=== PATIENT | male | born 1935 | race Caucasian/White ===

== ENCOUNTER 2016-04-29 08:31 | Inpatient (IN) | payer MEDICARE ==
--- NOTE | 2016-04-29 09:22 | ED ---
General Adult HPI - General Chief complaint: Syncope Stated complaint: syncope Time Seen by Provider: 04/29/16 08:35 Source: patient, RN notes reviewed Mode of arrival: EMS Limitations: altered mental status, physical limitation - History of Present Illness Initial comments: This is a 80-year-old male who presents emergency Department complaining of having diarrhea for the last few days. Patient states she's been eating normally. Patient states he got up transfer from his walker to a chair he was a little bit shaky and he fell over and hit his head according to family at that point in time he was passed out for about 2 minutes. Patient woke up and vomited. Patient currently denies any headache denies numbness weakness he denies any neck pain he denies any nausea he did however receive Zofran in the ambulance. Patient denies any chest pain or palpitations. Patient denies any difficulty breathing shortness of breath. Patient denies any abdominal pain. Patient denies any hip pain or lower extremity pain. Currently patient's only complaint is that he is tired - Related Data Home Medications Medication Instructions Recorded Confirmed Amitriptyline HCl [Elavil] 10 mg PO HS 04/29/16 04/29/16 Aspirin EC [Ecotrin Low Dose] 81 mg PO HS 04/29/16 04/29/16 Clopidogrel [Plavix] 75 mg PO DAILY 04/29/16 04/29/16 Ergocalciferol (Vitamin D2) 50,000 unit PO FR 04/29/16 04/29/16 [Vitamin D2] Escitalopram [Lexapro] 20 mg PO DAILY 04/29/16 04/29/16 Ferrous Sulfate [Feosol] 325 mg PO DAILY 04/29/16 04/29/16 Furosemide [Lasix] 20 mg PO DAILY 04/29/16 04/29/16 Insulin Aspart [NovoLOG Flexpen] 6 units SQ 04/29/16 04/29/16 Insulin Glargine,Hum.rec.anlog 50 unit SQ 04/29/16 04/29/16 [Lantus Solostar] Levofloxacin [Levaquin] 500 mg PO DAILY 04/29/16 04/29/16 Levothyroxine Sodium [Synthroid] 100 mcg PO DAILY 04/29/16 04/29/16 Lisinopril [Zestril] 20 mg PO DAILY 04/29/16 04/29/16 Metoprolol Tartrate [Lopressor] 50 mg PO BID 04/29/16 04/29/16 Multivitamins, Thera [Multivitamin] 1 tab PO DAILY 04/29/16 04/29/16 Omeprazole [PriLOSEC] 20 mg PO AC-BRKFST 04/29/16 04/29/16 Allergies Allergy/AdvReac Type Severity Reaction Status Date / Time No Known Allergies Allergy Verified 04/29/16 09:12 Review of Systems ROS Statement: Those systems with pertinent positive or pertinent negative responses have been documented in the HPI. ROS Other: All systems not noted in ROS Statement are negative. Past Medical History Past Medical History: Heart Failure, Diabetes Mellitus, GERD/Reflux, Hypertension, Pneumonia, Syncope, Thyroid Disorder History of Any Multi-Drug Resistant Organisms: Unobtainable Past Surgical History: Coronary Bypass/CABG Past Psychological History: No Psychological Hx Reported Smoking Status: Unknown if ever smoked Past Alcohol Use History: Unable to Obtain Past Drug Use History: Unable to Obtain General Exam - General Exam Comments Initial Comments: GENERAL: Patient is well-developed and well-nourished. Patient is nontoxic and well- hydrated and is in no acute distress. ENT: Neck is soft and supple. No significant lymphadenopathy is noted. Oropharynx is clear. Moist mucous membranes. Neck has full range of motion without eliciting any pain. EYES: The sclera were anicteric and conjunctiva were pink and moist. Extraocular movements were intact and pupils were equal round and reactive to light. Eyelids were unremarkable. PULMONARY: Unlabored respirations. Good breath sounds bilaterally. No audible rales rhonchi or wheezing was noted. CARDIOVASCULAR: There is a regular rate and rhythm without any murmurs gallops or rubs. ABDOMEN: Soft and nontender with normal bowel sounds. No palpable organomegaly was noted. There is no palpable pulsatile mass. SKIN: Skin is clear with no lesions or rashes and otherwise unremarkable. NEUROLOGIC: Patient is alert and oriented x3. Cranial nerves II through XII are grossly intact. Motor and sensory are also intact. Normal speech, volume and content. Symmetrical smile. MUSCULOSKELETAL: Normal extremities with adequate strength and full range of motion. No lower extremity swelling or edema. No calf tenderness. LYMPHATICS: No significant lymphadenopathy is noted PSYCHIATRIC: Normal psychiatric evaluation. Limitations: altered mental status, physical limitation Course Vital Signs 04/29/16 04/29/16 04/29/16 08:33 08:59 10:00 Temperature 97.2 F L Pulse Rate 80 75 Pulse Rate [ 63 [employer] ] Respiratory 18 18 Rate Blood Pressure 127/71 134/63 O2 Sat by Pulse 98 95 Oximetry 04/29/16 04/29/16 11:02 12:23 Temperature Pulse Rate 80 75 Pulse Rate [ [employer] ] Respiratory 18 16 Rate Blood Pressure 101/71 105/56 O2 Sat by Pulse 100 98 Oximetry Medical Decision Making - Medical Decision Making EKG shows sinus rhythm at 75 bpm. It was 254 QRS is 142 QT interval 476 QTC is 531 patient's EKG shows a right bundle branch block when compared to an old EKG there are no acute abnormalities noted CT of the brain and C-spine showed no acute abnormalities. Patient continues to feel weak when I go back and check on him. I spoke with Dr. Kurtz he agreed to admit the patient admitted the patient and wrote admitting orders - Lab Data Result diagrams: 04/29/16 08:51 04/29/16 08:51 Lab Results 04/29/16 04/29/16 04/29/16 Range/Units 08:51 08:51 08:51 WBC 13.7 H (3.8-10.6) k/uL RBC 4.06 L (4.30-5.90) m/uL Hgb 12.0 L (13.0-17.5) gm/dL Hct 36.5 L (39.0-53.0) % MCV 89.9 (80.0-100.0) fL MCH 29.5 (25.0-35.0) pg MCHC 32.8 (31.0-37.0) g/dL RDW 13.1 (11.5-15.5) % Plt Count 482 H (150-450) k/uL Neutrophils % 76 % Lymphocytes % 14 % Monocytes % 5 % Eosinophils % 2 % Basophils % 1 % Neutrophils # 10.4 H (1.3-7.7) k/uL Lymphocytes # 1.9 (1.0-4.8) k/uL Monocytes # 0.7 (0-1.0) k/uL Eosinophils # 0.2 (0-0.7) k/uL Basophils # 0.1 (0-0.2) k/uL PT (9.0-12.0) sec INR (<1.1) APTT (22.0-30.0) sec Sodium 141 (137-145) mmol/L Potassium 4.1 (3.5-5.1) mmol/L Chloride 102 (98-107) mmol/L Carbon Dioxide 21 L (22-30) mmol/L Anion Gap 18 mmol/L BUN 33 H (9-20) mg/dL Creatinine 2.07 H (0.66-1.25) mg/dL Est GFR (MDRD) Af Amer 38 (>60 ml/min/1.73 sqM) Est GFR (MDRD) Non-Af 31 (>60 ml/min/1.73 sqM) Glucose 155 H (74-99) mg/dL Calcium 8.5 (8.4-10.2) mg/dL Magnesium 1.2 L (1.6-2.3) mg/dL Total Bilirubin 0.6 (0.2-1.3) mg/dL AST 26 (17-59) U/L ALT 38 (21-72) U/L Alkaline Phosphatase 77 (38-126) U/L Total Creatine Kinase 56 (55-170) U/L CK-MB (CK-2) 1.5 (0.0-2.4) ng/mL CK-MB (CK-2) Rel Index 2.7 Troponin I <0.012 (0.000-0.034) ng/mL Total Protein 6.6 (6.3-8.2) g/dL Albumin 3.5 (3.5-5.0) g/dL 04/29/16 Range/Units 08:51 WBC (3.8-10.6) k/uL RBC (4.30-5.90) m/uL Hgb (13.0-17.5) gm/dL Hct (39.0-53.0) % MCV (80.0-100.0) fL MCH (25.0-35.0) pg MCHC (31.0-37.0) g/dL RDW (11.5-15.5) % Plt Count (150-450) k/uL Neutrophils % % Lymphocytes % % Monocytes % % Eosinophils % % Basophils % % Neutrophils # (1.3-7.7) k/uL Lymphocytes # (1.0-4.8) k/uL Monocytes # (0-1.0) k/uL Eosinophils # (0-0.7) k/uL Basophils # (0-0.2) k/uL PT 11.8 (9.0-12.0) sec INR 1.2 (<1.1) APTT 24.4 (22.0-30.0) sec Sodium (137-145) mmol/L Potassium (3.5-5.1) mmol/L Chloride (98-107) mmol/L Carbon Dioxide (22-30) mmol/L Anion Gap mmol/L BUN (9-20) mg/dL Creatinine (0.66-1.25) mg/dL Est GFR (MDRD) Af Amer (>60 ml/min/1.73 sqM) Est GFR (MDRD) Non-Af (>60 ml/min/1.73 sqM) Glucose (74-99) mg/dL Calcium (8.4-10.2) mg/dL Magnesium (1.6-2.3) mg/dL Total Bilirubin (0.2-1.3) mg/dL AST (17-59) U/L ALT (21-72) U/L Alkaline Phosphatase (38-126) U/L Total Creatine Kinase (55-170) U/L CK-MB (CK-2) (0.0-2.4) ng/mL CK-MB (CK-2) Rel Index Troponin I (0.000-0.034) ng/mL Total Protein (6.3-8.2) g/dL Albumin (3.5-5.0) g/dL Disposition Clinical Impression: Syncope, Hypomagnesemia Disposition: ADMITTED IP TO THIS [facility] Time of Disposition: 12:35
[2016-04-29 09:39] LABS: Basophils # (A) 0.1 k/uL (0-0.2); Basophils % (A) 1 %; CH 30.5; Eosinophils # (A) 0.2 k/uL (0-0.7); Eosinophils % (A) 2 %; HCT 36.5 % (39.0-53.0); HDW 2.87; Luc # (Auto) 0.39; Luc % (Auto) 3; Lymphocytes # (A) 1.9 k/uL (1.0-4.8); Lymphocytes % (A) 14 %; MCH 29.5 pg (25.0-35.0); MCHC 32.8 g/dL (31.0-37.0); MCV 89.9 fL (80.0-100.0); Mean Platelet Volume 6.7; Monocytes # (A) 0.7 k/uL (0-1.0); Monocytes % (A) 5 %; Neutrophils # (A) 10.4 k/uL (1.3-7.7); Neutrophils % (A) 76 %; RBC 4.06 m/uL (4.30-5.90); RDW 13.1 % (11.5-15.5); WBC 13.7 k/uL (3.8-10.6); WBC (Perox) 14.57
[2016-04-29 09:47] LABS: INR 1.2 (<1.1); Partial Thromboplastin Time 24.4 sec (22.0-30.0); Prothrombin Time 11.8 sec (9.0-12.0)
[2016-04-29 09:53] LABS: Calcium 8.5 mg/dL (8.4-10.2); Magnesium 1.2 mg/dL (1.6-2.3); Potassium 4.1 mmol/L (3.5-5.1); Total Bilirubin 0.6 mg/dL (0.2-1.3); Total Protein 6.6 g/dL (6.3-8.2)
[2016-04-29 10:12] LABS: Creatine Kinase 56 U/L (55-170)
[2016-04-29 10:22] LABS: Creatine Kinase MB 1.5 ng/mL (0.0-2.4); Troponin I <0.012 ng/mL (0.000-0.034)
--- NOTE | 2016-04-29 10:35 | CT ---
EXAMINATION TYPE: CT brain gayle wo con DATE OF EXAM: 04/29/2016 9:58 AM COMPARISON: 08/20/2013 HISTORY: Patient poor historian. Patient had syncopeal fall. CT DLP: 1389.5 mGycm, Automated exposure control for dose reduction was used. CONTRAST: None CT of the brain is performed utilizing 3 mm thick sections through the posterior fossa and 3 mm thick sections through the remaining calvarium. Study is performed within 24 hours of arrival to the hospital. No abnormal hyperdensity is present to suggest an acute intracranial hemorrhage. No mass lesion is evident. No acute infarcts are evident. Periventricular white matter hypodensity is present compatible with c hronic white matter ischemic changes. [place] infarct is present on the right parietal-occipita l region. This is old. Ventricles and sulci are prominent for the patient age. Paranasal sinuses and mastoid air cells within the [id number] are clear. IMPRESSIONS: 1. Normal CT brain. CT cervical spine. COMPARISON: None CT of the cervical spine is performed in the axial plane at 2 mm thick sections. Reconstructed image s in the coronal, and sagittal plane are reviewed on the computer. No acute fractures are evident. There is straightening of the cervical spine. Endplate spurring is present C3-C4 with moderate anterior thecal sac compression. Foraminal stenosis is present bilaterally. Mild foraminal narrowing from uncovertebral joint hypertrophy is present C4-C 5. Uncovertebral joint hypertrophy is moderate foraminal narrowing C6-C7 on the left. Diffuse loss of disc height is present throughout the cervical spine. Vertebral body heights are preserved. No spinal canal stenosis is evident. Some central disc bulging may be present C4-C5 with moderate anterior thecal sac compression borderli ne spinal canal narrowing may be present. C5-6 endplate spurring is in the left paracentral region IMPRESSIONS: 1. Degenerative disc changes. 2. Foraminal narrowing upper cervical spine discussed above. 3. Endplate spurring with some mild to moderate anterior thecal sac compression at C3-C4. 4. Central disc bulging C4-5 with moderate anterior thecal sac compression and spinal canal narrowing
--- NOTE | 2016-04-29 11:56 | XR ---
EXAMINATION TYPE: XR chest 2V DATE OF EXAM: 04/29/2016 11:28 AM COMPARISON: Prior chest x-ray 23 April 2016 HISTORY: Shortness of breath and chest pain TECHNIQUE: Frontal and lateral views of the chest are obtained on 3 images. FINDINGS: There is no focal air space opacity, pleural effusion, or pneumothorax seen. The cardiac silhouette size is within normal limits. Surgical clips in the right upper abdomen. Patient is post m edian sternotomy. Patient is rotated and there are overlying cardiac leads. Persistent elevation of t he left hemidiaphragm. The osseous structures are intact. IMPRESSION: No acute cardiopulmonary process.
[2016-04-29] MEDS ORDERED: SODIUM CHLORIDE 0.9% 1,000 ML IV ONE (12:35)
[2016-04-29] MEDS ORDERED: MAGNESIUM SULFATE-D5W PMX 1 GM in DEXTROSE/WATER 1 100ML.BAG IVPB ONE (12:47)
[2016-04-29 17:32] LABS: Glucose,Whole Blood 136 mg/dL (75-99)
[2016-04-29] MEDS: INSULIN LISPRO (humaLOG) 300 UNIT/3 ML VIAL SQ SCH ×2 (18:16→20:38)
[2016-04-29 20:38] LABS: Glucose,Whole Blood 125 mg/dL (75-99)
[2016-04-29] MEDS: INSULIN GLARGINE 100 UNIT/ML 10 ML VIAL SQ SCH (20:46)
[2016-04-29] MEDS: AMITRIPTYLINE HCL 10 MG TAB PO SCH (20:47)
[2016-04-29] MEDS: METOPROLOL TARTRATE 50 MG TAB PO SCH (20:47)
[2016-04-29] MEDS: ASPIRIN 81 MG CHEW PO SCH (20:47)
[2016-04-30] MEDS: LEVOTHYROXINE 100 MCG TAB PO SCH (05:58)
[2016-04-30 07:33] LABS: Glucose,Whole Blood 113 mg/dL (75-99)
[2016-04-30] MEDS: INSULIN LISPRO (humaLOG) 300 UNIT/3 ML VIAL SQ SCH ×4 (08:32→22:35)
[2016-04-30] MEDS: PANTOPRAZOLE 40 MG TABLET PO SCH (09:05)
[2016-04-30] MEDS: METOPROLOL TARTRATE 50 MG TAB PO SCH ×2 (09:05→22:34)
[2016-04-30] MEDS: CLOPIDOGREL 75 MG TAB PO SCH (09:05)
[2016-04-30] MEDS: LISINOPRIL 20 MG TAB PO SCH (09:05)
[2016-04-30] MEDS: FUROSEMIDE 20 MG TAB PO SCH (09:05)
[2016-04-30] MEDS: ESCITALOPRAM 20 MG TAB PO SCH (09:06)
[2016-04-30 10:28] LABS: Hemoglobin A1C 7.3 % (4.2-6.1)
[2016-04-30 11:15] LABS: Glucose,Whole Blood 122 mg/dL (75-99)
[2016-04-30] MEDS: MULTIVITAMINS, THERA 1 EACH TAB PO SCH (12:35)
[2016-04-30] MEDS: FERROUS SULFATE 325 MG TAB PO SCH (12:35)
[2016-04-30 13:02] LABS: Basophils # (A) 0.1 k/uL (0-0.2); Basophils % (A) 1 %; CH 29.9; Eosinophils # (A) 0.3 k/uL (0-0.7); Eosinophils % (A) 3 %; HCT 31.1 % (39.0-53.0); HDW 2.77; HGB 10.2 gm/dL (13.0-17.5); Hypochromasia Slight; Luc % (Auto) 3; Lymphocytes # (A) 1.9 k/uL (1.0-4.8); Lymphocytes % (A) 20 %; MCH 30.6 pg (25.0-35.0); MCHC 32.7 g/dL (31.0-37.0); MCV 93.7 fL (80.0-100.0); Mean Platelet Volume 7.2; Monocytes # (A) 0.6 k/uL (0-1.0); Monocytes % (A) 7 %; Neutrophils # (A) 6.5 k/uL (1.3-7.7); Neutrophils % (A) 67 %; RBC 3.32 m/uL (4.30-5.90); WBC 9.7 k/uL (3.8-10.6); WBC (Perox) 10.54
--- NOTE | 2016-04-30 13:03 | P.HPIM ---
History of Present Illness H&P Date: 04/30/16 Chief Complaint: Vomiting and diarrhea Patient is a 80-year-old male who presented to [facility] emergency room due to episodes of vomiting and diarrhea, subsequently patient had an episode of syncope where he fell to the floor family states that he subsequently hit his head, he was unconscious for about 2 minutes per family report to emergency room, he regained consciousness spontaneously, he was evaluated in the emergency room including computed tomography scan of the brain which failed to revealed any evidence of acute intracranial bleeding. Patient had evidence of dehydration he was admitted to medical floor for further evaluation and treatment. Patient has a known history of peripheral vascular disease he has been evaluated by Dr. Gutierrez he was scheduled to have vascular surgery on his lower extremity on Thursday. Past Medical History Past Medical History: Coronary Artery Disease (CAD), Heart Failure, Diabetes Mellitus, GERD/Reflux, Hypertension, Osteoarthritis (OA), Pneumonia, Syncope, Thyroid Disorder, Vascular Disorder Additional Past Medical History / Comment(s): Family states pt recently hospitalized for pneumonia. Pt currently has a sore on his R foot's great toe. 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 History of Any Multi-Drug Resistant Organisms: None Reported Past Surgical History: Cholecystectomy, Coronary Bypass/CABG, Heart Catheterization Additional Past Surgical History / Comment(s): Recent angiogram. Past Anesthesia/Blood Transfusion Reactions: No Reported Reaction Past Psychological History: Depression Additional Psychological History / Comment(s): Pt resides with his daughter and son-in-law. He uses a walker to ambulate. He no longer drives. His daughter manages his medication and takes him to appts. Smoking Status: Never smoker Past Alcohol Use History: None Reported Past Drug Use History: None Reported - Past Family History Father Additional Family Medical History / Comment(s): Father committed suicide. Medications and Allergies Home Medications Medication Instructions Recorded Confirmed Type Amitriptyline HCl [Elavil] 10 mg PO HS 04/29/16 04/29/16 History Aspirin EC [Ecotrin Low Dose] 81 mg PO HS 04/29/16 04/29/16 History Clopidogrel [Plavix] 75 mg PO DAILY 04/29/16 04/29/16 History Ergocalciferol (Vitamin D2) 50,000 unit PO FR 04/29/16 04/29/16 History [Vitamin D2] Escitalopram [Lexapro] 20 mg PO DAILY 04/29/16 04/29/16 History Ferrous Sulfate [Feosol] 325 mg PO DAILY 04/29/16 04/29/16 History Furosemide [Lasix] 20 mg PO DAILY 04/29/16 04/29/16 History Insulin Aspart [NovoLOG Flexpen] 6 units SQ HS 04/29/16 04/29/16 History Insulin Glargine,Hum.rec.anlog 50 unit SQ HS 04/29/16 04/29/16 History [Lantus Solostar] Levofloxacin [Levaquin] 500 mg PO DAILY 04/29/16 04/29/16 History Levothyroxine Sodium [Synthroid] 100 mcg PO DAILY 04/29/16 04/29/16 History Lisinopril [Zestril] 20 mg PO DAILY 04/29/16 04/29/16 History Metoprolol Tartrate [Lopressor] 50 mg PO BID 04/29/16 04/29/16 History Multivitamins, Thera [Multivitamin] 1 tab PO DAILY 04/29/16 04/29/16 History Omeprazole [PriLOSEC] 20 mg PO AC-BRKFST 04/29/16 04/29/16 History Allergies Allergy/AdvReac Type Severity Reaction Status Date / Time No Known Allergies Allergy Verified 04/29/16 09:12 Physical Exam Vitals: Vital Signs Temp Pulse Pulse Pulse Resp BP BP 04/30/16 07:00 97.9 F 67 20 122/57 04/29/16 22:50 98 F 74 16 119/59 04/29/16 16:34 97.6 F 73 16 137/68 04/29/16 13:02 97.0 F L 72 16 108/56 Pulse Ox 04/30/16 07:00 96 04/29/16 22:50 93 L 04/29/16 16:34 99 04/29/16 13:02 98 Intake and Output 04/29/16 04/30/16 04/30/16 22:59 06:59 14:59 Intake Total 150 540 Output Total 700 Balance 150 -160 Intake: IV 150 Sodium Chloride 0.9% 1, 150 000 ml @ 75 mls/hr IV . [id number] ONE Rx#:[id number] Oral 540 Output: Urine 700 Other: Voiding Method Diaper Diaper # Voids 1 Weight 99 kg In general patient is alert responsive he is answering questions appropriately he is very hard of hearing HEENT head normocephalic and atraumatic Neck is supple no JVD no goiter no lymphadenopathy Chest exam reveals a few scattered rhonchi no wheezing Cardiac exam reveals regular heart sounds S1 and S2 no gallops no murmurs Abdomen is soft nontender no organomegaly with normal bowel sounds Extremity exam reveals no edema no cyanosis or clubbing there is an ulcer on the right foot, which was present on the previous admission. Neurological examination reveals no focal deficit Results CBC & Chem 7: 04/29/16 08:51 04/29/16 08:51 Labs: Abnormal Lab Results - Last 24 Hours (Table) 04/29/16 04/29/16 04/30/16 Range/Units 17:26 20:26 07:20 POC Glucose (mg/dL) 136 H 125 H 113 H (75-99) mg/dL Hemoglobin A1c (4.2-6.1) % 04/30/16 04/30/16 Range/Units 07:48 11:12 POC Glucose (mg/dL) 122 H (75-99) mg/dL Hemoglobin A1c 7.3 H (4.2-6.1) % Thrombosis Risk Factor Assmnt - Choose All That Apply Any of the Below Risk Factors Present?: Yes Each Factor Represents 1 point: Obesity (BMI >25) Other Risk Factors: Yes Each Risk Factor Represents 3 Points: Age 75 years or older Other congenital or acquired thrombophilia - If yes, enter type in comment: No Thrombosis Risk Factor Assessment Total Risk Factor Score: 4 Thrombosis Risk Factor Assessment Level: Moderate Risk Assessment and Plan Plan: #1 episodes of vomiting and diarrhea now resolved, possible gastroenteritis will monitor closely, will obtain ultrasound of the abdomen. #2 syncope was loss of consciousness, with fall and head trauma, likely related to vomiting diarrhea and dehydration, will obtain echocardiogram and carotid Doppler to rule out any further pathology, Will consult cardiology in that regard to syncope and for surgical clearance patient is scheduled for vascular surgery on his right lower extremity on Thursday. #3 peripheral vascular disease patient was evaluated on previous admission by Dr. Gutierrez. #4 right foot ulcer #5 underlying history of insulin-dependent diabetes mellitus #6 underlying history of hypertension #7 underlying history of anemia #8 underlying history of chronic kidney disease creatinine on admission around 2 Medication and labs were reviewed will add Lovenox for DVT prophylaxis will follow closely during this admission Cardiology consult was requested Dr. Gutierrez will follow and he is hoping to keep date for of surgery on Thursday if patient is cleared for surgery.
[2016-04-30 13:07] LABS: Calcium 8.2 mg/dL (8.4-10.2); Potassium 3.8 mmol/L (3.5-5.1); Total Bilirubin 0.4 mg/dL (0.2-1.3); Total Protein 5.7 g/dL (6.3-8.2)
--- NOTE | 2016-04-30 16:14 | US ---
EXAMINATION TYPE: US carotid duplex BILAT DATE OF EXAM: 04/30/2016 1:40 PM COMPARISON: NONE CLINICAL HISTORY: syncope. EXAM MEASUREMENTS: RIGHT: Peak Systolic Velocity (PSV) cm/sec ----- Right CCA: 60.2 ----- Right ICA: 84.8 ----- Right ECA: 50.3 ICA/CCA ratio: 1.4 RIGHT: End Diastole cm/sec ----- Right CCA: 15.9 ----- Right ICA: 19.2 ----- Right ECA: 0.0 LEFT: Peak Systolic Velocity (PSV) cm/sec ----- Left CCA: 83.3 ----- Left ICA: 72.9 ----- Left ECA: 84.7 ICA/CCA ratio: 0.9 LEFT: End Diastole cm/sec ----- Left CCA: 0.0 ----- Left ICA: 15.4 ----- Left ECA: 0.0 VERTEBRALS (direction of flow): Right Vertebral: Antegrade Left Vertebral: Antegrade TECHNOLOGIST IMPRESSION: Tortuous vessels on the right, left side shows no significant velocity incr ease, however left ICA velocities at mid and distal are quite low and there is only thready flow seen here. IMPRESSION: Thready flow in the left ICA may represent a near occlusion. Further follow-up with CTA or MRA of the neck would be suggested. Criteria for Assigning % of Stenosis / Diameter reduction (Estimation based on the indirect measurements of the internal carotid artery velocities (ICA PSV). 1. Normal (no stenosis)=ICA PSV < 125 cm/s: ratio < 2.0: ICA EDV<40 cm/s. 2. Less than 50% stenosis=ICA PSV < 125 cm/s: ratio < 2.0: ICA EDV<40 cm/s. 3. 50 to 69% stenosis=ICA PSV of 125 to 230 cm/s: ration 2.0 ? 4.0: ICA EDV 40-100 cm/s. 4. Greater than 70% stenosis to near occlusion= ICA PSV > 230 cm/s: ratio > 4.0: ICA EDV > 100 cm/s. 5. Near occlusion= ICA PSV velocities may be low or undetectable: variable ratio and ICA EDV. 6. Total occlusion=unable to detect flow.
[2016-04-30 17:12] LABS: Glucose,Whole Blood 150 mg/dL (75-99)
[2016-04-30] MEDS: ENOXAPARIN 40 MG/0.4 ML SYRINGE SQ SCH (17:56)
[2016-04-30 21:16] LABS: Glucose,Whole Blood 140 mg/dL (75-99)
[2016-04-30] MEDS: ASPIRIN 81 MG CHEW PO SCH (22:35)
[2016-04-30] MEDS: AMITRIPTYLINE HCL 10 MG TAB PO SCH (22:35)
[2016-04-30] MEDS: INSULIN GLARGINE 100 UNIT/ML 10 ML VIAL SQ SCH (22:35)
[2016-05-01] MEDS: LEVOTHYROXINE 100 MCG TAB PO SCH (05:46)
[2016-05-01 07:59] LABS: Basophils # (A) 0.1 k/uL (0-0.2); Basophils % (A) 1 %; CH 30.4; CHCM 33.2; Eosinophils # (A) 0.3 k/uL (0-0.7); Eosinophils % (A) 3 %; HCT 31.7 % (39.0-53.0); HDW 2.81; HGB 10.1 gm/dL (13.0-17.5); Luc # (Auto) 0.28; Luc % (Auto) 3; Lymphocytes # (A) 2.2 k/uL (1.0-4.8); Lymphocytes % (A) 23 %; MCH 29.4 pg (25.0-35.0); MCHC 31.9 g/dL (31.0-37.0); MCV 92.2 fL (80.0-100.0); Mean Platelet Volume 7.6; Monocytes # (A) 0.6 k/uL (0-1.0); Monocytes % (A) 7 %; Neutrophils # (A) 6.3 k/uL (1.3-7.7); Neutrophils % (A) 64 %; RBC 3.44 m/uL (4.30-5.90); RDW 12.9 % (11.5-15.5); WBC 9.8 k/uL (3.8-10.6); WBC (Perox) 10.57
[2016-05-01 08:13] LABS: Glucose,Whole Blood 99 mg/dL (75-99)
[2016-05-01 08:13] LABS: Calcium 8.7 mg/dL (8.4-10.2); Potassium 4.4 mmol/L (3.5-5.1); Total Bilirubin 0.4 mg/dL (0.2-1.3); Total Protein 5.9 g/dL (6.3-8.2)
[2016-05-01] MEDS: INSULIN LISPRO (humaLOG) 300 UNIT/3 ML VIAL SQ SCH ×4 (08:32→20:53)
[2016-05-01] MEDS: PANTOPRAZOLE 40 MG TABLET PO SCH (08:34)
[2016-05-01] MEDS: ENOXAPARIN 40 MG/0.4 ML SYRINGE SQ SCH (08:34)
[2016-05-01] MEDS: ESCITALOPRAM 20 MG TAB PO SCH (08:34)
[2016-05-01] MEDS: CLOPIDOGREL 75 MG TAB PO SCH (08:34)
[2016-05-01] MEDS: FUROSEMIDE 20 MG TAB PO SCH (08:35)
[2016-05-01] MEDS: METOPROLOL TARTRATE 50 MG TAB PO SCH ×2 (08:35→20:53)
[2016-05-01] MEDS: LISINOPRIL 20 MG TAB PO SCH (08:35)
--- NOTE | 2016-05-01 08:59 | US ---
EXAMINATION TYPE: US abdomen complete DATE OF EXAM: 05/01/2016 7:50 AM COMPARISON: NONE CLINICAL HISTORY: Nausea/Vomiting. EXAM MEASUREMENTS: Liver Length: 17.1 cm Gallbladder Wall: Surgically Absent CBD: 0.4 cm Spleen: 11.8 cm Right Kidney: 11.1 x 5.4 x 4.7 cm Left Kidney: 11.6 x 5.4 x 5.2 cm ANATOMY: Pancreas: Not seen d/t overlying bowel gas. Liver: Partially obscured by bowel gas. Fatty liver with increased echogenicity. ? cyst adjacent to GB fossa = 2.8 x 2.0 x 1.8 cm Gallbladder: Surgically Absent Evidence for sonographic Walker's sign: No CBD: wnl Spleen: Difficult to evaluate d/t overlying bowel gas Right Kidney: wnl Left Kidney: 3 cysts seen:Medial Mid = 1.2 x 0.9 x 1.1 cm, Medial/lower = 2.2 x 2.2 x 2.2 cm, Medial /Mid = 1.2 x 0.8 x 1.1 cm Upper IVC: Difficult to evaluate d/t overlying bowel gas Abd Aorta: Partially obscured by bowel gas. No obvious AAA The liver is heterogenous compatible with fatty liver. Cyst noted adjacent to the gallbladder fossa. The intrahepatic portion of the IVC and proximal abdominal aorta are within normal limits. There is no evidence of cholelithiasis. Common bile duct is unremarkable. The spleen is difficult to visuali ze as is the pancreas. Kidneys are symmetric and free of hydronephrosis. Bilateral renal cystic lesio ns as detailed above.. IMPRESSION: 1. Fatty liver. 2. Simple cyst of the liver. 3. Bilateral renal cysts. Normal Values: Liver Length: < 16cm wnl, 17-18cm upper limits, >18cm enlarged Spleen Length = < 13cm Renal Length = 9 - 12cm GB Wall: < 0.3cm CBD: < 0.6cm or < 1.0cm post cholecystectomy
--- NOTE | 2016-05-01 10:18 | ECHOF ---
Referral Reason:syncope MEASUREMENTS -------- HEIGHT: 177.8 cm WEIGHT: 98.9 kg BP: 122/57 RVIDd: 3.4 cm (< 3.3) IVSd: 1.0 cm (0.6 - 1.1) LVIDd: 5.1 cm (3.9 - 5.3) LVPWd: 1.1 cm (0.6 - 1.1) IVSs: 1.4 cm LVIDs: 3.1 cm LVPWs: 1.6 cm LA Diam: 4.0 cm (2.7 - 3.8) LAESV Index (A-L): 22.22 ml/m Ao Diam: 3.8 cm (2.0 - 3.7) AV Cusp: 2.2 cm (1.5 - 2.6) MV EXCURSION: 22.907 mm (> 18.000) MV EF SLOPE: 108 mm/s (70 - 150) EPSS: 2.3 cm MV E Myron: 0.74 m/s MV DecT: 171 ms MV A Myron: 0.48 m/s MV E/A Ratio: 1.55 FINDINGS -------- Sinus rhythm. This was a technically adequate study. The left ventricular size is normal. There is borderline concentric left ventricular hypertrophy. Overall left ventricular systolic function is normal with, an EF between 55 - 60 %. The right ventricle is mildly enlarged. The left atrium is normal in size. Normal LA size by volume 22+/-6 ml/m2. The right atrium is normal in size. Aortic valve is trileaflet and is mildly thickened. The mitral valve leaflets are mildly thickened. Mild mitral annular calcification present. Mild mitral regurgitation is present. The tricuspid valve appears structurally normal. The pulmonic valve is normal. There is no pulmonic regurgitation present. The aortic root is dilated measuring 3.8cm. There is no pericardial effusion. CONCLUSIONS -------- 1. Sinus rhythm. 2. The mitral valve leaflets are mildly thickened. 3. Mild mitral annular calcification present. 4. Mild mitral regurgitation is present. 5. The tricuspid valve appears structurally normal. 6. The pulmonic valve is normal. 7. The aortic root is dilated measuring 3.8cm. 8. There is no pericardial effusion. 9. This was a technically adequate study. 10. The left ventricular size is normal. 11. There is borderline concentric left ventricular hypertrophy. 12. Overall left ventricular systolic function is normal with, an EF between 55 - 60 %. 13. The right ventricle is mildly enlarged. 14. Normal LA size by volume 22+/-6 ml/m2. 15. The right atrium is normal in size. 16. Aortic valve is trileaflet and is mildly thickened. BRICK [employer] BLOCK MAKER: Yoko Sandy RDCS
--- NOTE | 2016-05-01 10:46 | P.PN ---
Subjective Is a 80-year-old who presented with vomiting and diarrhea. Found to be dehydrated. Also had a syncopal episode. Vomiting diarrhea has resolved. Awaiting evaluation by Dr. Gutierrez infectious disease and cardiology. Patient sitting up in bed comfortably. Denies any pain. Denies any chest pain or shortness of breath. Denies a nausea vomiting. No further diarrhea. Asking when he can eat. Denies any difficulty urinating. Objective - Vital Signs Vital signs: Vital Signs Temp 98 F 05/01/16 07:00 Pulse 65 05/01/16 07:00 Resp 16 05/01/16 07:00 BP 122/66 05/01/16 07:00 Pulse Ox 94 L 05/01/16 07:00 Intake & Output 04/30/16 05/01/16 05/01/16 18:59 06:59 18:59 Intake Total 240 Output Total 150 Balance -150 240 Weight 103 kg Intake: Oral 240 Output: Urine 150 Other: Voiding Method Diaper Diaper Diaper # Voids 2 4 - Exam Head normocephalic Neck supple Lungs clear to auscultation bilaterally no wheezing or crackles Heart regular rate and rhythm S1-S2, no rub or gallop Abdomen is soft nontender nondistended positive bowel sounds no hepatosplenomegaly Extremities no edema. Gangrene on right great toe Neuro alert and orientated to 3 - Labs CBC & Chem 7: 05/01/16 07:15 05/01/16 07:15 Labs: Abnormal Lab Results - Last 24 Hours (Table) 04/30/16 04/30/16 04/30/16 Range/Units 07:48 07:48 07:48 RBC 3.32 L (4.30-5.90) m/uL Hgb 10.2 L (13.0-17.5) gm/dL Hct 31.1 L (39.0-53.0) % BUN 25 H (9-20) mg/dL Creatinine 1.61 H (0.66-1.25) mg/dL Glucose 105 H (74-99) mg/dL POC Glucose (mg/dL) (75-99) mg/dL Hemoglobin A1c 7.3 H (4.2-6.1) % Calcium 8.2 L (8.4-10.2) mg/dL Magnesium (1.6-2.3) mg/dL Total Protein 5.7 L (6.3-8.2) g/dL Albumin 2.9 L (3.5-5.0) g/dL 04/30/16 04/30/16 04/30/16 Range/Units 11:12 17:10 21:02 RBC (4.30-5.90) m/uL Hgb (13.0-17.5) gm/dL Hct (39.0-53.0) % BUN (9-20) mg/dL Creatinine (0.66-1.25) mg/dL Glucose (74-99) mg/dL POC Glucose (mg/dL) 122 H 150 H 140 H (75-99) mg/dL Hemoglobin A1c (4.2-6.1) % Calcium (8.4-10.2) mg/dL Magnesium (1.6-2.3) mg/dL Total Protein (6.3-8.2) g/dL Albumin (3.5-5.0) g/dL 05/01/16 05/01/16 05/01/16 Range/Units 07:15 07:15 07:15 RBC 3.44 L (4.30-5.90) m/uL Hgb 10.1 L (13.0-17.5) gm/dL Hct 31.7 L (39.0-53.0) % BUN 25 H (9-20) mg/dL Creatinine 1.41 H (0.66-1.25) mg/dL Glucose (74-99) mg/dL POC Glucose (mg/dL) (75-99) mg/dL Hemoglobin A1c (4.2-6.1) % Calcium (8.4-10.2) mg/dL Magnesium 1.4 L (1.6-2.3) mg/dL Total Protein 5.9 L (6.3-8.2) g/dL Albumin 3.0 L (3.5-5.0) g/dL Assessment and Plan Plan: 1. Vomiting and diarrhea likely secondary to viral gastroenteritis. Has now resolved. Abdominal ultrasound showing no acute abnormalities. There is fatty liver. Simple cyst of the liver. Bilateral renal cysts. Infectious disease consulted 2. Syncope with fall and head trauma. Likely secondary to patient's dehydration with vomiting and diarrhea. Cardiology was consulted. Patient was also noted to have left internal carotid artery near occlusion. This also may contribute to his syncope. Echo shows EF of 55-60%. Computed tomography scan the brain was normal. 3. 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 We'll await evaluation by vascular surgery 4. Peripheral vascular disease with gangrene of the right great toe. Patient process scheduled for surgery tomorrow. Aspirin and Plavix just been put on hold. Awaiting cardiology evaluation for clearance for surgery 5. Acute on chronic kidney disease, stage IIIa. Continue with IV fluids normal saline at 50 mL an hour 6. Essential hypertension 7. Insulin-dependent diabetes mellitus: Continue with Lantus and sliding scale coverage 8. Hypothyroidism continue Synthroid DVT prophylaxis Lovenox
--- NOTE | 2016-05-01 11:21 | CONS ---
DATE OF CONSULTATION: 04/30/2016 Reason for consultation is nausea, vomiting and leukocytosis. HISTORY OF PRESENT ILLNESS: The patient is a 80-year-old male who has been brought into the ER after the patient apparently passed out at home. Patient apparently has a problem with vomiting and diarrhea that has been going on for a day or 2. Patient did have an episode of syncope where he fell to the ground and was down for about 2 minutes. He regained consciousness and was brought into the ER. Patient subsequently had a CT of the brain that was negative for any bleed. The patient also has a necrotic right big toe and a necrotic patch on his right foot lateral border for which the patient has been evaluated by Dr. Gutierrez and was scheduled to undergo surgery for the same on Thursday. Patient did have elevated white count of 13.4 on admission but no high-grade fever. I was asked to see the patient for further recommendation regarding antibiotic therapy. REVIEW OF SYSTEMS: CONSTITUTIONAL: Positive for weakness, but no high-grade fever. EYES: No complaint. ENT: No complaint. RESPIRATORY: No complaint. CARDIOVASCULAR: No complaint. GENITOURINARY: No complaint. GASTROINTESTINAL: As per HPI. MUSCULOSKELETAL: No complaint. INTEGUMENTARY: As per HPI. PSYCHOLOGIC: No complaint. ENDOCRINE: No complaint. NEUROLOGIC: No complaint. PAST MEDICAL HISTORY: Coronary artery disease, diabetes mellitus, gastroesophageal reflux disease, hypertension, osteoarthritis, pneumonia, syncope, peripheral arterial disease and depression. PAST SURGICAL HISTORY: Cholecystectomy, coronary artery bypass grafting, heart catheterization. SOCIAL HISTORY: No history of smoking, drinking or drug use. FAMILY HISTORY: Father committed suicide. ALLERGIES: No known drug allergies. Medications currently include the patient is on Elavil, aspirin, Plavix, Lovenox, Lexapro, iron sulfate, Lasix, Lantus, Humalog, Synthroid, Zestril, Lopressor, Theragran, and Protonix. On examination, blood pressure is 120/56 with a pulse of 71, temperature of 97.9 and no fever has been recorded. He is 94% on room air. General description is an elderly male, lying in bed in no distress. HEENT EXAMINATION: Slight pallor. There is no scleral icterus. Oral mucous membranes dry. NECK: Trachea central. There is no thyromegaly. LUNGS: Unlabored breathing. Clear to auscultation anteriorly. HEART: S1, S2, regular rate and rhythm. ABDOMEN: Soft, no tenderness. EXTREMITIES: No edema of the feet. Examination of the big toe with necrotic patch and seminecrotic patch on the lateral side of the right foot with no evidence of any cellulitis, though it has some foul smell though. SKIN EXAMINATION: No rash, no mass palpable. NEUROLOGICAL: Patient is awake, alert, oriented x3. Mood and affect normal. LABS: The patient did have admission white count 13.7, white count down to 9.7. Hemoglobin is 10.2 with a BUN of 25, creatinine 1.61. Blood culture has been obtained. DIAGNOSTIC IMPRESSION AND PLAN: 1. Patient with leukocytosis could have been more likely because of dehydration and hemoconcentration as patient also had elevated BUN and creatinine and hemoglobin that did drop to 10.2 today, though. Patient with no fever. He did have nausea, vomiting and diarrhea more likely from a gastroenteritis, questionably viral. However, the patient has been in the hospital with underlying Clostridium difficile and bacterial infection need to be ruled out. 2. Patient who has a necrotic patch on his right foot lateral bone, but no active cellulitis. PLAN: 1. Will recommend obtaining a stool for C. diff as well as stool culture. 2. Continue with IV fluid and hold on any empiric antibiotic therapy as the patient currently has nephrotoxic and low clinical suspicion for a bacterial infection. 3. Will follow up on the clinical condition and cultures to further adjust the medication if needed. Thank you for this consultation. Will follow this patient along with you. MICHELLE
[2016-05-01 11:59] LABS: Glucose,Whole Blood 130 mg/dL (75-99)
[2016-05-01] MEDS: MULTIVITAMINS, THERA 1 EACH TAB PO SCH (12:12)
[2016-05-01] MEDS: SODIUM CHLORIDE 0.9% 1,000 ML IV SCH (12:12)
[2016-05-01] MEDS: FERROUS SULFATE 325 MG TAB PO SCH (12:12)
[2016-05-01 17:05] LABS: Glucose,Whole Blood 165 mg/dL (75-99)
--- NOTE | 2016-05-01 18:05 | P.PN ---
Progress Note - Text Patient very well known to the service; seen for critical right leg ischemia with gangrene of the right great to and lateral aspect of the right 5th metatarsal head. Underwent arteriography that demonstrated severe right trifurcation disease with singel vessel runoff to the right foot via the peroneal that demonstrates a chronic occlusion with collateralization; there is reconstitution of the dorsalis pedis artery at the level of the malleolus A vein mapping performed in the office demonstrates a good quality saphenous vein noted throughout the right leg; the dorsalis pedis artery demonstrates areas that are not severely calcified proximally in the right foot. impression: 1. gangrene of the right foot with critical right leg ischemia 2. diabetes mellitus 3. Stage IIIb CKD 4. chronic anemia 5. CAD with CHF plan; 1. right popliteal to dorsalis pedis bypass and related procedures Risks and benefits of procedure were discussed with Mr. 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 Risks include cardiac and pulmonary complications, infection, bleeding, wound healing complication, graft thrombosis and restenosis requiring intervention, need for surveillance, poor wound healing in spite of all attempts at limb salvage with major amputation. Patient and his daughter understand risks and benefits of the procedure and are willing to have it performed. Scheduled on 05/02/2016. Orders written.
[2016-05-01] MEDS: INSULIN GLARGINE 100 UNIT/ML 10 ML VIAL SQ SCH (20:53)
[2016-05-01] MEDS: AMITRIPTYLINE HCL 10 MG TAB PO SCH (20:55)
[2016-05-01 21:08] LABS: Glucose,Whole Blood 131 mg/dL (75-99)
[2016-05-02] MEDS: SODIUM CHLORIDE 0.9% 1,000 ML IV SCH ×3 (06:20→21:30)
[2016-05-02] MEDS: LEVOTHYROXINE 100 MCG TAB PO SCH (06:24)
[2016-05-02] MEDS: ENOXAPARIN 40 MG/0.4 ML SYRINGE SQ SCH (07:31)
[2016-05-02] MEDS: PANTOPRAZOLE 40 MG TABLET PO SCH (07:31)
[2016-05-02] MEDS: INSULIN LISPRO (humaLOG) 300 UNIT/3 ML VIAL SQ SCH ×4 (07:31→23:10)
[2016-05-02] MEDS: METOPROLOL TARTRATE 50 MG TAB PO SCH ×2 (07:32→23:09)
[2016-05-02] MEDS: ESCITALOPRAM 20 MG TAB PO SCH (07:32)
[2016-05-02 07:47] LABS: Glucose,Whole Blood 126 mg/dL (75-99)
[2016-05-02 08:10] LABS: Basophils # (A) 0.1 k/uL (0-0.2); Basophils % (A) 1 %; CH 30.3; CHCM 32.9; Eosinophils # (A) 0.2 k/uL (0-0.7); Eosinophils % (A) 2 %; HCT 32.4 % (39.0-53.0); HDW 2.79; HGB 10.6 gm/dL (13.0-17.5); Luc # (Auto) 0.33; Luc % (Auto) 3; Lymphocytes # (A) 2.1 k/uL (1.0-4.8); Lymphocytes % (A) 21 %; MCH 30.2 pg (25.0-35.0); MCHC 32.7 g/dL (31.0-37.0); MCV 92.4 fL (80.0-100.0); Mean Platelet Volume 6.8; Monocytes # (A) 0.6 k/uL (0-1.0); Monocytes % (A) 6 %; Neutrophils # (A) 6.4 k/uL (1.3-7.7); Neutrophils % (A) 66 %; RBC 3.51 m/uL (4.30-5.90); RDW 13.1 % (11.5-15.5); WBC 9.8 k/uL (3.8-10.6); WBC (Perox) 10.48
[2016-05-02 08:19] LABS: Calcium 9.1 mg/dL (8.4-10.2); Potassium 4.7 mmol/L (3.5-5.1)
--- NOTE | 2016-05-02 09:47 | PN ---
DATE OF SERVICE: 05/01/2016 1. Reason for follow-up: Acute gastroenteritis . 2. Gangrene of his right big toe. INTERVAL HISTORY: The patient is afebrile. He is feeling better, denies any further nausea, vomiting or any diarrhea. no pain to the right big toe or any drainage. On examination, blood pressure is 123/60 with a pulse of 71, temperature 98.3. He is 94% on room air. General description is an elderly male, lying in bed in no distress. Respiratory system: Unlabored breathing. Clear to auscultation anteriorly. HEART: S1, S2. Regular rate and rhythm. Abdomen soft. No tenderness. Right foot wound dressed, no obvious drainage on the dressing. LABS: Hemoglobin is 10.1, white count 9.8, BUN of 25, creatinine 1.41. DIAGNOSTIC IMPRESSION AND PLAN: 1. Patient with acute gastroenteritis more likely viral etiology. subsequent resolution. No need for further workup of the same. 2. Patient with right big toe as well as right foot lateral border wound for surgery on empiric Vanco that will be continued watching skin infection closely. Continue supportive care. MICHELLE
--- NOTE | 2016-05-02 10:53 | P.PN ---
Subjective Is a 80-year-old who presented with vomiting and diarrhea. Found to be dehydrated. Also had a syncopal episode. Vomiting and diarrhea has resolved. Patient has peripheral vascular disease and gangrene of the right great toe. He is scheduled for right popliteal to dorsalis pedis bypass today. Denies any chest pain or shortness of breath. Denies a nausea vomiting. No further diarrhea. Denies any difficulty urinating. Objective - Vital Signs Vital signs: Vital Signs Temp 97.6 F 05/02/16 07:00 Pulse 70 05/02/16 07:00 Resp 20 05/02/16 07:00 BP 142/71 05/02/16 07:00 Pulse Ox 93 L 05/02/16 07:00 Intake & Output 05/01/16 05/02/16 05/02/16 18:59 06:59 18:59 Intake Total 750 Output Total 600 Balance 150 Weight 103 kg Intake: Intake, IV Titration 750 Amount Sodium Chloride 0.9% 1, 750 000 ml @ 50 mls/hr IV . Q20H [facility] Rx#:[id number] Output: Urine 600 Other: Voiding Method Diaper Diaper Diaper # Voids 2 - Exam Head normocephalic Neck supple Lungs clear to auscultation bilaterally no wheezing or crackles Heart regular rate and rhythm S1-S2, no rub or gallop Abdomen is soft nontender nondistended positive bowel sounds no hepatosplenomegaly Extremities no edema. Gangrene on right great toe Neuro alert and orientated to 3 - Labs CBC & Chem 7: 05/02/16 07:03 05/02/16 07:03 Labs: Abnormal Lab Results - Last 24 Hours (Table) 05/01/16 05/01/16 05/01/16 Range/Units 11:57 17:01 20:39 RBC (4.30-5.90) m/uL Hgb (13.0-17.5) gm/dL Hct (39.0-53.0) % BUN (9-20) mg/dL Creatinine (0.66-1.25) mg/dL Glucose (74-99) mg/dL POC Glucose (mg/dL) 130 H 165 H 131 H (75-99) mg/dL 05/02/16 05/02/16 05/02/16 Range/Units 07:03 07:03 07:44 RBC 3.51 L (4.30-5.90) m/uL Hgb 10.6 L (13.0-17.5) gm/dL Hct 32.4 L (39.0-53.0) % BUN 24 H (9-20) mg/dL Creatinine 1.44 H (0.66-1.25) mg/dL Glucose 130 H (74-99) mg/dL POC Glucose (mg/dL) 126 H (75-99) mg/dL Assessment and Plan Plan: 1. Vomiting and diarrhea likely secondary to viral gastroenteritis. Has now resolved. Abdominal ultrasound showing no acute abnormalities. There is fatty liver. Simple cyst of the liver. Bilateral renal cysts. Evaluated by infectious disease 2. Syncope with fall and head trauma. Likely secondary to patient's dehydration with vomiting and diarrhea. Cardiology was consulted. Patient was also noted to have left internal carotid artery near occlusion. This also may contribute to his syncope. Echo shows EF of 55-60%. Computed tomography scan the brain was normal. 3. 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 We'll await evaluation by vascular surgery 4. Peripheral vascular disease with gangrene of the right great toe. Patient scheduled for Mr. surgery today. Aspirin and Plavix on hold. Awaiting cardiology evaluation for clearance for surgery 5. Acute on chronic kidney disease, stage IIIa. Continue with IV fluids normal saline at 50 mL an hour 6. Essential hypertension 7. Insulin-dependent diabetes mellitus: Continue with Lantus and sliding scale coverage 8. Hypothyroidism continue Synthroid DVT prophylaxis Lovenox
[2016-05-02] MEDS ORDERED: IV FLUID CONTINUATION 1,000 ML IV ONE (11:19)
--- NOTE | 2016-05-02 11:20 | CDI ---
In responding to this query, please exercise your independent professional judgment. The [facility] Coding Staff and Clinical Documentation Specialists appreciate your assistance in clarifying documentation, maintaining compliance with coding guidelines, accurately documenting patients condition and capturing severity of illness. The fact that a question is asked does not imply that any particular answer is desired or expected. Communication forms are a method of clarifying documentation and are not made part of the Legal Health Record. Thank you in advance for your clarification. Last Revision, February 2015 [address] [facility] [place] [address] Documentation Clarification Form Date: 05/02/2016 11:11:00 AM From: Rhonda Hamm RN CCDS Admit Date: 04/29/2016 12:36:00 PM Patient Name: Les Schneider Visit Number: [id number] Dr. Tian Sloan/Mallory NOLASCO A diagnosis of anemia lacks specificity to accurately reflect your patients severity of condition and clarification is needed. Patient history/risk factors: "CKD stage 3, Coronary Artery Disease (CAD), Heart Failure, Diabetes Mellitus, GERD/Reflux, Hypertension, Osteoarthritis (OA), Pneumonia, Syncope, Thyroid Disorder, Vascular Disorder, Family states pt recently hospitalized for pneumonia. 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 Clinical Indicators: 05/01 Vascular Surgery Consult: "chronic anemia" Hemoglobin: 12/10.2/10.1/10.6 Hematocrit: 36.5/31.1/31.7/32.4 Treatment: Labs AM Daily Feosol 325 mg PO QD In order to capture the severity of condition, please clarify the type of anemia and etiology if known: Acute blood loss anemia Acute on chronic blood loss anemia Chronic blood loss anemia Iron deficiency anemia Hemolytic anemia Drug induced anemia Anemia due to malignancy Nutritional anemia Anemia of chronic kidney disease Unable to determine Other, please specify Please document in your progress notes and discharge summary in order to capture severity of illness and risk of mortality. Include clinical findings that support your diagnosis. FYI: Press F11 to launch patient chart. Place X here if this finding has no clinical significance, is not applicable or if you are not able to provide any additional documentation. MAURICED
--- NOTE | 2016-05-02 11:28 | CDI ---
In responding to this query, please exercise your independent professional judgment. The [facility] Coding Staff and Clinical Documentation Specialists appreciate your assistance in clarifying documentation, maintaining compliance with coding guidelines, accurately documenting patients condition and capturing severity of illness. The fact that a question is asked does not imply that any particular answer is desired or expected. Communication forms are a method of clarifying documentation and are not made part of the Legal Health Record. Thank you in advance for your clarification. Last Revision, June 2015 [address] [place] [address] Documentation Clarification Form Date: 05/02/2016 11:20:00 AM From: Rhonda Hamm RN, CCDS Admit Date: 04/29/2016 12:36:00 PM Patient Name: Les Schneider Visit Number: [id number] Dr. Tian Sloan/ Mallory NOLASCO History/Risk Factors: CKD stage 3, CAD DM2, Vascular disorder, carotid stenosis Clinical Indicators: 05/01 Vascular Consult: " VS/Pulse OX: "CAD with CHF." BNP: not done 04/30 Echocardiogram Results: EF 55-60% 04/29 Chest X Ray: - Treatment: Lasix 20 mg O QD Consults: Vascular In your professional opinion, can you please clarify the acuity and type of CHF if known? Acute Chronic Acute on Chronic AND Systolic Diastolic Systolic and Diastolic Cor Pulmonale (Right Sided HF w/ Pulmonary HTN) Unable to determine Other, please specify If known, please specify if Heart Failure is due to: Hypertension Rheumatic Fever Please document in your progress notes and discharge summary in order to capture severity of illness and risk of mortality. Include clinical findings that support your diagnosis. FYI: Press F11 to launch patient chart. Place X here if this finding has no clinical significance, is not applicable or if you are not able to provide any additional documentation. MICHELLE
[2016-05-02] MEDS ORDERED: LIDOCAINE 1% 20 ML VIAL (10MG/ML) FOR IV START INTRADERMA ONE (11:57)
[2016-05-02] MEDS ORDERED: VANCOMYCIN 1,000 MG in SODIUM CHLORIDE 0.9% 250 ML IVPB ONE (12:00)
[2016-05-02 12:02] LABS: Glucose,Whole Blood 119 mg/dL (75-99)
[2016-05-02] MEDS ORDERED: ROCURONIUM BROMIDE 10 MG/ML 10 ML VIAL IV ONE (13:06)
[2016-05-02] MEDS ORDERED: SODIUM CHLORIDE 0.9% 500 ML BAG ONE (13:06)
[2016-05-02] MEDS ORDERED: GLYCOPYRROLATE 0.2 MG/ML 2 ML VIAL ONE (13:06)
[2016-05-02] MEDS ORDERED: MIDAZOLAM 2 MG/2 ML VIAL ONE (13:06)
[2016-05-02] MEDS ORDERED: LACTATED RINGERS 1,000 ML BAG IV ONE (13:06)
[2016-05-02] MEDS ORDERED: HEPARIN SODIUM,PORCINE 10,000 UNIT/ML 1 ML VIAL ONE (13:06)
[2016-05-02] MEDS ORDERED: HEPARIN SODIUM,PORCINE 5,000 UNIT/ML 1 ML VIAL ONE ×2 (13:06)
[2016-05-02] MEDS ORDERED: SODIUM CHLORIDE 0.9% 100 ML BAG ONE (13:06)
[2016-05-02] MEDS ORDERED: PROPOFOL 10 MG/ML 20 ML VIAL IV ONE (13:06)
[2016-05-02] MEDS ORDERED: LIDOCAINE 1% INJ 10MG/ML (20 ML MDV) ONE (13:06)
[2016-05-02] MEDS ORDERED: ceFAZolin 1,000 MG VIAL ONE (13:06)
[2016-05-02] MEDS ORDERED: HEPARIN SODIUM 1,000 UNIT/ML VIAL ONE (13:06)
[2016-05-02] MEDS ORDERED: fentaNYL (PF) 50 MCG/ML 2 ML AMP ONE (13:06)
[2016-05-02] MEDS ORDERED: NEOSTIGMINE 1 MG/ML 10 ML VIAL ONE (13:06)
[2016-05-02] MEDS ORDERED: SODIUM CHLORIDE 0.9% 1,000 ML BAG ONE (13:06)
[2016-05-02] MEDS ORDERED: PROTAMINE SULFATE 10 MG/ML 5 ML VIAL IV ONE (13:06)
[2016-05-02] MEDS ORDERED: LACTATED RINGERS 1,000 ML IV ONE ×4 (13:42→18:28)
[2016-05-02] MEDS ORDERED: Magnesium Replacement Protocol 1 EACH MISC MISCELLANE PRN (13:50)
[2016-05-02] MEDS ORDERED: SODIUM CHLORIDE 0.9% 500 ML with HEPARIN SODIUM,PORCINE 5,000 UNIT IV ONE ×4 (14:27)
[2016-05-02] MEDS: FERROUS SULFATE 325 MG TAB PO SCH (15:22)
[2016-05-02] MEDS: MULTIVITAMINS, THERA 1 EACH TAB PO SCH (15:22)
--- NOTE | 2016-05-02 15:34 | CONS ---
DATE OF CONSULTATION: CONSULTATION AND PREOPERATIVE CLEARANCE This patient is a 80-year-old gentleman with known atherosclerotic heart disease, status post aortocoronary bypass surgery, history of diabetes mellitus, history of vascular disorders and gangrene, right great toe. Patient has poor circulation. Admitted to the hospital with questionable history of syncope, nausea, vomiting; appears to be vasovagal without any EKG changes. ( ) shows right bundle branch. Echocardiogram shows normal LV function. Patient denies any chest pain or pressure, orthopnea ( ) for non-invasive studies like Persantine, Cardiolite study and Lexiscan at a later time. Patient is a nonsmoker, diabetic for a long time. Patient denies any chest pain or pressure, orthopnea, paroxysmal nocturnal dyspnea. Patient also has a history of peripheral vascular disease, questionable history of CVA without any major residual deficits, past history of bypass surgery 10 years ago, cholecystectomy, heart catheterization. History of depression. Current medications prior to admission include: 1. Amitriptyline 10 mg p.o. daily. 2. Aspirin 81 mg p.o. daily. 3. Plavix 75 mg p.o. daily. 4. Vitamin D2 50,000 units weekly. 5. Lexapro 20 mg p.o. daily. 6. Ferrous sulfate 325 mg daily. 7. Furosemide 20 mg p.o. daily. 8. Insulin to scale. 9. Lisinopril 20 mg p.o. daily. 10. Metoprolol 50 mg p.o. b.i.d. 11. Omeprazole 20 mg p.o. daily. ALLERGIES: NONE MENTIONED. Physical examination revealed a well-developed, well-nourished 80-year-old gentleman, not in acute distress, oriented x3 with a pulse rate of 70 beats per minute and regular, blood pressure of 140/70 mmHg, respirations of 20. Head normocephalic. HEENT unremarkable. Neck is supple. No thyroid enlargement. No bruit noted. Good carotid upstroke bilaterally. Chest is symmetrical. CARDIAC EXAMINATION: Regular rate and rhythm. S1 and S2. Lungs are clinically to auscultation and percussion. ABDOMEN: Soft. No organomegaly. Active bowel sounds. EXTREMITIES: Peripheral pulses are decreased. Pedal pulses in the legs, especially with the gangrene of the right great toe, ischemic. EKG shows normal sinus rhythm, right bundle branch block. Patient also a creatinine that is elevated to 1.44 with normal potassium. ASSESSMENT: 1. Episode of nausea, vomiting with questionable syncope, most likely vasovagal. 2. Atherosclerotic heart disease, status post aortocoronary bypass with stable angina. 3. Peripheral vascular disease with poor circulation and gangrenous right great toe. 4. Right foot ulcers. 5. Diabetes mellitus. 6. Chronic renal failure. RECOMMENDATIONS: May proceed with surgery, considering patient's gangrenous great toe and ulcers on the right foot. Patient may be considered for a Lexiscan at a later time. Patient's LV function is well preserved. Patient carries a moderately increased risk on account of multiple medical problems.
[2016-05-02] MEDS ORDERED: GELATIN SPONGE,ABSORB (SMALL) 1 EACH SPONGE TOPICAL ONE (16:18)
[2016-05-02] MEDS ORDERED: THROMBIN (BOVINE) 5,000 UNIT VIAL TOPICAL ONE (16:27)
[2016-05-02] MEDS ORDERED: GELATIN SPONGE,ABSORB (LARGE) 1 EACH SPONGE TOPICAL ONE (16:29)
[2016-05-02] MEDS ORDERED: IOHEXOL 300 MG/ML 50 ML BOTTLE INJ ONE (16:52)
[2016-05-02] MEDS ORDERED: ceFAZolin 1,000 MG in SODIUM CHLORIDE 0.9% 1,000 ML IRRIGATION ONE (17:54)
[2016-05-02] MEDS ORDERED: BACITRACIN 500 UNIT/GM OINT 28.4 GM TUBE TOPICAL ONE (18:00)
[2016-05-02] MEDS ORDERED: HYDROmorphone 1 MG/ML 1 ML SYRINGE IVP ONE (19:08)
--- NOTE | 2016-05-02 19:45 | P.OP ---
Date of Procedure: 05/02/16 Preoperative Diagnosis: gangrene of right great toe Postoperative Diagnosis: same with critical right leg ischemia Procedure(s) Performed: right popliteal to dorsalis pedis bypass Anesthesia: DEBBYA Surgeon: Mone Grace Program Control Analyst #1: Raul Gutierrez Estimated Blood Loss (ml): 300 IV fluids (ml): 2,600 Urine output (ml): 960 Pathology: none sent Condition: stable Disposition: ICU Indications for Procedure: gangrene right great toe with critical right foot ischemia Operative Findings: calcified right popliteal artery Description of Procedure: dictated
[2016-05-02] MEDS ORDERED: ONDANSETRON 4 MG/2 ML VIAL IVP PRN (19:49)
[2016-05-02 19:53] LABS: Basophils # (A) 0.1 k/uL (0-0.2); Basophils % (A) 1 %; CH 29.9; CHCM 32.1; Eosinophils # (A) 0.2 k/uL (0-0.7); Eosinophils % (A) 1 %; HCT 30.4 % (39.0-53.0); HDW 2.83; HGB 9.8 gm/dL (13.0-17.5); Hypochromasia Slight; Luc # (Auto) 0.26; Luc % (Auto) 2; Lymphocytes # (A) 1.7 k/uL (1.0-4.8); Lymphocytes % (A) 12 %; MCH 30.2 pg (25.0-35.0); MCHC 32.2 g/dL (31.0-37.0); MCV 93.8 fL (80.0-100.0); Mean Platelet Volume 6.9; Monocytes # (A) 0.6 k/uL (0-1.0); Monocytes % (A) 5 %; Neutrophils % (A) 80 %; RBC 3.24 m/uL (4.30-5.90); WBC 13.8 k/uL (3.8-10.6); WBC (Perox) 14.91
[2016-05-02 19:57] LABS: Anion Gap 8 mmol/L; Blood Urea Nitrogen 22 mg/dL (9-20); Calcium 8.4 mg/dL (8.4-10.2); Carbon Dioxide 22 mmol/L (22-30); Chloride 107 mmol/L (98-107); Glucose 139 mg/dL (74-99); Magnesium 1.2 mg/dL (1.6-2.3); Non-African American GFR(MDRD) >60 (>60 ml/min/1.73 sqM); Potassium 4.2 mmol/L (3.5-5.1); Sodium 137 mmol/L (137-145)
[2016-05-02 20:33] LABS: Glucose,Whole Blood 136 mg/dL (75-99)
[2016-05-02] MEDS ORDERED: NALOXONE 0.4 MG/ML 1 ML VIAL IV PRN (20:35)
--- NOTE | 2016-05-02 20:44 | P.PN ---
Progress Note - Text OR job ID [id number]
[2016-05-02] MEDS: HYDROmorphone 1 MG/ML 1 ML SYRINGE IVP PRN (20:53)
[2016-05-02] MEDS: MAGNESIUM SULFATE-D5W PMX 1 GM in DEXTROSE/WATER 1 100ML.BAG IVPB SCH ×2 (21:29→22:54)
[2016-05-02] MEDS: ASPIRIN 81 MG CHEW PO SCH (21:29)
[2016-05-02] MEDS: AMITRIPTYLINE HCL 10 MG TAB PO SCH (22:58)
[2016-05-02] MEDS: INSULIN GLARGINE 100 UNIT/ML 10 ML VIAL SQ SCH (23:01)
[2016-05-03] MEDS: MAGNESIUM SULFATE-D5W PMX 1 GM in DEXTROSE/WATER 1 100ML.BAG IVPB SCH ×3 (00:22→11:09)
[2016-05-03] MEDS ORDERED: VANCOMYCIN 1,000 MG in SODIUM CHLORIDE 0.9% 250 ML IVPB ONE (01:30)
[2016-05-03] MEDS: HYDROmorphone 1 MG/ML 1 ML SYRINGE IVP PRN ×4 (01:46→21:17)
[2016-05-03] MEDS: SODIUM CHLORIDE 0.9% 1,000 ML IV SCH (01:48)
[2016-05-03 03:59] LABS: Appearance,Urine Clear (Clear); Bilirubin,Urine Negative (Negative); Glucose,Urine (UA) Negative (Negative); Ketones,Urine Negative (Negative); Leukocyte Esterase,Urine Moderate (Negative); Mucus,Urine Rare /hpf; Nitrite,Urine Negative (Negative); Particle Count 2572; Protein,Urine Negative (Negative); RBC,Urine >182 /hpf (0-5); Specific Gravity,Urine 1.014 (1.001-1.035); Squamous Epithelial Cell,Urine <1 /hpf (0-4); UA Billing (MACRO vs. MICRO) MICRO; Urobilinogen,Urine <2.0 mg/dL (<2.0); WBC,Urine 16 /hpf (0-5)
[2016-05-03 05:10] LABS: Basophils # (A) 0.1 k/uL (0-0.2); Basophils % (A) 1 %; CH 30.1; CHCM 31.5; Eosinophils # (A) 0.1 k/uL (0-0.7); Eosinophils % (A) 1 %; HCT 30.5 % (39.0-53.0); HDW 2.73; HGB 9.8 gm/dL (13.0-17.5); Hypochromasia Slight; Luc # (Auto) 0.17; Luc % (Auto) 2; Lymphocytes # (A) 1.2 k/uL (1.0-4.8); Lymphocytes % (A) 11 %; MCH 30.8 pg (25.0-35.0); MCHC 32.1 g/dL (31.0-37.0); MCV 95.9 fL (80.0-100.0); Mean Platelet Volume 7.9; Monocytes # (A) 0.6 k/uL (0-1.0); Monocytes % (A) 5 %; Neutrophils % (A) 81 %; RBC 3.18 m/uL (4.30-5.90); WBC (Perox) 11.74
[2016-05-03 05:25] LABS: Anion Gap 9 mmol/L; Calcium 8.5 mg/dL (8.4-10.2); Carbon Dioxide 24 mmol/L (22-30); Chloride 104 mmol/L (98-107); Glucose 168 mg/dL (74-99); Non-African American GFR(MDRD) >60 (>60 ml/min/1.73 sqM); Sodium 137 mmol/L (137-145); Total Bilirubin 0.9 mg/dL (0.2-1.3)
[2016-05-03 05:39] LABS: Blood Urea Nitrogen 20 mg/dL (9-20); Phosphorous 3.4 mg/dL (2.5-4.5); Potassium 5.3 mmol/L (3.5-5.1)
[2016-05-03 05:40] LABS: ALT 31 U/L (21-72); AST 29 U/L (17-59); Alkaline Phosphatase 56 U/L (38-126); Magnesium 1.9 mg/dL (1.6-2.3)
[2016-05-03] MEDS: LEVOTHYROXINE 100 MCG TAB PO SCH (07:06)
--- NOTE | 2016-05-03 07:21 | XR ---
EXAMINATION TYPE: XR chest 1V DATE OF EXAM: 05/03/2016 6:44 AM CLINICAL HISTORY: Difficulty breathing and chest pain. Recent admission for pneumonia. TECHNIQUE: Single AP portable upright view of the chest is obtained. COMPARISON: Chest x-ray from 4 days earlier FINDINGS: Post-CABG changes with mediastinal clips and sternal wires is redemonstrated. There is per sistent cardiomegaly. There is no suspicious new focal airspace opacity, pleural effusion, or pneumot horax identified. Elevated left hemidiaphragm is seen. Osseous structures are demineralized. IMPRESSION: Cardiomegaly without suspicious acute infiltrate. No significant change from prior.
--- NOTE | 2016-05-03 07:22 | FL ---
EXAMINATION TYPE: FL venogram extremity RT DATE OF EXAM: 05/02/2016 5:37 PM COMPARISON: NONE HISTORY: Right lower extremity claudication and pain. TECHNIQUE: Fluoroscopy. FINDINGS: Fluoroscopic guidance was provided during right lower extremity arteriogram procedure perf ormed by Dr. Soler. A total of 53 seconds of fluoroscopic time was utilized during the procedure an d one spot images with 3 cine sequences acquired. Single image acquired shows partial visualization o f small caliber vessel in the extremity. Please refer to procedure note for further details as I was not present nor performed procedure. IMPRESSION: As Above.
[2016-05-03 08:06] LABS: Glucose,Whole Blood 129 mg/dL (75-99)
[2016-05-03] MEDS: ENOXAPARIN 40 MG/0.4 ML SYRINGE SQ SCH (08:20)
[2016-05-03] MEDS: CLOPIDOGREL 75 MG TAB PO SCH (08:28)
[2016-05-03] MEDS: ESCITALOPRAM 20 MG TAB PO SCH (08:28)
[2016-05-03] MEDS: PANTOPRAZOLE 40 MG TABLET PO SCH (08:29)
[2016-05-03] MEDS: METOPROLOL TARTRATE 50 MG TAB PO SCH ×2 (08:29→21:16)
--- NOTE | 2016-05-03 09:32 | OP ---
DATE OF SERVICE: SURGEON: Mone Grace M.D. 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 POSTOPERATIVE DIAGNOSIS: Gangrene of right great toe with critical right foot ischemia. OPERATION: Right popliteal to dorsalis pedis in situ bypass. ANESTHESIA: General via endotracheal tube. ESTIMATED BLOOD LOSS: SPECIMENS REMOVED: COMPLICATIONS: OPERATIVE INDICATIONS: The patient is a 80 -year-old man with a history of hypertension, diabetes mellitus, coronary artery disease who presented with gangrene of the right great toe. He underwent an aortography which demonstrated patent aortoiliac vessels bilaterally as well as patent superficial femoral and popliteal arteries. There was severe trifurcation disease on the right with runoff to the right foot via peroneal artery. An occlusion noted in the mid portion of this vessel with collateralization. There was reconstitution of the dorsalis pedis artery at the malleolus with a patent pedal arch. The patient is currently scheduled for a popliteal to dorsalis pedis bypass for limb salvage. DESCRIPTION OF PROCEDURE: After induction of adequate general anesthesia via endotracheal tube, the patient's right leg was prepped and draped in the usual sterile fashion. An incision was made overlying the dorsalis pedis artery in the right foot. This was carried through the skin and subcutaneous tissues to the neurovascular bundle containing the dorsalis pedis artery. It was identified and isolated and found to be of good quality for anastomosis. An incision was made concurrently over the popliteal artery. This was carried through the skin and subcutaneous tissues to the popliteal vessels. The popliteal artery was identified and isolated. It was noted to be calcified throughout its length. However, some portions were noted to be usable for the proximal anastomosis and were soft. Through small skip incisions, the greater saphenous vein at the medial malleolus was isolated. These incisions were continued onto the foot. Tributaries were divided between 3-0 and 4-0 silk ties and hemaclips. The vein was also isolated in the incision used to expose the popliteal artery. It was noted to be of good quality at this level for bypass procedure. Again, tributaries were divided between 3-0 and 4-0 silk ties. The patient was then given 9000 units of heparin IV and ACT was maintained between 250 and 300 throughout the case. An end to side anastomosis between the proximal greater saphenous vein and the popliteal artery was performed using 6-0 Prolene running. Prior to completion, prograde and retrograde flow was assessed and found to be adequate. The anastomosis was completed and flow was released into the vein. Three 6-0 Prolene sutures were used for hemostasis of the suture line. A Lamaitre valvulotome was then used to lyse valves in the greater saphenous vein once it was divided at the foot. Pulsatile flow was noted to emanate distally. The vein was then tunneled to the level of the incision used to expose the dorsalis pedis artery and an end to side anastomosis between the distal greater saphenous vein and the dorsalis pedis artery was performed with a 7-0 Prolene. Prior to completion, prograde flow through the vein graft was assessed and was found to be adequate. A 1.5 mm dilator easily passed distally into the dorsalis pedis artery. The anastomosis was completed and flow as released distally. There was a biphasic signal in the vein graft at the completion of the procedure. A completion arteriogram was performed. This demonstrated a tributary of the greater saphenous vein that was patent. The remainder of the tributaries in the vein graft had been addressed and ligated between hemaclips. The distal anastomosis appeared widely patent. A small incision was made over the remaining tributary and it was controlled with a hemaclip. All incisions were then copiously irrigated with antibiotic irrigation solution. Hemostasis was assured with Gel foam, thrombin, and protamine as well as electrocautery. The incision at the popliteal level was closed with 3-0 PDS interrupted for the deep and superficial subcutaneous tissues. 4-0 Nylon and saray for the skin. The incisions in the leg were closed as follows: 3-0 PDS was used to approximate the subcutaneous tissues, 4-0 Nylon for the skin, the incision overlying the dorsalis pedis anastomosis was closed as follows: 3-0 PDS used to approximate the subcutaneous tissues and a 5-0 Nylon to skin. Sterile dressings. Needle and sponge counts correct. The patient tolerated the procedure well and had a biphasic signal in his vein graft at its completion. He was returned to the recovery room in satisfactory condition. His bypass was patent and his foot was viable. MICHELLE
--- NOTE | 2016-05-03 09:38 | P.PN ---
Progress Note - Text c/p pain and burning sensation in right lower leg, relieved with current regimen tolerating diet IS = 2000cc history of nocturia; patient gets up 3x to void during the night at home AF BP = 111-140 systolic, 53-68 diastolic I/O = 5751/2125 last 24 hours, O2 sat = 93% on 3 liters lungs; crackles at the bases; 1/4 way up otherwise clear right leg; incisions are clean; non significant hematoma; palpable right graft pulse with biphasic signal; areas of gangrene in right foot are stable and dry; non evidence of ascending infection Labs; reviewed impression 1. s/p right popliteal to dorsalis pedis bypass for gangrene of right great toe and right lateral foot that is patent at current time 2. CHF 3. stage III CKD 4. diabetes mellitus 5. urinalysis that demonstrates possible infectious process with suspected BPH plan; 1. urine culture; begin flomax 2. CXR to more accurately assess patient's intravascular volume status; furosemide and lisinopril are on hold 3. continue ASA and clopidogrel 4. OOB to chair with right leg elevated; non-weight bearing on right foot; decrease neurovascular checks to right leg to q 4; transfer to telemetry 5. PT evaluation 6. continue supportive care; offload both heels; OK to use SCD to left leg; none on right leg
[2016-05-03] MEDS: INSULIN LISPRO (humaLOG) 300 UNIT/3 ML VIAL SQ SCH ×4 (10:57→21:17)
[2016-05-03] MEDS: TAMSULOSIN 0.4 MG CAP.ER.24H PO SCH (11:09)
[2016-05-03] MEDS: FERROUS SULFATE 325 MG TAB PO SCH (11:10)
[2016-05-03] MEDS: MULTIVITAMINS, THERA 1 EACH TAB PO SCH (11:10)
--- NOTE | 2016-05-03 11:15 | P.PN ---
Subjective Principal diagnosis: CAD This is a pleasant 80-year-old gentleman with a past medical history significant for CAD and status post CABG, PAD, hypertension, dyslipidemia was admitted to the hospital and underwent in situ popliteal to pedal bypass for what it seems to be critical limb ischemia involving the right foot. From the cardiovascular standpoint overview, he is asymptomatic and denies having any chest pain or discomfort, difficulty breathing, heart racing or fluttering. He continues to be in a sinus mechanism. Objective - Vital Signs Vital signs: Vital Signs Temp 98.2 F 05/03/16 08:30 Pulse 69 05/03/16 10:00 Resp 14 05/03/16 10:00 BP 103/51 05/03/16 10:00 Pulse Ox 99 05/03/16 10:00 Intake & Output 05/02/16 05/03/16 05/03/16 18:59 06:59 18:59 Intake Total 3252 4009 295 Output Total 1250 1175 350 Balance 2001 2834 -55 Weight 102.2 kg 102.2 kg Intake: IV 3252 2499 Intake, IV Titration 1150 175 Amount Magnesium Sulfate-D5w Pmx 300 1 gm In Dextrose/Water 1 100ml.bag @ 100 mls/hr IVPB Q1H [facility] Rx#: [id number] Magnesium Sulfate-D5w Pmx 100 1 gm In Dextrose/Water 1 100ml.bag @ 100 mls/hr IVPB Q1H [facility] Rx#: [id number] Sodium Chloride 0.9% 1, 600 75 000 ml @ 75 mls/hr IV . [id number] [facility] Rx#:[id number] Vancomycin 1,000 mg In 250 Sodium Chloride 0.9% 250 ml @ 125 mls/hr IVPB ONCE ONE Rx#:[id number] Oral 360 120 Output: Urine 950 1175 350 Estimated Blood Loss 300 Other: Voiding Method Diaper Indwelling Catheter Indwelling Catheter # Voids 2 - Constitutional General appearance: Present: no acute distress - Labs CBC & Chem 7: 05/03/16 04:20 05/03/16 04:20 Labs: Abnormal Lab Results - Last 24 Hours (Table) 05/02/16 05/02/16 05/02/16 Range/Units 07:03 11:59 17:30 WBC 13.8 H (3.8-10.6) k/uL RBC 3.24 L (4.30-5.90) m/uL Hgb 9.8 L (13.0-17.5) gm/dL Hct 30.4 L (39.0-53.0) % Neutrophils # 11.0 H (1.3-7.7) k/uL Potassium (3.5-5.1) mmol/L BUN (9-20) mg/dL Glucose (74-99) mg/dL POC Glucose (mg/dL) 119 H (75-99) mg/dL Magnesium 1.4 L (1.6-2.3) mg/dL Total Protein (6.3-8.2) g/dL Albumin (3.5-5.0) g/dL Urine Blood (Negative) Ur Leukocyte Esterase (Negative) Urine RBC (0-5) /hpf Urine WBC (0-5) /hpf Urine Mucus (None) /hpf 05/02/16 05/02/16 05/03/16 Range/Units 17:30 20:31 03:30 WBC (3.8-10.6) k/uL RBC (4.30-5.90) m/uL Hgb (13.0-17.5) gm/dL Hct (39.0-53.0) % Neutrophils # (1.3-7.7) k/uL Potassium (3.5-5.1) mmol/L BUN 22 H (9-20) mg/dL Glucose 139 H (74-99) mg/dL POC Glucose (mg/dL) 136 H (75-99) mg/dL Magnesium 1.2 L (1.6-2.3) mg/dL Total Protein (6.3-8.2) g/dL Albumin (3.5-5.0) g/dL Urine Blood Large H (Negative) Ur Leukocyte Esterase Moderate H (Negative) Urine RBC >182 H (0-5) /hpf Urine WBC 16 H (0-5) /hpf Urine Mucus Rare H (None) /hpf 05/03/16 05/03/16 05/03/16 Range/Units 04:20 04:20 07:59 WBC 11.0 H (3.8-10.6) k/uL RBC 3.18 L (4.30-5.90) m/uL Hgb 9.8 L (13.0-17.5) gm/dL Hct 30.5 L (39.0-53.0) % Neutrophils # 9.0 H (1.3-7.7) k/uL Potassium 5.3 H (3.5-5.1) mmol/L BUN (9-20) mg/dL Glucose 168 H (74-99) mg/dL POC Glucose (mg/dL) 129 H (75-99) mg/dL Magnesium (1.6-2.3) mg/dL Total Protein 6.0 L (6.3-8.2) g/dL Albumin 3.0 L (3.5-5.0) g/dL Urine Blood (Negative) Ur Leukocyte Esterase (Negative) Urine RBC (0-5) /hpf Urine WBC (0-5) /hpf Urine Mucus (None) /hpf Assessment and Plan Plan: Assessment #1 status post vascular surgery where the patient received the right popliteal to pedal in situ bypass #2 CAD and status post CABG #3 multiple comorbid conditions Plan #1 continue the current medical treatment #2 follow-up with the patient
[2016-05-03 12:33] LABS: Glucose,Whole Blood 192 mg/dL (75-99)
[2016-05-03] MEDS ORDERED: SODIUM POLYSTYRENE SULFONATE 15 GM/60 ML BOTTLE PO STA (13:46)
--- NOTE | 2016-05-03 13:54 | P.PN ---
Subjective Patient is doing fairly well today. Consultants overnight. Objective - Vital Signs Vital signs: Vital Signs Temp 98.2 F 05/03/16 11:00 Pulse 66 05/03/16 13:00 Resp 17 05/03/16 13:00 BP 105/56 05/03/16 13:00 Pulse Ox 100 05/03/16 13:00 Intake & Output 05/02/16 05/03/16 05/03/16 18:59 06:59 18:59 Intake Total 3252 4009 345 Output Total 1250 1175 675 Balance 2001 2834 -330 Weight 102.2 kg 102.2 kg Intake: IV 3252 2499 Intake, IV Titration 1150 225 Amount Magnesium Sulfate-D5w Pmx 300 1 gm In Dextrose/Water 1 100ml.bag @ 100 mls/hr IVPB Q1H [facility] Rx#: [id number] Magnesium Sulfate-D5w Pmx 100 1 gm In Dextrose/Water 1 100ml.bag @ 100 mls/hr IVPB Q1H [facility] Rx#: [id number] Sodium Chloride 0.9% 1, 600 125 000 ml @ 75 mls/hr IV . [id number] [facility] Rx#:[id number] Vancomycin 1,000 mg In 250 Sodium Chloride 0.9% 250 ml @ 125 mls/hr IVPB ONCE ONE Rx#:[id number] Oral 360 120 Output: Urine 950 1175 675 Estimated Blood Loss 300 Other: Voiding Method Diaper Indwelling Catheter Indwelling Catheter # Voids 2 - Exam General: The patient is awake and alert, in no distress Eye: there is normal conjunctiva bilaterally. Neck: The neck is supple, there is no JVD. Cardiovascular: Normal S1-S2, no S3-S4, no murmurs. Respiratory: Lungs clear to auscultation bilaterally Gastrointestinal: Abdomen is soft, nontender Musculoskeletal: There is no pedal edema. Neurological:. Speech is normal. Skin: Skin is warm and dry - Labs CBC & Chem 7: 05/03/16 04:20 05/03/16 04:20 Labs: Abnormal Lab Results - Last 24 Hours (Table) 05/02/16 05/02/16 05/02/16 Range/Units 17:30 17:30 20:31 WBC 13.8 H (3.8-10.6) k/uL RBC 3.24 L (4.30-5.90) m/uL Hgb 9.8 L (13.0-17.5) gm/dL Hct 30.4 L (39.0-53.0) % Neutrophils # 11.0 H (1.3-7.7) k/uL Potassium (3.5-5.1) mmol/L BUN 22 H (9-20) mg/dL Glucose 139 H (74-99) mg/dL POC Glucose (mg/dL) 136 H (75-99) mg/dL Magnesium 1.2 L (1.6-2.3) mg/dL Total Protein (6.3-8.2) g/dL Albumin (3.5-5.0) g/dL Urine Blood (Negative) Ur Leukocyte Esterase (Negative) Urine RBC (0-5) /hpf Urine WBC (0-5) /hpf Urine Mucus (None) /hpf 05/03/16 05/03/16 05/03/16 Range/Units 03:30 04:20 04:20 WBC 11.0 H (3.8-10.6) k/uL RBC 3.18 L (4.30-5.90) m/uL Hgb 9.8 L (13.0-17.5) gm/dL Hct 30.5 L (39.0-53.0) % Neutrophils # 9.0 H (1.3-7.7) k/uL Potassium 5.3 H (3.5-5.1) mmol/L BUN (9-20) mg/dL Glucose 168 H (74-99) mg/dL POC Glucose (mg/dL) (75-99) mg/dL Magnesium (1.6-2.3) mg/dL Total Protein 6.0 L (6.3-8.2) g/dL Albumin 3.0 L (3.5-5.0) g/dL Urine Blood Large H (Negative) Ur Leukocyte Esterase Moderate H (Negative) Urine RBC >182 H (0-5) /hpf Urine WBC 16 H (0-5) /hpf Urine Mucus Rare H (None) /hpf 05/03/16 05/03/16 Range/Units 07:59 12:30 WBC (3.8-10.6) k/uL RBC (4.30-5.90) m/uL Hgb (13.0-17.5) gm/dL Hct (39.0-53.0) % Neutrophils # (1.3-7.7) k/uL Potassium (3.5-5.1) mmol/L BUN (9-20) mg/dL Glucose (74-99) mg/dL POC Glucose (mg/dL) 129 H 192 H (75-99) mg/dL Magnesium (1.6-2.3) mg/dL Total Protein (6.3-8.2) g/dL Albumin (3.5-5.0) g/dL Urine Blood (Negative) Ur Leukocyte Esterase (Negative) Urine RBC (0-5) /hpf Urine WBC (0-5) /hpf Urine Mucus (None) /hpf Assessment and Plan Plan: 1. Severe peripheral vascular occlusive disease with gangrene involving the right great toe: Status post right popliteal to dorsalis pedis in situ bypass postoperative day #1. Vascular surgery following closely. 2. 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 Acute viral gastroenteritis on presentation now resolved with supportive measures 4. Syncope with fall and head trauma on presentation most likely secondary to dehydration and orthostatic hypotension. Computed tomography scan the brain was normal 5. Acute on chronic kidney disease stage IIIB, continue gentle IV fluid hydration 6. Essential hypertension: Blood pressure well controlled 7. Insulin-dependent diabetes mellitus: Continue with Lantus and sliding scale coverage 8. Hypothyroidism continue Synthroid 9. DVT prophylaxis Plan for today: Patient to be transferred outside of the intensive care unit. Continue supportive measures and IV fluids. Repeat lab work in the morning. Replace electrolytes per protocol as needed.
[2016-05-03 17:19] LABS: Glucose,Whole Blood 123 mg/dL (75-99)
[2016-05-03 20:26] LABS: Glucose,Whole Blood 204 mg/dL (75-99)
[2016-05-03] MEDS: ASPIRIN 81 MG CHEW PO SCH (21:16)
[2016-05-03] MEDS: AMITRIPTYLINE HCL 10 MG TAB PO SCH (21:16)
[2016-05-03] MEDS: INSULIN GLARGINE 100 UNIT/ML 10 ML VIAL SQ SCH (21:16)
[2016-05-04] MEDS: HYDROmorphone 1 MG/ML 1 ML SYRINGE IVP PRN ×3 (05:03→19:58)
[2016-05-04 05:37] LABS: Glucose,Whole Blood 201 mg/dL (75-99)
[2016-05-04 05:39] LABS: Glucose,Whole Blood 171 mg/dL (75-99)
[2016-05-04] MEDS: INSULIN LISPRO (humaLOG) 300 UNIT/3 ML VIAL SQ SCH ×4 (06:30→22:13)
[2016-05-04] MEDS: LEVOTHYROXINE 100 MCG TAB PO SCH (06:30)
[2016-05-04] MEDS: PANTOPRAZOLE 40 MG TABLET PO SCH (06:30)
[2016-05-04 06:50] LABS: Basophils # (A) 0.1 k/uL (0-0.2); Basophils % (A) 1 %; CH 30.7; CHCM 32.4; Eosinophils # (A) 0.3 k/uL (0-0.7); Eosinophils % (A) 3 %; HGB 8.4 gm/dL (13.0-17.5); Luc # (Auto) 0.22; Luc % (Auto) 2; Lymphocytes # (A) 1.4 k/uL (1.0-4.8); Lymphocytes % (A) 15 %; MCH 29.6 pg (25.0-35.0); MCHC 31.1 g/dL (31.0-37.0); Mean Platelet Volume 7.4; Monocytes # (A) 0.6 k/uL (0-1.0); Monocytes % (A) 7 %; Neutrophils # (A) 6.6 k/uL (1.3-7.7); Neutrophils % (A) 72 %; RBC 2.84 m/uL (4.30-5.90); RDW 13.1 % (11.5-15.5); WBC 9.3 k/uL (3.8-10.6); WBC (Perox) 9.64
[2016-05-04 07:04] LABS: ALT 31 U/L (21-72); AST 25 U/L (17-59); Alkaline Phosphatase 67 U/L (38-126); Anion Gap 4 mmol/L; Blood Urea Nitrogen 19 mg/dL (9-20); Calcium 8.1 mg/dL (8.4-10.2); Carbon Dioxide 30 mmol/L (22-30); Chloride 100 mmol/L (98-107); Glucose 160 mg/dL (74-99); Magnesium 1.7 mg/dL (1.6-2.3); Non-African American GFR(MDRD) 57 (>60 ml/min/1.73 sqM); Phosphorous 3.2 mg/dL (2.5-4.5); Potassium 4.5 mmol/L (3.5-5.1); Sodium 134 mmol/L (137-145); Total Bilirubin 0.5 mg/dL (0.2-1.3); Total Protein 5.4 g/dL (6.3-8.2)
--- NOTE | 2016-05-04 09:37 | XR ---
EXAMINATION TYPE: XR chest 1V DATE OF EXAM: 05/04/2016 9:22 AM CLINICAL HISTORY: Difficulty breathing progress study. Postop foot surgery. TECHNIQUE: Single AP portable upright view of the chest is obtained. COMPARISON: Chest x-ray from one day earlier FINDINGS: Post-CABG changes with mediastinal clips and sternal wires is redemonstrated. There is per sistent cardiomegaly. Low lung volumes are present. There is no suspicious new focal airspace opacity , pleural effusion, or pneumothorax identified. Elevated left hemidiaphragm is redemonstrated. Osseou s structures are demineralized. IMPRESSION: Overall stable findings, cardiomegaly without suspicious new acute pulmonary process id entified
[2016-05-04] MEDS: LISINOPRIL 20 MG TAB PO SCH (10:06)
[2016-05-04] MEDS: ENOXAPARIN 40 MG/0.4 ML SYRINGE SQ SCH (10:06)
[2016-05-04] MEDS: CLOPIDOGREL 75 MG TAB PO SCH (10:06)
[2016-05-04] MEDS: TAMSULOSIN 0.4 MG CAP.ER.24H PO SCH (10:06)
[2016-05-04] MEDS: FUROSEMIDE 20 MG TAB PO SCH (10:06)
[2016-05-04] MEDS: ESCITALOPRAM 20 MG TAB PO SCH (10:06)
[2016-05-04] MEDS: METOPROLOL TARTRATE 50 MG TAB PO SCH ×2 (10:07→20:10)
--- NOTE | 2016-05-04 10:17 | PN ---
DATE OF SERVICE: 05/03/2016 Reason for follow-up is: 1. Acute gastroenteritis resolved. 2. Right big toe gangrene. INTERVAL HISTORY: The patient is afebrile. The patient is status post right popliteal dorsalis pedis in situ bypass graft. The patient denies worsening pain to the right foot area. Denies any chest pain or shortness of breath, cough or nausea, vomiting or any diarrhea. On examination, blood pressure is 119/51 with a pulse of 70, temperature 98.7. He is 95% on room air. General description is an elderly male, lying in bed in no distress. RESPIRATORY SYSTEM: Unlabored breathing. Clear to auscultation anteriorly. HEART: S1, S2. Regular rate and rhythm. ABDOMEN: Soft, no tenderness. The right foot wound dressed with no obvious drainage on the dressing. LABS: Hemoglobin is 9.8 with a white count of 11, a BUN of 20, creatinine is 1.14. DIAGNOSTIC IMPRESSION AND PLAN: 1. Patient with acute gastroenteritis, resolved. 2. Patient with right big toe and lateral border of the foot gangrene, status post bypass procedure. Currently on antibiotic, vancomycin will be continued. Continue supportive care. [facility]
--- NOTE | 2016-05-04 10:32 | P.PN ---
Progress Note - Text no adverse events overnight remains afebrile still with pain in right foot AF VSS lungs; clear bilaterally; IS = 2000cc right leg; incisions are clean without evidence of infection, moderate right foot edema, gangrene of right great toe is stable; right lateral foot eschar remains dry; there is a palpable pulse in the popliteal to dorsalis pedis bypass graft; the signal is biphasic Labs; reviewed impression/plan 1. s/p right popliteal to dorsalis pedis bypass for gangrene of the right great toe and lateral foot 2. DM 3. CHF 4. CAD continue current medical regimen, PT continue non-weight bearing on right foot d/c frost with bladder scans q 8 plan; right great toe amputation in very near future discharge planning; suspect patient will require short term subacute rehab
[2016-05-04 12:31] LABS: Glucose,Whole Blood 236 mg/dL (75-99)
--- NOTE | 2016-05-04 12:31 | P.PN ---
Subjective Principal diagnosis: CAD This is a pleasant 80-year-old gentleman with a past medical history significant for CAD and status post CABG, PAD, hypertension, dyslipidemia was admitted to the hospital and underwent in situ popliteal to pedal bypass for what it seems to be critical limb ischemia involving the right foot. From the cardiovascular standpoint overview, he is asymptomatic and denies having any chest pain or discomfort, difficulty breathing, heart racing or fluttering. He continues to be in a sinus mechanism. From the cardiovascular standpoint overview, there is no need for any further cardiac workup and we will follow-up with the patient on when necessary case. Objective - Vital Signs Vital signs: Vital Signs Temp 98.7 F 05/04/16 09:15 Pulse 75 05/04/16 09:27 Resp 16 05/04/16 09:27 BP 112/51 05/04/16 09:15 Pulse Ox 92 L 05/04/16 09:15 Intake & Output 05/03/16 05/04/16 05/04/16 18:59 06:59 18:59 Intake Total 345 230 Output Total 850 1350 Balance -505 -1350 230 Weight 102.2 kg 102.2 kg Intake: Intake, IV Titration 225 Amount Magnesium Sulfate-D5w Pmx 100 1 gm In Dextrose/Water 1 100ml.bag @ 100 mls/hr IVPB Q1H [facility] Rx#: [id number] Sodium Chloride 0.9% 1, 125 000 ml @ 75 mls/hr IV . [id number] [facility] Rx#:[id number] Oral 120 230 Output: Urine 850 1350 Uretheral (Multani) 750 Other: Voiding Method Indwelling Catheter Indwelling Catheter # Voids 2 - Constitutional General appearance: Present: no acute distress - Labs CBC & Chem 7: 05/04/16 05:28 05/04/16 05:28 Labs: Abnormal Lab Results - Last 24 Hours (Table) 05/03/16 05/03/16 05/03/16 Range/Units 12:30 17:04 20:24 RBC (4.30-5.90) m/uL Hgb (13.0-17.5) gm/dL Hct (39.0-53.0) % Sodium (137-145) mmol/L Glucose (74-99) mg/dL POC Glucose (mg/dL) 192 H 123 H 204 H (75-99) mg/dL Calcium (8.4-10.2) mg/dL Total Protein (6.3-8.2) g/dL Albumin (3.5-5.0) g/dL 05/04/16 05/04/16 05/04/16 Range/Units 05:28 05:28 05:34 RBC 2.84 L (4.30-5.90) m/uL Hgb 8.4 L (13.0-17.5) gm/dL Hct 27.0 L (39.0-53.0) % Sodium 134 L (137-145) mmol/L Glucose 160 H (74-99) mg/dL POC Glucose (mg/dL) 201 H (75-99) mg/dL Calcium 8.1 L (8.4-10.2) mg/dL Total Protein 5.4 L (6.3-8.2) g/dL Albumin 2.7 L (3.5-5.0) g/dL 05/04/16 Range/Units 05:38 RBC (4.30-5.90) m/uL Hgb (13.0-17.5) gm/dL Hct (39.0-53.0) % Sodium (137-145) mmol/L Glucose (74-99) mg/dL POC Glucose (mg/dL) 171 H (75-99) mg/dL Calcium (8.4-10.2) mg/dL Total Protein (6.3-8.2) g/dL Albumin (3.5-5.0) g/dL Microbiology - Last 24 Hours (Table) 05/03/16 11:05 Urine Culture - Preliminary Urine,Catheterized Assessment and Plan Plan: Assessment #1 CAD seems to be stable and the patient denies having any chest pain or discomfort #2 PAD with evidence of critical limb ischemia #3 status post popliteal to dorsalis pedis bypass. #4 multiple comorbid conditions Plan #1 from the cardiac standpoint overview, no need for any further cardiac workup #2 will follow-up with the patient on when necessary case
[2016-05-04] MEDS: MULTIVITAMINS, THERA 1 EACH TAB PO SCH (13:40)
[2016-05-04] MEDS: FERROUS SULFATE 325 MG TAB PO SCH (13:40)
--- NOTE | 2016-05-04 14:02 | P.PN ---
Subjective Patient is doing fairly well today. No event overnight. Objective - Vital Signs Vital signs: Vital Signs Temp 98.7 F 05/04/16 09:15 Pulse 75 05/04/16 09:27 Resp 16 05/04/16 09:27 BP 112/51 05/04/16 09:15 Pulse Ox 92 L 05/04/16 09:15 Intake & Output 05/03/16 05/04/16 05/04/16 18:59 06:59 18:59 Intake Total 345 230 Output Total 850 1350 Balance -505 -1350 230 Weight 102.2 kg 102.2 kg Intake: Intake, IV Titration 225 Amount Magnesium Sulfate-D5w Pmx 100 1 gm In Dextrose/Water 1 100ml.bag @ 100 mls/hr IVPB Q1H [facility] Rx#: [id number] Sodium Chloride 0.9% 1, 125 000 ml @ 75 mls/hr IV . [id number] [facility] Rx#:[id number] Oral 120 230 Output: Urine 850 1350 Uretheral (Multani) 750 Other: Voiding Method Indwelling Catheter Indwelling Catheter # Voids 2 - Exam General: The patient is awake and alert, in no distress Eye: there is normal conjunctiva bilaterally. Neck: The neck is supple, there is no JVD. Cardiovascular: Normal S1-S2, no S3-S4, no murmurs. Respiratory: Lungs clear to auscultation bilaterally Gastrointestinal: Abdomen is soft, nontender Musculoskeletal: There is no pedal edema. Neurological:. Speech is normal. Skin: Skin is warm and dry - Labs CBC & Chem 7: 05/04/16 05:28 05/04/16 05:28 Labs: Abnormal Lab Results - Last 24 Hours (Table) 05/03/16 05/03/16 05/04/16 Range/Units 17:04 20:24 05:28 RBC 2.84 L (4.30-5.90) m/uL Hgb 8.4 L (13.0-17.5) gm/dL Hct 27.0 L (39.0-53.0) % Sodium (137-145) mmol/L Glucose (74-99) mg/dL POC Glucose (mg/dL) 123 H 204 H (75-99) mg/dL Calcium (8.4-10.2) mg/dL Total Protein (6.3-8.2) g/dL Albumin (3.5-5.0) g/dL 05/04/16 05/04/16 05/04/16 Range/Units 05:28 05:34 05:38 RBC (4.30-5.90) m/uL Hgb (13.0-17.5) gm/dL Hct (39.0-53.0) % Sodium 134 L (137-145) mmol/L Glucose 160 H (74-99) mg/dL POC Glucose (mg/dL) 201 H 171 H (75-99) mg/dL Calcium 8.1 L (8.4-10.2) mg/dL Total Protein 5.4 L (6.3-8.2) g/dL Albumin 2.7 L (3.5-5.0) g/dL 05/04/16 Range/Units 12:29 RBC (4.30-5.90) m/uL Hgb (13.0-17.5) gm/dL Hct (39.0-53.0) % Sodium (137-145) mmol/L Glucose (74-99) mg/dL POC Glucose (mg/dL) 236 H (75-99) mg/dL Calcium (8.4-10.2) mg/dL Total Protein (6.3-8.2) g/dL Albumin (3.5-5.0) g/dL Microbiology - Last 24 Hours (Table) 05/03/16 11:05 Urine Culture - Final Urine,Catheterized Assessment and Plan Plan: 1. Severe peripheral vascular occlusive disease with gangrene involving the right great toe: Status post right popliteal to dorsalis pedis in situ bypass postoperative day #2. Vascular surgery following closely. 2. 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 Acute viral gastroenteritis on presentation now resolved with supportive measures 4. Syncope with fall and head trauma on presentation most likely secondary to dehydration and orthostatic hypotension. Computed tomography scan the brain was normal 5. Acute on chronic kidney disease stage IIIB, continue gentle IV fluid hydration 6. Essential hypertension: Blood pressure well controlled 7. Insulin-dependent diabetes mellitus: Continue with Lantus and sliding scale coverage 8. Hypothyroidism continue Synthroid 9. DVT prophylaxis Plan for today: Continue supportive measures and IV fluids. Repeat lab work in the morning. Replace electrolytes per protocol as needed.
[2016-05-04 17:09] LABS: Glucose,Whole Blood 115 mg/dL (75-99)
[2016-05-04] MEDS: INSULIN GLARGINE 100 UNIT/ML 10 ML VIAL SQ SCH (20:09)
[2016-05-04] MEDS: ASPIRIN 81 MG CHEW PO SCH (20:10)
[2016-05-04] MEDS: AMITRIPTYLINE HCL 10 MG TAB PO SCH (20:10)
[2016-05-04 20:28] LABS: Glucose,Whole Blood 265 mg/dL (75-99)
[2016-05-05 06:01] LABS: Basophils # (A) 0.1 k/uL (0-0.2); Basophils % (A) 1 %; CH 30.3; CHCM 32.8; Eosinophils # (A) 0.3 k/uL (0-0.7); Eosinophils % (A) 4 %; HCT 25.4 % (39.0-53.0); HDW 2.77; HGB 8.1 gm/dL (13.0-17.5); Luc # (Auto) 0.21; Luc % (Auto) 2; Lymphocytes # (A) 1.5 k/uL (1.0-4.8); Lymphocytes % (A) 17 %; MCH 29.7 pg (25.0-35.0); MCV 92.9 fL (80.0-100.0); Mean Platelet Volume 7.7; Monocytes # (A) 0.7 k/uL (0-1.0); Monocytes % (A) 8 %; Neutrophils # (A) 6.1 k/uL (1.3-7.7); Neutrophils % (A) 69 %; RBC 2.73 m/uL (4.30-5.90); RDW 12.9 % (11.5-15.5); WBC (Perox) 9.36
[2016-05-05 06:14] LABS: Calcium 8.3 mg/dL (8.4-10.2); Magnesium 1.6 mg/dL (1.6-2.3); Phosphorous 3.5 mg/dL (2.5-4.5); Total Bilirubin 0.5 mg/dL (0.2-1.3); Total Protein 5.2 g/dL (6.3-8.2)
[2016-05-05 06:28] LABS: Glucose,Whole Blood 142 mg/dL (75-99)
[2016-05-05] MEDS: INSULIN LISPRO (humaLOG) 300 UNIT/3 ML VIAL SQ SCH ×4 (06:58→21:23)
[2016-05-05] MEDS: LEVOTHYROXINE 100 MCG TAB PO SCH (06:58)
[2016-05-05] MEDS: PANTOPRAZOLE 40 MG TABLET PO SCH (06:59)
[2016-05-05] MEDS ORDERED: diphenhydrAMINE 25 MG CAP PO STA (08:29)
--- NOTE | 2016-05-05 08:35 | P.PN ---
Progress Note - Text no adverse events overnight voiding but required straight cath initially not out of bed yet tolerating diet AF VSS lungs; grossly clear; IS - 2000cc right leg; incisions are clean, minimal edema, slight erythema overlying skin bridge between saphenous harvest site and distal anastomosis; gangrene is stable ; biphasic graft signal, foot is viable Labs; reviewed; HG/HCt trending down; Hg = 8 this am Remainder of labs are relatively stable impression/plan 1. s/p right popliteal to dorsalis pedis bypass for gangrene of right great toe bypass is patent; continue non-weight bearing to right foot, PT evaluation 2. acute on chronic anemia(blood loss is acute component) will transfuse one unit of PRBC secondary to HG trending down, history of CAD, COPD, wounds in right foot 3. continue medical managment as per Dr. Sloan; OK to transfer to regular floor from vascular standpoint 4. discharge planning 5. plan right great toe amputation in very near future
[2016-05-05] MEDS: ENOXAPARIN 40 MG/0.4 ML SYRINGE SQ SCH (08:39)
[2016-05-05] MEDS: CLOPIDOGREL 75 MG TAB PO SCH (08:39)
[2016-05-05] MEDS: ESCITALOPRAM 20 MG TAB PO SCH (08:39)
[2016-05-05] MEDS: TAMSULOSIN 0.4 MG CAP.ER.24H PO SCH (08:39)
[2016-05-05] MEDS: LISINOPRIL 20 MG TAB PO SCH (08:39)
[2016-05-05] MEDS: FUROSEMIDE 20 MG TAB PO SCH (08:39)
[2016-05-05] MEDS: METOPROLOL TARTRATE 50 MG TAB PO SCH ×2 (08:39→21:23)
[2016-05-05 11:55] LABS: Glucose,Whole Blood 236 mg/dL (75-99)
[2016-05-05] MEDS: FERROUS SULFATE 325 MG TAB PO SCH (12:51)
[2016-05-05] MEDS: MULTIVITAMINS, THERA 1 EACH TAB PO SCH (12:51)
[2016-05-05] MEDS: ACETAMINOPHEN TAB 325 MG TAB PO PRN (12:51)
--- NOTE | 2016-05-05 13:20 | P.PN ---
Subjective Is a 80-year-old who presented with vomiting and diarrhea. Found to be dehydrated. Also had a syncopal episode. Vomiting and diarrhea has resolved. Patient has peripheral vascular disease and gangrene of the right great toe. Patient status post right popliteal to dorsalis pedis bypass for gangrene of right great toe. Hemoglobin 8.1. Patient is scheduled for 1 unit of blood today. Patient denies any chest pain, shortness breath, any nausea vomiting. Denies any difficulty urinating. Objective - Vital Signs Vital signs: Vital Signs Temp 97.9 F 05/05/16 08:00 Pulse 70 05/05/16 08:00 Resp 18 05/05/16 08:00 BP 121/66 05/05/16 08:00 Pulse Ox 92 L 05/05/16 08:00 Intake & Output 05/04/16 05/05/16 05/05/16 18:59 06:59 18:59 Intake Total 230 240 476 Output Total 511 200 200 Balance -281 40 276 Weight 113 kg Intake: Oral 230 240 476 Blood Product 0 Rc Cpda-1 Unit 0 [id number] Output: Urine 350 200 200 Straight 350 Post Void Residual 161 Other: # Voids 2 1 - Exam Head normocephalic Neck supple Lungs clear to auscultation bilaterally no wheezing or crackles Heart regular rate and rhythm S1-S2, no rub or gallop Abdomen is soft nontender nondistended positive bowel sounds no hepatosplenomegaly Extremities no edema. Right foot is wrapped dressing is clean dry and intact and also on a waffle boot. Neuro alert and orientated to 3 - Labs CBC & Chem 7: 05/05/16 05:21 05/05/16 05:24 Labs: Abnormal Lab Results - Last 24 Hours (Table) 05/04/16 05/04/16 05/05/16 Range/Units 17:08 20:26 05:21 RBC 2.73 L (4.30-5.90) m/uL Hgb 8.1 L (13.0-17.5) gm/dL Hct 25.4 L (39.0-53.0) % Sodium (137-145) mmol/L BUN (9-20) mg/dL Creatinine (0.66-1.25) mg/dL Glucose (74-99) mg/dL POC Glucose (mg/dL) 115 H 265 H (75-99) mg/dL Calcium (8.4-10.2) mg/dL Total Protein (6.3-8.2) g/dL Albumin (3.5-5.0) g/dL Crossmatch 05/05/16 05/05/16 05/05/16 Range/Units 05:24 06:27 09:23 RBC (4.30-5.90) m/uL Hgb (13.0-17.5) gm/dL Hct (39.0-53.0) % Sodium 135 L (137-145) mmol/L BUN 27 H (9-20) mg/dL Creatinine 1.40 H (0.66-1.25) mg/dL Glucose 154 H (74-99) mg/dL POC Glucose (mg/dL) 142 H (75-99) mg/dL Calcium 8.3 L (8.4-10.2) mg/dL Total Protein 5.2 L (6.3-8.2) g/dL Albumin 2.7 L (3.5-5.0) g/dL Crossmatch See Detail 05/05/16 Range/Units 11:54 RBC (4.30-5.90) m/uL Hgb (13.0-17.5) gm/dL Hct (39.0-53.0) % Sodium (137-145) mmol/L BUN (9-20) mg/dL Creatinine (0.66-1.25) mg/dL Glucose (74-99) mg/dL POC Glucose (mg/dL) 236 H (75-99) mg/dL Calcium (8.4-10.2) mg/dL Total Protein (6.3-8.2) g/dL Albumin (3.5-5.0) g/dL Crossmatch Microbiology - Last 24 Hours (Table) 05/03/16 11:05 Urine Culture - Final Urine,Catheterized Assessment and Plan Plan: 1. Vomiting and diarrhea likely secondary to viral gastroenteritis. Has now resolved. Abdominal ultrasound showing no acute abnormalities. There is fatty liver. Simple cyst of the liver. Bilateral renal cysts. Evaluated by infectious disease 2. Syncope with fall and head trauma. Likely secondary to patient's dehydration with vomiting and diarrhea. Cardiology was consulted. Patient was also noted to have left internal carotid artery near occlusion. This also may contribute to his syncope. Echo shows EF of 55-60%. Computed tomography scan the brain was normal. 3. 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 4. 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 Status post right popliteal to dorsalis pedis bypass. Postop day #3. Vascular surgery following 5. Acute on chronic kidney disease, stage IIIa. 6. Essential hypertension 7. Insulin-dependent diabetes mellitus: Continue with Lantus and sliding scale coverage 8. Hypothyroidism continue Synthroid 9. Chronic diastolic CHF: No evidence of exacerbation 10. Acute on chronic Anemia. Acute blood loss anemia secondary to surgery. Patient receiving 1 unit of blood. Has known history of anemia of chronic kidney disease and iron deficiency anemia. Also check iron studies DVT prophylaxis Lovenox
[2016-05-05 13:52] LABS: % Iron Saturation 11.2 % (20-50)
--- NOTE | 2016-05-05 15:11 | PN ---
DATE OF SERVICE: 05/04/2016 Reason for followup is right foot gangrene and a question of cellulitis. INTERVAL HISTORY: The patient is afebrile. Pain to the right leg is currently controlled. Patient denies having any chest pain or shortness of breath or cough. No abdominal pain. No nausea, no vomiting and no diarrhea. On examination, blood pressure is 116/49 with a pulse of 76, temperature 97.6, he is 93% on room air. General description is an elderly male, lying in bed in no distress. RESPIRATORY SYSTEM: Unlabored breathing. Clear to auscultation anteriorly. HEART: S1, S2 with regular rate and rhythm. ABDOMEN: Soft, no tenderness. Right foot is currently dressed up, no obvious drainage on the dressing. LABS: Hemoglobin 8.4, white count 9.3 with a BUN of 19, creatinine 1.23. DIAGNOSTIC IMPRESSION AND PLAN: 1. Patient admitted to hospital with nausea, vomiting and diarrhea, likely a viral gastroenteritis, resolved. No need for further work-up for the same. 2. Patient with right big toe and right fourth lateral moderate gangrenous changes for which the patient did have a bypass surgery. Clinically, no active cellulitis. Has been taken off the antibiotics and will monitor closely off antibiotics. Continue supportive care.
[2016-05-05 17:09] LABS: Glucose,Whole Blood 165 mg/dL (75-99)
[2016-05-05 20:11] LABS: Glucose,Whole Blood 196 mg/dL (75-99)
[2016-05-05] MEDS: INSULIN GLARGINE 100 UNIT/ML 10 ML VIAL SQ SCH (21:22)
[2016-05-05] MEDS: AMITRIPTYLINE HCL 10 MG TAB PO SCH (21:23)
[2016-05-05] MEDS: ASPIRIN 81 MG CHEW PO SCH (21:23)
[2016-05-06] MEDS: HYDROmorphone 1 MG/ML 1 ML SYRINGE IVP PRN (02:35)
[2016-05-06] MEDS: LEVOTHYROXINE 100 MCG TAB PO SCH (06:14)
[2016-05-06 07:13] LABS: Glucose,Whole Blood 140 mg/dL (75-99)
[2016-05-06] MEDS: INSULIN LISPRO (humaLOG) 300 UNIT/3 ML VIAL SQ SCH ×4 (07:49→20:46)
[2016-05-06] MEDS: TAMSULOSIN 0.4 MG CAP.ER.24H PO SCH (07:51)
[2016-05-06] MEDS: PANTOPRAZOLE 40 MG TABLET PO SCH (07:51)
[2016-05-06] MEDS: CLOPIDOGREL 75 MG TAB PO SCH (07:53)
[2016-05-06] MEDS: METOPROLOL TARTRATE 50 MG TAB PO SCH ×2 (07:54→20:45)
[2016-05-06] MEDS: ESCITALOPRAM 20 MG TAB PO SCH (07:54)
[2016-05-06] MEDS ORDERED: VANCOMYCIN 1,000 MG in SODIUM CHLORIDE 0.9% 250 ML IVPB ONE ×2 (08:00→11:30)
[2016-05-06 11:01] LABS: Glucose,Whole Blood 123 mg/dL (75-99)
[2016-05-06] MEDS: FERROUS SULFATE 325 MG TAB PO SCH (12:08)
[2016-05-06] MEDS: MULTIVITAMINS, THERA 1 EACH TAB PO SCH (12:09)
[2016-05-06] MEDS ORDERED: LACTATED RINGERS 1,000 ML IV ONE (12:12)
[2016-05-06 12:17] LABS: Glucose,Whole Blood 119 mg/dL (75-99)
[2016-05-06 13:15] LABS: Basophils # (A) 0.1 k/uL (0-0.2); Basophils % (A) 1 %; CH 29.4; Eosinophils # (A) 0.4 k/uL (0-0.7); Eosinophils % (A) 5 %; HCT 28.8 % (39.0-53.0); HDW 3.02; HGB 9.5 gm/dL (13.0-17.5); Luc # (Auto) 0.22; Luc % (Auto) 3; Lymphocytes # (A) 1.5 k/uL (1.0-4.8); Lymphocytes % (A) 19 %; MCH 29.6 pg (25.0-35.0); MCV 89.5 fL (80.0-100.0); Mean Platelet Volume 7.5; Monocytes # (A) 0.5 k/uL (0-1.0); Monocytes % (A) 7 %; Neutrophils # (A) 5.3 k/uL (1.3-7.7); Neutrophils % (A) 66 %; RBC 3.22 m/uL (4.30-5.90); RDW 14.4 % (11.5-15.5)
[2016-05-06] MEDS ORDERED: PROPOFOL 10 MG/ML 20 ML VIAL IV ONE (13:15)
[2016-05-06] MEDS ORDERED: fentaNYL (PF) 50 MCG/ML 2 ML AMP ONE (13:15)
[2016-05-06] MEDS ORDERED: MIDAZOLAM 2 MG/2 ML VIAL ONE (13:15)
[2016-05-06] MEDS ORDERED: VANCOMYCIN 1,000 MG VIAL ONE (13:15)
[2016-05-06] MEDS ORDERED: KETAMINE 10 MG/ML 20 ML VIAL ONE (13:15)
[2016-05-06] MEDS ORDERED: SODIUM CHLORIDE 0.9% 250 ML BAG ONE (13:15)
[2016-05-06 13:33] LABS: ALT 30 U/L (21-72); AST 30 U/L (17-59); Alkaline Phosphatase 68 U/L (38-126); Anion Gap 9 mmol/L; Blood Urea Nitrogen 24 mg/dL (9-20); Calcium 8.6 mg/dL (8.4-10.2); Carbon Dioxide 26 mmol/L (22-30); Chloride 103 mmol/L (98-107); Glucose 126 mg/dL (74-99); Magnesium 1.4 mg/dL (1.6-2.3); Non-African American GFR(MDRD) 52 (>60 ml/min/1.73 sqM); Phosphorous 3.3 mg/dL (2.5-4.5); Potassium 4.5 mmol/L (3.5-5.1); Sodium 138 mmol/L (137-145); Total Bilirubin 0.9 mg/dL (0.2-1.3); Total Protein 5.9 g/dL (6.3-8.2)
[2016-05-06] MEDS ORDERED: LIDOCAINE 1% INJ 10MG/ML (20 ML MDV) SQ ONE (13:35)
--- NOTE | 2016-05-06 14:52 | P.OP ---
Date of Procedure: 05/06/16 Preoperative Diagnosis: gangrene of right great toe, right lateral foot ulcer Postoperative Diagnosis: same Procedure(s) Performed: right great toe amputation, debridement of right lateral foot ulcer (3x4cm) full thickness skin Anesthesia: MAC, local Surgeon: Mone Grace Pathology: other (great toe) Condition: stable Disposition: floor Indications for Procedure: gangrene of right great toe and lateral foot ulcer Operative Findings: viable tissue right lateral ulcer; viable tissue skin of right great toe Description of Procedure: see dicatation
[2016-05-06 14:56] LABS: Glucose,Whole Blood 120 mg/dL (75-99)
[2016-05-06] MEDS: SODIUM CHLORIDE 0.9% 1,000 ML IV SCH (16:58)
[2016-05-06 17:11] LABS: Glucose,Whole Blood 125 mg/dL (75-99)
--- NOTE | 2016-05-06 17:43 | P.PN ---
Subjective Principal diagnosis: Right foot gangrene Patient is a 80-year-old male was multiple medical problems, patient had surgery today was the right big toe amputation and debridement of the right foot wound. He is doing well postoperatively. Objective - Vital Signs Vital signs: Vital Signs Temp 97.9 F 05/06/16 16:20 Pulse 67 05/06/16 16:20 Resp 16 05/06/16 16:20 BP 112/57 05/06/16 16:20 Pulse Ox 95 05/06/16 16:20 Intake & Output 05/05/16 05/06/16 05/06/16 18:59 06:59 18:59 Intake Total 726 700 Output Total 400 400 10 Balance 326 -400 690 Intake: IV 700 Oral 476 Blood Product 250 Rc Cpda-1 Unit 250 [id number] Output: Urine 400 300 Post Void Residual 0 100 Estimated Blood Loss 10 Other: # Voids 3 1 - Exam In general patient is alert and oriented he is hard of hearing HEENT head normocephalic and atraumatic Neck is supple no JVD no goiter no lymphadenopathy Chest is clear to auscultation no crackles no wheezing Cardiac exam reveals regular heart sounds no murmurs Abdomen is soft nontender no organomegaly Extremity exam reveals no edema no cyanosis - Labs CBC & Chem 7: 05/06/16 13:06 05/06/16 13:06 Labs: Abnormal Lab Results - Last 24 Hours (Table) 05/05/16 05/06/16 05/06/16 Range/Units 20:10 07:10 10:55 RBC (4.30-5.90) m/uL Hgb (13.0-17.5) gm/dL Hct (39.0-53.0) % BUN (9-20) mg/dL Creatinine (0.66-1.25) mg/dL Glucose (74-99) mg/dL POC Glucose (mg/dL) 196 H 140 H 123 H (75-99) mg/dL Magnesium (1.6-2.3) mg/dL Total Protein (6.3-8.2) g/dL Albumin (3.5-5.0) g/dL 05/06/16 05/06/16 05/06/16 Range/Units 12:04 13:06 13:06 RBC 3.22 L (4.30-5.90) m/uL Hgb 9.5 L (13.0-17.5) gm/dL Hct 28.8 L (39.0-53.0) % BUN 24 H (9-20) mg/dL Creatinine 1.32 H (0.66-1.25) mg/dL Glucose 126 H (74-99) mg/dL POC Glucose (mg/dL) 119 H (75-99) mg/dL Magnesium 1.4 L (1.6-2.3) mg/dL Total Protein 5.9 L (6.3-8.2) g/dL Albumin 2.9 L (3.5-5.0) g/dL 05/06/16 05/06/16 Range/Units 14:52 17:09 RBC (4.30-5.90) m/uL Hgb (13.0-17.5) gm/dL Hct (39.0-53.0) % BUN (9-20) mg/dL Creatinine (0.66-1.25) mg/dL Glucose (74-99) mg/dL POC Glucose (mg/dL) 120 H 125 H (75-99) mg/dL Magnesium (1.6-2.3) mg/dL Total Protein (6.3-8.2) g/dL Albumin (3.5-5.0) g/dL Assessment and Plan Plan: #1 episodes of vomiting and diarrhea now resolved, possible gastroenteritis on admission resolved #2 syncope with loss of consciousness, with fall and head trauma, likely related to vomiting diarrhea and dehydration, will obtain echocardiogram and carotid Doppler to rule out any further pathology, Will consult cardiology in that regard to syncope. #3 peripheral vascular disease patient was evaluated on previous admission by Dr. Gutierrez. He underwent revascularization surgery during this admission. #4 right foot ulcer, patient underwent right big toe amputation today due to gangrene and debridement of right foot ulcer #5 underlying history of insulin-dependent diabetes mellitus #6 underlying history of hypertension #7 underlying history of anemia #8 underlying history of chronic kidney disease creatinine on admission around 2 Patient is stable prognosis is guarded due to advanced multiple medical problems will follow closely
[2016-05-06 20:23] LABS: Glucose,Whole Blood 153 mg/dL (75-99)
[2016-05-06] MEDS: ASPIRIN 81 MG CHEW PO SCH (20:45)
[2016-05-06] MEDS: INSULIN GLARGINE 100 UNIT/ML 10 ML VIAL SQ SCH (20:46)
[2016-05-06] MEDS: AMITRIPTYLINE HCL 10 MG TAB PO SCH (20:46)
[2016-05-07] MEDS: SODIUM CHLORIDE 0.9% 1,000 ML IV SCH (04:22)
[2016-05-07] MEDS: LEVOTHYROXINE 100 MCG TAB PO SCH (06:18)
--- NOTE | 2016-05-07 06:59 | OP ---
DATE OF SERVICE: 05/06/2016 SURGEON: Mone Grace M.D. RETAIL ATTENDANT: PREOPERATIVE DIAGNOSIS: Gangrene right great toe, gangrenous ulceration right lateral foot (3 x 4 cm). POSTOPERATIVE DIAGNOSIS: Gangrene right great toe, gangrenous ulceration right lateral foot (3 x 4 cm). OPERATION: Right great toe amputation, debridement of right foot ulcer. ANESTHESIA: Local with monitored anesthesia sedation. ESTIMATED BLOOD LOSS: SPECIMENS REMOVED: COMPLICATIONS: OPERATIVE FINDINGS: INDICATION: The patient is a 80-year-old man who underwent a popliteal to dorsalis pedis bypass on 05/02/2016 for critical right leg ischemia and gangrene of the right great toe as well as gangrenous ulceration overlying the lateral aspect of the right foot. His bypass is patent. He is currently scheduled for a right great toe amputation and debridement of right lateral foot ulcer for wound healing purposes. DESCRIPTION OF PROCEDURE: After induction of adequate anesthesia via monitored anesthesia care, the patient's right foot and leg were prepped and draped in the usual sterile fashion. A digital block was given to the right great toe with a total of 10 mL of 1% lidocaine without epinephrine injected. The gangrenous tip of the toe was inspected and using a 15 blade, the viable skin surrounding this gangrenous portion was incised. This was carried down to the distal tuft and also the proximal phalanx of the toe. Soft tissues were divided from the bone and the bone was transected proximally just before the first metatarsophalangeal joint. The toe was handed off as a specimen. A culture of the toe was also taken. The wound was then copiously irrigated with antibiotic irrigation solution. A 5-0 PDS was used to loosely approximate the subcutaneous tissues; 5-0 nylon was used to approximate the skin. The gangrenous full thickness skin from the medial aspect of the foot (3 x 4 cm) was then excised sharply to viable tissue and handed off as a specimen. This area was also copiously irrigated with antibiotic irrigation solution. Sterile dressings were placed. Needle and sponge counts were correct. The patient tolerated the procedure well and was returned to the recovery room in satisfactory condition. He had a palpable pedal pulse and his right foot was viable.
[2016-05-07 07:13] LABS: Glucose,Whole Blood 155 mg/dL (75-99)
[2016-05-07] MEDS: PANTOPRAZOLE 40 MG TABLET PO SCH (07:36)
[2016-05-07] MEDS: INSULIN LISPRO (humaLOG) 300 UNIT/3 ML VIAL SQ SCH ×4 (07:36→20:50)
[2016-05-07] MEDS: TAMSULOSIN 0.4 MG CAP.ER.24H PO SCH (07:36)
[2016-05-07 07:42] LABS: ALT 32 U/L (21-72); AST 21 U/L (17-59); Alkaline Phosphatase 69 U/L (38-126); Anion Gap 8 mmol/L; Blood Urea Nitrogen 21 mg/dL (9-20); Calcium 8.5 mg/dL (8.4-10.2); Carbon Dioxide 28 mmol/L (22-30); Chloride 103 mmol/L (98-107); Glucose 146 mg/dL (74-99); Magnesium 1.3 mg/dL (1.6-2.3); Non-African American GFR(MDRD) 57 (>60 ml/min/1.73 sqM); Phosphorous 3.2 mg/dL (2.5-4.5); Potassium 4.9 mmol/L (3.5-5.1); Sodium 139 mmol/L (137-145); Total Bilirubin 0.7 mg/dL (0.2-1.3); Total Protein 5.7 g/dL (6.3-8.2)
[2016-05-07 08:46] LABS: Basophils # (A) 0.1 k/uL (0-0.2); Basophils % (A) 1 %; CH 29.2; CHCM 32.4; Eosinophils # (A) 0.4 k/uL (0-0.7); Eosinophils % (A) 5 %; HCT 28.4 % (39.0-53.0); HDW 2.92; HGB 9.1 gm/dL (13.0-17.5); Hypochromasia Slight; Luc # (Auto) 0.22; Luc % (Auto) 3; Lymphocytes # (A) 1.5 k/uL (1.0-4.8); Lymphocytes % (A) 18 %; MCHC 32.1 g/dL (31.0-37.0); MCV 90.5 fL (80.0-100.0); Mean Platelet Volume 6.9; Monocytes # (A) 0.5 k/uL (0-1.0); Monocytes % (A) 6 %; Neutrophils # (A) 5.6 k/uL (1.3-7.7); Neutrophils % (A) 68 %; RBC 3.14 m/uL (4.30-5.90); RDW 14.1 % (11.5-15.5); WBC 8.3 k/uL (3.8-10.6); WBC (Perox) 8.63
--- NOTE | 2016-05-07 09:27 | P.PN ---
Progress Note - Text no adverse events overnight tolerating diet awake and alert still no bowel movement, otherwise no complaints AF VSS right foot; moderate erythema noted at right great toe amputation site; viable skin flaps right foot ulcer appears healthy with no evidence of necrotic tissue, incisions in foot are healing without incidence and skin bridges appear viable Labs; gram stain of tissue from OR demonstrates gram postive cocci impression/plan 1. s/p right popliteal to dorsalis pedis bypass, right great toe amputation and debridement of right foot bypass remains patent, tissues appear viable begin doxycyline 100mg po BID x 7 days continue non-weight bearing on right foot dressing changes to right leg daily as ordered OK to transfer to subacute rehab f/u office Lesly in one week or sooner if problems for questions; Lesly [phone]
[2016-05-07] MEDS: CLOPIDOGREL 75 MG TAB PO SCH (09:54)
[2016-05-07] MEDS: FUROSEMIDE 20 MG TAB PO SCH (09:54)
[2016-05-07] MEDS: ESCITALOPRAM 20 MG TAB PO SCH (09:54)
[2016-05-07] MEDS: METOPROLOL TARTRATE 50 MG TAB PO SCH ×2 (09:54→20:50)
[2016-05-07] MEDS: ENOXAPARIN 40 MG/0.4 ML SYRINGE SQ SCH (09:54)
[2016-05-07] MEDS: LISINOPRIL 20 MG TAB PO SCH (09:54)
[2016-05-07] MEDS: BACITRACIN 500 UNIT/GM OINT 28.4 GM TUBE TOPICAL SCH ×2 (09:54→20:50)
[2016-05-07 11:28] LABS: Glucose,Whole Blood 220 mg/dL (75-99)
[2016-05-07] MEDS: MULTIVITAMINS, THERA 1 EACH TAB PO SCH (12:20)
[2016-05-07] MEDS: FERROUS SULFATE 325 MG TAB PO SCH (12:20)
[2016-05-07 17:03] LABS: Glucose,Whole Blood 183 mg/dL (75-99)
--- NOTE | 2016-05-07 17:32 | P.PN ---
Subjective Principal diagnosis: Right foot gangrene Patient is a 80-year-old male was multiple medical problems, patient had surgery yesterday with the right big toe amputation and debridement of the right foot wound. He is doing well postoperatively. Objective - Vital Signs Vital signs: Vital Signs Temp 98.8 F 05/07/16 14:56 Pulse 75 05/07/16 14:56 Resp 20 05/07/16 16:00 BP 122/58 05/07/16 14:56 Pulse Ox 98 05/07/16 14:56 Intake & Output 05/06/16 05/07/16 05/07/16 18:59 06:59 18:59 Intake Total 700 900 Output Total 10 72 300 Balance 690 828 -300 Weight 110 kg Intake: IV 700 900 Sodium Chloride 0.9% 1, 900 000 ml @ 75 mls/hr IV . [id number] [facility]IC[facility] Rx#:[id number] Output: Urine 300 Post Void Residual 72 Estimated Blood Loss 10 Other: Voiding Method Indwelling Catheter Indwelling Catheter # Voids 3 - Exam In general patient is alert and oriented he is hard of hearing HEENT head normocephalic and atraumatic Neck is supple no JVD no goiter no lymphadenopathy Chest is clear to auscultation no crackles no wheezing Cardiac exam reveals regular heart sounds no murmurs Abdomen is soft nontender no organomegaly Extremity exam reveals no edema no cyanosis - Labs CBC & Chem 7: 05/07/16 07:05 05/07/16 07:05 Labs: Abnormal Lab Results - Last 24 Hours (Table) 05/06/16 05/07/16 05/07/16 Range/Units 20:11 07:05 07:05 RBC 3.14 L (4.30-5.90) m/uL Hgb 9.1 L (13.0-17.5) gm/dL Hct 28.4 L (39.0-53.0) % BUN 21 H (9-20) mg/dL Glucose 146 H (74-99) mg/dL POC Glucose (mg/dL) 153 H (75-99) mg/dL Magnesium 1.3 L (1.6-2.3) mg/dL Total Protein 5.7 L (6.3-8.2) g/dL Albumin 2.9 L (3.5-5.0) g/dL 05/07/16 05/07/16 05/07/16 Range/Units 07:07 11:26 17:02 RBC (4.30-5.90) m/uL Hgb (13.0-17.5) gm/dL Hct (39.0-53.0) % BUN (9-20) mg/dL Glucose (74-99) mg/dL POC Glucose (mg/dL) 155 H 220 H 183 H (75-99) mg/dL Magnesium (1.6-2.3) mg/dL Total Protein (6.3-8.2) g/dL Albumin (3.5-5.0) g/dL Microbiology - Last 24 Hours (Table) 05/06/16 14:15 Gram Stain - Preliminary Toe - Right First Wound Culture - Preliminary 05/06/16 14:15 Anaerobic Culture - Preliminary Toe - Right First Assessment and Plan Plan: #1 episodes of vomiting and diarrhea now resolved, possible gastroenteritis on admission resolved #2 syncope with loss of consciousness, with fall and head trauma, likely related to vomiting diarrhea and dehydration, will obtain echocardiogram and carotid Doppler to rule out any further pathology, Will consult cardiology in that regard to syncope. #3 peripheral vascular disease patient was evaluated on previous admission by Dr. Gutierrez. He underwent revascularization surgery during this admission. #4 right foot ulcer, patient underwent right big toe amputation today due to gangrene and debridement of right foot ulcer #5 underlying history of insulin-dependent diabetes mellitus #6 underlying history of hypertension #7 underlying history of anemia #8 underlying history of chronic kidney disease creatinine on admission around 2 Patient is stable prognosis is guarded due to advanced multiple medical problems will follow closely Time with Patient: Less than 30
[2016-05-07] MEDS ORDERED: SODIUM FERRIC GLUCONAT-SUCROSE 125 MG in SODIUM CHLORIDE 0.9% 100 ML IVPB ONE (18:00)
[2016-05-07 20:13] LABS: Glucose,Whole Blood 221 mg/dL (75-99)
[2016-05-07] MEDS: AMITRIPTYLINE HCL 10 MG TAB PO SCH (20:49)
[2016-05-07] MEDS: ASPIRIN 81 MG CHEW PO SCH (20:49)
[2016-05-07] MEDS: INSULIN GLARGINE 100 UNIT/ML 10 ML VIAL SQ SCH (20:49)
[2016-05-07] MEDS: HYDROmorphone 1 MG/ML 1 ML SYRINGE IVP PRN (20:56)
[2016-05-08] MEDS: LEVOTHYROXINE 100 MCG TAB PO SCH (06:27)
[2016-05-08 07:18] LABS: Glucose,Whole Blood 121 mg/dL (75-99)
[2016-05-08 07:40] LABS: Basophils # (A) 0.1 k/uL (0-0.2); Basophils % (A) 1 %; CH 29.2; CHCM 32.4; Eosinophils # (A) 0.4 k/uL (0-0.7); Eosinophils % (A) 5 %; HCT 28.3 % (39.0-53.0); HDW 2.99; HGB 8.9 gm/dL (13.0-17.5); Hypochromasia Slight; Luc # (Auto) 0.12; Luc % (Auto) 2; Lymphocytes # (A) 1.6 k/uL (1.0-4.8); Lymphocytes % (A) 22 %; MCH 28.6 pg (25.0-35.0); MCHC 31.6 g/dL (31.0-37.0); MCV 90.3 fL (80.0-100.0); Mean Platelet Volume 7.5; Monocytes # (A) 0.6 k/uL (0-1.0); Monocytes % (A) 8 %; Neutrophils # (A) 4.3 k/uL (1.3-7.7); Neutrophils % (A) 61 %; RBC 3.13 m/uL (4.30-5.90); RDW 14.3 % (11.5-15.5); WBC (Perox) 7.44
[2016-05-08 07:57] LABS: ALT 27 U/L (21-72); AST 17 U/L (17-59); Alkaline Phosphatase 65 U/L (38-126); Anion Gap 8 mmol/L; Blood Urea Nitrogen 24 mg/dL (9-20); Calcium 8.5 mg/dL (8.4-10.2); Carbon Dioxide 27 mmol/L (22-30); Chloride 104 mmol/L (98-107); Glucose 126 mg/dL (74-99); Non-African American GFR(MDRD) 51 (>60 ml/min/1.73 sqM); Potassium 4.6 mmol/L (3.5-5.1); Sodium 139 mmol/L (137-145); Total Bilirubin 0.8 mg/dL (0.2-1.3); Total Protein 5.8 g/dL (6.3-8.2)
[2016-05-08] MEDS: INSULIN LISPRO (humaLOG) 300 UNIT/3 ML VIAL SQ SCH ×4 (08:09→21:32)
[2016-05-08] MEDS: PANTOPRAZOLE 40 MG TABLET PO SCH (08:10)
[2016-05-08] MEDS: LISINOPRIL 20 MG TAB PO SCH (08:10)
[2016-05-08] MEDS: ENOXAPARIN 40 MG/0.4 ML SYRINGE SQ SCH (08:10)
[2016-05-08] MEDS: CLOPIDOGREL 75 MG TAB PO SCH (08:10)
[2016-05-08] MEDS: ESCITALOPRAM 20 MG TAB PO SCH (08:11)
[2016-05-08] MEDS: METOPROLOL TARTRATE 50 MG TAB PO SCH ×2 (08:11→21:31)
[2016-05-08] MEDS: TAMSULOSIN 0.4 MG CAP.ER.24H PO SCH (08:11)
[2016-05-08] MEDS: FUROSEMIDE 20 MG TAB PO SCH (08:11)
[2016-05-08] MEDS: BACITRACIN 500 UNIT/GM OINT 28.4 GM TUBE TOPICAL SCH ×2 (08:12→21:32)
[2016-05-08] MEDS ORDERED: LACTULOSE 20 GM/30 ML CUP PO ONE (10:04)
--- NOTE | 2016-05-08 10:53 | P.PN ---
Subjective Is a 80-year-old who presented with vomiting and diarrhea. Found to be dehydrated. Also had a syncopal episode. Vomiting and diarrhea has resolved. Patient has peripheral vascular disease and gangrene of the right great toe. Patient status post right popliteal to dorsalis pedis bypass and amputation of right great toe for gangrene of right great toe. Patient denies any chest pain , shortness breath, any nausea vomiting. Denies any difficulty urinating. Patient is complaining of constipation. Objective - Vital Signs Vital signs: Vital Signs Temp 98.2 F 05/08/16 07:00 Pulse 72 05/08/16 07:00 Resp 20 05/08/16 07:00 BP 131/73 05/08/16 07:00 Pulse Ox 97 05/08/16 07:00 Intake & Output 05/07/16 05/08/16 05/08/16 18:59 06:59 18:59 Intake Total 200 Output Total 300 Balance -300 200 Weight 110.5 kg Intake: Oral 200 Output: Urine 300 Other: Voiding Method Indwelling Catheter Urinal Urinal Diaper Diaper Incontinent Incontinent - Exam Head normocephalic Neck supple Lungs clear to auscultation bilaterally no wheezing or crackles Heart regular rate and rhythm S1-S2, no rub or gallop Abdomen is soft nontender nondistended positive bowel sounds no hepatosplenomegaly Extremities no edema. Right foot is wrapped dressing is clean dry and intact and also on a waffle boot. Neuro alert and orientated to 3 - Labs CBC & Chem 7: 05/08/16 07:15 05/08/16 07:15 Labs: Abnormal Lab Results - Last 24 Hours (Table) 05/07/16 05/07/16 05/07/16 Range/Units 11:26 17:02 20:11 RBC (4.30-5.90) m/uL Hgb (13.0-17.5) gm/dL Hct (39.0-53.0) % BUN (9-20) mg/dL Creatinine (0.66-1.25) mg/dL Glucose (74-99) mg/dL POC Glucose (mg/dL) 220 H 183 H 221 H (75-99) mg/dL Total Protein (6.3-8.2) g/dL Albumin (3.5-5.0) g/dL 05/08/16 05/08/16 05/08/16 Range/Units 07:13 07:15 07:15 RBC 3.13 L (4.30-5.90) m/uL Hgb 8.9 L (13.0-17.5) gm/dL Hct 28.3 L (39.0-53.0) % BUN 24 H (9-20) mg/dL Creatinine 1.36 H (0.66-1.25) mg/dL Glucose 126 H (74-99) mg/dL POC Glucose (mg/dL) 121 H (75-99) mg/dL Total Protein 5.8 L (6.3-8.2) g/dL Albumin 2.8 L (3.5-5.0) g/dL Assessment and Plan Plan: 1. Vomiting and diarrhea likely secondary to viral gastroenteritis. Has now resolved. Abdominal ultrasound showing no acute abnormalities. There is fatty liver. Simple cyst of the liver. Bilateral renal cysts. Evaluated by infectious disease 2. Syncope with fall and head trauma. Likely secondary to patient's dehydration with vomiting and diarrhea. Cardiology was consulted. Patient was also noted to have left internal carotid artery near occlusion. This also may contribute to his syncope. Echo shows EF of 55-60%. Computed tomography scan the brain was normal. 3. 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 4. 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 Status post right popliteal to dorsalis pedis bypass. And status post amputation of right great toe. Vascular surgery following an recommending doxycycline for 7 more days. Wound cultures are pending 5. Acute on chronic kidney disease, stage IIIa. 6. Essential hypertension 7. Insulin-dependent diabetes mellitus: Continue with Lantus and sliding scale coverage 8. Hypothyroidism continue Synthroid 9. Chronic diastolic CHF: No evidence of exacerbation 10. Acute on chronic Anemia. Acute blood loss anemia secondary to surgery. Patient receiving 1 unit of blood during this admission. Has known history of anemia of chronic kidney disease and iron deficiency anemia. She did receive IV iron during this admission. Continue to monitor hemoglobin 11. Constipation we will start Colace and give 1 dose of lactulose DVT prophylaxis Lovenox Anticipate discharge to [facility] tomorrow once wound cultures have finalized.
[2016-05-08 10:57] LABS: Glucose,Whole Blood 297 mg/dL (75-99)
[2016-05-08] MEDS: DOCUSATE 100 MG CAP PO SCH ×2 (11:22→21:32)
[2016-05-08] MEDS: HYDROmorphone 1 MG/ML 1 ML SYRINGE IVP PRN (11:27)
[2016-05-08 11:33] VITALS: BMI 34.9
[2016-05-08] MEDS: DOXYCYCLINE 50 MG CAP PO SCH ×2 (11:33→21:32)
[2016-05-08] MEDS: FERROUS SULFATE 325 MG TAB PO SCH ×2 (11:33→18:30)
[2016-05-08] MEDS: MULTIVITAMINS, THERA 1 EACH TAB PO SCH (11:34)
[2016-05-08 17:11] LABS: Glucose,Whole Blood 101 mg/dL (75-99)
[2016-05-08 20:33] LABS: Glucose,Whole Blood 167 mg/dL (75-99)
[2016-05-08] MEDS: ACETAMINOPHEN TAB 325 MG TAB PO PRN (21:30)
[2016-05-08] MEDS: AMITRIPTYLINE HCL 10 MG TAB PO SCH (21:31)
[2016-05-08] MEDS: ASPIRIN 81 MG CHEW PO SCH (21:31)
[2016-05-08] MEDS: INSULIN GLARGINE 100 UNIT/ML 10 ML VIAL SQ SCH (21:35)
[2016-05-09] MEDS: ACETAMINOPHEN TAB 325 MG TAB PO PRN (01:16)
[2016-05-09] MEDS: HYDROmorphone 1 MG/ML 1 ML SYRINGE IVP PRN (03:55)
[2016-05-09] MEDS: LEVOTHYROXINE 100 MCG TAB PO SCH (06:12)
[2016-05-09 07:36] LABS: Basophils # (A) 0.1 k/uL (0-0.2); Basophils % (A) 1 %; CH 29.1; CHCM 32.5; Eosinophils # (A) 0.4 k/uL (0-0.7); Eosinophils % (A) 5 %; HCT 27.3 % (39.0-53.0); HDW 2.95; HGB 8.8 gm/dL (13.0-17.5); Hypochromasia Slight; Luc # (Auto) 0.16; Luc % (Auto) 2; Lymphocytes # (A) 1.6 k/uL (1.0-4.8); Lymphocytes % (A) 20 %; MCH 28.9 pg (25.0-35.0); MCHC 32.1 g/dL (31.0-37.0); MCV 90.1 fL (80.0-100.0); Mean Platelet Volume 7.6; Monocytes # (A) 0.6 k/uL (0-1.0); Monocytes % (A) 7 %; Neutrophils # (A) 5.4 k/uL (1.3-7.7); Neutrophils % (A) 66 %; RBC 3.03 m/uL (4.30-5.90); RDW 14.3 % (11.5-15.5); WBC 8.2 k/uL (3.8-10.6); WBC (Perox) 8.84
[2016-05-09 07:59] LABS: Calcium 8.4 mg/dL (8.4-10.2); Potassium 4.8 mmol/L (3.5-5.1); Total Bilirubin 0.6 mg/dL (0.2-1.3); Total Protein 5.7 g/dL (6.3-8.2)
[2016-05-09 08:10] LABS: Glucose,Whole Blood 154 mg/dL (75-99)
[2016-05-09] MEDS ORDERED: HYDROcodone/APAP 5-325MG 1 EACH TAB PO PRN (09:47)
[2016-05-09 09:49] VITALS: BP 112/65; PULSE 62; RESP 16; TEMP 97.3
[2016-05-09] MEDS: DOXYCYCLINE 50 MG CAP PO SCH (09:50)
[2016-05-09] MEDS: INSULIN LISPRO (humaLOG) 300 UNIT/3 ML VIAL SQ SCH ×2 (09:52→13:33)
[2016-05-09] MEDS: ENOXAPARIN 40 MG/0.4 ML SYRINGE SQ SCH (09:52)
[2016-05-09] MEDS: DOCUSATE 100 MG CAP PO SCH (09:53)
[2016-05-09] MEDS: FERROUS SULFATE 325 MG TAB PO SCH (09:53)
[2016-05-09] MEDS: CLOPIDOGREL 75 MG TAB PO SCH (09:53)
[2016-05-09] MEDS: FUROSEMIDE 20 MG TAB PO SCH (09:54)
[2016-05-09] MEDS: BACITRACIN 500 UNIT/GM OINT 28.4 GM TUBE TOPICAL SCH (09:54)
[2016-05-09] MEDS: PANTOPRAZOLE 40 MG TABLET PO SCH (09:54)
[2016-05-09] MEDS: MULTIVITAMINS, THERA 1 EACH TAB PO SCH (09:54)
[2016-05-09] MEDS: LISINOPRIL 20 MG TAB PO SCH (09:55)
[2016-05-09] MEDS: METOPROLOL TARTRATE 50 MG TAB PO SCH (09:55)
[2016-05-09] MEDS: ESCITALOPRAM 20 MG TAB PO SCH (09:56)
[2016-05-09] MEDS: TAMSULOSIN 0.4 MG CAP.ER.24H PO SCH (09:56)
--- NOTE | 2016-05-09 12:14 | P.DS ---
Providers Date of admission: 04/29/16 12:36 Expected date of discharge: 05/09/16 Attending physician: Tian Sloan Consults: 04/30/16 12:49 Consult Physician Routine Consulting Provider: Finn No Consult Reason/Comments: surgical clearance Do you want consulting provider notified?: Yes 04/30/16 12:51 Consult Physician Routine Consulting Provider: Debbie Wallace Consult Reason/Comments: vomiting, diarrhea leukocytosis Do you want consulting provider notified?: Yes 04/30/16 13:03 Consult Physician Routine Consulting Provider: Raul Gutierrez Consult Reason/Comments: R foot ulcer Do you want consulting provider notified?: Yes 05/02/16 19:13 Consult Physician Routine Consulting Provider: Abran Clemente Consult 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 Vomiting and diarrhea likely secondary to viral gastroenteritis. Has now resolved. Abdominal ultrasound showing no acute abnormalities. There is fatty liver. Simple cyst of the liver. Bilateral renal cysts. Evaluated by infectious disease 2. Syncope with fall and head trauma. Likely secondary to patient's dehydration with vomiting and diarrhea. Cardiology was consulted. Echo shows EF of 55-60%. Computed tomography scan the brain was normal. 3. 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 4. 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 Status post right popliteal to dorsalis pedis bypass. And status post amputation of right great toe. Vascular surgery following an recommending doxycycline for 7 more days. Wound cultures are pending 5. Acute on chronic kidney disease, stage IIIa. 6. Essential hypertension 7. Insulin-dependent diabetes mellitus: Continue with Lantus and sliding scale coverage 8. Hypothyroidism continue Synthroid 9. Chronic diastolic CHF: No evidence of exacerbation 10. Acute on chronic Anemia. Acute blood loss anemia secondary to surgery. Patient receiving 1 unit of blood during this admission. Has known history of anemia of chronic kidney disease and iron deficiency anemia. She did receive IV iron during this admission. Continue to monitor hemoglobin 11. Constipation resolved Hospital course This is a 80-year-old male who initially presented with vomiting and diarrhea and evidence of dehydration. He also had a syncopal episode. It is supple syncopal episode was due to patient's dehydration and vomiting and diarrhea. The vomiting and diarrhea has resolved and was likely related to a viral gastroenteritis. Was evaluated by infectious disease service. Abdominal ultrasound showed no acute abnormalities. He had the syncopal episode with no head trauma. Cardiology evaluated patient and echo which showed an EF of 55-60% . Computed tomography scan of the brain was normal. Cardiology did clear patient for surgery. Patient had severe peripheral vascular disease and gangrene of the right great toe. During this admission he had a right popliteal to dorsalis pedis bypass and another surgery for amputation of the right great toe. Patient has a wound culture growing presumptive staph aureus in that right great toe. And will continue doxycycline 100 mg twice a day for 7 days. We'll have him follow-up with infectious disease and vascular surgery in 1 week. Patient is medically stable for discharge. Please refer to chart for any further details. Please note that his hemoglobin at discharge is 8.8. He did receive 1 unit of blood during this admission and IV iron. His oral iron was increased to twice a day he does have a known history of iron deficiency anemia and anemia of chronic kidney disease. Creatinine discharge close to baseline at 1.59. Would recommend checking CBC and BMP in 1 week. Patient will be discharged to [facility]. Dr. Simeon we'll follow patient at [facility]. Patient Condition at Discharge: Stable Plan - Discharge Summary New Discharge Prescriptions: HYDROcodone/APAP 5-325MG [Bar[place] 5-325] 1 each PO Q4HR PRN #40 tab PRN Reason: Pain Discharge Medication List Amitriptyline HCl [Elavil] 10 mg PO HS 04/29/16 [History] Aspirin EC [Ecotrin Low Dose] 81 mg PO HS 04/29/16 [History] Clopidogrel [Plavix] 75 mg PO DAILY 04/29/16 [History] Ergocalciferol (Vitamin D2) [Vitamin D2] 50,000 unit PO FR 04/29/16 [History] Escitalopram [Lexapro] 20 mg PO DAILY 04/29/16 [History] Furosemide [Lasix] 20 mg PO DAILY 04/29/16 [History] Levothyroxine Sodium [Synthroid] 100 mcg PO DAILY 04/29/16 [History] Lisinopril [Zestril] 20 mg PO DAILY 04/29/16 [History] Metoprolol Tartrate [Lopressor] 50 mg PO BID 04/29/16 [History] Multivitamins, Thera [Multivitamin] 1 tab PO DAILY 04/29/16 [History] Omeprazole [PriLOSEC] 20 mg PO AC-BRKFST 04/29/16 [History] Bacitracin Oint 1 applic TOPICAL BID #0 applic 05/09/16 [Rx] Docusate [Colace] 100 mg PO BID cap 05/09/16 [Rx] Doxycycline [Vibramycin] 100 mg PO BID #14 cap 05/09/16 [Rx] Ferrous Sulfate [Iron (65 MG Elemental)] 325 mg PO BID-W/MEALS tab 05/09/16 [Rx ] HYDROcodone/APAP 5-325MG [[place] 5-325] 1 each PO Q4HR PRN #40 tab 05/09/16 [Rx] Insulin Glargine [Lantus] 25 unit SQ HS vial 05/09/16 [Rx] Tamsulosin [Flomax] 0.4 mg PO PC-BRKFST cap.er.24h 05/09/16 [Rx] Follow up Appointment(s)/Referral(s): Debbie Wallace MD [STAFF PHYSICIAN] - 1 Week Mone Grace MD [STAFF PHYSICIAN] - 1 Week Activity/Diet/Wound Care/Special Instructions: [facility] - Patient to be discharged to [facility]. Dr. Simeon will follow patient at [facility] Check CBC, BMP in 1 week Discharge Disposition: TRANSFER TO SNF/ECF
[2016-05-09 12:26] LABS: Glucose,Whole Blood 176 mg/dL (75-99)
--- NOTE | 2016-05-09 16:58 | PN ---
DATE OF SERVICE: 05/09/2016 Reason for follow-up: Right leg wound infection and discharge antibiotic recommendation. INTERVAL HISTORY: The patient is afebrile. The patient is status post amputation of the right big toe on 05/06/2016. He has had cultures obtained from that toe site which is showing a Staph aureus MSSA and Peptostreptococcus. I was asked to see the patient for discharge antibiotic. The patient has been breathing comfortably. Denies having pain in the right foot. He denies having any chest pain or shortness of breath or cough. No abdominal pain, or any diarrhea. On examination, blood pressure is 112/55 with a pulse of 52, temperature 97.3. He is 95% on room air. General description is an elderly male, lying in bed in no distress. RESPIRATORY SYSTEM: Unlabored breathing. Clear to auscultation anteriorly. HEART: S1, S2 with regular rate and rhythm. ABDOMEN: Soft, nontender. Right big toe wound site looks clean with no definite cellulitis. However, he did have one on the lateral border of the right foot, which did show some slough tissue. LABS: Hemoglobin 8.9, white count 8.2 with a BUN of 24, creatinine 1.59. Wound cultures with MSSA and Peptostreptococcal. DIAGNOSTIC IMPRESSION AND PLAN: Patient with right big toe gangrene with no evidence of cellulitis. Culture positive for Methicillin-susceptible Staph aureus and Peptostreptococcus. At this time, antibiotics will be adjusted to Augmentin for another two weeks. As for local wound care, recommend aquacel silver dressing to the amputated site on the right big toe. However, Santyl to the right foot lateral border followed by moist dressing. Continue supportive care. MAURICED
[2016-05-14] MEDS ORDERED: DOXYCYCLINE 50 MG CAP PO SCH (21:00)
== END 2016-05-09 15:55 | DRG 357 ==
LOC: EC 08:31 → 5MS5E 12:36 → 6ICU 05-02 11:50 → 6SEL 05-03 16:48 → 5MS5E 05-05 15:30
PROVIDERS: ADMIT Internal Medicine; ATTEND Internal Medicine
PROC: 041M0ZP Bypass Right Popliteal Artery to Foot Artery, Open Approach (ICD-10-PCS; 2016-05-02)
PROC: 30233N1 Transfusion of Nonautologous Red Blood Cells into Peripheral Vein, Percutaneous Approach (ICD-10-PCS; principal; 2016-05-05)
PROC: 0Y6P0Z1 Detachment at Right 1st Toe, High, Open Approach (ICD-10-PCS; 2016-05-06)
PROC: 0HBMXZZ Excision of Right Foot Skin, External Approach (ICD-10-PCS; 2016-05-06)
DX: A08.4 Viral intestinal infection, unspecified (principal); N18.4 Chronic kidney disease, stage 4 (severe); E11.52 Type 2 diabetes mellitus with diabetic peripheral angiopathy with gangrene; I70.268 Atherosclerosis of native arteries of extremities with gangrene, other extremity; I13.0 Hypertensive heart and chronic kidney disease with heart failure and stage 1 through stage 4 chronic kidney disease, or unspecified chronic kidney disease; D62 Acute posthemorrhagic anemia; I50.32 Chronic diastolic (congestive) heart failure; E11.22 Type 2 diabetes mellitus with diabetic chronic kidney disease; E11.621 Type 2 diabetes mellitus with foot ulcer; D63.1 Anemia in chronic kidney disease; E03.9 Hypothyroidism, unspecified; E78.5 Hyperlipidemia, unspecified; E83.42 Hypomagnesemia; E86.0 Dehydration; F32.9 Major depressive disorder, single episode, unspecified; I25.10 Atherosclerotic heart disease of native coronary artery without angina pectoris; I45.10 Unspecified right bundle-branch block; I65.22 Occlusion and stenosis of left carotid artery; L98.499 Non-pressure chronic ulcer of skin of other sites with unspecified severity; J44.9 Chronic obstructive pulmonary disease, unspecified; K21.9 Gastro-esophageal reflux disease without esophagitis; K59.00 Constipation, unspecified; K76.0 Fatty (change of) liver, not elsewhere classified; K76.89 Other specified diseases of liver; L30.1 Dyshidrosis [pompholyx]; L97.519 Non-pressure chronic ulcer of other part of right foot with unspecified severity; M19.90 Unspecified osteoarthritis, unspecified site; N28.1 Cyst of kidney, acquired; S09.90XA Unspecified injury of head, initial encounter; W18.30XA Fall on same level, unspecified, initial encounter; Z79.02 Long term (current) use of antithrombotics/antiplatelets; Z79.4 Long term (current) use of insulin; Z79.82 Long term (current) use of aspirin; Z86.73 Personal history of transient ischemic attack (TIA), and cerebral infarction without residual deficits; Z87.01 Personal history of pneumonia (recurrent); Z87.11 Personal history of peptic ulcer disease; Z95.1 Presence of aortocoronary bypass graft
CPT/HCPCS: 36415; 70450; 71010; 71020; 72125; 76700; 80048; 80053; 81001; 82550; 82553; 82728; 83036; 83540; 83550; 83735; 84100; 84484; 85025; 85610; 85730; 86850; 86900; 86901; 86920; 87070; 87075; 87077; 87086; 87186; 87205; 88305; 88311; 93005; 93306; 93880; 99285

== ENCOUNTER → 2016-09-29 | Outpatient (CLI) | payer MEDICARE | END | disposition home or self-care (01) | LOC: LABWHC1 09:41 | PROVIDERS: ATTEND Psychiatry & Neurology Neurology | DX: I63.9 Cerebral infarction, unspecified (principal) | CPT/HCPCS: 36415; 82565; 84520 ==

== ENCOUNTER → 2016-10-09 | Outpatient (CLI) | payer MEDICARE ==
--- NOTE | 2016-10-09 15:55 | MR ---
MRI of the brain with and without contrast EXAM DATE: 10/09/2016 HISTORY: Headaches. TECHNIQUE: T1-weighted sagittal, T2, FLAIR, and diffusion axial, postcontrast T1 axial and coronal vi ews of the brain are submitted. CONTRAST: 15 mL MultiHance FINDINGS: There is no evidence of acute ischemia. The ventricles, basal cisterns, and sulci overlying the co nvexities are consistent with moderate degenerative change. Large area of encephalomalacia involving the right temporal parietal junction compatible with previous ischemia. There are multiple focal areas of abnormal signal the white matter as well as confluent area in the p eriventricular region which are nonspecific but most suggestive of remote microvascular ischemia. There is absence of the normal signal void and enhancement of portions of the left internal carotid a rtery which is been previously noted compatible with chronic occlusion. Evidence of remote lacunar infarction involving the basal ganglia. No midline shift or mass effect. Punctate areas of abnormal signal involving the michael are suggestive of remote ischemia and appear essentially stable. Craniocervical junction maintained. Sella turcica h as a normal appearance. No evidence of cerebellopontine angle mass. There is enhancement along the area of encephalomalacia within the right temporal parietal lobe withi n the gyrus. Findings felt to be likely chronic. No evidence of acute or subacute ischemia on diffusi on weighted imaging. IMPRESSION: 1. No acute intracranial process. Degenerative extensive remote ischemic change as discussed above. N o diagnostic evidence of acute ischemia. 2. Chronic occlusion of the left internal carotid artery.
== END | disposition home or self-care (01) ==
LOC: RADMRIMAIN 14:47
PROVIDERS: ATTEND Psychiatry & Neurology Neurology
DX: G31.9 Degenerative disease of nervous system, unspecified (principal); I65.22 Occlusion and stenosis of left carotid artery
CPT/HCPCS: 70553; A9577

== ENCOUNTER 2017-10-11 18:47 | Inpatient (IN) | payer MEDICARE ==
[2017-10-11] MEDS ORDERED: SODIUM CHLORIDE 0.9% 500 ML IV ONE (19:17)
--- NOTE | 2017-10-11 19:27 | CT ---
EXAMINATION TYPE: CT brain wo con DATE OF EXAM: 10/11/2017 COMPARISON: 04/29/2016 HISTORY: Altered mental status CT DLP: 835.8 mGycm Automated exposure control for dose reduction was used. FINDINGS: There is 4 cm area of hypodensity in the right posterior temporal lobe and right posterior parietal l obe related to old cortical infarct. There is no mass effect nor midline shift. There is no sign of i ntracranial hemorrhage. There is cerebral cortical atrophy. The calvarium is intact. 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 NO ACUTE INTRACRANIAL ABNORMALITY. CEREBRAL ATROPH Y. NO CHANGE.
--- NOTE | 2017-10-11 19:44 | ED ---
Altered Mental Status HPI - General Chief Complaint: Altered Mental Status Stated Complaint: Altered Mental Status Time Seen by Provider: 10/11/17 18:48 Source: EMS Mode of arrival: EMS Limitations: altered mental status - History of Present Illness Initial Comments: 's patient is a 81-year-old man presenting to be evaluated for altered mental status. The history is from both the patient and his daughter and son-in-law. The patient lives with them. Patient's daughter reports that she had last seen him this morning and he was in his usual state of health. Tonight when they saw him again, he was appearing to be very shaky, and they state that he was having difficulty in expressing himself through speech. His speech was a little slurred. The patient is not able to state exactly when this came on. MD Complaint: altered mental status -: unknown Severity: moderate Associated Symptoms: denies other symptoms - Related Data Home Medications Medication Instructions Recorded Confirmed Insulin Aspart [NovoLOG 6 unit SQ DAILY 04/22/16 10/12/17 (formulary)] Insulin Glargine,Hum.rec.anlog 54 unit SQ DAILY 04/22/16 10/12/17 [Lantus Solostar] Levothyroxine Sodium [Synthroid] 100 mcg PO DAILY 04/22/16 10/12/17 Lisinopril [Zestril] 20 mg PO DAILY 04/22/16 10/12/17 Multivitamin/Iron/Folic Acid 1 tab PO DAILY 04/22/16 10/12/17 [Centrum Complete Multivit Tab] Amitriptyline HCl [Elavil] 10 mg PO HS 04/29/16 10/12/17 Aspirin EC [Ecotrin Low Dose] 81 mg PO HS 04/29/16 10/12/17 Clopidogrel [Plavix] 75 mg PO DAILY 04/29/16 10/12/17 Escitalopram [Lexapro] 20 mg PO DAILY 04/29/16 10/12/17 Furosemide [Lasix] 20 mg PO DAILY 04/29/16 10/12/17 Metoprolol Tartrate [Lopressor] 50 mg PO BID 04/29/16 10/12/17 Omeprazole [PriLOSEC] 20 mg PO AC-BRKFST 04/29/16 10/12/17 Carbidopa-Levodopa ER 25-100Mg 1 tab PO TID 10/11/17 10/12/17 [Sinemet CR 25-100 mg] Cholecalciferol (Vitamin D3) 2,000 unit PO DAILY 10/11/17 10/12/17 [Vitamin D3] Primidone [Mysoline] 50 mg PO BID 10/11/17 10/12/17 Rosuvastatin [Crestor] 5 mg PO DAILY 10/11/17 10/12/17 Allergies Allergy/AdvReac Type Severity Reaction Status Date / Time No Known Allergies Allergy Verified 10/11/17 18:54 Review of Systems ROS Statement: Those systems with pertinent positive or pertinent negative responses have been documented in the HPI. ROS Other: All systems not noted in ROS Statement are negative. Limitations: ROS unobtainable due to patients medical condition Constitutional: Denies: fever Respiratory: Denies: cough, dyspnea Cardiovascular: Denies: chest pain, palpitations Gastrointestinal: Denies: abdominal pain, vomiting, diarrhea Musculoskeletal: Denies: back pain Skin: Denies: rash Neurological: Reports: as per HPI, confusion. Denies: headache Past Medical History Past Medical History: Coronary Artery Disease (CAD), Heart Failure, Diabetes Mellitus, GERD/Reflux, Hyperlipidemia, Hypertension, Myocardial Infarction (CT) , Osteoarthritis (OA), Pneumonia, Syncope, Thyroid Disorder, Vascular Disorder Additional Past Medical History / Comment(s): IDDM type II, blackened R great toe currently, CVA 2013-resolved dysarthria, L internal caratid severly stenosed , hypothyroidism, tinnitis bilaterally, chronic back pain, bilateral neuropathy of hands, very [place] bilaterally, incontinence, past medical record states stomach ulcer but pt denies. Last Myocardial Infarction Date:: 1987 History of Any Multi-Drug Resistant Organisms: None Reported, Unobtainable Past Surgical History: Cholecystectomy, Coronary Bypass/CABG, Heart Catheterization Additional Past Surgical History / Comment(s): quadrouple bypass Past Anesthesia/Blood Transfusion Reactions: No Reported Reaction Additional Past Anesthesia/Blood Transfusion Reaction / Comment(s): Pt has received blood in past without reaction. Past Psychological History: Depression, Unable to Obtain Smoking Status: Never smoker - Past Family History Mother Additional Family Medical History / Comment(s): Mother had breast surgery (pt unsure if due to cancer) and shorley after. Father Additional Family Medical History / Comment(s): Father of suicide. General Exam Limitations: altered mental status General appearance: alert, in no apparent distress, obese Head exam: Present: atraumatic, normocephalic Eye exam: Present: normal appearance. Absent: scleral icterus, conjunctival injection ENT exam: Present: mucous membranes dry Neck exam: Present: normal inspection, full ROM. Absent: meningismus Respiratory exam: Present: normal lung sounds bilaterally. Absent: respiratory distress, wheezes, rales, rhonchi, stridor Cardiovascular Exam: Present: regular rate, normal rhythm, normal heart sounds. Absent: systolic murmur, diastolic murmur, rubs, gallop GI/Abdominal exam: Present: soft. Absent: distended, tenderness, guarding, rebound, rigid, mass Extremities exam: Present: normal inspection, normal capillary refill. Absent: pedal edema, calf tenderness Back exam: Present: normal inspection. Absent: CVA tenderness (R), CVA tenderness (L) Neurological exam: Present: alert, CN II-XII intact, other (The patient does have some tremor with movement. He is able to follow commands on the neurologic exam. There does appear to be just minimal left lower extremity weakness versus a contralateral side.). Absent: oriented X3 (Patient is not able to state the date.), motor sensory deficit Skin exam: Present: warm, dry, intact, normal color. Absent: rash Course Vital Signs 10/11/17 10/11/17 10/11/17 18:50 19:20 19:50 Temperature 97.3 F L 97.6 F 97.5 F L Pulse Rate 61 61 60 Pulse Rate [ Passenger Booking Clerk ] Respiratory 16 18 16 Rate Blood Pressure 167/72 158/70 148/80 Blood Pressure [Left Arm] O2 Sat by Pulse 96 98 98 Oximetry 10/11/17 10/11/17 10/11/17 20:20 20:50 21:20 Temperature 97.5 F L 97.6 F 98.0 F Pulse Rate 59 L 70 70 Pulse Rate [ Passenger Booking Clerk ] Respiratory 16 18 18 Rate Blood Pressure 142/78 136/78 142/77 Blood Pressure [Left Arm] O2 Sat by Pulse 98 99 99 Oximetry 10/11/17 21:48 Temperature 97.9 F Pulse Rate Pulse Rate [ 80 Passenger Booking Clerk ] Respiratory 18 Rate Blood Pressure Blood Pressure 150/70 [Left Arm] O2 Sat by Pulse 97 Oximetry Medical Decision Making - Medical Decision Making This patient is 81-year-old man brought to be evaluated for appearing for a tremulous, and difficulty with speech. Onset of symptoms is unknown, as he was last seen normal in the morning, making patient not a candidate for TPA should this be stroke related. Case discussed with admitting physician and will have neurology consultation. - Lab Data Result diagrams: 10/12/17 07:47 10/12/17 07:47 Lab Results 10/11/17 10/11/17 10/11/17 Range/Units 19:24 19:24 19:24 WBC 7.9 (3.8-10.6) k/uL RBC 4.26 L (4.30-5.90) m/uL Hgb 12.9 L (13.0-17.5) gm/dL Hct 39.6 (39.0-53.0) % MCV 92.9 (80.0-100.0) fL MCH 30.3 (25.0-35.0) pg MCHC 32.7 (31.0-37.0) g/dL RDW 13.8 (11.5-15.5) % Plt Count 289 (150-450) k/uL Neutrophils % 62 % Lymphocytes % 24 % Monocytes % 6 % Eosinophils % 6 % Basophils % 1 % Neutrophils # 4.8 (1.3-7.7) k/uL Lymphocytes # 1.9 (1.0-4.8) k/uL Monocytes # 0.5 (0-1.0) k/uL Eosinophils # 0.5 (0-0.7) k/uL Basophils # 0.1 (0-0.2) k/uL PT (9.0-12.0) sec INR (<1.2) APTT (22.0-30.0) sec Sodium (137-145) mmol/L Potassium (3.5-5.1) mmol/L Chloride (98-107) mmol/L Carbon Dioxide (22-30) mmol/L Anion Gap mmol/L BUN (9-20) mg/dL Creatinine (0.66-1.25) mg/dL Est GFR (CKD-EPI)AfAm (>60 ml/min/1.73 sqM) Est GFR (CKD-EPI)NonAf (>60 ml/min/1.73 sqM) Glucose (74-99) mg/dL Calcium (8.4-10.2) mg/dL Total Bilirubin (0.2-1.3) mg/dL AST (17-59) U/L ALT (21-72) U/L Alkaline Phosphatase (38-126) U/L Ammonia 13 (<30) umol/L Total Creatine Kinase 50 L (55-170) U/L CK-MB (CK-2) 1.2 (0.0-2.4) ng/mL CK-MB (CK-2) Rel Index 2.4 Troponin I <0.012 (0.000-0.034) ng/mL Total Protein (6.3-8.2) g/dL Albumin (3.5-5.0) g/dL Urine Color Urine Appearance (Clear) Urine pH (5.0-8.0) Ur Specific [place] (1.001-1.035) Urine Protein (Negative) Urine Glucose (UA) (Negative) Urine Ketones (Negative) Urine Blood (Negative) Urine Nitrite (Negative) Urine Bilirubin (Negative) Urine Urobilinogen (<2.0) mg/dL Ur Leukocyte Esterase (Negative) Urine Opiates Screen (NotDetected) Ur Oxycodone Screen (NotDetected) Urine Methadone Screen (NotDetected) Ur Propoxyphene Screen (NotDetected) Ur Barbiturates Screen (NotDetected) U Tricyclic Antidepress (NotDetected) Ur Phencyclidine Scrn (NotDetected) Ur Amphetamines Screen (NotDetected) U Methamphetamines Scrn (NotDetected) U Benzodiazepines Scrn (NotDetected) Urine Cocaine Screen (NotDetected) U Marijuana (THC) Screen (NotDetected) 10/11/17 10/11/17 10/11/17 Range/Units 19:24 19:24 19:24 WBC (3.8-10.6) k/uL RBC (4.30-5.90) m/uL Hgb (13.0-17.5) gm/dL Hct (39.0-53.0) % MCV (80.0-100.0) fL MCH (25.0-35.0) pg MCHC (31.0-37.0) g/dL RDW (11.5-15.5) % Plt Count (150-450) k/uL Neutrophils % % Lymphocytes % % Monocytes % % Eosinophils % % Basophils % % Neutrophils # (1.3-7.7) k/uL Lymphocytes # (1.0-4.8) k/uL Monocytes # (0-1.0) k/uL Eosinophils # (0-0.7) k/uL Basophils # (0-0.2) k/uL PT 9.9 (9.0-12.0) sec INR 1.0 (<1.2) APTT 23.5 (22.0-30.0) sec Sodium 137 (137-145) mmol/L Potassium 5.7 H (3.5-5.1) mmol/L Chloride 101 (98-107) mmol/L Carbon Dioxide 25 (22-30) mmol/L Anion Gap 11 mmol/L BUN 31 H (9-20) mg/dL Creatinine 1.20 (0.66-1.25) mg/dL Est GFR (CKD-EPI)AfAm 66 (>60 ml/min/1.73 sqM) Est GFR (CKD-EPI)NonAf 57 (>60 ml/min/1.73 sqM) Glucose 171 H (74-99) mg/dL Calcium 9.1 (8.4-10.2) mg/dL Total Bilirubin 0.5 (0.2-1.3) mg/dL AST 21 (17-59) U/L ALT 30 (21-72) U/L Alkaline Phosphatase 87 (38-126) U/L Ammonia (<30) umol/L Total Creatine Kinase (55-170) U/L CK-MB (CK-2) (0.0-2.4) ng/mL CK-MB (CK-2) Rel Index Troponin I (0.000-0.034) ng/mL Total Protein 6.6 (6.3-8.2) g/dL Albumin 3.8 (3.5-5.0) g/dL Urine Color Yellow Urine Appearance Clear (Clear) Urine pH 5.5 (5.0-8.0) Ur Specific [place] 1.017 (1.001-1.035) Urine Protein Negative (Negative) Urine Glucose (UA) Negative (Negative) Urine Ketones Negative (Negative) Urine Blood Negative (Negative) Urine Nitrite Negative (Negative) Urine Bilirubin Negative (Negative) Urine Urobilinogen <2.0 (<2.0) mg/dL Ur Leukocyte Esterase Negative (Negative) Urine Opiates Screen Not Detected (NotDetected) Ur Oxycodone Screen Not Detected (NotDetected) Urine Methadone Screen Not Detected (NotDetected) Ur Propoxyphene Screen Not Detected (NotDetected) Ur Barbiturates Screen Detected H (NotDetected) U Tricyclic Antidepress Detected H (NotDetected) Ur Phencyclidine Scrn Not Detected (NotDetected) Ur Amphetamines Screen Not Detected (NotDetected) U Methamphetamines Scrn Not Detected (NotDetected) U Benzodiazepines Scrn Not Detected (NotDetected) Urine Cocaine Screen Not Detected (NotDetected) U Marijuana (THC) Screen Not Detected (NotDetected) - EKG Data -: EKG Interpreted by [place] EKG shows normal: sinus rhythm, axis (Normal), intervals (ID interval is prolonged at 284 ms, consistent with first-degree AV block. QRS duration prolonged at 134 ms, consistent with right bundle-branch block. QTC normal.), QRS complexes (Right bundle-branch block), ST-T waves (Normal) Rate: normal (Rate approximate 61 bpm) Disposition Clinical Impression: Altered mental status, Hyperkalemia, Dehydration, mild Disposition: ADMITTED IP TO THIS [facility] Condition: Fair Is patient prescribed a controlled substance at d/c from ED?: No
[2017-10-11 19:45] LABS: Basophils # (A) 0.1 k/uL (0-0.2); Basophils % (A) 1 %; Eosinophils # (A) 0.5 k/uL (0-0.7); Eosinophils % (A) 6 %; HCT 39.6 % (39.0-53.0); HGB 12.9 gm/dL (13.0-17.5); Lymphocytes # (A) 1.9 k/uL (1.0-4.8); Lymphocytes % (A) 24 %; MCH 30.3 pg (25.0-35.0); MCHC 32.7 g/dL (31.0-37.0); MCV 92.9 fL (80.0-100.0); Mean Platelet Volume 6.8; Monocytes # (A) 0.5 k/uL (0-1.0); Monocytes % (A) 6 %; Neutrophils # (A) 4.8 k/uL (1.3-7.7); Neutrophils % (A) 62 %; Platelet Count 289 k/uL (150-450); RBC 4.26 m/uL (4.30-5.90); RDW 13.8 % (11.5-15.5); WBC 7.9 k/uL (3.8-10.6)
--- NOTE | 2017-10-11 19:46 | XR ---
EXAMINATION TYPE: XR chest 1V portable DATE OF EXAM: 10/11/2017 COMPARISON: 05/04/2016 HISTORY: Altered mental status TECHNIQUE: Single frontal view of the chest is obtained. FINDINGS: There is no heart failure nor confluent pneumonic infiltrate. There are sternal wires. Cos tophrenic angles are clear. IMPRESSION: No active cardiopulmonary disease. No change.
[2017-10-11 19:47] LABS: Appearance,Urine Clear (Clear); Bilirubin,Urine Negative (Negative); Blood,Urine Negative (Negative); Color,Urine Yellow; Glucose,Urine (UA) Negative (Negative); Ketones,Urine Negative (Negative); Leukocyte Esterase,Urine Negative (Negative); Nitrite,Urine Negative (Negative); PH, Urine 5.5 (5.0-8.0); Protein,Urine Negative (Negative); Specific Gravity,Urine 1.017 (1.001-1.035); Urobilinogen,Urine <2.0 mg/dL (<2.0)
[2017-10-11 19:55] LABS: Amphetamine Screen,Urine Not Detected (NotDetected); Barbiturate Screen,Urine Detected (NotDetected); Benzodiazepines Screen,Urine Not Detected (NotDetected); Cocaine Screen,Urine Not Detected (NotDetected); Methadone Screen, Urine Not Detected (NotDetected); Opiate Screen,Urine Not Detected (NotDetected); Oxycodone Screen, Urine Not Detected (NotDetected); Partial Thromboplastin Time 23.5 sec (22.0-30.0); Phencyclidine Screen,Urine Not Detected (NotDetected); Prothrombin Time 9.9 sec (9.0-12.0); Tricyclic Antidepressant,Urine Detected (NotDetected); Urn Cannabinoid Scrn Not Detected (NotDetected)
[2017-10-11 20:04] LABS: Albumin 3.8 g/dL (3.5-5.0); Calcium 9.1 mg/dL (8.4-10.2); Potassium 5.7 mmol/L (3.5-5.1); Total Bilirubin 0.5 mg/dL (0.2-1.3); Total Protein 6.6 g/dL (6.3-8.2)
[2017-10-11 20:11] LABS: Creatine Kinase 50 U/L (55-170)
[2017-10-11 20:25] LABS: Creatine Kinase MB 1.2 ng/mL (0.0-2.4); Troponin I <0.012 ng/mL (0.000-0.034)
[2017-10-11] MEDS ORDERED: SODIUM POLYSTYRENE SULFONATE 15 GM/60 ML BOTTLE PO STA (21:16)
[2017-10-11] MEDS ORDERED: ACETAMINOPHEN TAB 325 MG TAB PO PRN (21:18)
[2017-10-11] MEDS ORDERED: NALOXONE 0.4 MG/ML 1 ML VIAL IV PRN (21:18)
[2017-10-11] MEDS: SODIUM CHLORIDE 0.9% 1,000 ML IV SCH (22:13)
[2017-10-11 22:29] VITALS: BMI 33.5
[2017-10-11] MEDS: ASPIRIN 81 MG PO SCH (22:31)
[2017-10-11] MEDS: AMITRIPTYLINE HCL 10 MG TAB PO SCH (22:31)
[2017-10-12] MEDS: SODIUM CHLORIDE 0.9% 1,000 ML IV SCH (05:35)
[2017-10-12 06:23] LABS: Glucose,Whole Blood 103 mg/dL (75-99)
[2017-10-12] MEDS: INSULIN ASPART 100 UNIT/ML 1 ML 10 ML VIAL SQ SCH ×4 (06:28→20:53)
[2017-10-12] MEDS: LEVOTHYROXINE 100 MCG TAB PO SCH (06:29)
[2017-10-12] MEDS: CLOPIDOGREL 75 MG TAB PO SCH (08:09)
[2017-10-12] MEDS: FERROUS SULFATE 325 MG TAB PO SCH ×2 (08:09→20:49)
[2017-10-12] MEDS: LISINOPRIL 20 MG TAB PO SCH (08:09)
[2017-10-12] MEDS: DOCUSATE 100 MG CAP PO SCH ×2 (08:09→20:49)
[2017-10-12 08:15] LABS: Basophils # (A) 0.1 k/uL (0-0.2); Basophils % (A) 1 %; Eosinophils # (A) 0.4 k/uL (0-0.7); Eosinophils % (A) 4 %; HCT 36.8 % (39.0-53.0); HGB 12.2 gm/dL (13.0-17.5); Lymphocytes # (A) 2.1 k/uL (1.0-4.8); Lymphocytes % (A) 23 %; MCH 30.5 pg (25.0-35.0); MCHC 33.1 g/dL (31.0-37.0); Mean Platelet Volume 7.2; Monocytes # (A) 0.5 k/uL (0-1.0); Monocytes % (A) 6 %; Neutrophils # (A) 5.7 k/uL (1.3-7.7); Neutrophils % (A) 63 %; Platelet Count 253 k/uL (150-450); RDW 13.6 % (11.5-15.5); WBC 9.1 k/uL (3.8-10.6)
[2017-10-12 08:32] LABS: Calcium 8.3 mg/dL (8.4-10.2); Potassium 5.2 mmol/L (3.5-5.1)
[2017-10-12] MEDS: INSULIN DETEMIR 100 UNIT/ML 10 ML VIAL SQ SCH (09:30)
[2017-10-12] MEDS ORDERED: IPRATROPIUM-ALBUTEROL 3 ML NEB INHALATION PRN (10:27)
--- NOTE | 2017-10-12 10:41 | P.HPIM ---
History of Present Illness H&P Date: 10/12/17 Chief Complaint: Altered mental status changes This is a 81-year-old male, patient of Dr. Knapp. He has a known past medical history of CVA, coronary disease with previous CABG, congestive heart failure, Parkinson's, diabetes mellitus, hyperlipidemia, hypertension, myocardial infarction, obstructive sleep apnea, hypothyroidism, syncope, left internal carotid artery stenosis, chronic kidney disease stage III and peripheral vascular disease. Patient was brought into the emergency room due to altered mental status is. Per ER reports information was taken per patient' s daughter and son-in-law. Patient lives with him. Daughter had reported that earlier yesterday morning patient had been in his usual state of health and then he becomes shaky and was having difficulty with his speech. His speech was slightly slurred. Patient reports that when he came into the emergency room his symptoms did improve. Speech is normal. He does have a history of heart of hearing. Denies any weakness on one side of the body. Denies any chest pain or shortness of breath. Denies any nausea or vomiting. Denies any bowel changes or urinary symptoms. Patient is wheezy on exam and has been complaining of a productive cough. Neurology has been consulted. Patient already takes a baby aspirin and Plavix at home. 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 No acute intracranial abnormality. Cerebral atrophy. No change. Carotid and echo PT OT and neurology have been consulted. Patient also denies any history of COPD or asthma. No smoking history. Patient had hyperkalemia on admission Kayexalate was given. Potassium is down to 5.2 Review of Systems Please refer to HPI otherwise unremarkable Past Medical History Past Medical History: Coronary Artery Disease (CAD), Heart Failure, Diabetes Mellitus, GERD/Reflux, Hyperlipidemia, Hypertension, Myocardial Infarction (MO) , Osteoarthritis (OA), Pneumonia, Syncope, Thyroid Disorder, Vascular Disorder Additional Past Medical History / Comment(s): IDDM type II, blackened R great toe currently, CVA 2013-resolved dysarthria, L internal caratid severly stenosed , hypothyroidism, tinnitis bilaterally, chronic back pain, bilateral neuropathy of hands, very [place] bilaterally, incontinence, past medical record states stomach ulcer but pt denies. Last Myocardial Infarction Date:: 1987 History of Any Multi-Drug Resistant Organisms: None Reported, Unobtainable Past Surgical History: Cholecystectomy, Coronary Bypass/CABG, Heart Catheterization Additional Past Surgical History / Comment(s): quadrouple bypass 2002 Past Anesthesia/Blood Transfusion Reactions: No Reported Reaction Additional Past Anesthesia/Blood Transfusion Reaction / Comment(s): Pt has received blood in past without reaction. Past Psychological History: Depression Additional Psychological History / Comment(s): Pt states he has been depressed since the of his spouse. He denies feeling suicidal or having any thoughts or plans. He now resides with his daughter who is very helpful to him. Pt ambulates with a walker. He no longer drives. Daughter manages his medications and takes him to appts and performs his glucose monitoring. Smoking Status: Never smoker Past Alcohol Use History: None Reported Past Drug Use History: None Reported - Past Family History Mother Additional Family Medical History / Comment(s): Mother had breast surgery (pt unsure if due to cancer) and shorley after. Father Additional Family Medical History / Comment(s): Father of suicide. Medications and Allergies Home Medications Medication Instructions Recorded Confirmed Type Insulin Aspart [NovoLOG 6 unit SQ DAILY 04/22/16 10/12/17 History (formulary)] Insulin Glargine,Hum.rec.anlog 54 unit SQ DAILY 04/22/16 10/12/17 History [Lantus Solostar] Levothyroxine Sodium [Synthroid] 100 mcg PO DAILY 04/22/16 10/12/17 History Lisinopril [Zestril] 20 mg PO DAILY 04/22/16 10/12/17 History Multivitamin/Iron/Folic Acid 1 tab PO DAILY 04/22/16 10/12/17 History [Centrum Complete Multivit Tab] Amitriptyline HCl [Elavil] 10 mg PO HS 04/29/16 10/12/17 History Aspirin EC [Ecotrin Low Dose] 81 mg PO HS 04/29/16 10/12/17 History Clopidogrel [Plavix] 75 mg PO DAILY 04/29/16 10/12/17 History Escitalopram [Lexapro] 20 mg PO DAILY 04/29/16 10/12/17 History Furosemide [Lasix] 20 mg PO DAILY 04/29/16 10/12/17 History Metoprolol Tartrate [Lopressor] 50 mg PO BID 04/29/16 10/12/17 History Omeprazole [PriLOSEC] 20 mg PO AC-BRKFST 04/29/16 10/12/17 History Carbidopa-Levodopa ER 25-100Mg 1 tab PO TID 10/11/17 10/12/17 History [Sinemet CR 25-100 mg] Cholecalciferol (Vitamin D3) 2,000 unit PO DAILY 10/11/17 10/12/17 History [Vitamin D3] Primidone [Mysoline] 50 mg PO BID 10/11/17 10/12/17 History Rosuvastatin [Crestor] 5 mg PO DAILY 10/11/17 10/12/17 History Allergies Allergy/AdvReac Type Severity Reaction Status Date / Time No Known Allergies Allergy Verified 10/11/17 18:54 Physical Exam Vitals: Vital Signs Temp Pulse Pulse Resp BP BP Pulse Ox 10/12/17 08:00 68 16 10/12/17 07:59 98 F 68 16 143/68 99 10/12/17 03:48 97.6 F 67 18 145/67 97 10/11/17 23:20 98 F 68 16 142/70 98 10/11/17 21:48 97.9 F 80 18 150/70 97 10/11/17 21:20 98.0 F 70 18 142/77 99 10/11/17 20:50 97.6 F 70 18 136/78 99 10/11/17 20:20 97.5 F L 59 L 16 142/78 98 10/11/17 19:50 97.5 F L 60 16 148/80 98 10/11/17 19:20 97.6 F 61 18 158/70 98 10/11/17 18:50 97.3 F L 61 16 167/72 96 Intake and Output 10/11/17 10/12/17 10/12/17 22:59 06:59 14:59 Intake Total 480 480 298 Balance 480 480 298 Intake: Oral 480 480 298 Other: Voiding Method Urinal Urinal Diaper Diaper Incontinent Incontinent # Voids 1 1 Weight 108.862 kg 101.5 kg Head normocephalic Neck supple Lungs expiratory wheezing noted bilaterally Heart regular rate and rhythm S1-S2, no rub or gallop Abdomen is soft nontender nondistended positive bowel sounds no hepatosplenomegaly Extremities no edema Neuro alert and orientated to 3. No slurred speech or facial droop. 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 Patient hard of hearing Results CBC & Chem 7: 10/12/17 07:47 10/12/17 07:47 Labs: Abnormal Lab Results - Last 24 Hours (Table) 10/11/17 10/11/17 10/11/17 Range/Units 19:24 19:24 19:24 RBC 4.26 L (4.30-5.90) m/uL Hgb 12.9 L (13.0-17.5) gm/dL Hct (39.0-53.0) % Potassium 5.7 H (3.5-5.1) mmol/L BUN 31 H (9-20) mg/dL Glucose 171 H (74-99) mg/dL POC Glucose (mg/dL) (75-99) mg/dL Calcium (8.4-10.2) mg/dL Total Creatine Kinase 50 L (55-170) U/L Ur Barbiturates Screen (NotDetected) U Tricyclic Antidepress (NotDetected) 10/11/17 10/12/17 10/12/17 Range/Units 19:24 06:22 07:47 RBC 4.00 L (4.30-5.90) m/uL Hgb 12.2 L (13.0-17.5) gm/dL Hct 36.8 L (39.0-53.0) % Potassium (3.5-5.1) mmol/L BUN (9-20) mg/dL Glucose (74-99) mg/dL POC Glucose (mg/dL) 103 H (75-99) mg/dL Calcium (8.4-10.2) mg/dL Total Creatine Kinase (55-170) U/L Ur Barbiturates Screen Detected H (NotDetected) U Tricyclic Antidepress Detected H (NotDetected) 10/12/17 Range/Units 07:47 RBC (4.30-5.90) m/uL Hgb (13.0-17.5) gm/dL Hct (39.0-53.0) % Potassium 5.2 H (3.5-5.1) mmol/L BUN 24 H (9-20) mg/dL Glucose 230 H (74-99) mg/dL POC Glucose (mg/dL) (75-99) mg/dL Calcium 8.3 L (8.4-10.2) mg/dL Total Creatine Kinase (55-170) U/L Ur Barbiturates Screen (NotDetected) U Tricyclic Antidepress (NotDetected) Microbiology - Last 24 Hours (Table) 10/11/17 19:24 Urine Culture - Preliminary Urine,Catheterized Thrombosis Risk Factor Assmnt - Choose All That Apply Each Risk Factor Represents 3 Points: Age 75 years or older Thrombosis Risk Factor Assessment Total Risk Factor Score: 3 Thrombosis Risk Factor Assessment Level: Moderate Risk Assessment and Plan Assessment: 1. Altered mental status changes and slurred speech possibly related to a TIA. Computed tomography scan of the brain showed no new stroke. 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 Continue aspirin and Plavix. Neurology has been consulted. Continue telemetry monitoring. Check echo and carotid Doppler. Patient does have a known history of left internal carotid artery stenosis. Drug screen positive for barbiturates and tricyclic antidepressant 2. Cough with wheezing possibly related to an acute bronchitis. No pneumonia on chest x-ray. Start Rocephin and nebulizer treatments. Check sputum culture. Hep-Lock fluids 3. Hyperkalemia present on admission with a potassium of 5.7. Patient received Kayexalate. Potassium is down to 5.2. Should continue to improve with resuming Lasix 4. History of coronary artery disease, myocardial infarction and previous CABG 5. History of CVA 6. Diabetes mellitus2. Resume patient's home insulin and continue sliding scale 7. History of Parkinson's 8. History of peripheral vascular disease 9. Chronic kidney disease stage III. Creatinine 1.20 on admission 10. Essential hypertension 11. Hyperlipidemia: Continue statin 12. Hypothyroidism continue Synthroid GI prophylaxis Protonix and DVT prophylaxis Lovenox Time with Patient: Greater than 30 (Greater than 60% of the total time spent in counseling and coordination of care.I performed an examination of the patient and discussed their management with the physician Jingle Writer. I have reviewed the Physician Jingle Writer's notes and agree with the documented findings and plan of care)
[2017-10-12] MEDS: cefTRIAXone IN SWFI 1,000 MG/10 ML SYRINGE IVP SCH (11:34)
[2017-10-12] MEDS: CARBIDOPA-LEVODOPA 25-100 MG 1 EACH TAB PO SCH ×2 (11:34→20:49)
[2017-10-12] MEDS: ENOXAPARIN 40 MG/0.4 ML SYRINGE SQ SCH (11:34)
[2017-10-12] MEDS: ESCITALOPRAM 20 MG TAB PO SCH (11:35)
[2017-10-12] MEDS: FUROSEMIDE 20 MG TAB PO SCH (11:35)
[2017-10-12] MEDS: METOPROLOL TARTRATE 50 MG TAB PO SCH ×2 (11:36→20:49)
[2017-10-12] MEDS: PANTOPRAZOLE 40 MG TABLET PO SCH (11:36)
[2017-10-12] MEDS: ATORVASTATIN 10 MG TAB PO SCH (11:36)
[2017-10-12] MEDS: MULTIVITAMINS, THERA 1 EACH TAB PO SCH (11:37)
[2017-10-12] MEDS: PRIMIDONE 50 MG TAB PO SCH ×2 (11:37→20:49)
[2017-10-12 11:40] LABS: Glucose,Whole Blood 161 mg/dL (75-99)
[2017-10-12] MEDS: IPRATROPIUM-ALBUTEROL 3 ML NEB INHALATION SCH ×3 (11:48→21:23)
--- NOTE | 2017-10-12 12:20 | ECHOF ---
Referral Reason:TIA MEASUREMENTS -------- HEIGHT: 157.5 cm WEIGHT: 101.2 kg BP: 143/68 RVIDd: 2.8 cm (< 3.3) IVSd: 0.9 cm (0.6 - 1.1) LVIDd: 5.1 cm (3.9 - 5.3) LVPWd: 1.2 cm (0.6 - 1.1) IVSs: 1.2 cm LVIDs: 3.8 cm LVPWs: 1.5 cm LA Diam: 4.5 cm (2.7 - 3.8) LAESV Index (A-L): 29.33 ml/m Ao Diam: 3.4 cm (2.0 - 3.7) AV Cusp: 2.1 cm (1.5 - 2.6) LA Diam: 4.0 cm (2.7 - 3.8) MV EXCURSION: 20.130 mm (> 18.000) MV EF SLOPE: 107 mm/s (70 - 150) EPSS: 1.8 cm MV E Myron: 0.65 m/s MV DecT: 169 ms MV A Myron: 0.50 m/s MV E/A Ratio: 1.30 RAP: 5.00 mmHg RVSP: 13.89 mmHg FINDINGS -------- Sinus rhythm. This was a technically adequate study. LV size, wall thickness and systolic function are normal, with an EF greater than 55%. The left prakash tricular size is normal. The right ventricle is normal in size. The left atrial size is normal. LA is midly dilated 29-33ml/m2. The right atrial size is normal. There is mild aortic valve sclerosis. There is no evidence of aortic regurgitation. Mild mitral annular calcification present. Mild mitral regurgitation is present. Mild tricuspid regurgitation present. There is no evidence of pulmonary hypertension. The right v entricular systolic pressure, as measured by Doppler, is 13.89mmHg. Trace/mild (physiologic) pulmonic regurgitation. The aortic root size is normal. There is no pericardial effusion. CONCLUSIONS -------- 1. LV size, wall thickness and systolic function are normal, with an EF greater than 55%. 2. The left ventricular size is normal. 3. The right ventricle is normal in size. 4. The left atrial size is normal. 5. LA is midly dilated 29-33ml/m2. 6. The right atrial size is normal. 7. There is mild aortic valve sclerosis. 8. Mild mitral annular calcification present. 9. Mild mitral regurgitation is present. 10. Mild tricuspid regurgitation present. 11. There is no evidence of pulmonary hypertension. 12. The right ventricular systolic pressure, as measured by Doppler, is 13.89mmHg. 13. Trace/mild (physiologic) pulmonic regurgitation. 14. The aortic root size is normal. 15. There is no pericardial effusion. OCCUPATIONAL THERAPY DIRECTOR: Jenna Li RDCS
[2017-10-12 12:49] LABS: Hemoglobin A1C 8.6 % (4.0-6.0)
--- NOTE | 2017-10-12 14:44 | US ---
EXAMINATION TYPE: US carotid duplex BILAT DATE OF EXAM: 10/12/2017 COMPARISON: MRI 10/09/2016, US 04/30/2016 CLINICAL HISTORY: 81-year-old male TIA. Known chronic occlusion of left ICA. TECHNIQUE: Carotid duplex ultrasound examination. Indirect Doppler criteria was utilized. FINDINGS: General Car Supervisor Yard notes: Difficult exam due to deep vessels EXAM MEASUREMENTS: RIGHT: Peak Systolic Velocity (PSV) cm/sec ----- Right CCA: 90.3 ----- Right ICA: 114.1 ----- Right ECA: 92.4 ICA/CCA ratio: 1.3 RIGHT: End Diastole cm/sec ----- Right CCA: 17.6 ----- Right ICA: 23.4 ----- Right ECA: 3.7 LEFT: Peak Systolic Velocity (PSV) cm/sec ----- Left CCA: 82.5 ----- Left ICA: 36.2 ----- Left ECA: 103.2 ICA/CCA ratio: 0.4 LEFT: End Diastole cm/sec ----- Left CCA: 7.7 ----- Left ICA: 6.5 ----- Left ECA: 6.3 VERTEBRALS (direction of flow): Right Vertebral: Antegrade Left Vertebral: Antegrade Rhythm: Normal Moderate amount of plaque visualized bilaterally. Small amount of possible thready flow visualized wi thin the left ICA, otherwise unable to obtain velocities. IMPRESSION: 1. Similar very low to nondetectable velocities in the left ICA suggests possible subtotal occlusion. 2. No hemodynamically significant stenosis seen on the right. Criteria for Assigning % of Stenosis / Diameter reduction (Estimation based on the indirect measurements of the internal carotid artery velocities (ICA PSV). 1. Normal (no stenosis)=ICA PSV < 125 cm/s: ratio < 2.0: ICA EDV<40 cm/s. 2. Less than 50% stenosis=ICA PSV < 125 cm/s: ratio < 2.0: ICA EDV<40 cm/s. 3. 50 to 69% stenosis=ICA PSV of 125 to 230 cm/s: ration 2.0 ? 4.0: ICA EDV 40-100 cm/s. 4. Greater than 70% stenosis to near occlusion= ICA PSV > 230 cm/s: ratio > 4.0: ICA EDV > 100 cm/s. 5. Near occlusion= ICA PSV velocities may be low or undetectable: variable ratio and ICA EDV. 6. Total occlusion=unable to detect flow.
[2017-10-12 16:29] LABS: Glucose,Whole Blood 210 mg/dL (75-99)
--- NOTE | 2017-10-12 18:20 | P.CNNES ---
History of Present Illness Consult date: 10/12/17 Reason for Consult: Patient admitted with slurred speech and confusion. History of Present Illness: This patient is a 81-year-old right-handed white male who has a complex past medical history including history of Parkinson's disease, coronary artery bypass grafting, diabetes mellitus, myocardial infarction, and hyperlipidemia. 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 Patient apparently was brought into the emergency room yesterday with symptoms of altered mental status and increased confusion. Patient states he awoke yesterday morning and was just unable to ambulate and had difficulty expressing his thoughts. He appeared to be very confused and disoriented as was noted by his daughter. The patient does live with his daughter in their home and they usually check on him every day. He did have some slurring of his speech and also seemed to be more tremulous. He has a history of Parkinson's disease but when questioned about his diagnosis he is unable to give details. He has been taking Sinemet on a regular basis. The patient apparently was showing increased difficulty with his gait and this was another reason to bring him in for evaluation. He was brought into the emergency room at [facility] yesterday for further assessment. He was seen in the ER by Dr. Monae, who recommended he be admitted for dehydration and hyperkalemia. 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 There was no evidence of any acute intracranial abnormality. Cerebral atrophy and no other major changes were seen. Patient also underwent a carotid ultrasound today which revealed burry low velocities in the left ICA suggesting possible subtotal occlusion. There was no hemodynamic significant stenosis noted in the right ICA. Patient states he is aware of the carotid artery stenosis. He does follow with his primary care physician for this condition as well. We will defer to Dr. Sloan as to whether vascular surgery consult as needed for this patient. He was treated in the ER for hyperkalemia and his potassium did come down slowly after he was administered Kayexalate. The patient seems to be doing better today in terms of his mental status. His speech remains clear and does not show any evidence of expressive aphasia. His clinical history is suggesting possibility of TIA given the fact that he did have slurred speech. He has been taking a combination of Plavix and aspirin on a regular basis and should continue on the same for secondary stroke prevention. Patient has difficulty with details in terms of his diagnosis of Parkinson's disease and medications that he has been taking. He is aware of his bypass surgery history which he states was done in [place]. We have recommended a physical therapy consultation for this patient to assess his overall gait and parkinsonian features. Patient should be maintained on his current dose of Sinemet. He does show improvement in his mental status raising the question of possible TIA versus metabolic encephalopathy. Patient does seem to be likely near baseline level of function as his speech is clear. Patient is now admitted and neurology has been consulted for further evaluation and recommendation. Review of Systems Constitutional: Denies chills, Denies fever Eyes: denies blurred vision, denies pain Ears, nose, mouth and throat: Denies headache, Denies sore throat Cardiovascular: Denies chest pain, Denies shortness of breath Respiratory: Denies cough Gastrointestinal: Denies abdominal pain, Denies diarrhea, Denies nausea, Denies vomiting Musculoskeletal: Denies myalgias Integumentary: Denies pruritus, Denies rash Neurological: Reports aphasia, Reports change in mentation, Reports confusion, Reports memory loss, Denies numbness, Denies weakness Psychiatric: Reports memory loss, Reports mood swings, Denies anxiety, Denies depression Endocrine: Denies fatigue, Denies weight change Past Medical History Past Medical History: Coronary Artery Disease (CAD), Heart Failure, Diabetes Mellitus, GERD/Reflux, Hyperlipidemia, Hypertension, Myocardial Infarction (SC) , Osteoarthritis (OA), Pneumonia, Syncope, Thyroid Disorder, Vascular Disorder Additional Past Medical History / Comment(s): IDDM type II, blackened R great toe currently, CVA 2013-resolved dysarthria, L internal caratid severly stenosed , hypothyroidism, tinnitis bilaterally, chronic back pain, bilateral neuropathy of hands, very [place] bilaterally, incontinence, past medical record states stomach ulcer but pt denies. Last Myocardial Infarction Date:: 1987 History of Any Multi-Drug Resistant Organisms: None Reported, Unobtainable Past Surgical History: Cholecystectomy, Coronary Bypass/CABG, Heart Catheterization Additional Past Surgical History / Comment(s): quadrouple bypass 2002 Past Anesthesia/Blood Transfusion Reactions: No Reported Reaction Additional Past Anesthesia/Blood Transfusion Reaction / Comment(s): Pt has received blood in past without reaction. Past Psychological History: Depression Additional Psychological History / Comment(s): Pt states he has been depressed since the of his spouse. He denies feeling suicidal or having any thoughts or plans. He now resides with his daughter who is very helpful to him. Pt ambulates with a walker. He no longer drives. Daughter manages his medications and takes him to appts and performs his glucose monitoring. Smoking Status: Never smoker Past Alcohol Use History: None Reported Past Drug Use History: None Reported - Past Family History Mother Additional Family Medical History / Comment(s): Mother had breast surgery (pt unsure if due to cancer) and shorley after. Father Additional Family Medical History / Comment(s): Father of suicide. Medications and Allergies Home Medications Medication Instructions Recorded Confirmed Type Insulin Aspart [NovoLOG 6 unit SQ DAILY 04/22/16 10/12/17 History (formulary)] Insulin Glargine,Hum.rec.anlog 54 unit SQ DAILY 04/22/16 10/12/17 History [Lantus Solostar] Levothyroxine Sodium [Synthroid] 100 mcg PO DAILY 04/22/16 10/12/17 History Lisinopril [Zestril] 20 mg PO DAILY 04/22/16 10/12/17 History Multivitamin/Iron/Folic Acid 1 tab PO DAILY 04/22/16 10/12/17 History [Centrum Complete Multivit Tab] Amitriptyline HCl [Elavil] 10 mg PO HS 04/29/16 10/12/17 History Aspirin EC [Ecotrin Low Dose] 81 mg PO HS 04/29/16 10/12/17 History Clopidogrel [Plavix] 75 mg PO DAILY 04/29/16 10/12/17 History Escitalopram [Lexapro] 20 mg PO DAILY 04/29/16 10/12/17 History Furosemide [Lasix] 20 mg PO DAILY 04/29/16 10/12/17 History Metoprolol Tartrate [Lopressor] 50 mg PO BID 04/29/16 10/12/17 History Omeprazole [PriLOSEC] 20 mg PO AC-BRKFST 04/29/16 10/12/17 History Carbidopa-Levodopa ER 25-100Mg 1 tab PO TID 10/11/17 10/12/17 History [Sinemet CR 25-100 mg] Cholecalciferol (Vitamin D3) 2,000 unit PO DAILY 10/11/17 10/12/17 History [Vitamin D3] Primidone [Mysoline] 50 mg PO BID 10/11/17 10/12/17 History Rosuvastatin [Crestor] 5 mg PO DAILY 10/11/17 10/12/17 History Allergies Allergy/AdvReac Type Severity Reaction Status Date / Time No Known Allergies Allergy Verified 10/11/17 18:54 Physical Examination - Vital Signs Vital Signs: Vital Signs Temp Pulse Pulse Resp BP BP Pulse Ox 10/12/17 12:00 97.8 F 73 16 122/66 98 10/12/17 11:57 66 10/12/17 11:50 68 10/12/17 08:00 68 16 10/12/17 07:59 98 F 68 16 143/68 99 10/12/17 03:48 97.6 F 67 18 145/67 97 10/11/17 23:20 98 F 68 16 142/70 98 10/11/17 21:48 97.9 F 80 18 150/70 97 10/11/17 21:20 98.0 F 70 18 142/77 99 10/11/17 20:50 97.6 F 70 18 136/78 99 10/11/17 20:20 97.5 F L 59 L 16 142/78 98 10/11/17 19:50 97.5 F L 60 16 148/80 98 10/11/17 19:20 97.6 F 61 18 158/70 98 10/11/17 18:50 97.3 F L 61 16 167/72 96 Intake and Output 10/12/17 10/12/17 10/12/17 06:59 14:59 22:59 Intake Total 480 598 Output Total 780 Balance 480 -182 Intake: Oral 480 598 Output: Urine 780 Other: Voiding Method Urinal Urinal Diaper Diaper Incontinent Incontinent # Voids 1 3 Weight 101.5 kg - Constitutional General appearance: average body habitus, cooperative - EENT EENT: PERRL, mucous membranes moist - Respiratory Respiratory: lungs clear, normal breath sounds - Cardiovascular Cardiovascular: regular rate, normal S1, normal S2 Extremities: no peripheral edema bilaterally - Gastrointestinal Gastrointestinal: normoactive bowel sounds - Integumentary Integumentary: normal - Neurologic Cranial nerve examination: PERRL, EOMI, VFF, V1/V2/V3 grossly intact, face symmetric, intact shoulder shrug, intact corneal reflex, normal palatal elevation Speech examination: intact Sensorimotor examination: intact Motor examination - right side: 4/5: biceps, triceps, wrist flexion, wrist extension, photogrammetrist, hip flexors, knee extensors, dorsiflexion, toe extension (EHL) , plantarflexion Motor examination - left side: 4/5: biceps, triceps, wrist flexion, wrist extension, photogrammetrist, hip flexors, knee extensors, dorsiflexion, toe extension (EHL) , plantarflexion Detailed sensory examination: intact Reflex and gait examination: intact Reflexes: 1+: ankle, bicep, knee, tricep - Musculoskeletal Musculoskeletal: no pain - Psychiatric Psychiatric: mood/affect appropriate, cooperative Results - Laboratory Findings CBC and BMP: 10/12/17 07:47 10/12/17 07:47 Abnormal Lab Findings: Abnormal Labs 10/11/17 10/11/17 10/11/17 19:24 19:24 19:24 RBC 4.26 L Hgb 12.9 L Hct Potassium 5.7 H BUN 31 H Glucose 171 H POC Glucose (mg/dL) Hemoglobin A1c Calcium Total Creatine Kinase 50 L Ur Barbiturates Screen U Tricyclic Antidepress 10/11/17 10/12/17 10/12/17 19:24 06:22 07:47 RBC 4.00 L Hgb 12.2 L Hct 36.8 L Potassium BUN Glucose POC Glucose (mg/dL) 103 H Hemoglobin A1c Calcium Total Creatine Kinase Ur Barbiturates Screen Detected H U Tricyclic Antidepress Detected H 10/12/17 10/12/17 10/12/17 07:47 07:47 11:38 RBC Hgb Hct Potassium 5.2 H BUN 24 H Glucose 230 H POC Glucose (mg/dL) 161 H Hemoglobin A1c 8.6 H Calcium 8.3 L Total Creatine Kinase Ur Barbiturates Screen U Tricyclic Antidepress Assessment and Plan (1) Acute encephalopathy Current Visit: Yes Status: Acute Code(s): G93.40 - ENCEPHALOPATHY, UNSPECIFIED SNOMED Code(s): 98665414 (2) Parkinsons disease Current Visit: Yes Status: Acute Code(s): G20 - PARKINSON'S DISEASE SNOMED Code(s): 83599681 (3) Internal carotid artery stenosis Current Visit: Yes Status: Acute Code(s): I65.29 - OCCLUSION AND STENOSIS OF UNSPECIFIED CAROTID ARTERY SNOMED Code(s): 760899406 (4) Hyperkalemia Current Visit: Yes Status: Acute Code(s): E87.5 - HYPERKALEMIA SNOMED Code (s): 81239729 Plan: This patient is a 81-year-old right-handed white male who was admitted to Hospital with symptoms of acute mental status changes and slurred speech. Patient has multiple complex medical issues including history of Parkinson's disease, coronary artery bypass grafting, and left internal carotid artery stenosis. Patient was brought into the emergency room where he was evaluated in the ER by Dr. Monae. He was sent for a computed tomography scan of the brain which revealed evidence of an old right temporoparietal lobe cortical infarct. There was no acute intracranial abnormality. Cerebral atrophy was noted. Patient also underwent carotid Doppler ultrasound today which did reveal a known occlusion of the left internal carotid artery suggesting subtotal occlusion. Right internal carotid artery revealed no significant stenosis. Patient's clinical history suggests possibility of left hemispheric TIA. May consider vascular surgery consultation for further assessment of his left ICA stenosis. Patient is currently on Plavix and aspirin and should continue on the same for secondary stroke prevention. Patient does seem to be back to baseline in terms of his cognitive functioning today. His speech is clear. Would recommend tight control of his diabetes as well. Would check his serum cholesterol as well if this has not been done. We would recommend a complete stroke evaluation for the patient. His overall prognosis at this time remains very guarded. We will continue close neurological follow-up for the patient during this admission. Time with Patient: Greater than 30
[2017-10-12 20:48] LABS: Glucose,Whole Blood 229 mg/dL (75-99)
[2017-10-12] MEDS: ASPIRIN 81 MG PO SCH (20:48)
[2017-10-12] MEDS: AMITRIPTYLINE HCL 10 MG TAB PO SCH (20:49)
[2017-10-13 05:59] LABS: Glucose,Whole Blood 98 mg/dL (75-99)
[2017-10-13 06:08] LABS: Basophils # (A) 0.1 k/uL (0-0.2); Basophils % (A) 1 %; Eosinophils # (A) 0.5 k/uL (0-0.7); Eosinophils % (A) 6 %; HCT 36.4 % (39.0-53.0); HGB 12.1 gm/dL (13.0-17.5); Lymphocytes # (A) 1.8 k/uL (1.0-4.8); Lymphocytes % (A) 23 %; MCH 30.2 pg (25.0-35.0); MCHC 33.1 g/dL (31.0-37.0); MCV 91.2 fL (80.0-100.0); Mean Platelet Volume 7.9; Monocytes # (A) 0.6 k/uL (0-1.0); Monocytes % (A) 7 %; Neutrophils # (A) 4.8 k/uL (1.3-7.7); Neutrophils % (A) 61 %; Platelet Count 236 k/uL (150-450); RDW 13.4 % (11.5-15.5); WBC 7.9 k/uL (3.8-10.6)
[2017-10-13 06:20] LABS: Albumin 3.4 g/dL (3.5-5.0); Calcium 8.6 mg/dL (8.4-10.2); Potassium 4.8 mmol/L (3.5-5.1); Total Bilirubin 0.6 mg/dL (0.2-1.3); Total Protein 5.9 g/dL (6.3-8.2)
[2017-10-13] MEDS: INSULIN ASPART 100 UNIT/ML 1 ML 10 ML VIAL SQ SCH ×2 (06:33→13:05)
[2017-10-13] MEDS: LEVOTHYROXINE 100 MCG TAB PO SCH (06:34)
[2017-10-13] MEDS: PANTOPRAZOLE 40 MG TABLET PO SCH (06:34)
[2017-10-13] MEDS: IPRATROPIUM-ALBUTEROL 3 ML NEB INHALATION SCH ×2 (07:38→11:45)
[2017-10-13 07:40] VITALS: RESP 16
[2017-10-13] MEDS ORDERED: CHOLECALCIFEROL 1,000 UNIT TAB PO SCH (09:00)
[2017-10-13] MEDS ORDERED: INSULIN ASPART 100 UNIT/ML 1 ML 10 ML VIAL SQ SCH (09:00)
[2017-10-13] MEDS: FUROSEMIDE 20 MG TAB PO SCH (09:36)
[2017-10-13] MEDS: DOCUSATE 100 MG CAP PO SCH (09:36)
[2017-10-13] MEDS: CLOPIDOGREL 75 MG TAB PO SCH (09:36)
[2017-10-13] MEDS: ATORVASTATIN 10 MG TAB PO SCH (09:36)
[2017-10-13] MEDS: PRIMIDONE 50 MG TAB PO SCH (09:36)
[2017-10-13] MEDS: FERROUS SULFATE 325 MG TAB PO SCH (09:36)
[2017-10-13] MEDS: CARBIDOPA-LEVODOPA 25-100 MG 1 EACH TAB PO SCH (09:36)
[2017-10-13] MEDS: ESCITALOPRAM 20 MG TAB PO SCH (09:37)
[2017-10-13] MEDS: LISINOPRIL 20 MG TAB PO SCH (09:37)
[2017-10-13] MEDS: METOPROLOL TARTRATE 50 MG TAB PO SCH (09:37)
[2017-10-13] MEDS: ENOXAPARIN 40 MG/0.4 ML SYRINGE SQ SCH (09:37)
[2017-10-13] MEDS: INSULIN DETEMIR 100 UNIT/ML 10 ML VIAL SQ SCH (09:37)
[2017-10-13] MEDS: cefTRIAXone IN SWFI 1,000 MG/10 ML SYRINGE IVP SCH (09:38)
--- NOTE | 2017-10-13 10:46 | P.DS ---
Providers Date of admission: 10/11/17 21:18 Expected date of discharge: 10/13/17 Attending physician: Tian Sloan Consults: 10/11/17 21:19 Consult Physician Routine Consulting Provider: Freida Pepper Consult Reason/Comments: Altered mental status Do you want consulting provider notified?: Yes Primary care physician: Alissa Knapp [facility] Course: Discharge diagnosis 1. Altered mental status changes and slurred speech secondary to TIA. Computed tomography scan of the brain showed no new stroke. 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 Continue aspirin and Plavix. Neurology has been consulted. Continue telemetry monitoring. Patient does have a known history of left internal carotid artery stenosis. Drug screen positive for barbiturates and tricyclic antidepressant 2. Cough with wheezing possibly related to an acute bronchitis. No pneumonia on chest x-ray. Patient will continue Ceftin for 3 more days and also be given albuterol inhaler. Symptoms have improved with Rocephin and nebulizer treatment 3. Hyperkalemia present on admission with a potassium of 5.7. Patient received Kayexalate. Resolved 4. History of coronary artery disease, myocardial infarction and previous CABG 5. History of CVA 6. Diabetes mellitus2. Resume patient's home insulin and continue sliding scale 7. History of Parkinson's 8. History of peripheral vascular disease 9. Chronic kidney disease stage III. Creatinine 1.20 on admission 10. Essential hypertension 11. Hyperlipidemia: Continue statin 12. Hypothyroidism continue Synthroid 13. Chronic diastolic congestive heart failure with an EF of greater than 55%. No evidence of exacerbation 14. Chronic iron deficiency anemia no evidence of bleeding. Continue with iron supplement Hospital course This is a 81-year-old male, patient of Dr. Knapp. He has a known past medical history of CVA, coronary disease with previous CABG, congestive heart failure, Parkinson's, diabetes mellitus, hyperlipidemia, hypertension, myocardial infarction, obstructive sleep apnea, hypothyroidism, syncope, left internal carotid artery stenosis, chronic kidney disease stage III and peripheral vascular disease. Patient was brought into the emergency room due to altered mental status is. Per ER reports information was taken per patient' s daughter and son-in-law. Patient lives with him. Daughter had reported that earlier yesterday morning patient had been in his usual state of health and then he becomes shaky and was having difficulty with his speech. His speech was slightly slurred. Patient reports that when he came into the emergency room his symptoms did improve. Speech is normal. He does have a history of heart of hearing. Denies any weakness on one side of the body. Denies any chest pain or shortness of breath. Denies any nausea or vomiting. Denies any bowel changes or urinary symptoms. Patient is wheezy on exam and has been complaining of a productive cough. Neurology has been consulted. Patient already takes a baby aspirin and Plavix at home. 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 No acute intracranial abnormality. Cerebral atrophy. No change. Carotid and echo PT OT and neurology have been consulted. Patient also denies any history of COPD or asthma. No smoking history. Patient had hyperkalemia on admission Kayexalate was given. Potassium is down to 5.2 Patient's symptoms resolved by the time he reached the emergency room. Patient speech is normal. Confusion has resolved. As stated above computed tomography scan of the brain had only showed an old infarct no evidence of any new stroke. Echo had shown EF of greater than 55%. And carotid ultrasound had shown left internal carotid artery with possible subtotal occlusion. This is an old finding. Patient does follow up with Dr. Gutierrez outpatient for regular follow- ups. Patient also was treated for bronchitis. He'll continue with Ceftin and albuterol inhaler as needed outpatient. He does have exposure to secondhand smoke from his . Urine culture negative. Patient has worked with physical therapy. He is stable for discharge home. Patient stays with his daughter. Patient seen by neurology during his hospitalization. He'll continue with his aspirin and Plavix for stroke prevention. No arrhythmias noted on telemetry. I performed an examination of the patient and discussed their management with the physician Master Scheduler. I have reviewed the Physician Master Scheduler's notes and agree with the documented findings and plan of care Patient Condition at Discharge: Stable Plan - Discharge Summary Discharge Rx Participant: No New Discharge Prescriptions: New Albuterol Inhaler [Ventolin Hfa Inhaler] 1 - 2 puff INHALATION Q6H PRN #1 inhaler PRN Reason: Shortness Of Breath Carbidopa-Levodopa 25-100 mg [Sinemet 25-100 mg] 1 each PO BID tab Cefuroxime Axetil [Ceftin] 500 mg PO BID #6 tab Docusate [Colace] 100 mg PO BID cap Ferrous Sulfate [Iron (65 MG Elemental)] 325 mg PO BID tab Continue Multivitamin/Iron/Folic Acid [Centrum Complete Multivit Tab] 1 tab PO DAILY Lisinopril [Zestril] 20 mg PO DAILY Levothyroxine Sodium [Synthroid] 100 mcg PO DAILY Insulin Glargine,Hum.rec.anlog [Lantus Solostar] 54 unit SQ DAILY Insulin Aspart [NovoLOG (formulary)] 6 unit SQ DAILY Omeprazole [PriLOSEC] 20 mg PO AC-BRKFST Furosemide [Lasix] 20 mg PO DAILY Escitalopram [Lexapro] 20 mg PO DAILY Metoprolol Tartrate [Lopressor] 50 mg PO BID Aspirin EC [Ecotrin Low Dose] 81 mg PO HS Amitriptyline HCl [Elavil] 10 mg PO HS Clopidogrel [Plavix] 75 mg PO DAILY Cholecalciferol (Vitamin D3) [Vitamin D3] 2,000 unit PO DAILY Rosuvastatin [Crestor] 5 mg PO DAILY Primidone [Mysoline] 50 mg PO BID Discontinued Carbidopa-Levodopa ER 25-100Mg [Sinemet CR 25-100 mg] 1 tab PO TID Discharge Medication List Insulin Aspart [NovoLOG (formulary)] 6 unit SQ DAILY 04/22/16 [History] Insulin Glargine,Hum.rec.anlog [Lantus Solostar] 54 unit SQ DAILY 04/22/16 [ History] Levothyroxine Sodium [Synthroid] 100 mcg PO DAILY 04/22/16 [History] Lisinopril [Zestril] 20 mg PO DAILY 04/22/16 [History] Multivitamin/Iron/Folic Acid [Centrum Complete Multivit Tab] 1 tab PO DAILY [History] Amitriptyline HCl [Elavil] 10 mg PO HS 04/29/16 [History] Aspirin EC [Ecotrin Low Dose] 81 mg PO HS 04/29/16 [History] Clopidogrel [Plavix] 75 mg PO DAILY 04/29/16 [History] Escitalopram [Lexapro] 20 mg PO DAILY 04/29/16 [History] Furosemide [Lasix] 20 mg PO DAILY 04/29/16 [History] Metoprolol Tartrate [Lopressor] 50 mg PO BID 04/29/16 [History] Omeprazole [PriLOSEC] 20 mg PO AC-BRKFST 04/29/16 [History] Cholecalciferol (Vitamin D3) [Vitamin D3] 2,000 unit PO DAILY 10/11/17 [History] Primidone [Mysoline] 50 mg PO BID 10/11/17 [History] Rosuvastatin [Crestor] 5 mg PO DAILY 10/11/17 [History] Albuterol Inhaler [Ventolin Hfa Inhaler] 1 - 2 puff INHALATION Q6H PRN #1 inhaler 10/13/17 [Rx] Carbidopa-Levodopa 25-100 mg [Sinemet 25-100 mg] 1 each PO BID tab 10/13/17 [Rx ] Cefuroxime Axetil [Ceftin] 500 mg PO BID #6 tab 10/13/17 [Rx] Docusate [Colace] 100 mg PO BID cap 10/13/17 [Rx] Ferrous Sulfate [Iron (65 MG Elemental)] 325 mg PO BID tab 10/13/17 [Rx] Follow up Appointment(s)/Referral(s): Alissa Knapp DO [Primary Care Provider] - 10/19/17 1:00 pm (In [place] office.) Patient Instructions/Handouts: Potassium Content of Foods List (DC), Hyperkalemia (DC), Altered Mental Status (GEN) Activity/Diet/Wound Care/Special Instructions: Diet: cardiac, diabetic Activity: as tolerated Discharge Disposition: HOME SELF-CARE
[2017-10-13 11:45] LABS: Glucose,Whole Blood 136 mg/dL (75-99)
[2017-10-13 11:58] VITALS: PULSE 76
[2017-10-13] MEDS: MULTIVITAMINS, THERA 1 EACH TAB PO SCH (13:05)
[2017-10-13 13:58] VITALS: BP 120/64; TEMP 97.6
== END 2017-10-13 14:32 | disposition home or self-care (01) | DRG 69 ==
LOC: EC 18:47 → 6SEL 21:18
PROVIDERS: ADMIT Internal Medicine; ATTEND Internal Medicine
DX: G45.9 Transient cerebral ischemic attack, unspecified (principal); G93.40 Encephalopathy, unspecified; I13.0 Hypertensive heart and chronic kidney disease with heart failure and stage 1 through stage 4 chronic kidney disease, or unspecified chronic kidney disease; I50.32 Chronic diastolic (congestive) heart failure; D50.9 Iron deficiency anemia, unspecified; E03.9 Hypothyroidism, unspecified; E11.22 Type 2 diabetes mellitus with diabetic chronic kidney disease; E11.51 Type 2 diabetes mellitus with diabetic peripheral angiopathy without gangrene; E78.5 Hyperlipidemia, unspecified; E86.0 Dehydration; E87.5 Hyperkalemia; F32.9 Major depressive disorder, single episode, unspecified; G20 Parkinson's disease; G47.33 Obstructive sleep apnea (adult) (pediatric); I25.10 Atherosclerotic heart disease of native coronary artery without angina pectoris; I25.2 Old myocardial infarction; I65.29 Occlusion and stenosis of unspecified carotid artery; K21.9 Gastro-esophageal reflux disease without esophagitis; N18.3 Chronic kidney disease, stage 3 (moderate); Z63.4 Disappearance and death of family member; Z79.02 Long term (current) use of antithrombotics/antiplatelets; Z79.4 Long term (current) use of insulin; Z79.82 Long term (current) use of aspirin; Z87.11 Personal history of peptic ulcer disease; Z95.1 Presence of aortocoronary bypass graft; J20.9 Acute bronchitis, unspecified; Z79.899 Other long term (current) drug therapy; Z79.890 Hormone replacement therapy
CPT/HCPCS: 36415; 70450; 71045; 80048; 80053; 80061; 80306; 81003; 82140; 82550; 82553; 83036; 84484; 85025; 85610; 85730; 87086; 93005; 93306; 93880; 94640; 94760; 96360; 96361; 99285

== ENCOUNTER 2018-01-23 12:19 | Inpatient (IN) | payer MEDICARE ==
[2018-01-23] MEDS ORDERED: SODIUM CHLORIDE 0.9% 1,000 ML IV STA (12:37)
--- NOTE | 2018-01-23 12:40 | ED ---
General Adult HPI - General Chief complaint: Weakness Stated complaint: Lightheadedness Time Seen by Provider: 01/23/18 12:32 Source: patient, EMS, RN notes reviewed Mode of arrival: EMS Limitations: no limitations, altered mental status - History of Present Illness Initial comments: Patient is a pleasant 82-year-old male presenting to the emergency department with complaints of lightheadedness. Onset of symptoms was this morning while eating breakfast. Patient is a very poor historian and has difficulty providing information and answering questions. Patient denies any specific weakness or confusion. No family is present. - Related Data Home Medications Medication Instructions Recorded Confirmed Insulin Aspart [NovoLOG 6 unit SQ DAILY 04/22/16 01/23/18 (formulary)] Insulin Glargine,Hum.rec.anlog 54 unit SQ HS 04/22/16 01/23/18 [Lantus Solostar] Levothyroxine Sodium [Synthroid] 100 mcg PO DAILY 04/22/16 01/23/18 Lisinopril [Zestril] 20 mg PO DAILY 04/22/16 01/23/18 Multivitamin/Iron/Folic Acid 1 tab PO DAILY 04/22/16 01/23/18 [Centrum Complete Multivit Tab] Amitriptyline HCl [Elavil] 10 mg PO HS 04/29/16 01/23/18 Aspirin EC [Ecotrin Low Dose] 81 mg PO HS 04/29/16 01/23/18 Clopidogrel [Plavix] 75 mg PO DAILY 04/29/16 01/23/18 Escitalopram [Lexapro] 20 mg PO HS 04/29/16 01/23/18 Metoprolol Tartrate [Lopressor] 50 mg PO BID 04/29/16 01/23/18 Omeprazole [PriLOSEC] 20 mg PO HS 04/29/16 01/23/18 Cholecalciferol (Vitamin D3) 2,000 unit PO DAILY 10/11/17 01/23/18 [Vitamin D3] Primidone [Mysoline] 50 mg PO BID 10/11/17 01/23/18 Bumetanide [Bumex] 1 mg PO BID 01/23/18 01/23/18 Carbidopa-Levodopa 25-100 mg 1 tab PO TID 01/23/18 01/23/18 [Sinemet 25-100 mg] Potassium Chloride [Klor-Con 20] 20 meq PO BID 01/23/18 01/23/18 Rosuvastatin Calcium [Crestor] 5 mg PO DAILY 01/23/18 01/23/18 Allergies Allergy/AdvReac Type Severity Reaction Status Date / Time No Known Allergies Allergy Verified 01/23/18 12:54 Review of Systems ROS Statement: Those systems with pertinent positive or pertinent negative responses have been documented in the HPI. ROS Other: All systems not noted in ROS Statement are negative. Constitutional: Denies: fever Eyes: Denies: eye pain ENT: Denies: ear pain Respiratory: Denies: cough Cardiovascular: Denies: chest pain Endocrine: Denies: fatigue Gastrointestinal: Denies: abdominal pain Genitourinary: Denies: dysuria Musculoskeletal: Denies: back pain Skin: Denies: rash Neurological: Denies: headache Past Medical History Past Medical History: Coronary Artery Disease (CAD), Heart Failure, Diabetes Mellitus, GERD/Reflux, Hyperlipidemia, Hypertension, Myocardial Infarction ([place]) , Osteoarthritis (OA), Pneumonia, Syncope, Thyroid Disorder, Vascular Disorder Additional Past Medical History / Comment(s): IDDM type II, blackened R great toe currently, 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 Last Myocardial Infarction Date:: 1987 History of Any Multi-Drug Resistant Organisms: None Reported, Unobtainable Past Surgical History: Cholecystectomy, Coronary Bypass/CABG, Heart Catheterization Additional Past Surgical History / Comment(s): quadrouple bypass 2002 Past Anesthesia/Blood Transfusion Reactions: No Reported Reaction Additional Past Anesthesia/Blood Transfusion Reaction / Comment(s): Pt has received blood in past without reaction. Past Psychological History: Depression Smoking Status: Never smoker Past Alcohol Use History: None Reported Past Drug Use History: None Reported - Past Family History Mother Additional Family Medical History / Comment(s): Mother had breast surgery (pt unsure if due to cancer) and shorley after. Father Additional Family Medical History / Comment(s): Father of suicide. General Exam Limitations: no limitations, altered mental status General appearance: alert, in no apparent distress Head exam: Present: atraumatic Eye exam: Present: normal appearance, PERRL, EOMI ENT exam: Present: normal oropharynx Neck exam: Present: normal inspection Respiratory exam: Present: normal lung sounds bilaterally Cardiovascular Exam: Present: regular rate, irregular rhythm GI/Abdominal exam: Present: soft. Absent: tenderness Extremities exam: Present: normal inspection Neurological exam: Present: alert, CN II-XII intact. Absent: motor sensory deficit Expanded Neurological exam: Present: protecting the airway Patient oriented to: Present: person, place Motor strength exam: RUE: 5, LUE: 5, RLE: 5, LLE: 5 Psychiatric exam: Present: normal affect, normal mood Skin exam: Present: normal color Course Vital Signs 01/23/18 01/23/18 01/23/18 12:28 13:39 14:35 Temperature 97.9 F Pulse Rate 80 94 77 Respiratory 18 18 16 Rate Blood Pressure 137/65 137/63 127/59 O2 Sat by Pulse 97 97 99 Oximetry EKG Findings - EKG Comments: EKG Findings:: A. fib 3-74. QRS 138. QT 406. QTc 450. Normal axis. Right bundle branch block. No acute ST change. Medical Decision Making - Medical Decision Making Patient reevaluated and resting comfortably in bed. Patient and family updated on results and plan. Patient did recently start Lasix just 2 weeks ago. Case was discussed in detail with Dr. Sloan, who will admit for Dr. Carrillo. He does agree with neurology consult. Family had also added that patient has seemed somewhat more confused this morning. Patient had difficulty with some basic tests including turning on his computer. They state patient had a similar episode of confusion just several weeks ago. - Lab Data Result diagrams: 01/23/18 12:51 01/23/18 12:51 Lab Results 01/23/18 01/23/18 01/23/18 Range/Units 12:51 12:51 12:51 WBC 8.6 (3.8-10.6) k/uL RBC 4.04 L (4.30-5.90) m/uL Hgb 12.2 L (13.0-17.5) gm/dL Hct 38.6 L (39.0-53.0) % MCV 95.6 (80.0-100.0) fL MCH 30.2 (25.0-35.0) pg MCHC 31.6 (31.0-37.0) g/dL RDW 13.6 (11.5-15.5) % Plt Count 258 (150-450) k/uL Neutrophils % 69 % Lymphocytes % 19 % Monocytes % 6 % Eosinophils % 4 % Basophils % 1 % Neutrophils # 5.9 (1.3-7.7) k/uL Lymphocytes # 1.6 (1.0-4.8) k/uL Monocytes # 0.5 (0-1.0) k/uL Eosinophils # 0.4 (0-0.7) k/uL Basophils # 0.1 (0-0.2) k/uL PT (9.0-12.0) sec INR (<1.2) APTT (22.0-30.0) sec Sodium 134 L (137-145) mmol/L Potassium 5.5 H (3.5-5.1) mmol/L Chloride 100 (98-107) mmol/L Carbon Dioxide 26 (22-30) mmol/L Anion Gap 8 mmol/L BUN 57 H (9-20) mg/dL Creatinine 1.72 H (0.66-1.25) mg/dL Est GFR (CKD-EPI)AfAm 42 (>60 ml/min/1.73 sqM) Est GFR (CKD-EPI)NonAf 37 (>60 ml/min/1.73 sqM) Glucose 326 H (74-99) mg/dL Plasma Lactic Acid Popeye (0.7-2.0) mmol/L Calcium 8.7 (8.4-10.2) mg/dL Phosphorus 3.2 (2.5-4.5) mg/dL Magnesium 1.3 L (1.6-2.3) mg/dL Total Bilirubin 0.6 (0.2-1.3) mg/dL AST 21 (17-59) U/L ALT 9 L (21-72) U/L Alkaline Phosphatase 70 (38-126) U/L Total Creatine Kinase 81 (55-170) U/L CK-MB (CK-2) 1.1 (0.0-2.4) ng/mL CK-MB (CK-2) Rel Index 1.4 Troponin I <0.012 (0.000-0.034) ng/mL Total Protein 6.5 (6.3-8.2) g/dL Albumin 3.5 (3.5-5.0) g/dL TSH 0.610 (0.465-4.680) mIU/L Urine Color Urine Appearance (Clear) Urine pH (5.0-8.0) Ur Specific [place] (1.001-1.035) Urine Protein (Negative) Urine Glucose (UA) (Negative) Urine Ketones (Negative) Urine Blood (Negative) Urine Nitrite (Negative) Urine Bilirubin (Negative) Urine Urobilinogen (<2.0) mg/dL Ur Leukocyte Esterase (Negative) Urine RBC (0-5) /hpf Urine WBC (0-5) /hpf Urine Mucus (None) /hpf 01/23/18 01/23/18 01/23/18 Range/Units 12:51 12:51 14:04 WBC (3.8-10.6) k/uL RBC (4.30-5.90) m/uL Hgb (13.0-17.5) gm/dL Hct (39.0-53.0) % MCV (80.0-100.0) fL MCH (25.0-35.0) pg MCHC (31.0-37.0) g/dL RDW (11.5-15.5) % Plt Count (150-450) k/uL Neutrophils % % Lymphocytes % % Monocytes % % Eosinophils % % Basophils % % Neutrophils # (1.3-7.7) k/uL Lymphocytes # (1.0-4.8) k/uL Monocytes # (0-1.0) k/uL Eosinophils # (0-0.7) k/uL Basophils # (0-0.2) k/uL PT 10.3 (9.0-12.0) sec INR 1.1 (<1.2) APTT 21.3 L (22.0-30.0) sec Sodium (137-145) mmol/L Potassium (3.5-5.1) mmol/L Chloride (98-107) mmol/L Carbon Dioxide (22-30) mmol/L Anion Gap mmol/L BUN (9-20) mg/dL Creatinine (0.66-1.25) mg/dL Est GFR (CKD-EPI)AfAm (>60 ml/min/1.73 sqM) Est GFR (CKD-EPI)NonAf (>60 ml/min/1.73 sqM) Glucose (74-99) mg/dL Plasma Lactic Acid Popeye 2.2 H* (0.7-2.0) mmol/L Calcium (8.4-10.2) mg/dL Phosphorus (2.5-4.5) mg/dL Magnesium (1.6-2.3) mg/dL Total Bilirubin (0.2-1.3) mg/dL AST (17-59) U/L ALT (21-72) U/L Alkaline Phosphatase (38-126) U/L Total Creatine Kinase (55-170) U/L CK-MB (CK-2) (0.0-2.4) ng/mL CK-MB (CK-2) Rel Index Troponin I (0.000-0.034) ng/mL Total Protein (6.3-8.2) g/dL Albumin (3.5-5.0) g/dL TSH (0.465-4.680) mIU/L Urine Color Yellow Urine Appearance Clear (Clear) Urine pH 5.0 (5.0-8.0) Ur Specific [place] 1.011 (1.001-1.035) Urine Protein Negative (Negative) Urine Glucose (UA) 3+ H (Negative) Urine Ketones Negative (Negative) Urine Blood Trace H (Negative) Urine Nitrite Negative (Negative) Urine Bilirubin Negative (Negative) Urine Urobilinogen <2.0 (<2.0) mg/dL Ur Leukocyte Esterase Negative (Negative) Urine RBC 4 (0-5) /hpf Urine WBC <1 (0-5) /hpf Urine Mucus Rare H (None) /hpf - Radiology Data Radiology results: report reviewed (Computed tomography scan of the brain shows no acute intercranial abnormality. Old infarct. Degenerative changes.), image reviewed (Chest x-ray shows cardiomegaly) Disposition Clinical Impression: Renal insufficiency, Confusion Disposition: ADMITTED IP TO THIS HOSP Is patient prescribed a controlled substance at d/c from ED?: No Referrals: Alissa Knapp DO [Primary Care Provider] - 1-2 days Decision Time: 15:04
[2018-01-23 13:11] LABS: Basophils # (A) 0.1 k/uL (0-0.2); Basophils % (A) 1 %; Eosinophils # (A) 0.4 k/uL (0-0.7); Eosinophils % (A) 4 %; HCT 38.6 % (39.0-53.0); HGB 12.2 gm/dL (13.0-17.5); Lymphocytes # (A) 1.6 k/uL (1.0-4.8); Lymphocytes % (A) 19 %; MCH 30.2 pg (25.0-35.0); MCHC 31.6 g/dL (31.0-37.0); MCV 95.6 fL (80.0-100.0); Mean Platelet Volume 6.8; Monocytes # (A) 0.5 k/uL (0-1.0); Monocytes % (A) 6 %; Neutrophils # (A) 5.9 k/uL (1.3-7.7); Neutrophils % (A) 69 %; Platelet Count 258 k/uL (150-450); RBC 4.04 m/uL (4.30-5.90); RDW 13.6 % (11.5-15.5); WBC 8.6 k/uL (3.8-10.6)
[2018-01-23 13:21] LABS: Albumin 3.5 g/dL (3.5-5.0); Calcium 8.7 mg/dL (8.4-10.2); Magnesium 1.3 mg/dL (1.6-2.3); Phosphorus 3.2 mg/dL (2.5-4.5); Potassium 5.5 mmol/L (3.5-5.1); Total Bilirubin 0.6 mg/dL (0.2-1.3); Total Protein 6.5 g/dL (6.3-8.2)
[2018-01-23 13:30] LABS: Creatine Kinase 81 U/L (55-170)
[2018-01-23 13:36] LABS: INR 1.1 (<1.2); Prothrombin Time 10.3 sec (9.0-12.0)
[2018-01-23 13:37] LABS: Partial Thromboplastin Time 21.3 sec (22.0-30.0)
--- NOTE | 2018-01-23 13:37 | CT ---
EXAMINATION TYPE: CT brain wo con DATE OF EXAM: 01/23/2018 COMPARISON: Previous study dated 10/11/2017 HISTORY: Altered mental status CT DLP: 1054.20 mGycm Automated exposure control for dose reduction was used. FINDINGS: There are generalized changes of sulcal prominence and ventriculomegaly compatible with atrophic nieto ge. There is diffuse periventricular white matter lucency compatible with chronic white matter ischem ic change. There has been a previous right-sided temporal parietal infarct. This is unchanged from pr evious. There is no acute mass effect, midline shift or intracranial blood. Visualized portions of the paranasal sinuses are clear. The bony calvarium is intact. IMPRESSION: 1. NO ACUTE INTRACRANIAL ABNORMALITY. 2. OLD RIGHT POSTERIOR TEMPORAL PARIETAL INFARCT. 3. DEGENERATIVE CHANGE.
[2018-01-23] MEDS ORDERED: MAGNESIUM SULFATE-D5W PMX 1 GM in DEXTROSE/WATER 1 100ML.BAG IVPB ONE (13:42)
[2018-01-23 13:44] LABS: Creatine Kinase MB 1.1 ng/mL (0.0-2.4); Troponin I <0.012 ng/mL (0.000-0.034)
--- NOTE | 2018-01-23 13:53 | XR ---
EXAMINATION TYPE: XR chest 2V DATE OF EXAM: 01/23/2018 HISTORY: Weakness. REFERENCE: Previous study dated 10/11/2017. FINDINGS: There has been a midline sternotomy. The heart is enlarged. The lungs are clear. Pleural spaces are clear. IMPRESSION: CARDIOMEGALY.
[2018-01-23 14:41] LABS: Appearance,Urine Clear (Clear); Bilirubin,Urine Negative (Negative); Blood,Urine Trace (Negative); Color,Urine Yellow; Glucose,Urine (UA) 3+ (Negative); Ketones,Urine Negative (Negative); Leukocyte Esterase,Urine Negative (Negative); Mucus,Urine Rare /hpf; Nitrite,Urine Negative (Negative); Protein,Urine Negative (Negative); RBC,Urine 4 /hpf (0-5); Specific Gravity,Urine 1.011 (1.001-1.035); Urobilinogen,Urine <2.0 mg/dL (<2.0); WBC,Urine <1 /hpf (0-5)
[2018-01-23] MEDS ORDERED: MAGNESIUM OXIDE 400 MG TAB PO ONE (15:00)
[2018-01-23] MEDS ORDERED: NALOXONE 0.4 MG/ML 1 ML VIAL IV PRN (15:04)
[2018-01-23] MEDS: SODIUM CHLORIDE 0.9% 1,000 ML IV SCH (16:24)
[2018-01-23 17:25] LABS: Glucose,Whole Blood 299 mg/dL (75-99)
[2018-01-23 20:49] LABS: Glucose,Whole Blood 277 mg/dL (75-99)
[2018-01-23] MEDS: AMITRIPTYLINE HCL 10 MG TAB PO SCH (21:39)
[2018-01-23] MEDS: CARBIDOPA-LEVODOPA 25-100 MG 1 EACH TAB PO SCH (21:39)
[2018-01-23] MEDS: BUMETANIDE 1 MG TAB PO SCH (21:39)
[2018-01-23] MEDS: ASPIRIN 81 MG PO SCH (21:39)
[2018-01-23] MEDS: PANTOPRAZOLE 40 MG TABLET PO SCH (21:39)
[2018-01-23] MEDS: METOPROLOL TARTRATE 50 MG TAB PO SCH (21:39)
[2018-01-23] MEDS: PRIMIDONE 50 MG TAB PO SCH (21:39)
[2018-01-23] MEDS: ESCITALOPRAM 20 MG TAB PO SCH (21:40)
[2018-01-23] MEDS: INSULIN DETEMIR 100 UNIT/ML 10 ML VIAL SQ SCH (21:40)
[2018-01-23] MEDS: POTASSIUM CHLORIDE ER 20 MEQ TAB.ER PO SCH (21:40)
[2018-01-23] MEDS: INSULIN ASPART 100 UNIT/ML 1 ML 10 ML VIAL SQ SCH (21:40)
[2018-01-23] MEDS: MAGNESIUM OXIDE 400 MG TAB PO SCH (21:45)
[2018-01-24] MEDS: SODIUM CHLORIDE 0.9% 1,000 ML IV SCH ×2 (05:44→17:25)
[2018-01-24] MEDS: LEVOTHYROXINE 100 MCG TAB PO SCH (05:58)
[2018-01-24 07:14] LABS: Glucose,Whole Blood 105 mg/dL (75-99)
[2018-01-24] MEDS: INSULIN ASPART 100 UNIT/ML 1 ML 10 ML VIAL SQ SCH ×4 (07:21→20:47)
[2018-01-24 08:06] LABS: Basophils # (A) 0.1 k/uL (0-0.2); Basophils % (A) 1 %; Eosinophils # (A) 0.5 k/uL (0-0.7); Eosinophils % (A) 5 %; HCT 40.7 % (39.0-53.0); HGB 13.2 gm/dL (13.0-17.5); Lymphocytes # (A) 2.7 k/uL (1.0-4.8); Lymphocytes % (A) 26 %; MCH 30.6 pg (25.0-35.0); MCHC 32.4 g/dL (31.0-37.0); MCV 94.6 fL (80.0-100.0); Monocytes # (A) 0.9 k/uL (0-1.0); Monocytes % (A) 9 %; Neutrophils # (A) 5.7 k/uL (1.3-7.7); Neutrophils % (A) 57 %; Platelet Count 295 k/uL (150-450); RDW 13.7 % (11.5-15.5); WBC 10.2 k/uL (3.8-10.6)
[2018-01-24 08:16] LABS: Calcium 8.7 mg/dL (8.4-10.2); Potassium 5.7 mmol/L (3.5-5.1)
[2018-01-24] MEDS: CARBIDOPA-LEVODOPA 25-100 MG 1 EACH TAB PO SCH ×3 (08:36→20:46)
[2018-01-24] MEDS: LISINOPRIL 20 MG TAB PO SCH (08:36)
[2018-01-24] MEDS: METOPROLOL TARTRATE 50 MG TAB PO SCH ×2 (08:36→20:46)
[2018-01-24] MEDS: PRIMIDONE 50 MG TAB PO SCH ×2 (08:36→20:47)
[2018-01-24] MEDS: CLOPIDOGREL 75 MG TAB PO SCH (08:36)
[2018-01-24] MEDS: BUMETANIDE 1 MG TAB PO SCH ×2 (08:36→16:38)
[2018-01-24] MEDS: MULTIVITAMINS, THERA 1 EACH TAB PO SCH (08:37)
[2018-01-24] MEDS: MAGNESIUM OXIDE 400 MG TAB PO SCH ×2 (08:37→20:46)
[2018-01-24] MEDS: CHOLECALCIFEROL 1,000 UNIT TAB PO SCH (08:37)
[2018-01-24] MEDS: POTASSIUM CHLORIDE ER 20 MEQ TAB.ER PO SCH (08:37)
[2018-01-24] MEDS ORDERED: ATORVASTATIN 10 MG TAB PO SCH (09:00)
--- NOTE | 2018-01-24 09:30 | P.CNNES ---
History of Present Illness Consult date: 01/24/18 Requesting physician: Gonzalo Weinstein Reason for Consult: confusion Chief complaint: altered mental status/confusion History of Present Illness: Neurology is consulting on an 82-year-old male who presented to the ED with complaints of lightheadedness and confusion. Patient is an extremely poor historian and has extreme difficulty with hearing. patient has history of CKD, hypertension, hyperlipidemia, diabetes, GERD and multiple other comorbidities. Patient did have CT of the brain while in the ED which noted no acute intracranial abnormality, old right posterotemporal parietal infarct. Degenerative change. Findings included generalized changes of sulcal prominence and ventriculomegaly compatible with atrophic change. Diffuse periventricular white matter lucency compatible with chronic white matter ischemic change. Previous right-sided temporoparietal infarct. Unchanged from previous. There is no acute mass-effect midline shift or intracranial blood per radiologist. Patient does have known acute kidney disease based on laboratory blood work. Based on other laboratory blood work conducted patient also presented with elevated blood glucose at or near 300. At contact, patient was alert and oriented 3, resting in bed in no acute distress. Patient is very hard of hearing. He stated that he had an occurrence of similar type activity approximately 3-6 months ago. He stated the occurrence lasted several seconds to approximately a couple minutes. He has had no further recurrences. He denied any other neurological deficits, no unilateral weakness, no diplopia, no blurry vision, no floaters, no disequilibrium, no loss of consciousness. Patient has had recent adjustment to his Lasix and has had difficulty controlling his blood pressure per patient. Review of Systems systems not noted in HPI or negative. Past Medical History Past Medical History: Coronary Artery Disease (CAD), Heart Failure, Diabetes Mellitus, GERD/Reflux, Hyperlipidemia, Hypertension, Myocardial Infarction ([place]) , Vascular Disorder Additional Past Medical History / Comment(s): IDDM type II, blackened R great toe currently, CVA 2013-resolved dysarthria, L internal caratid severly stenosed , tinnitis bilaterally, bilateral neuropathy of hands, very [place] bilaterally, incontinence. Last Myocardial Infarction Date:: 1987 History of Any Multi-Drug Resistant Organisms: None Reported, Unobtainable Past Surgical History: Cholecystectomy, Coronary Bypass/CABG, Heart Catheterization Additional Past Surgical History / Comment(s): quadrouple bypass 2002 Past Anesthesia/Blood Transfusion Reactions: No Reported Reaction Additional Past Anesthesia/Blood Transfusion Reaction / Comment(s): Pt has received blood in past without reaction. Past Psychological History: Depression Additional Psychological History / Comment(s): Pt states he has been depressed since the of his spouse. He denies feeling suicidal or having any thoughts or plans. He now resides with his daughter who is very helpful to him. Pt ambulates with a walker. He no longer drives. Daughter manages his medications and takes him to appts and performs his glucose monitoring. Smoking Status: Never smoker Past Alcohol Use History: None Reported Past Drug Use History: None Reported - Past Family History Mother Additional Family Medical History / Comment(s): Mother had breast surgery (pt unsure if due to cancer) and shorley after. Father Additional Family Medical History / Comment(s): Father of suicide. Medications and Allergies Home Medications Medication Instructions Recorded Confirmed Type Insulin Aspart [NovoLOG 6 unit SQ DAILY 04/22/16 01/23/18 History (formulary)] Insulin Glargine,Hum.rec.anlog 54 unit SQ HS 04/22/16 01/23/18 History [Lantus Solostar] Levothyroxine Sodium [Synthroid] 100 mcg PO DAILY 04/22/16 01/23/18 History Lisinopril [Zestril] 20 mg PO DAILY 04/22/16 01/23/18 History Multivitamin/Iron/Folic Acid 1 tab PO DAILY 04/22/16 01/23/18 History [Centrum Complete Multivit Tab] Amitriptyline HCl [Elavil] 10 mg PO HS 04/29/16 01/23/18 History Aspirin EC [Ecotrin Low Dose] 81 mg PO HS 04/29/16 01/23/18 History Clopidogrel [Plavix] 75 mg PO DAILY 04/29/16 01/23/18 History Escitalopram [Lexapro] 20 mg PO HS 04/29/16 01/23/18 History Metoprolol Tartrate [Lopressor] 50 mg PO BID 04/29/16 01/23/18 History Omeprazole [PriLOSEC] 20 mg PO HS 04/29/16 01/23/18 History Cholecalciferol (Vitamin D3) 2,000 unit PO DAILY 10/11/17 01/23/18 History [Vitamin D3] Primidone [Mysoline] 50 mg PO BID 10/11/17 01/23/18 History Bumetanide [Bumex] 1 mg PO BID 01/23/18 01/23/18 History Carbidopa-Levodopa 25-100 mg 1 tab PO TID 01/23/18 01/23/18 History [Sinemet 25-100 mg] Potassium Chloride [Klor-Con 20] 20 meq PO BID 01/23/18 01/23/18 History Rosuvastatin Calcium [Crestor] 5 mg PO DAILY 01/23/18 01/23/18 History Allergies Allergy/AdvReac Type Severity Reaction Status Date / Time No Known Allergies Allergy Verified 01/23/18 12:54 Physical Examination - Vital Signs Vital Signs: Vital Signs Temp Pulse Pulse Pulse Resp BP BP 01/24/18 08:39 18 01/24/18 06:31 97.8 F 65 18 01/23/18 23:00 97.2 F L 72 18 01/23/18 16:46 97.7 F 77 16 116/51 01/23/18 15:31 98 F 01/23/18 15:26 70 16 126/60 01/23/18 14:35 77 16 127/59 01/23/18 13:39 94 18 137/63 01/23/18 12:28 97.9 F 80 18 137/65 BP Pulse Ox 01/24/18 08:39 01/24/18 06:31 123/79 95 01/23/18 23:00 115/59 98 01/23/18 16:46 98 01/23/18 15:31 01/23/18 15:26 98 01/23/18 14:35 99 01/23/18 13:39 97 01/23/18 12:28 97 Intake and Output 01/23/18 01/24/18 01/24/18 22:59 06:59 14:59 Intake Total 1000 Balance 1000 Intake: Intake, IV Titration 700 Amount Magnesium Sulfate-D5w Pmx 100 1 gm In Dextrose/Water 1 100ml.bag @ 100 mls/hr IVPB ONCE ONE Rx#: [id number] Sodium Chloride 0.9% 1, 600 000 ml @ 75 mls/hr IV . [id number] [facility] Rx#:[id number] Oral 300 Other: Voiding Method Urinal Urinal # Voids 3 Weight 127.006 kg 127.006 kg General appearance: Alert & oriented x3, no apparent distress. Head: Atraumatic, normocephalic, normal inspection Eyes: Well appearance, PERRLA, EOMI. Absent scleral icterus, conjunctival injection, nystagmus, periorbital swelling. Ear, nose and throat: Normal exam, mucous membranes moist Neck: Normal inspection, absent tenderness, lymphadenopathy. Respiratory: No increased work of breathing Cardiovascular: Regular rate, rhythm GI/abdominal: No guarding Extremities: moves all 4 extremities Neurological: cranial nerves II through XII intact no lateralizing weakness no seizure activity noted on physical exam no pronator drift and no nystagmus. Left lower extremity: 4-/5 Right lower extremity: 4-/5 Left upper extremity: 4-/5 Right upper extremity: 4-/5 Sensation: Left lower extremity: normal Right lower extremity: normal Left upper extremity: normal Right upper extremity:normal Psychological: Mood and Affect appropriate for setting Results - Laboratory Findings CBC and BMP: 01/24/18 07:45 01/24/18 07:45 Abnormal Lab Findings: Abnormal Labs 01/23/18 01/23/18 01/23/18 12:51 12:51 12:51 RBC 4.04 L Hgb 12.2 L Hct 38.6 L APTT Sodium 134 L Potassium 5.5 H BUN 57 H Creatinine 1.72 H Glucose 326 H POC Glucose (mg/dL) Plasma Lactic Acid Popeye 2.2 H* Magnesium 1.3 L ALT 9 L Urine Glucose (UA) Urine Blood Urine Mucus 01/23/18 01/23/18 01/23/18 12:51 14:04 17:22 RBC Hgb Hct APTT 21.3 L Sodium Potassium BUN Creatinine Glucose POC Glucose (mg/dL) 299 H Plasma Lactic Acid Popeye Magnesium ALT Urine Glucose (UA) 3+ H Urine Blood Trace H Urine Mucus Rare H 01/23/18 01/24/18 01/24/18 20:48 07:12 07:45 RBC Hgb Hct APTT Sodium Potassium 5.7 H BUN 52 H Creatinine 1.64 H Glucose POC Glucose (mg/dL) 277 H 105 H Plasma Lactic Acid Popeye Magnesium ALT Urine Glucose (UA) Urine Blood Urine Mucus Assessment and Plan (1) Renal insufficiency Current Visit: Yes Status: Acute Code(s): N28.9 - DISORDER OF KIDNEY AND URETER, UNSPECIFIED SNOMED Code(s): 682094220 (2) Altered mental status Current Visit: No Status: Acute Code(s): R41.82 - ALTERED MENTAL STATUS, UNSPECIFIED SNOMED Code(s): 853127392 (3) Hypomagnesemia Current Visit: Yes Status: Acute Code(s): E83.42 - HYPOMAGNESEMIA SNOMED Code(s): 770286411 (4) Hyperkalemia Current Visit: No Status: Acute Code(s): E87.5 - HYPERKALEMIA SNOMED Code( s): 81284437 Plan: Patient's altered mental status/confusion is most likely medically related to the patient's renal insufficiency and patient's diabetic status. However given the patient's significant chronic comorbidities, basic neurological workup will be conducted including an EEG and a carotid Doppler. Both tests have been ordered. CT of the brain was conducted in the ED and found noncontributory and no acute process. Patient's ammonia level was normal. Recommend correct all correctable laboratory blood work abnormals and monitor patient's blood glucose levels. Neurological checks can be continued at every shift. Continue 81 mg aspirin and Lipitor at existing dose and frequency. If EEG and carotid Doppler are normal or noncontributory, anticipate clearing patient from a neurological standpoint within next 24 hours. Status: Neurology will continue to follow provide updates as needed or warranted. As noted, anticipate clearing patient from a neurological standpoint in the next 24 hours of EEG and carotid Doppler are both normal and noncontributory. I have discussed the plan of care with the physician prior to implementation and he agrees with the plan as implemented.
[2018-01-24 10:12] LABS: Cholesterol 204 mg/dL (<200); HDL Cholesterol 41 mg/dL (40-60); LDL Cholesterol,Calculated 103 mg/dL (0-99); Triglycerides 298 mg/dL (<150)
[2018-01-24] MEDS ORDERED: SODIUM POLYSTYRENE SULFONATE 15 GM/60 ML BOTTLE PO ONE (10:46)
--- NOTE | 2018-01-24 10:58 | US ---
EXAMINATION TYPE: US carotid duplex BILAT DATE OF EXAM: 01/24/2018 COMPARISON: Previous study dated [id number]. CLINICAL HISTORY: AMS. Prior carotid duplex had limited Left ICA PW Doppler/ and color flow. Patient is hard of hearing. EXAM MEASUREMENTS: RIGHT: Peak Systolic Velocity (PSV) cm/sec ----- Right CCA: 61.6 ----- Right ICA: 84.9 ----- Right ECA: 83.6 ICA/CCA ratio: 1.4 RIGHT: End Diastole cm/sec ----- Right CCA: 16.3 ----- Right ICA: 21.5 ----- Right ECA: 0.0 LEFT: Peak Systolic Velocity (PSV) cm/sec ----- Left CCA: 79.7 ----- Left ICA: 60.3 prox ----- Left ECA: 85.4 ICA/CCA ratio: 0.8 LEFT: End Diastole cm/sec ----- Left CCA: 0.0 ----- Left ICA: 0.0 ----- Left ECA: 0.0 VERTEBRALS (direction of flow): Right Vertebral: Antegrade with increased PSV at 184.9cm/s. Left Vertebral: Antegrade and faint color flow and audible PW Doppler. Rhythm: Normal Irregular, and mixed plaque is noted at bilateral carotid bifurcation, but Distal Left ICA is inaudib le by PW Doppler and absent of color flow, thus, suspect Left ICA occlusion distally. Dominant Let EC A is noted by vessel size compared to Left ICA. IMPRESSION: 1. FINDINGS SIMILAR TO THE PREVIOUS EXAMINATION WITH NEAR COMPLETE OR COMPLETE OCCLUSION OF THE PROXI MAL LEFT ICA 2. ELEVATED FLOW VELOCITY IN THE RIGHT VERTEBRAL ARTERY MAY BE COMPENSATORY. Criteria for Assigning % of Stenosis / Diameter reduction (Estimation based on the indirect measurements of the internal carotid artery velocities (ICA PSV). 1. Normal (no stenosis)=ICA PSV < 125 cm/s: ratio < 2.0: ICA EDV<40 cm/s. 2. Less than 50% stenosis=ICA PSV < 125 cm/s: ratio < 2.0: ICA EDV<40 cm/s. 3. 50 to 69% stenosis=ICA PSV of 125 to 230 cm/s: ration 2.0 ? 4.0: ICA EDV 40-100 cm/s. 4. Greater than 70% stenosis to near occlusion= ICA PSV > 230 cm/s: ratio > 4.0: ICA EDV > 100 cm/s. 5. Near occlusion= ICA PSV velocities may be low or undetectable: variable ratio and ICA EDV. 6. Total occlusion=unable to detect flow.
[2018-01-24 12:05] LABS: Glucose,Whole Blood 178 mg/dL (75-99)
[2018-01-24 17:08] LABS: Glucose,Whole Blood 168 mg/dL (75-99)
[2018-01-24 20:42] LABS: Glucose,Whole Blood 196 mg/dL (75-99)
[2018-01-24] MEDS: ASPIRIN 81 MG PO SCH (20:46)
[2018-01-24] MEDS: ESCITALOPRAM 20 MG TAB PO SCH (20:46)
[2018-01-24] MEDS: PANTOPRAZOLE 40 MG TABLET PO SCH (20:47)
[2018-01-24] MEDS: AMITRIPTYLINE HCL 10 MG TAB PO SCH (20:47)
[2018-01-24] MEDS: INSULIN DETEMIR 100 UNIT/ML 10 ML VIAL SQ SCH (20:47)
[2018-01-25] MEDS: LEVOTHYROXINE 100 MCG TAB PO SCH (06:08)
--- NOTE | 2018-01-25 06:27 | P.PN ---
Subjective Progress Note Date: 01/25/18 Principal diagnosis: Confusion Neurology is following on an 82-year-old male for confusion. Patient was brought to the ED for complaints of confusion and lightheadedness. Patient extremely poor historian as he is extremely hard of hearing. Patient has history of CAD, hypertension, hyperlipidemia, diabetes, GERD and multiple other comorbidities. Patient did have a CT of the brain while in the ED which noted no acute intracranial abnormality, old right posterotemporal parietal infarct. Degenerative change. Findings included generalized changes of sulci prominence and ventriculomegaly, compatible with atrophic change. Diffuse periventricular white matter lucency compatible with chronic white matter ischemic change. Previous right-sided temporoparietal infarct. Unchanged from previous. There is no acute mass effect, midline shift or intracranial blood per radiologist. Patient does have known acute kidney disease based on laboratory blood work. Based on other laboratory blood work conducted patient also presented with elevated blood glucose at or near 300. At contact today, patient was alert and oriented 3, resting in bed in no acute distress. Patient is very hard of hearing. He stated that he had recurrence of similar type activity approximate 3-6 months ago. He stated that the occurrence lasted several seconds to approximate a couple minutes. He stated he has had no further recurrences. He denied any other neurological deficits, no unilateral lateralizing weakness, no diplopia,, no blurry vision, no floaters , nose disequilibrium, no loss of consciousness. Patient has had recent adjustments to his Lasix and has had difficulty controlling his blood pressure per patient. Since being admitted, patient's BUN and creatinine has been improving. Patient reports his mental status has also been improving. Patient did have carotid Doppler ultrasound study performed. 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 However it did note new elevated flow in the right vertebral artery which could be compensatory. Patient's lipid panel was elevated as well. Triglycerides at 298, cholesterol at 204, LDL at 103, HDL normal at 41. Patient was previously on Lipitor 10 mg. That will be increased today. Patient was already on aspirin 81 mg and Plavix 75 mg which will be continued. Patient has no new complaints. He does report improvement in his status daily over day. Objective - Vital Signs Vital signs: Vital Signs Temp 96.8 F L 01/25/18 06:01 Pulse 64 01/25/18 06:01 Resp 16 01/25/18 06:01 BP 141/70 01/25/18 06:01 Pulse Ox 96 01/25/18 06:01 Intake & Output 01/24/18 01/24/18 01/25/18 06:59 18:59 06:59 Intake Total 700 900 Output Total 300 Balance 700 900 -300 Weight 127.006 kg Intake: Intake, IV Titration 700 Amount Magnesium Sulfate-D5w Pmx 100 1 gm In Dextrose/Water 1 100ml.bag @ 100 mls/hr IVPB ONCE ONE Rx#: [id number] Sodium Chloride 0.9% 1, 600 000 ml @ 75 mls/hr IV . [id number] [facility] Rx#:[id number] Oral 900 Output: Urine 300 Other: Voiding Method Urinal Urinal Urinal # Voids 3 5 3 # Bowel Movements 1 - Exam Gen. appearance: Alert, in no apparent distress Head: Atraumatic normocephalic, normal inspection Eyes: Well appearance, PERRL, EOMI. Ears nose and throat: Normal with exception of extreme difficulty with hearing Neck: Normal inspection. Absent tenderness, lymphadenopathy Respiratory: No increased work of breathing. Cardiovascular: Regular rate, normal rhythm GIabdominal: No guarding him a nondistended Extremities: Moves all extremities Neurological: Alert and oriented 3, cranial nerves II through XII intact, no unilateral lateralizing weakness, no seizure activity noted on physical exam, no pronator drift and no nystagmus, no facial asymmetry noted on physical exam Psychological: Mood and affect appropriate setting - Labs CBC & Chem 7: 01/24/18 07:45 01/24/18 07:45 Labs: Abnormal Lab Results - Last 24 Hours (Table) 01/24/18 01/24/18 01/24/18 Range/Units 07:12 07:45 07:45 Potassium 5.7 H (3.5-5.1) mmol/L BUN 52 H (9-20) mg/dL Creatinine 1.64 H (0.66-1.25) mg/dL POC Glucose (mg/dL) 105 H (75-99) mg/dL Triglycerides 298 H (<150) mg/dL Cholesterol 204 H (<200) mg/dL LDL Cholesterol, Calc 103 H (0-99) mg/dL 01/24/18 01/24/18 01/24/18 Range/Units 12:00 17:06 20:41 Potassium (3.5-5.1) mmol/L BUN (9-20) mg/dL Creatinine (0.66-1.25) mg/dL POC Glucose (mg/dL) 178 H 168 H 196 H (75-99) mg/dL Triglycerides (<150) mg/dL Cholesterol (<200) mg/dL LDL Cholesterol, Calc (0-99) mg/dL Assessment and Plan (1) Renal insufficiency Current Visit: Yes Status: Acute Code(s): N28.9 - DISORDER OF KIDNEY AND URETER, UNSPECIFIED SNOMED Code(s): 368962904 (2) Altered mental status Current Visit: No Status: Acute Code(s): R41.82 - ALTERED MENTAL STATUS, UNSPECIFIED SNOMED Code(s): 718007782 (3) Hypomagnesemia Current Visit: Yes Status: Acute Code(s): E83.42 - HYPOMAGNESEMIA SNOMED Code(s): 073362415 (4) Hyperkalemia Current Visit: No Status: Acute Code(s): E87.5 - HYPERKALEMIA SNOMED Code( s): 09169264 Plan: Patient's altered mental status/confusion is most likely medically related to the patient's renal insufficiency, patient's diabetic status and his vascular occlusion. Patient is returning to baseline as his BUN and creatinine have been trending towards normal and his blood glucose levels have been returning towards normal. Noted abnormal carotid Doppler findings and new abnormal, recommend vascular consult as noted below. Lipid panel: Abnormal CT brain: No acute process Carotid Doppler: Near occlusion left ICA, elevated flowright vertebral artery EEG: Pending Ammonia level: Normal Prescribed/increased: Lipitor to 40 mg by mouth daily at bedtime Continued: Plavix 75 mg daily Continue: 81 mg aspirin daily Recommend vascular consult to evaluate new finding related to right vertebral artery flow on carotid Doppler which is new compared to old carotid Doppler study Status: Neurology will continue to follow on an as-needed basis. Recontact our office if any further input is needed related to this patient's care. I have discussed the plan of care with the physician prior to implementation and he agrees with the plan as implemented.
[2018-01-25 07:32] LABS: Glucose,Whole Blood 126 mg/dL (75-99)
[2018-01-25] MEDS: INSULIN ASPART 100 UNIT/ML 1 ML 10 ML VIAL SQ SCH ×4 (07:54→21:04)
[2018-01-25] MEDS: SODIUM CHLORIDE 0.9% 1,000 ML IV SCH ×2 (07:54→21:06)
[2018-01-25] MEDS: CLOPIDOGREL 75 MG TAB PO SCH (08:13)
[2018-01-25] MEDS: PRIMIDONE 50 MG TAB PO SCH ×2 (08:13→21:05)
[2018-01-25] MEDS: MAGNESIUM OXIDE 400 MG TAB PO SCH ×2 (08:13→21:05)
[2018-01-25] MEDS: CHOLECALCIFEROL 1,000 UNIT TAB PO SCH (08:13)
[2018-01-25] MEDS: BUMETANIDE 1 MG TAB PO SCH ×2 (08:14→16:32)
[2018-01-25] MEDS: METOPROLOL TARTRATE 50 MG TAB PO SCH ×2 (08:14→21:05)
[2018-01-25] MEDS: ASPIRIN 81 MG PO SCH (08:14)
[2018-01-25] MEDS: LISINOPRIL 20 MG TAB PO SCH (08:14)
[2018-01-25] MEDS: CARBIDOPA-LEVODOPA 25-100 MG 1 EACH TAB PO SCH ×3 (08:14→21:47)
[2018-01-25 09:21] LABS: Basophils # (A) 0.1 k/uL (0-0.2); Basophils % (A) 1 %; Eosinophils # (A) 0.4 k/uL (0-0.7); Eosinophils % (A) 4 %; HCT 37.2 % (39.0-53.0); HGB 12.3 gm/dL (13.0-17.5); Lymphocytes # (A) 1.6 k/uL (1.0-4.8); Lymphocytes % (A) 18 %; Mean Platelet Volume 7.4; Monocytes # (A) 0.5 k/uL (0-1.0); Monocytes % (A) 6 %; Neutrophils # (A) 5.9 k/uL (1.3-7.7); Neutrophils % (A) 69 %; Platelet Count 253 k/uL (150-450); RBC 3.95 m/uL (4.30-5.90); RDW 13.5 % (11.5-15.5); WBC 8.7 k/uL (3.8-10.6)
[2018-01-25 09:47] LABS: Albumin 3.4 g/dL (3.5-5.0); Calcium 8.6 mg/dL (8.4-10.2); Magnesium 1.5 mg/dL (1.6-2.3); Potassium 5.3 mmol/L (3.5-5.1); Total Bilirubin 0.5 mg/dL (0.2-1.3); Total Protein 6.3 g/dL (6.3-8.2)
[2018-01-25 10:00] LABS: Hemoglobin A1C 9.5 % (4.0-6.0)
--- NOTE | 2018-01-25 10:47 | P.HPIM ---
History of Present Illness H&P Date: 01/24/18 Les Schneider is an 82-year-old male who presented to [facility] emergency room with a chief complaint of lightheadedness and confusion. Patient significant difficulty with hearing, he states that he started feeling lightheaded few days prior to presentation he denies any chest pain he denies any shortness of breath. 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 He was admitted to medical floor for further evaluation, neurology consultation was requested. In the emergency room patient had evidence of renal insufficiency with BUN of 57 and creatinine of 1.7 to potassium was elevated at 5.5 and glucose was elevated at 326 urine analysis did not reveal evidence of urinary tract infection chest x-ray revealed evidence of cardiomegaly without any evidence of infectious processes in the lungs. Past Medical History Past Medical History: Coronary Artery Disease (CAD), Heart Failure, Diabetes Mellitus, GERD/Reflux, Hyperlipidemia, Hypertension, Myocardial Infarction ([place]) , Vascular Disorder Additional Past Medical History / Comment(s): IDDM type II, blackened R great toe currently, CVA 2013-resolved dysarthria, L internal caratid severly stenosed , tinnitis bilaterally, bilateral neuropathy of hands, very [place] bilaterally, incontinence. Last Myocardial Infarction Date:: 1987 History of Any Multi-Drug Resistant Organisms: None Reported, Unobtainable Past Surgical History: Cholecystectomy, Coronary Bypass/CABG, Heart Catheterization Additional Past Surgical History / Comment(s): quadrouple bypass 2002 Past Anesthesia/Blood Transfusion Reactions: No Reported Reaction Additional Past Anesthesia/Blood Transfusion Reaction / Comment(s): Pt has received blood in past without reaction. Past Psychological History: Depression Additional Psychological History / Comment(s): Pt states he has been depressed since the of his spouse. He denies feeling suicidal or having any thoughts or plans. He now resides with his daughter who is very helpful to him. Pt ambulates with a walker. He no longer drives. Daughter manages his medications and takes him to appts and performs his glucose monitoring. Smoking Status: Never smoker Past Alcohol Use History: None Reported Past Drug Use History: None Reported - Past Family History Mother Additional Family Medical History / Comment(s): Mother had breast surgery (pt unsure if due to cancer) and dania after. Father Additional Family Medical History / Comment(s): Father of suicide. Medications and Allergies Home Medications Medication Instructions Recorded Confirmed Type Insulin Aspart [NovoLOG 6 unit SQ DAILY 04/22/16 01/23/18 History (formulary)] Insulin Glargine,Hum.rec.anlog 54 unit SQ HS 04/22/16 01/23/18 History [Lantus Solostar] Levothyroxine Sodium [Synthroid] 100 mcg PO DAILY 04/22/16 01/23/18 History Lisinopril [Zestril] 20 mg PO DAILY 04/22/16 01/23/18 History Multivitamin/Iron/Folic Acid 1 tab PO DAILY 04/22/16 01/23/18 History [Centrum Complete Multivit Tab] Amitriptyline HCl [Elavil] 10 mg PO HS 04/29/16 01/23/18 History Aspirin EC [Ecotrin Low Dose] 81 mg PO HS 04/29/16 01/23/18 History Clopidogrel [Plavix] 75 mg PO DAILY 04/29/16 01/23/18 History Escitalopram [Lexapro] 20 mg PO HS 04/29/16 01/23/18 History Metoprolol Tartrate [Lopressor] 50 mg PO BID 04/29/16 01/23/18 History Omeprazole [PriLOSEC] 20 mg PO HS 04/29/16 01/23/18 History Cholecalciferol (Vitamin D3) 2,000 unit PO DAILY 10/11/17 01/23/18 History [Vitamin D3] Primidone [Mysoline] 50 mg PO BID 10/11/17 01/23/18 History Bumetanide [Bumex] 1 mg PO BID 01/23/18 01/23/18 History Carbidopa-Levodopa 25-100 mg 1 tab PO TID 01/23/18 01/23/18 History [Sinemet 25-100 mg] Potassium Chloride [Klor-Con 20] 20 meq PO BID 01/23/18 01/23/18 History Rosuvastatin Calcium [Crestor] 5 mg PO DAILY 01/23/18 01/23/18 History Allergies Allergy/AdvReac Type Severity Reaction Status Date / Time No Known Allergies Allergy Verified 01/23/18 12:54 Physical Exam Vitals: Vital Signs Temp Pulse Pulse Pulse Resp BP BP 01/24/18 08:39 18 01/24/18 06:31 97.8 F 65 18 01/23/18 23:00 97.2 F L 72 18 01/23/18 16:46 97.7 F 77 16 116/51 01/23/18 15:31 98 F 01/23/18 15:26 70 16 126/60 01/23/18 14:35 77 16 127/59 01/23/18 13:39 94 18 137/63 01/23/18 12:28 97.9 F 80 18 137/65 BP Pulse Ox 01/24/18 08:39 01/24/18 06:31 123/79 95 01/23/18 23:00 115/59 98 01/23/18 16:46 98 01/23/18 15:31 01/23/18 15:26 98 01/23/18 14:35 99 01/23/18 13:39 97 01/23/18 12:28 97 Intake and Output 01/23/18 01/24/18 01/24/18 22:59 06:59 14:59 Intake Total 1000 300 Balance 1000 300 Intake: Intake, IV Titration 700 Amount Magnesium Sulfate-D5w Pmx 100 1 gm In Dextrose/Water 1 100ml.bag @ 100 mls/hr IVPB ONCE ONE Rx#: [id number] Sodium Chloride 0.9% 1, 600 000 ml @ 75 mls/hr IV . [id number] [facility] Rx#:[id number] Oral 300 300 Other: Voiding Method Urinal Urinal # Voids 3 Weight 127.006 kg 127.006 kg In general patient is alert and answering questions appropriately at this time, there is no acute distress HEENT head normocephalic and atraumatic Neck is supple no JVD no goiter no lymphadenopathy no carotid bruit Chest exam reveals a few scattered crackles no wheezing Cardiac exam reveals regular heart sounds S1 and S2 no gallops no murmurs Abdomen is soft nontender no organomegaly with normal bowel sounds Extremity exam reveals no edema no cyanosis or clubbing, 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 Neurological examination reveals no gross focal deficit at this time Results CBC & Chem 7: 01/24/18 07:45 01/24/18 07:45 Labs: Abnormal Lab Results - Last 24 Hours (Table) 01/23/18 01/23/18 01/23/18 Range/Units 12:51 12:51 12:51 RBC 4.04 L (4.30-5.90) m/uL Hgb 12.2 L (13.0-17.5) gm/dL Hct 38.6 L (39.0-53.0) % APTT (22.0-30.0) sec Sodium 134 L (137-145) mmol/L Potassium 5.5 H (3.5-5.1) mmol/L BUN 57 H (9-20) mg/dL Creatinine 1.72 H (0.66-1.25) mg/dL Glucose 326 H (74-99) mg/dL POC Glucose (mg/dL) (75-99) mg/dL Plasma Lactic Acid Popeye 2.2 H* (0.7-2.0) mmol/L Magnesium 1.3 L (1.6-2.3) mg/dL ALT 9 L (21-72) U/L Triglycerides (<150) mg/dL Cholesterol (<200) mg/dL LDL Cholesterol, Calc (0-99) mg/dL Urine Glucose (UA) (Negative) Urine Blood (Negative) Urine Mucus (None) /hpf 01/23/18 01/23/18 01/23/18 Range/Units 12:51 14:04 17:22 RBC (4.30-5.90) m/uL Hgb (13.0-17.5) gm/dL Hct (39.0-53.0) % APTT 21.3 L (22.0-30.0) sec Sodium (137-145) mmol/L Potassium (3.5-5.1) mmol/L BUN (9-20) mg/dL Creatinine (0.66-1.25) mg/dL Glucose (74-99) mg/dL POC Glucose (mg/dL) 299 H (75-99) mg/dL Plasma Lactic Acid Popeye (0.7-2.0) mmol/L Magnesium (1.6-2.3) mg/dL ALT (21-72) U/L Triglycerides (<150) mg/dL Cholesterol (<200) mg/dL LDL Cholesterol, Calc (0-99) mg/dL Urine Glucose (UA) 3+ H (Negative) Urine Blood Trace H (Negative) Urine Mucus Rare H (None) /hpf 01/23/18 01/24/18 01/24/18 Range/Units 20:48 07:12 07:45 RBC (4.30-5.90) m/uL Hgb (13.0-17.5) gm/dL Hct (39.0-53.0) % APTT (22.0-30.0) sec Sodium (137-145) mmol/L Potassium 5.7 H (3.5-5.1) mmol/L BUN 52 H (9-20) mg/dL Creatinine 1.64 H (0.66-1.25) mg/dL Glucose (74-99) mg/dL POC Glucose (mg/dL) 277 H 105 H (75-99) mg/dL Plasma Lactic Acid Popeye (0.7-2.0) mmol/L Magnesium (1.6-2.3) mg/dL ALT (21-72) U/L Triglycerides (<150) mg/dL Cholesterol (<200) mg/dL LDL Cholesterol, Calc (0-99) mg/dL Urine Glucose (UA) (Negative) Urine Blood (Negative) Urine Mucus (None) /hpf 01/24/18 Range/Units 07:45 RBC (4.30-5.90) m/uL Hgb (13.0-17.5) gm/dL Hct (39.0-53.0) % APTT (22.0-30.0) sec Sodium (137-145) mmol/L Potassium (3.5-5.1) mmol/L BUN (9-20) mg/dL Creatinine (0.66-1.25) mg/dL Glucose (74-99) mg/dL POC Glucose (mg/dL) (75-99) mg/dL Plasma Lactic Acid Popeye (0.7-2.0) mmol/L Magnesium (1.6-2.3) mg/dL ALT (21-72) U/L Triglycerides 298 H (<150) mg/dL Cholesterol 204 H (<200) mg/dL LDL Cholesterol, Calc 103 H (0-99) mg/dL Urine Glucose (UA) (Negative) Urine Blood (Negative) Urine Mucus (None) /hpf Thrombosis Risk Factor Assmnt - Choose All That Apply Each Factor Represents 1 point: Obesity (BMI >25) Each Risk Factor Represents 3 Points: Age 75 years or older Other congenital or acquired thrombophilia - If yes, enter type in comment: No Thrombosis Risk Factor Assessment Total Risk Factor Score: 4 Thrombosis Risk Factor Assessment Level: Moderate Risk Assessment and Plan Plan: #1 episodes of dizziness and lightheadedness #2 episodes of confusion #3 acute on chronic renal failure #4 hyperkalemia #5 hypomagnesemia #6 insulin-dependent diabetes mellitus #7 underlying history of Parkinson disease maintained on Sinemet #8 underlying history of hypothyroidism #9 underlying history of hyperlipidemia maintained on Crestor #10 underlying history of depression maintained on Lexapro #11 underlying history of hypertension, well-controlled on current medications #12 evidence of cardiomegaly on chest x-ray #13 known history of coronary artery disease with previous history of coronary artery bypass graft surgery #14 with previous history of stroke in 2013 #15 known history of carotid stenosis in the past At this time plan is to hydrate patient gently, and monitor kidney function correct magnesium level Use Kayexalate for hyperkalemia Obtain echocardiogram in regard to cardiomegaly and known history of coronary artery disease Obtain carotid Doppler Obtain EEG and review neurology consult Recheck labs in a.m.
[2018-01-25] MEDS ORDERED: SODIUM POLYSTYRENE SULFONATE 15 GM/60 ML BOTTLE PO STA (11:14)
[2018-01-25] MEDS ORDERED: Magnesium Replacement Protocol 1 EACH MISC MISCELLANE PRN (11:22)
--- NOTE | 2018-01-25 11:25 | P.PN ---
Subjective Progress Note Date: 01/25/18 Les Schneider is an 82-year-old male who presented to [facility] emergency room with a chief complaint of lightheadedness and confusion. Patient significant difficulty with hearing, he states that he started feeling lightheaded few days prior to presentation he denies any chest pain he denies any shortness of breath. 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 He was admitted to medical floor for further evaluation, neurology consultation was requested. In the emergency room patient had evidence of renal insufficiency with BUN of 57 and creatinine of 1.7 to potassium was elevated at 5.5 and glucose was elevated at 326 urine analysis did not reveal evidence of urinary tract infection chest x-ray revealed evidence of cardiomegaly without any evidence of infectious processes in the lungs. On 01/25/2018 patient is currently resting comfortably in bed. Patient remains slightly confused. Patient denies chest pain or shortness of breath. Patient denies any urinary burning or frequency. patient denies nausea vomiting or diarrhea Objective - Vital Signs Vital signs: Vital Signs Temp 96.8 F L 01/25/18 06:01 Pulse 64 01/25/18 06:01 Resp 18 01/25/18 08:00 BP 141/70 01/25/18 06:01 Pulse Ox 96 01/25/18 06:01 Intake & Output 01/24/18 01/25/18 01/25/18 18:59 06:59 18:59 Intake Total 900 Output Total 300 Balance 900 -300 Weight 127.006 kg Intake: Oral 900 Output: Urine 300 Other: Voiding Method Urinal Urinal Urinal # Voids 5 3 # Bowel Movements 1 - Exam In general patient is alert and answering questions appropriately at this time, there is no acute distress HEENT head normocephalic and atraumatic Neck is supple no JVD no goiter no lymphadenopathy no carotid bruit Chest exam reveals a few scattered crackles no wheezing Cardiac exam reveals regular heart sounds S1 and S2 no gallops no murmurs Abdomen is soft nontender no organomegaly with normal bowel sounds Extremity exam reveals no edema no cyanosis or clubbing, 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30-5.90) m/uL Hgb 12.3 L (13.0-17.5) gm/dL Hct 37.2 L (39.0-53.0) % Potassium (3.5-5.1) mmol/L BUN (9-20) mg/dL Creatinine (0.66-1.25) mg/dL Glucose (74-99) mg/dL POC Glucose (mg/dL) 196 H 126 H (75-99) mg/dL Hemoglobin A1c (4.0-6.0) % Magnesium (1.6-2.3) mg/dL ALT (21-72) U/L Albumin (3.5-5.0) g/dL 01/25/18 Range/Units 08:39 RBC (4.30-5.90) m/uL Hgb (13.0-17.5) gm/dL Hct (39.0-53.0) % Potassium 5.3 H (3.5-5.1) mmol/L BUN 48 H (9-20) mg/dL Creatinine 1.69 H (0.66-1.25) mg/dL Glucose 186 H (74-99) mg/dL POC Glucose (mg/dL) (75-99) mg/dL Hemoglobin A1c (4.0-6.0) % Magnesium 1.5 L (1.6-2.3) mg/dL ALT 18 L (21-72) U/L Albumin 3.4 L (3.5-5.0) g/dL Assessment and Plan Assessment: #1 episodes of dizziness and lightheadedness. #2 episodes of confusion. Neurology following. CT brain showing no acute process. EEG is pending. Per neurology continue Plavix and aspirin. #3 acute on chronic renal failure. Creatinine 1.69 and bun 48. Continue gentle hydration #4 hyperkalemia. Potassium 5.3. Kayexalate has been ordered. Patient placed on telemetry/monitoring #5 hypomagnesemia. Magnesium 1.5. relaced per protocol #6 insulin-dependent diabetes mellitus. A1c 9.5. Continue home medication plus sliding scale coverage. #7 underlying history of Parkinson disease maintained on Sinemet #8 underlying history of hypothyroidism #9 underlying history of hyperlipidemia maintained on Crestor #10 underlying history of depression maintained on Lexapro #11 underlying history of hypertension, well-controlled on current medications #12 evidence of cardiomegaly on chest x-ray #13 known history of coronary artery disease with previous history of coronary artery bypass graft surgery #14 with previous history of stroke in 2013 #15 known history of carotid stenosis in the past. 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 Dr. Gutierrez consulted for vascular surgery. #16 atrial fibrillation. EKG completed showing atrial fibrillation, right bundle branch block. Possible inferior infarct, age undetermined. Whether this is new is unclear due to patient being a poor historian at this time. Cardiology services have been consulted. Telemetry monitoring has been ordered for patient. 2-D echo has been ordered] DVT prophylaxis heparin. GI prophylaxis Pepcid I performed an examination of the patient and discussed their management with the Nurse Practitioner. I have reviewed the Nurse Practitioner's notes and agree with the documented findings and plan of care
[2018-01-25] MEDS: MAGNESIUM SULFATE-D5W PMX 1 GM in DEXTROSE/WATER 1 100ML.BAG IVPB SCH ×2 (11:51→12:58)
[2018-01-25] MEDS: MULTIVITAMINS, THERA 1 EACH TAB PO SCH (11:51)
[2018-01-25 12:00] LABS: Glucose,Whole Blood 182 mg/dL (75-99)
[2018-01-25] MEDS: APIXABAN 2.5 MG TABLET PO SCH ×2 (12:58→21:05)
--- NOTE | 2018-01-25 13:05 | ECHOF ---
Referral Reason:cardiomegaly, dizziness MEASUREMENTS -------- HEIGHT: 177.8 cm WEIGHT: 127.0 kg BP: 141/70 RVIDd: 3.3 cm (< 3.3) IVSd: 1.3 cm (0.6 - 1.1) LVIDd: 3.6 cm (3.9 - 5.3) LVPWd: 1.3 cm (0.6 - 1.1) IVSs: 1.9 cm LVIDs: 2.6 cm LVPWs: 1.8 cm LA Diam: 4.1 cm (2.7 - 3.8) LAESV Index (A-L): 23.57 ml/m Ao Diam: 3.8 cm (2.0 - 3.7) AV Cusp: 2.2 cm (1.5 - 2.6) MV EXCURSION: 22.560 mm (> 18.000) MV EF SLOPE: 94 mm/s (70 - 150) EPSS: 0.8 cm MV E Myron: 0.74 m/s MV DecT: 163 ms MV A Myron: 0.62 m/s MV E/A Ratio: 1.19 FINDINGS -------- Sinus rhythm. This was a technically adequate study. The left ventricular size is normal. There is mild concentric left ventricular hypertrophy. Overa ll left ventricular systolic function is normal with, an EF between 55 - 60 %. The right ventricle is mildly enlarged. Normal LA size by volume 22+/-6 ml/m2. The right atrium is normal in size. The aortic valve is trileaflet, and appears structurally normal. No aortic stenosis or regurgitation. The mitral valve is normal. The tricuspid valve appears structurally normal. No regurgitation noted Trace/mild (physiologic) pulmonic regurgitation. The aortic root is dilated measuring 3.8cm. IVC Not well visulized. There is no pericardial effusion. CONCLUSIONS -------- 1. Sinus rhythm. 2. This was a technically adequate study. 3. The left ventricular size is normal. 4. There is mild concentric left ventricular hypertrophy. 5. Overall left ventricular systolic function is normal with, an EF between 55 - 60 %. 6. The right ventricle is mildly enlarged. 7. Normal LA size by volume 22+/-6 ml/m2. 8. The aortic valve is trileaflet, and appears structurally normal. No aortic stenosis or regurgitati on. 9. The mitral valve is normal. 10. The tricuspid valve appears structurally normal. 11. Trace/mild (physiologic) pulmonic regurgitation. 12. The aortic root is dilated measuring 3.8cm. 13. IVC Not well visulized. 14. There is no pericardial effusion. PHYSICAL DAMAGE APPRAISER: Rose Lange RDCS
--- NOTE | 2018-01-25 13:11 | P.CRDCN ---
History of Present Illness History of present illness: Mr. Schneider is a pleasant 82-year-old male psat medical history significant for coronary artery disease s/p bypass grafting performed in [place] many years ago per the patient, chart documentation indicates quad bypass 2002. He is unsure of the exact date however. 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 He denies history of atrial fibrillation. He also has dyslipidemia, hypertension, diabetes mellitus, peripheral neuropathy, GERD and previous CVA. We have been asked to see him in consultation for new onset atrial fibrillation. He presented to the hospital with symptoms of altered mental status. CT brain shows no acute intracranial abnormality with evidence of old right posterior parietal infarct along with degenerative changes. Carotid dopplers indicated near occlusion of the left internal carotid artery that is unchanged from previous study in September however there increased flow on the right that is new, vascular has been consulted. EKG on admission shows right bundle branch block and atrial fibrillation with controlled ventricular response. Review of old EKG's and monitor tracings on file show no evidence of prior a-fib documented. He denies chest pain, shortness of breath, palpitations, dizziness, nausea, vomiting or diaphoresis. He also denies PND or orthopnea. Chest x-ray indicates cardiomegaly with no acute cardiopulmonary process. Laboratory data reviewed, hemoglobin 12.3, platelets 253, sodium 137, potassium 5.3 was 5.5 and 5.7 for the last 2 days, creatinine 1.69, magnesium 1.5, cardiac enzymes negative 1, LDL 103, HDL 41, triglycerides 298 and total cholesterol 204, TSH 0.61. Current cardiac medications include aspirin 81 mg daily, Bumex 1 mg twice a day , Plavix 75 mg daily, lisinopril 20 mg daily, Lopressor 50 mg twice a day and Crestor 5 mg daily. Most recent echocardiogram obtained September 2017 reveals preserved left ventricular systolic function with ejection fraction greater than 55%, mildly dilated left atrium, mild MR and mild TR. Review of Systems At the time of my exam: CONSTITUTIONAL: Denies fever. Denies chills. EYES: Denies blurred vision. Denies vision changes. Denies eye pain. EARS, NOSE, MOUTH & THROAT: Denies headache. Denies sore throat. Denies ear pain. CARDIOVASCULAR: Denies chest pain. Denies shortness of breath. Denies orthopnea. Denies PND. Denies palpitations. RESPIRATORY: Denies cough. GASTROINTESTINAL: Denies abdominal pain. Denies diarrhea. Denies constipation. Denies nausea. Denies vomiting. MUSCULOSKELETAL: Denies myalgias. INTEGUMENTARY: Denies pruitis. Denies rash. NEUROLOGIC: Denies numbness. Denies tingling. Denies weakness. PSYCHIATRIC: Denies anxiety. Denies depression. ENDOCRINE: Denies fatigue. Denies weight change. Denies polydipsia. Denies polyurina. GENITOURINARY: Denies burning, hematuria or urgency with micturation. HEMATOLOGIC: Denies history of anemia. Denies bleeding. Past Medical History Past Medical History: Coronary Artery Disease (CAD), Heart Failure, Diabetes Mellitus, GERD/Reflux, Hyperlipidemia, Hypertension, Myocardial Infarction (DE) , Vascular Disorder Additional Past Medical History / Comment(s): IDDM type II, blackened R great toe currently, CVA 2013-resolved dysarthria, L internal caratid severly stenosed , tinnitis bilaterally, bilateral neuropathy of hands, very [place] bilaterally, incontinence. Last Myocardial Infarction Date:: 1987 History of Any Multi-Drug Resistant Organisms: None Reported, Unobtainable Past Surgical History: Cholecystectomy, Coronary Bypass/CABG, Heart Catheterization Additional Past Surgical History / Comment(s): quadrouple bypass 2002 Past Anesthesia/Blood Transfusion Reactions: No Reported Reaction Additional Past Anesthesia/Blood Transfusion Reaction / Comment(s): Pt has received blood in past without reaction. Past Psychological History: Depression Additional Psychological History / Comment(s): Pt states he has been depressed since the of his spouse. He denies feeling suicidal or having any thoughts or plans. He now resides with his daughter who is very helpful to him. Pt ambulates with a walker. He no longer drives. Daughter manages his medications and takes him to appts and performs his glucose monitoring. Smoking Status: Never smoker Past Alcohol Use History: None Reported Past Drug Use History: None Reported - Past Family History Mother Additional Family Medical History / Comment(s): Mother had breast surgery (pt unsure if due to cancer) and shorley after. Father Additional Family Medical History / Comment(s): Father of suicide. Medications and Allergies Home Medications Medication Instructions Recorded Confirmed Type Insulin Aspart [NovoLOG 6 unit SQ DAILY 04/22/16 01/23/18 History (formulary)] Insulin Glargine,Hum.rec.anlog 54 unit SQ HS 04/22/16 01/23/18 History [Lantus Solostar] Levothyroxine Sodium [Synthroid] 100 mcg PO DAILY 04/22/16 01/23/18 History Lisinopril [Zestril] 20 mg PO DAILY 04/22/16 01/23/18 History Multivitamin/Iron/Folic Acid 1 tab PO DAILY 04/22/16 01/23/18 History [Centrum Complete Multivit Tab] Amitriptyline HCl [Elavil] 10 mg PO HS 04/29/16 01/23/18 History Aspirin EC [Ecotrin Low Dose] 81 mg PO HS 04/29/16 01/23/18 History Clopidogrel [Plavix] 75 mg PO DAILY 04/29/16 01/23/18 History Escitalopram [Lexapro] 20 mg PO HS 04/29/16 01/23/18 History Metoprolol Tartrate [Lopressor] 50 mg PO BID 04/29/16 01/23/18 History Omeprazole [PriLOSEC] 20 mg PO HS 04/29/16 01/23/18 History Cholecalciferol (Vitamin D3) 2,000 unit PO DAILY 10/11/17 01/23/18 History [Vitamin D3] Primidone [Mysoline] 50 mg PO BID 10/11/17 01/23/18 History Bumetanide [Bumex] 1 mg PO BID 01/23/18 01/23/18 History Carbidopa-Levodopa 25-100 mg 1 tab PO TID 01/23/18 01/23/18 History [Sinemet 25-100 mg] Potassium Chloride [Klor-Con 20] 20 meq PO BID 01/23/18 01/23/18 History Rosuvastatin Calcium [Crestor] 5 mg PO DAILY 01/23/18 01/23/18 History Allergies Allergy/AdvReac Type Severity Reaction Status Date / Time No Known Allergies Allergy Verified 01/23/18 12:54 Physical Exam Vitals: Vital Signs Temp Pulse Pulse Resp BP Pulse Ox 01/25/18 08:00 18 01/25/18 06:01 96.8 F L 64 16 141/70 96 01/24/18 23:00 97.9 F 63 14 120/56 98 01/24/18 15:00 98.4 F 72 18 149/66 94 L Intake and Output 01/24/18 01/25/18 01/25/18 22:59 06:59 14:59 Intake Total 300 Output Total 300 Balance 0 Intake: Oral 300 Output: Urine 300 Other: Voiding Method Urinal Urinal # Voids 3 Weight 127.006 kg Blood pressure 141/70 heart rate 64 afebrile maintaining oxygen saturation on room air GENERAL: This is a 82-year-old male in no apparent distress at the time of my examination. Obese. HEENT: Head is atraumatic, normocephalic. Pupils are equal, round. Sclerae anicteric. Conjunctivae are clear. Mucous membranes of the mouth are moist. Neck is supple. There is no jugular venous distention. No carotid bruit is heard. LUNGS: Clear to auscultation no wheezes, rales or rhonchi. No chest wall tenderness is noted on palpation or with deep breathing. Diminished bilaterally. HEART: Irregular rate and rhythm without murmurs, rubs or gallops. S1 and S2 heard. Distant secondary to body habitus. ABDOMEN: Soft, nontender. Bowel sounds are heard. No organomegaly noted. EXTREMITIES: No evidence of peripheral edema and no calf tenderness noted. VASCULAR: Radial and dorsalis pedis pulses palpated, no evidence of clubbing. NEUROLOGIC: Patient is awake, alert and oriented x3. Results 01/25/18 08:39 01/25/18 08:39 Cardiac Enzymes 01/25/18 Range/Units 08:39 AST 17 (17-59) U/L CBC 01/25/18 Range/Units 08:39 WBC 8.7 (3.8-10.6) k/uL RBC 3.95 L (4.30-5.90) m/uL Hgb 12.3 L (13.0-17.5) gm/dL Hct 37.2 L (39.0-53.0) % Plt Count 253 (150-450) k/uL Comprehensive Metabolic Panel 01/25/18 Range/Units 08:39 Sodium 137 (137-145) mmol/L Potassium 5.3 H (3.5-5.1) mmol/L Chloride 102 (98-107) mmol/L Carbon Dioxide 30 (22-30) mmol/L BUN 48 H (9-20) mg/dL Creatinine 1.69 H (0.66-1.25) mg/dL Glucose 186 H (74-99) mg/dL Calcium 8.6 (8.4-10.2) mg/dL AST 17 (17-59) U/L ALT 18 L (21-72) U/L Alkaline Phosphatase 72 (38-126) U/L Total Protein 6.3 (6.3-8.2) g/dL Albumin 3.4 L (3.5-5.0) g/dL Current Medications Generic Name Dose Route Start Last Admin Trade Name Freq PRN Reason Stop Dose Admin Amitriptyline HCl 10 mg 01/23/18 21:00 01/24/18 20:47 Elavil PO 10 mg HS [facility]IC[facility] Administration Apixaban 2.5 mg 01/25/18 12:30 Eliquis PO BID [facility] Aspirin 81 mg 01/25/18 09:00 01/25/18 08:14 Aspirin PO 81 mg DAILY [facility] Administration Atorvastatin Calcium 40 mg 01/25/18 21:00 Lipitor PO HS [facility] Bumetanide 1 mg 01/23/18 21:00 01/25/18 08:14 Bumex PO 1 mg BID@0900,1600 [facility] Administration Carbidopa/Levodopa 1 each 01/23/18 22:00 01/25/18 08:14 Sinemet 25-100 PO 1 each TID [facility] Administration Cholecalciferol 2,000 unit 01/24/18 09:00 01/25/18 08:13 Vitamin D3 PO 2,000 unit DAILY [facility] Administration Escitalopram Oxalate 20 mg 01/23/18 21:00 01/24/18 20:46 Lexapro PO 20 mg HS [facility] Administration Famotidine 20 mg 01/26/18 09:00 Pepcid PO DAILY [facility] Heparin Sodium (Porcine) 5,000 unit 01/25/18 21:00 Heparin SQ Q12HR [facility] Sodium Chloride 1,000 mls @ 75 mls/hr 01/23/18 15:15 01/25/18 07:54 Saline 0.9% IV Not Given .[id number] [facility] Magnesium Sulfate/Dextrose 1 100 mls @ 100 mls/hr 01/25/18 12:00 01/25/18 11: 51 gm/ IV Solution IVPB 01/25/18 13:59 100 mls/hr Q1H [facility] Administration Insulin Aspart 0 unit 01/23/18 21:00 01/25/18 07:54 Novolog SQ Not Given ACHS [facility] Protocol Insulin Detemir 54 unit 01/23/18 21:00 01/24/18 20:47 Levemir SQ 54 unit HS [facility] Administration Levothyroxine Sodium 100 mcg 01/24/18 06:30 01/25/18 06:08 Synthroid PO 100 mcg DAILY@0630 [facility] Administration Lisinopril 20 mg 01/24/18 09:00 01/25/18 08:14 Zestril PO 20 mg DAILY [facility] Administration Magnesium Oxide 400 mg 01/23/18 21:00 01/25/18 08:13 Mag-Ox PO 400 mg BID [facility] Administration Metoprolol Tartrate 50 mg 01/23/18 21:00 01/25/18 08:14 Lopressor PO 50 mg BID [facility] Administration Miscellaneous Information 1 each 01/25/18 11:22 Magnesium Per Protocol MISCELLANE DAILY PRN Per Protocol Protocol Multivitamins 1 each 01/24/18 12:00 01/25/18 11:51 Theragran PO 1 each DAILY@1200 [facility] Administration Naloxone HCl 0.2 mg 01/23/18 15:04 Narcan IV Q2M PRN Opioid Reversal Pantoprazole Sodium 40 mg 01/23/18 21:00 01/24/18 20:47 Protonix PO 40 mg HS [facility] Administration Primidone 50 mg 01/23/18 21:00 01/25/18 08:13 Mysoline PO 50 mg BID [facility] Administration Intake and Output 01/24/18 01/25/18 01/25/18 22:59 06:59 14:59 Intake Total 300 Output Total 300 Balance 0 Intake: Oral 300 Output: Urine 300 Other: Voiding Method Urinal Urinal # Voids 3 Weight 127.006 kg 01/25/18 08:39 01/25/18 08:39 Assessment and Plan Assessment: ASSESSMENT New onset paroxysmal atrial fibrillation with controlled ventricular response Hypomagnesemia, treated Hyperkalemia, treated History of coronary artery disease status post bypass grafting History of CVA in the past Carotid stenosis, vascular on consult Chronic kidney disease, GFR 38. Stage IIIB. Hypertension, controlled Dyslipidemia, uncontrolled. Statin has been increased by neurology. Diabetes mellitus Obesity, BMI 40.2 PLAN Apply hall monitor. Ongoing correction of electrolyte imbalances. CHADS-VASC score indicates he is a high risk patient and oral anticoagulation is indicated. Initiate on Eliquis 2.5 mg BID, we will check for coverage. Plavix can be discontinued to decrease his risk of bleeding. Further management in regards to cardioversion will be ongoing and can occur as an outpatient. Will depend upon how he tolerates and if his LV function remains stable. Thank you kindly for this consultation. Nurse Practitioner note has been reviewed, I agree with a documented findings and plan of care. Patient was seen and examined.
--- NOTE | 2018-01-25 14:16 | CONS ---
DATE OF CONSULTATION: 01/25/2018 This is an 82-year-old gentleman who has been admitted to [facility] with history of lightheadedness and confusion. The patient has difficulty in hearing. He had no history of seizure or chest pain. No history of any motor deficit. No history of amaurosis fugax. He had a complete stroke workup. The carotid ultrasound shows left carotid chronic occlusion with the left external carotid artery which is dominant and had right vertebral artery high velocity. The right carotid was found to be patent. PAST MEDICAL HISTORY: History of coronary artery disease, heart failure, diabetes mellitus, hyperlipidemia, hypertension, myocardial infarction, and vascular disorder. SURGICAL HISTORY: Patient had a cholecystectomy, coronary bypass for CABG, had catheterization. PHYSICAL EXAMINATION: Patient was seen in his room. His vital signs stable and alert. NECK: Supple. No bruit appreciated. CHEST: Clear to auscultation. ABDOMEN: Soft. Femoral pulses are present. Motor function normal by upper and lower extremity. Ultrasound carotid shows occlusion of the left carotid artery, left external is dominant most likely due to the internal occlusion. We will discuss with Internal Medicine and Neurology. At this point, this could be an incidental finding. Patient will be watched very closely. If he needs any further investigation, we would like to do a arch study, but patient has some history of chronic renal failure. We will discuss with Internal Medicine. Follow with you. MMODL / IJN: [id number] / MTDD
[2018-01-25 17:25] LABS: Glucose,Whole Blood 173 mg/dL (75-99)
[2018-01-25] MEDS: INSULIN DETEMIR 100 UNIT/ML 10 ML VIAL SQ SCH (21:04)
[2018-01-25] MEDS: PANTOPRAZOLE 40 MG TABLET PO SCH (21:04)
[2018-01-25] MEDS: AMITRIPTYLINE HCL 10 MG TAB PO SCH (21:04)
[2018-01-25 21:05] LABS: Glucose,Whole Blood 267 mg/dL (75-99)
[2018-01-25] MEDS: ESCITALOPRAM 20 MG TAB PO SCH (21:05)
[2018-01-25] MEDS: HEPARIN SODIUM,PORCINE 5,000 UNIT/ML 1 ML VIAL SQ SCH (21:47)
[2018-01-25] MEDS: ATORVASTATIN 40 MG TAB PO SCH (21:47)
[2018-01-26] MEDS: LEVOTHYROXINE 100 MCG TAB PO SCH (06:12)
[2018-01-26] MEDS: PRIMIDONE 50 MG TAB PO SCH ×2 (07:12→21:20)
[2018-01-26] MEDS: APIXABAN 2.5 MG TABLET PO SCH ×2 (07:13→21:19)
[2018-01-26] MEDS: BUMETANIDE 1 MG TAB PO SCH ×2 (07:13→15:17)
[2018-01-26] MEDS: ASPIRIN 81 MG PO SCH (07:13)
[2018-01-26] MEDS: MAGNESIUM OXIDE 400 MG TAB PO SCH ×2 (07:13→21:20)
[2018-01-26] MEDS: CHOLECALCIFEROL 1,000 UNIT TAB PO SCH (07:13)
[2018-01-26] MEDS: LISINOPRIL 20 MG TAB PO SCH (07:13)
[2018-01-26] MEDS: METOPROLOL TARTRATE 50 MG TAB PO SCH ×2 (07:13→21:20)
[2018-01-26] MEDS: CARBIDOPA-LEVODOPA 25-100 MG 1 EACH TAB PO SCH ×3 (07:13→21:20)
[2018-01-26] MEDS: HEPARIN SODIUM,PORCINE 5,000 UNIT/ML 1 ML VIAL SQ SCH ×2 (07:13→21:21)
[2018-01-26] MEDS: INSULIN ASPART 100 UNIT/ML 1 ML 10 ML VIAL SQ SCH ×4 (07:13→21:24)
[2018-01-26 07:18] LABS: Glucose,Whole Blood 72 mg/dL (75-99)
[2018-01-26] MEDS ORDERED: FAMOTIDINE 20 MG TAB PO SCH (09:00)
[2018-01-26 09:27] LABS: Basophils % (A) 1 %; Eosinophils # (A) 0.4 k/uL (0-0.7); Eosinophils % (A) 4 %; HCT 35.6 % (39.0-53.0); HGB 11.9 gm/dL (13.0-17.5); Lymphocytes # (A) 1.7 k/uL (1.0-4.8); Lymphocytes % (A) 20 %; MCH 31.4 pg (25.0-35.0); MCHC 33.5 g/dL (31.0-37.0); MCV 93.8 fL (80.0-100.0); Monocytes # (A) 0.5 k/uL (0-1.0); Monocytes % (A) 6 %; Neutrophils # (A) 5.7 k/uL (1.3-7.7); Neutrophils % (A) 67 %; Platelet Count 263 k/uL (150-450); RDW 13.6 % (11.5-15.5); WBC 8.5 k/uL (3.8-10.6)
[2018-01-26 09:35] LABS: ALT <6 U/L (21-72); AST 18 U/L (17-59); Albumin 3.3 g/dL (3.5-5.0); Alkaline Phosphatase 74 U/L (38-126); Anion Gap 8 mmol/L; Blood Urea Nitrogen 44 mg/dL (9-20); Calcium 8.2 mg/dL (8.4-10.2); Carbon Dioxide 26 mmol/L (22-30); Chloride 102 mmol/L (98-107); Glucose 111 mg/dL (74-99); Magnesium 1.8 mg/dL (1.6-2.3); Potassium 4.5 mmol/L (3.5-5.1); Sodium 136 mmol/L (137-145); Total Bilirubin 0.5 mg/dL (0.2-1.3); Total Protein 6.1 g/dL (6.3-8.2)
--- NOTE | 2018-01-26 09:51 | P.PN ---
Subjective Mr. Schneider is seen and examined sitting up in bed in no acute distress. Daughter and son in law are at the bedside. He denies chest pain, shortness of breath, dizziness or palpitations. Telemetry tracings indicate he has converted back to sinus mechanism. Echocardiogram obtained yesterday reveals no change from previous echo, EF 55-60%. Laboratory data reviewed, hgb 11.9, plt 263, sodium 136, potassium 4.5, creatinine 1.68, magnesium 1.8. He was started on eliquis yesterday at 2.5 mg BID. No signs or complaints of bleeding. He has been seen by vascular and plan is for possible arch study. New diagnosis of a-fib explained in detail to the patient and his daughter with explanation and rationale for anti-coagulation. They are both in agreement to initiation. Cost has been checked by caseworker protective services and will be $45/month and they are agreeable to start this medication. Daughter states she already has an appointment scheduled for the patient to see Dr. No next week. Objective - Vital Signs Vital signs: Vital Signs Temp 98.5 F 01/26/18 06:20 Pulse 64 01/26/18 06:20 Resp 16 01/26/18 08:00 BP 114/66 01/26/18 06:20 Pulse Ox 95 01/26/18 06:20 Intake & Output 01/25/18 01/26/18 01/26/18 18:59 06:59 18:59 Intake Total 160 240 Balance 160 240 Intake: Oral 160 240 Other: Voiding Method Urinal Incontinent Urinal # Voids 1 1 # Bowel Movements 0 - Exam GENERAL: Well-appearing, well-nourished and in no acute distress. Hard of hearing. Obese. NECK: Supple without JVD or thyromegaly. LUNGS: Breath sounds clear to auscultation bilaterally. Respiration equal and unlabored. No wheezes, rales or rhonchi. HEART: Regular rate and rhythm without murmurs, rubs or gallops. S1 and S2 heard. Distant heart sounds. EXTREMITIES: Normal range of motion, no edema. No clubbing or cyanosis. Peripheral pulses intact. - Labs CBC & Chem 7: 01/26/18 08:51 01/26/18 08:51 Labs: Abnormal Lab Results - Last 24 Hours (Table) 01/24/18 01/25/18 01/25/18 Range/Units 07:45 08:39 11:44 RBC (4.30-5.90) m/uL Hgb (13.0-17.5) gm/dL Hct (39.0-53.0) % Sodium (137-145) mmol/L Potassium 5.3 H (3.5-5.1) mmol/L BUN 48 H (9-20) mg/dL Creatinine 1.69 H (0.66-1.25) mg/dL Glucose 186 H (74-99) mg/dL POC Glucose (mg/dL) 182 H (75-99) mg/dL Hemoglobin A1c 9.5 H (4.0-6.0) % Calcium (8.4-10.2) mg/dL Magnesium 1.5 L (1.6-2.3) mg/dL ALT 18 L (21-72) U/L Total Protein (6.3-8.2) g/dL Albumin 3.4 L (3.5-5.0) g/dL 01/25/18 01/25/18 01/26/18 Range/Units 17:19 21:00 07:11 RBC (4.30-5.90) m/uL Hgb (13.0-17.5) gm/dL Hct (39.0-53.0) % Sodium (137-145) mmol/L Potassium (3.5-5.1) mmol/L BUN (9-20) mg/dL Creatinine (0.66-1.25) mg/dL Glucose (74-99) mg/dL POC Glucose (mg/dL) 173 H 267 H 72 L (75-99) mg/dL Hemoglobin A1c (4.0-6.0) % Calcium (8.4-10.2) mg/dL Magnesium (1.6-2.3) mg/dL ALT (21-72) U/L Total Protein (6.3-8.2) g/dL Albumin (3.5-5.0) g/dL 01/26/18 01/26/18 Range/Units 08:51 08:51 RBC 3.80 L (4.30-5.90) m/uL Hgb 11.9 L (13.0-17.5) gm/dL Hct 35.6 L (39.0-53.0) % Sodium 136 L (137-145) mmol/L Potassium (3.5-5.1) mmol/L BUN 44 H (9-20) mg/dL Creatinine 1.68 H (0.66-1.25) mg/dL Glucose 111 H (74-99) mg/dL POC Glucose (mg/dL) (75-99) mg/dL Hemoglobin A1c (4.0-6.0) % Calcium 8.2 L (8.4-10.2) mg/dL Magnesium (1.6-2.3) mg/dL ALT <6 L (21-72) U/L Total Protein 6.1 L (6.3-8.2) g/dL Albumin 3.3 L (3.5-5.0) g/dL Assessment and Plan Assessment: ASSESSMENT New onset paroxysmal atrial fibrillation with controlled ventricular response. Converted to sinus mechanism. 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 Stage IIIB. Hypertension, controlled Dyslipidemia, uncontrolled. Statin has been increased by neurology. Diabetes mellitus Obesity, BMI 40.2 PLAN Repeat EKG. Continue with Eliquis at 2.5 mg BID. Ongoing management as an outpatient. Appointment has been made in the office for 02/18 at 0945. Nurse Practitioner note has been reviewed, I agree with a documented findings and plan of care. Patient was seen and examined.
--- NOTE | 2018-01-26 10:07 | P.PN ---
Subjective Progress Note Date: 01/26/18 Les Schneider is an 82-year-old male who presented to [facility] emergency room with a chief complaint of lightheadedness and confusion. Patient significant difficulty with hearing, he states that he started feeling lightheaded few days prior to presentation he denies any chest pain he denies any shortness of breath. 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 He was admitted to medical floor for further evaluation, neurology consultation was requested. In the emergency room patient had evidence of renal insufficiency with BUN of 57 and creatinine of 1.7 to potassium was elevated at 5.5 and glucose was elevated at 326 urine analysis did not reveal evidence of urinary tract infection chest x-ray revealed evidence of cardiomegaly without any evidence of infectious processes in the lungs. On 01/25/2018 patient is currently resting comfortably in bed. Patient remains slightly confused. Patient denies chest pain or shortness of breath. Patient denies any urinary burning or frequency. patient denies nausea vomiting or diarrhea On 01/26/2018 patient is currently resting comfortably in bed. Patient denies any complaints at this time. Denies chest pain or shortness breath. Denies any urinary burning or frequency. Denies nausea vomiting diarrhea Objective - Vital Signs Vital signs: Vital Signs Temp 98.5 F 01/26/18 06:20 Pulse 64 01/26/18 06:20 Resp 16 01/26/18 08:00 BP 114/66 01/26/18 06:20 Pulse Ox 95 01/26/18 06:20 Intake & Output 01/25/18 01/26/18 01/26/18 18:59 06:59 18:59 Intake Total 160 240 Balance 160 240 Intake: Oral 160 240 Other: Voiding Method Urinal Incontinent Urinal # Voids 1 1 # Bowel Movements 0 - Exam In general patient is alert and answering questions appropriately at this time, there is no acute distress HEENT head normocephalic and atraumatic Neck is supple no JVD no goiter no lymphadenopathy no carotid bruit Chest exam reveals a few scattered crackles no wheezing Cardiac exam reveals regular heart sounds S1 and S2 no gallops no murmurs Abdomen is soft nontender no organomegaly with normal bowel sounds Extremity exam reveals no edema no cyanosis or clubbing, 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 Neurological examination reveals no gross focal deficit at this time - Labs CBC & Chem 7: 01/26/18 08:51 01/26/18 08:51 Labs: Abnormal Lab Results - Last 24 Hours (Table) 01/24/18 01/25/18 01/25/18 Range/Units 07:45 11:44 17:19 RBC (4.30-5.90) m/uL Hgb (13.0-17.5) gm/dL Hct (39.0-53.0) % Sodium (137-145) mmol/L BUN (9-20) mg/dL Creatinine (0.66-1.25) mg/dL Glucose (74-99) mg/dL POC Glucose (mg/dL) 182 H 173 H (75-99) mg/dL Hemoglobin A1c 9.5 H (4.0-6.0) % Calcium (8.4-10.2) mg/dL ALT (21-72) U/L Total Protein (6.3-8.2) g/dL Albumin (3.5-5.0) g/dL 01/25/18 01/26/18 01/26/18 Range/Units 21:00 07:11 08:51 RBC 3.80 L (4.30-5.90) m/uL Hgb 11.9 L (13.0-17.5) gm/dL Hct 35.6 L (39.0-53.0) % Sodium (137-145) mmol/L BUN (9-20) mg/dL Creatinine (0.66-1.25) mg/dL Glucose (74-99) mg/dL POC Glucose (mg/dL) 267 H 72 L (75-99) mg/dL Hemoglobin A1c (4.0-6.0) % Calcium (8.4-10.2) mg/dL ALT (21-72) U/L Total Protein (6.3-8.2) g/dL Albumin (3.5-5.0) g/dL 01/26/18 Range/Units 08:51 RBC (4.30-5.90) m/uL Hgb (13.0-17.5) gm/dL Hct (39.0-53.0) % Sodium 136 L (137-145) mmol/L BUN 44 H (9-20) mg/dL Creatinine 1.68 H (0.66-1.25) mg/dL Glucose 111 H (74-99) mg/dL POC Glucose (mg/dL) (75-99) mg/dL Hemoglobin A1c (4.0-6.0) % Calcium 8.2 L (8.4-10.2) mg/dL ALT <6 L (21-72) U/L Total Protein 6.1 L (6.3-8.2) g/dL Albumin 3.3 L (3.5-5.0) g/dL Assessment and Plan Assessment: #1 episodes of dizziness and lightheadedness. #2 episodes of confusion. Neurology following. CT brain showing no acute process. EEG is pending. Per neurology continue Plavix and aspirin. Patient started on eliquis due to atrial fibrillation. Plavix DC'd per cardiology services #3 acute on chronic renal failure. Creatinine 1.69 and bun 48. Continue gentle hydration #4 hyperkalemia. Potassium 5.3. Kayexalate has been ordered. Patient placed on telemetry/monitoring. Potassium improving to 4.5 #5 hypomagnesemia. Magnesium 1.5. relaced per protocol. Mag 1.8 #6 insulin-dependent diabetes mellitus. A1c 9.5. Continue home medication plus sliding scale coverage. #7 underlying history of Parkinson disease maintained on Sinemet #8 underlying history of hypothyroidism #9 underlying history of hyperlipidemia maintained on Crestor #10 underlying history of depression maintained on Lexapro #11 underlying history of hypertension, well-controlled on current medications #12 evidence of cardiomegaly on chest x-ray #13 known history of coronary artery disease with previous history of coronary artery bypass graft surgery #14 with previous history of stroke in 2014 #15 known history of carotid stenosis in the past. 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 Dr. Gutierrez consulted for vascular surgery. Per Dr. Gutierrez continue to watch patient very closely if he needs any further investigation, we would like to do an arch studies the patient has some history of chronic renal failure. #16 atrial fibrillation. EKG completed showing atrial fibrillation, right bundle branch block. Possible inferior infarct, age undetermined. Whether this is new is unclear due to patient being a poor historian at this time. Cardiology services have been consulted. Telemetry monitoring has been ordered for patient. 2-D echo completed showing EF of 55-60%. Patient started on eliquis 2.5 mg twice a day for atrial fibrillation. Repeat EKG has been ordered per cardiology. Ongoing management as an outpatient per cardiology DVT prophylaxis GI prophylaxis Pepcid I performed an examination of the patient and discussed their management with the Nurse Practitioner. I have reviewed the Nurse Practitioner's notes and agree with the documented findings and plan of care
[2018-01-26] MEDS: SODIUM CHLORIDE 0.9% 1,000 ML IV SCH (10:39)
--- NOTE | 2018-01-26 12:03 | CDI ---
Last Revision, March 2017 Documentation Clarification Form Date: 01/26/2018 11:32:35 AM From: Niki Manzanares RN, CCDS Admit Date: 01/23/2018 3:04:00 PM Patient Name: Les Schneider Visit Number: [id number] Discharge Date: ATTENTION: The Clinical Documentation Specialists (CDI) and [facility] Coding Staff appreciate your assistance in clarifying documentation. Please respond to the clarification below the line at the bottom and electronically sign. The CDI & [facility] Coding staff will review the response and follow-up if needed. Please note: Queries are made part of the Legal Health Record. If you have any questions, please contact the author of this message via ITS. Janice Hernandez MD Altered mental status/confusion is in your consult and ongoing progress notes. 01/24/18-01/25/18: Patient's altered mental status/confusion is most likely medically related to the patient's renal insufficiency, diabetic status and his vascular occlusion. Patient is returning to baseline. Patient history/risk factors: CKD, Diabetes Mellitus, Hypertension, Carotid Stenosis, CVA, [place] Clinical Indicators: Ed with complaints of lightheadedness and confusion. He is extremely poor historian. 137/65 80 18 97.9 97 % 2/L NC Labs: RBC 326, bun 57, CR 1.72, Potassium 5.5, Magnesium 1.3, Lactic acid 2.2 Chest X Ray: Cardiomegaly CT Brain: No acute intracranial abnormality, old right posterotemporal parietal infarct. Treatment: Monitor Labs Neurovascular checks per orders In your professional opinion, please further clarify the etiology of the altered mental status, medically related is: Encephalopathy: Metabolic, Other (specify) Dementia, specify type and cause Other condition (please specify) Unable to determine Please continue to document in your progress notes and discharge summary in order to capture severity of illness and risk of mortality. Include clinical findings that support your diagnosis. unable to be determined. MTDD
[2018-01-26 12:20] LABS: Glucose,Whole Blood 129 mg/dL (75-99)
[2018-01-26] MEDS: MULTIVITAMINS, THERA 1 EACH TAB PO SCH (12:39)
[2018-01-26 17:16] LABS: Glucose,Whole Blood 324 mg/dL (75-99)
--- NOTE | 2018-01-26 17:26 | EEG ---
ELECTROENCEPHALOGRAM REPORT DATE OF SERVICE: 01/25/2018 REASON FOR TESTING: Altered mental status. DESCRIPTION OF THE PROCEDURE: This EEG was performed using a 21-channel digital electroencephalograph, following international 10-20 system. DESCRIPTION OF THE RECORDING: From the beginning of the tracing, and with the patient's eyes closed, the background rhythm was mostly consisting of 7 Hz theta frequency in the posterior occipital leads. Occasional muscle artifacts are seen. Photic stimulation was performed with no driving response seen. No pathological waves were elicited. More frequent muscle artifacts are noticed on the right compared to the left. Hyperventilation was not performed. The patient remains awake throughout the tracing. No epileptiform discharges were seen. His EKG lead showed a regular rate and rhythm. INTERPRETATION: This awake EEG is abnormal due to the presence of generalized slowing of the background rhythm, mostly in the theta range. This is consistent with mild encephalopathy. No epileptiform discharges were seen. The absence of epileptiform discharges does not rule out the diagnosis of epilepsy; therefore clinical correlation is recommended. MMSUSSY / IJN: [id number] /
[2018-01-26 21:15] LABS: Glucose,Whole Blood 196 mg/dL (75-99)
[2018-01-26] MEDS: PANTOPRAZOLE 40 MG TABLET PO SCH (21:20)
[2018-01-26] MEDS: AMITRIPTYLINE HCL 10 MG TAB PO SCH (21:20)
[2018-01-26] MEDS: ESCITALOPRAM 20 MG TAB PO SCH (21:20)
[2018-01-26] MEDS: ATORVASTATIN 40 MG TAB PO SCH (21:20)
[2018-01-26] MEDS: INSULIN DETEMIR 100 UNIT/ML 10 ML VIAL SQ SCH (21:24)
[2018-01-27] MEDS: SODIUM CHLORIDE 0.9% 1,000 ML IV SCH ×2 (00:54→14:14)
[2018-01-27] MEDS: LEVOTHYROXINE 100 MCG TAB PO SCH (06:25)
[2018-01-27 07:19] LABS: Glucose,Whole Blood 87 mg/dL (75-99)
[2018-01-27] MEDS: MAGNESIUM OXIDE 400 MG TAB PO SCH ×2 (08:23→22:14)
[2018-01-27] MEDS: LISINOPRIL 20 MG TAB PO SCH (08:23)
[2018-01-27] MEDS: ASPIRIN 81 MG PO SCH (08:23)
[2018-01-27] MEDS: METOPROLOL TARTRATE 50 MG TAB PO SCH ×2 (08:23→22:14)
[2018-01-27] MEDS: CHOLECALCIFEROL 1,000 UNIT TAB PO SCH (08:24)
[2018-01-27] MEDS: BUMETANIDE 1 MG TAB PO SCH ×2 (08:24→15:23)
[2018-01-27] MEDS: CARBIDOPA-LEVODOPA 25-100 MG 1 EACH TAB PO SCH ×3 (08:24→22:14)
[2018-01-27] MEDS: MULTIVITAMINS, THERA 1 EACH TAB PO SCH (08:24)
[2018-01-27] MEDS: APIXABAN 2.5 MG TABLET PO SCH ×2 (08:24→22:14)
[2018-01-27] MEDS: INSULIN ASPART 100 UNIT/ML 1 ML 10 ML VIAL SQ SCH ×4 (08:24→22:16)
[2018-01-27] MEDS: HEPARIN SODIUM,PORCINE 5,000 UNIT/ML 1 ML VIAL SQ SCH ×2 (08:24→22:15)
[2018-01-27] MEDS: PRIMIDONE 50 MG TAB PO SCH ×2 (08:24→22:14)
--- NOTE | 2018-01-27 10:51 | P.PN ---
Subjective Progress Note Date: 01/27/18 Les Schneider is an 82-year-old male who presented to [facility] emergency room with a chief complaint of lightheadedness and confusion. Patient significant difficulty with hearing, he states that he started feeling lightheaded few days prior to presentation he denies any chest pain he denies any shortness of breath. 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 He was admitted to medical floor for further evaluation, neurology consultation was requested. In the emergency room patient had evidence of renal insufficiency with BUN of 57 and creatinine of 1.7 to potassium was elevated at 5.5 and glucose was elevated at 326 urine analysis did not reveal evidence of urinary tract infection chest x-ray revealed evidence of cardiomegaly without any evidence of infectious processes in the lungs. On 01/25/2018 patient is currently resting comfortably in bed. Patient remains slightly confused. Patient denies chest pain or shortness of breath. Patient denies any urinary burning or frequency. patient denies nausea vomiting or diarrhea On 01/26/2018 patient is currently resting comfortably in bed. Patient denies any complaints at this time. Denies chest pain or shortness breath. Denies any urinary burning or frequency. Denies nausea vomiting diarrhea On 01/27/2018 patient is currently resting comfortably in bed. Per nursing staff patient did have a bit of confusion throughout night. This time patient denies any complaints. Denies chest pain or shortness of breath. Denies any nausea vomiting or diarrhea. Patient denies any urinary burning or frequency Objective - Vital Signs Vital signs: Vital Signs Temp 98.3 F 01/27/18 06:33 Pulse 62 01/27/18 06:33 Resp 16 01/27/18 06:33 BP 124/72 01/27/18 06:33 Pulse Ox 98 01/27/18 06:33 Intake & Output 01/26/18 01/27/18 01/27/18 18:59 06:59 18:59 Intake Total 240 480 Balance 240 480 Weight 127.006 kg Intake: Oral 240 480 Other: Voiding Method Urinal Urinal # Voids 1 2 # Bowel Movements 1 1 - Exam In general patient is alert and answering questions appropriately at this time, there is no acute distress HEENT head normocephalic and atraumatic Neck is supple no JVD no goiter no lymphadenopathy no carotid bruit Chest exam reveals a few scattered crackles no wheezing Cardiac exam reveals regular heart sounds S1 and S2 no gallops no murmurs Abdomen is soft nontender no organomegaly with normal bowel sounds Extremity exam reveals no edema no cyanosis or clubbing, 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 #2 episodes of confusion. Neurology following. CT brain showing no acute process. EEG completed showing generalized slowing of the background rhythm, mostly in the theta range. This is consistent with mild encephalopathy. Per neurology continue Plavix and aspirin. Patient started on eliquis due to atrial fibrillation. Plavix DC'd per cardiology services. Per neurology patient Altered mental status/confusion is most likely medically related to patient's renal insufficiency #3 acute on chronic renal failure. Creatinine 1.69 and bun 48. Continue gentle hydration #4 hyperkalemia. Potassium 5.3. Kayexalate has been ordered. Patient placed on telemetry/monitoring. Potassium improving to 4.5 #5 hypomagnesemia. Magnesium 1.5. relaced per protocol. Mag 1.8 #6 insulin-dependent diabetes mellitus. A1c 9.5. Continue home medication plus sliding scale coverage. #7 underlying history of Parkinson disease maintained on Sinemet #8 underlying history of hypothyroidism #9 underlying history of hyperlipidemia maintained on Crestor #10 underlying history of depression maintained on Lexapro #11 underlying history of hypertension, well-controlled on current medications #12 evidence of cardiomegaly on chest x-ray #13 known history of coronary artery disease with previous history of coronary artery bypass graft surgery #14 with previous history of stroke in 2013 #15 known history of carotid stenosis in the past. 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 Dr. Gutierrez consulted for vascular surgery. Per Dr. Gutierrez continue to watch patient very closely if he needs any further investigation, we would like to do an arch studies the patient has some history of chronic renal failure. #16 atrial fibrillation. EKG completed showing atrial fibrillation, right bundle branch block. Possible inferior infarct, age undetermined. Whether this is new is unclear due to patient being a poor historian at this time. Cardiology services have been consulted. Telemetry monitoring has been ordered for patient. 2-D echo completed showing EF of 55-60%. Patient started on eliquis 2.5 mg twice a day for atrial fibrillation. Repeat EKG has been ordered per cardiology. Ongoing management as an outpatient per cardiology Case management and social work consulted for discharge planning DVT prophylaxis Eliquis GI prophylaxis Pepcid I performed an examination of the patient and discussed their management with the Nurse Practitioner. I have reviewed the Nurse Practitioner's notes and agree with the documented findings and plan of care
[2018-01-27 11:22] LABS: Calcium 8.2 mg/dL (8.4-10.2); Potassium 4.7 mmol/L (3.5-5.1); Total Bilirubin 0.4 mg/dL (0.2-1.3); Total Protein 5.8 g/dL (6.3-8.2)
[2018-01-27 11:56] LABS: Basophils % (A) 1 %; Eosinophils # (A) 0.5 k/uL (0-0.7); Eosinophils % (A) 6 %; HCT 33.5 % (39.0-53.0); HGB 11.4 gm/dL (13.0-17.5); Lymphocytes # (A) 1.7 k/uL (1.0-4.8); Lymphocytes % (A) 19 %; MCHC 34.1 g/dL (31.0-37.0); MCV 93.8 fL (80.0-100.0); Monocytes # (A) 0.6 k/uL (0-1.0); Monocytes % (A) 7 %; Neutrophils # (A) 5.5 k/uL (1.3-7.7); Neutrophils % (A) 65 %; Platelet Count 244 k/uL (150-450); RBC 3.57 m/uL (4.30-5.90); RDW 13.4 % (11.5-15.5); WBC 8.5 k/uL (3.8-10.6)
[2018-01-27 12:39] LABS: Glucose,Whole Blood 275 mg/dL (75-99)
[2018-01-27 17:02] LABS: Glucose,Whole Blood 240 mg/dL (75-99)
[2018-01-27 20:38] LABS: Glucose,Whole Blood 189 mg/dL (75-99)
[2018-01-27] MEDS: PANTOPRAZOLE 40 MG TABLET PO SCH (22:14)
[2018-01-27] MEDS: ESCITALOPRAM 20 MG TAB PO SCH (22:14)
[2018-01-27] MEDS: ATORVASTATIN 40 MG TAB PO SCH (22:15)
[2018-01-27] MEDS: AMITRIPTYLINE HCL 10 MG TAB PO SCH (22:15)
[2018-01-27] MEDS: INSULIN DETEMIR 100 UNIT/ML 10 ML VIAL SQ SCH (22:16)
[2018-01-28] MEDS: BACLOFEN 10 MG TAB PO SCH ×2 (01:30→21:04)
[2018-01-28] MEDS: SODIUM CHLORIDE 0.9% 1,000 ML IV SCH ×2 (02:50→16:28)
[2018-01-28] MEDS: LEVOTHYROXINE 100 MCG TAB PO SCH (06:34)
[2018-01-28 07:50] LABS: Glucose,Whole Blood 112 mg/dL (75-99)
[2018-01-28] MEDS: MULTIVITAMINS, THERA 1 EACH TAB PO SCH (08:18)
[2018-01-28] MEDS: CHOLECALCIFEROL 1,000 UNIT TAB PO SCH (08:18)
[2018-01-28] MEDS: LISINOPRIL 20 MG TAB PO SCH (08:18)
[2018-01-28] MEDS: PRIMIDONE 50 MG TAB PO SCH ×2 (08:18→21:04)
[2018-01-28] MEDS: CARBIDOPA-LEVODOPA 25-100 MG 1 EACH TAB PO SCH ×3 (08:18→21:03)
[2018-01-28] MEDS: MAGNESIUM OXIDE 400 MG TAB PO SCH ×2 (08:18→21:04)
[2018-01-28] MEDS: HEPARIN SODIUM,PORCINE 5,000 UNIT/ML 1 ML VIAL SQ SCH ×2 (08:19→21:04)
[2018-01-28] MEDS: BUMETANIDE 1 MG TAB PO SCH (08:19)
[2018-01-28] MEDS: ASPIRIN 81 MG PO SCH (08:19)
[2018-01-28] MEDS: INSULIN ASPART 100 UNIT/ML 1 ML 10 ML VIAL SQ SCH ×4 (08:19→21:36)
[2018-01-28] MEDS: APIXABAN 2.5 MG TABLET PO SCH ×2 (08:19→21:04)
[2018-01-28] MEDS: METOPROLOL TARTRATE 50 MG TAB PO SCH ×2 (08:19→21:04)
[2018-01-28 09:47] LABS: Basophils # (A) 0.1 k/uL (0-0.2); Basophils % (A) 1 %; Eosinophils # (A) 0.4 k/uL (0-0.7); Eosinophils % (A) 5 %; HCT 35.8 % (39.0-53.0); HGB 11.6 gm/dL (13.0-17.5); Lymphocytes # (A) 1.9 k/uL (1.0-4.8); Lymphocytes % (A) 20 %; MCH 31.2 pg (25.0-35.0); MCHC 32.3 g/dL (31.0-37.0); MCV 96.7 fL (80.0-100.0); Mean Platelet Volume 6.9; Monocytes # (A) 0.6 k/uL (0-1.0); Monocytes % (A) 7 %; Neutrophils # (A) 6.1 k/uL (1.3-7.7); Neutrophils % (A) 66 %; Platelet Count 257 k/uL (150-450); RBC 3.71 m/uL (4.30-5.90); RDW 13.5 % (11.5-15.5); WBC 9.2 k/uL (3.8-10.6)
[2018-01-28 09:59] LABS: Albumin 3.1 g/dL (3.5-5.0); Calcium 8.3 mg/dL (8.4-10.2); Potassium 4.9 mmol/L (3.5-5.1); Total Bilirubin 0.4 mg/dL (0.2-1.3); Total Protein 5.9 g/dL (6.3-8.2)
[2018-01-28] MEDS ORDERED: IPRATROPIUM-ALBUTEROL 3 ML NEB INHALATION PRN (10:06)
[2018-01-28 12:05] LABS: Glucose,Whole Blood 224 mg/dL (75-99)
--- NOTE | 2018-01-28 13:11 | P.NPCON ---
History of Present Illness - Reason for Consult acute renal failure, chronic renal failure - History of Present Illness Reason for consultation: Acute kidney injury on chronic kidney disease History of present illness: Patient is a 82-year-old male seen in renal consultation for acute kidney injury on chronic kidney disease. Patient has chronic kidney disease stage III with baseline creatinine in the range of 1.2-1.5 secondary to nephrosclerosis. No proteinuria noted on UA. Patient presented to the hospital on January 23 with lightheadedness and confusion. Echocardiogram was normal. Brain CT revealed no acute changes. Creatinine this admission has been in the range of 1.6-2. It is 1.97 today. Patient was initially receiving IV fluids but has been refusing IV for the last 2 days. He is also maintained on 1 mg of Bumex twice daily. Lisinopril is held. He was started on liquids furtive fibrillation. Oral intake is fair. Admits to good urine output. Patient is not a very reliable historian. Vital signs are stable. General: The patient appeared well nourished and normally developed. HEENT: Head exam is unremarkable. Neck is without jugular venous distension. LUNGS: Lungs are clear to auscultation and percussion. Breath sounds decreased. HEART: Rate and Rhythm are regular. First and second heart sounds normal. No murmurs, rubs or gallops. ABDOMEN: Abdominal exam reveals normal bowel sounds. Non-tender and non- distended. No evidence of peritonitis. EXTREMITITES: No clubbing, cyanosis, or edema. Past Medical History Past Medical History: Coronary Artery Disease (CAD), Heart Failure, Diabetes Mellitus, GERD/Reflux, Hyperlipidemia, Hypertension, Myocardial Infarction ([place]) , Vascular Disorder Additional Past Medical History / Comment(s): IDDM type II, blackened R great toe currently, CVA 2013-resolved dysarthria, L internal caratid severly stenosed , tinnitis bilaterally, bilateral neuropathy of hands, very [place] bilaterally, incontinence. Last Myocardial Infarction Date:: 1987 History of Any Multi-Drug Resistant Organisms: None Reported, Unobtainable Past Surgical History: Cholecystectomy, Coronary Bypass/CABG, Heart Catheterization Additional Past Surgical History / Comment(s): quadrouple bypass 2002 Past Anesthesia/Blood Transfusion Reactions: No Reported Reaction Additional Past Anesthesia/Blood Transfusion Reaction / Comment(s): Pt has received blood in past without reaction. Past Psychological History: Depression Additional Psychological History / Comment(s): Pt states he has been depressed since the of his spouse. He denies feeling suicidal or having any thoughts or plans. He now resides with his daughter who is very helpful to him. Pt ambulates with a walker. He no longer drives. Daughter manages his medications and takes him to appts and performs his glucose monitoring. Smoking Status: Never smoker Past Alcohol Use History: None Reported Past Drug Use History: None Reported - Past Family History Mother Additional Family Medical History / Comment(s): Mother had breast surgery (pt unsure if due to cancer) and shorley after. Father Additional Family Medical History / Comment(s): Father of suicide. Medications and Allergies Home Medications Medication Instructions Recorded Confirmed Type Insulin Aspart [NovoLOG 6 unit SQ DAILY 04/22/16 01/23/18 History (formulary)] Insulin Glargine,Hum.rec.anlog 54 unit SQ HS 04/22/16 01/23/18 History [Lantus Solostar] Levothyroxine Sodium [Synthroid] 100 mcg PO DAILY 04/22/16 01/23/18 History Lisinopril [Zestril] 20 mg PO DAILY 04/22/16 01/23/18 History Multivitamin/Iron/Folic Acid 1 tab PO DAILY 04/22/16 01/23/18 History [Centrum Complete Multivit Tab] Amitriptyline HCl [Elavil] 10 mg PO HS 04/29/16 01/23/18 History Aspirin EC [Ecotrin Low Dose] 81 mg PO HS 04/29/16 01/23/18 History Escitalopram [Lexapro] 20 mg PO HS 04/29/16 01/23/18 History Metoprolol Tartrate [Lopressor] 50 mg PO BID 04/29/16 01/23/18 History Omeprazole [PriLOSEC] 20 mg PO HS 04/29/16 01/23/18 History Cholecalciferol (Vitamin D3) 2,000 unit PO DAILY 10/11/17 01/23/18 History [Vitamin D3] Primidone [Mysoline] 50 mg PO BID 10/11/17 01/23/18 History Bumetanide [Bumex] 1 mg PO BID 01/23/18 01/23/18 History Carbidopa-Levodopa 25-100 mg 1 tab PO TID 01/23/18 01/23/18 History [Sinemet 25-100 mg] Potassium Chloride [Klor-Con 20] 20 meq PO BID 01/23/18 01/23/18 History Rosuvastatin Calcium [Crestor] 5 mg PO DAILY 01/23/18 01/23/18 History Apixaban [Eliquis] 2.5 mg PO BID #60 tablet 01/26/18 Rx Allergies Allergy/AdvReac Type Severity Reaction Status Date / Time No Known Allergies Allergy Verified 01/23/18 12:54 Physical Exam Vitals: Vital Signs Temp Pulse Resp BP BP Pulse Ox 01/28/18 07:00 97.6 F 71 20 125/63 95 01/27/18 23:00 99.0 F 70 16 130/49 93 L 01/27/18 15:57 18 01/27/18 14:42 98.1 F 57 L 18 108/61 93 L Intake and Output 01/27/18 01/28/18 01/28/18 22:59 06:59 14:59 Intake Total 600 320 Balance 600 320 Intake: Intake, IV Titration 600 Amount Sodium Chloride 0.9% 1, 600 000 ml @ 75 mls/hr IV . [id number] Rx#:[id number] Oral 320 Other: Voiding Method Urinal Urinal # Voids 3 3 Results - Lab Results Most recent lab results Calcium 8.3 mg/dL (8.4-10.2) L 01/28/18 08:50 Phosphorus 3.2 mg/dL (2.5-4.5) 01/23/18 12:51 Magnesium 1.8 mg/dL (1.6-2.3) 01/26/18 08:51 01/28/18 08:50 01/28/18 08:50 Assessment and Plan Plan: assessment: 1. Nonoliguric acute kidney injury mostly prerenal from diuresis and hemodynamic instability. Creatinine peaked at 2.14 yesterday and is down to 1.97 today. No proteinuria on UA. 2. Chronic kidney disease stage III with baseline creatinine in the range of 1.2-1.5 secondary to an of sclerosis. 3. A. fib maintained on Lopressor. Also started on eliquis. 4. Hypertension with chronic kidney disease. Controlled. 5. Carotid stenosis. Vascular surgery following. Plan: Decrease Bumex to 1 mg orally once daily. Encourage oral intake. Avoid nephrotoxins. Continue to hold MARY inhibitor for now. Blood pressure is well controlled. Check renal uls. Repeat electrolytes in the morning. Thank you for the consultation. I will continue to follow the patient with you during his hospital stay.
--- NOTE | 2018-01-28 13:45 | P.PN ---
Subjective Progress Note Date: 01/28/18 Les Schneider is an 82-year-old male who presented to [facility] emergency room with a chief complaint of lightheadedness and confusion. Patient significant difficulty with hearing, he states that he started feeling lightheaded few days prior to presentation he denies any chest pain he denies any shortness of breath. 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 He was admitted to medical floor for further evaluation, neurology consultation was requested. In the emergency room patient had evidence of renal insufficiency with BUN of 57 and creatinine of 1.7 to potassium was elevated at 5.5 and glucose was elevated at 326 urine analysis did not reveal evidence of urinary tract infection chest x-ray revealed evidence of cardiomegaly without any evidence of infectious processes in the lungs. On 01/25/2018 patient is currently resting comfortably in bed. Patient remains slightly confused. Patient denies chest pain or shortness of breath. Patient denies any urinary burning or frequency. patient denies nausea vomiting or diarrhea On 01/26/2018 patient is currently resting comfortably in bed. Patient denies any complaints at this time. Denies chest pain or shortness breath. Denies any urinary burning or frequency. Denies nausea vomiting diarrhea On 01/27/2018 patient is currently resting comfortably in bed. Per nursing staff patient did have a bit of confusion throughout night. This time patient denies any complaints. Denies chest pain or shortness of breath. Denies any nausea vomiting or diarrhea. Patient denies any urinary burning or frequency On 01/28/2018 patient is currently resting comfortably in bed with no complaints. Patient creatinine increasing to 2.14. Lisinopril has been discontinued. Blood pressure well-controlled at this time. Nephrology has been consulted. Patient also having audible wheezing. Chest x-ray has been ordered. Breathing treatments have been added. At this time patient denies chest pain or shortness of breath. Patient denies nausea vomiting or diarrhea. Objective - Vital Signs Vital signs: Vital Signs Temp 97.6 F 01/28/18 07:00 Pulse 71 01/28/18 07:00 Resp 20 01/28/18 07:00 BP 125/63 01/28/18 07:00 Pulse Ox 95 01/28/18 07:00 Intake & Output 01/27/18 01/28/18 01/28/18 18:59 06:59 18:59 Intake Total 720 600 320 Balance 720 600 320 Intake: Intake, IV Titration 600 Amount Sodium Chloride 0.9% 1, 600 000 ml @ 75 mls/hr IV . 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 Neurological examination reveals no gross focal deficit at this time - Labs CBC & Chem 7: 01/28/18 08:50 01/28/18 08:50 Labs: Abnormal Lab Results - Last 24 Hours (Table) 01/27/18 01/27/18 01/28/18 Range/Units 16:58 20:37 07:34 RBC (4.30-5.90) m/uL Hgb (13.0-17.5) gm/dL Hct (39.0-53.0) % BUN (9-20) mg/dL Creatinine (0.66-1.25) mg/dL Glucose (74-99) mg/dL POC Glucose (mg/dL) 240 H 189 H 112 H (75-99) mg/dL Calcium (8.4-10.2) mg/dL AST (17-59) U/L ALT (21-72) U/L Total Protein (6.3-8.2) g/dL Albumin (3.5-5.0) g/dL 01/28/18 01/28/18 01/28/18 Range/Units 08:50 08:50 12:01 RBC 3.71 L (4.30-5.90) m/uL Hgb 11.6 L (13.0-17.5) gm/dL Hct 35.8 L (39.0-53.0) % BUN 47 H (9-20) mg/dL Creatinine 1.97 H (0.66-1.25) mg/dL Glucose 196 H (74-99) mg/dL POC Glucose (mg/dL) 224 H (75-99) mg/dL Calcium 8.3 L (8.4-10.2) mg/dL AST 15 L (17-59) U/L ALT 14 L (21-72) U/L Total Protein 5.9 L (6.3-8.2) g/dL Albumin 3.1 L (3.5-5.0) g/dL Assessment and Plan Assessment: #1 episodes of dizziness and lightheadedness. #2 episodes of confusion. Neurology following. CT brain showing no acute process. EEG completed showing generalized slowing of the background rhythm, mostly in the theta range. This is consistent with mild encephalopathy. Per neurology continue Plavix and aspirin. Patient started on eliquis due to atrial fibrillation. Plavix DC'd per cardiology services. Per neurology patient Altered mental status/confusion is most likely medically related to patient's renal insufficiency #3 acute on chronic renal failure. Creatinine 1.69 and bun 48. Continue gentle hydration. Per nursing staff patient has been refusing IV. Creatinine increasing to 2.14. Lisinopril discontinued. Nephrology consulted. Bumex decreased to 1 mg once a day. Renal ultrasound has been ordered #4 hyperkalemia. Potassium 5.3. Kayexalate has been ordered. Patient placed on telemetry/monitoring. Potassium improving to 4.5 #5 hypomagnesemia. Magnesium 1.5. relaced per protocol. Mag 1.8 #6 insulin-dependent diabetes mellitus. A1c 9.5. Continue home medication plus sliding scale coverage. #7 underlying history of Parkinson disease maintained on Sinemet #8 underlying history of hypothyroidism #9 underlying history of hyperlipidemia maintained on Crestor #10 underlying history of depression maintained on Lexapro #11 underlying history of hypertension, well-controlled on current medications #12 evidence of cardiomegaly on chest x-ray #13 known history of coronary artery disease with previous history of coronary artery bypass graft surgery #14 with previous history of stroke in 2014 #15 known history of carotid stenosis in the past. 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 Dr. Gutierrez consulted for vascular surgery. Per Dr. Gutierrez continue to watch patient very closely if he needs any further investigation, we would like to do an arch studies the patient has some history of chronic renal failure. #16 atrial fibrillation. EKG completed showing atrial fibrillation, right bundle branch block. Possible inferior infarct, age undetermined. Whether this is new is unclear due to patient being a poor historian at this time. Cardiology services have been consulted. Telemetry monitoring has been ordered for patient. 2-D echo completed showing EF of 55-60%. Patient started on eliquis 2.5 mg twice a day for atrial fibrillation. Repeat EKG has been ordered per cardiology. Ongoing management as an outpatient per cardiology #18 increased expiratory wheezing. Chest x-ray has been ordered breathing treatments initiated. Await chest x-ray results to assess for further intervention Case management and social work consulted for discharge planning DVT prophylaxis Eliquis GI prophylaxis Pepcid I performed an examination of the patient and discussed their management with the Nurse Practitioner. I have reviewed the Nurse Practitioner's notes and agree with the documented findings and plan of care
[2018-01-28] MEDS: IPRATROPIUM-ALBUTEROL 3 ML NEB INHALATION SCH ×2 (15:29→20:14)
--- NOTE | 2018-01-28 15:43 | XR ---
EXAMINATION TYPE: XR chest 2V DATE OF EXAM: 01/28/2018 COMPARISON: 01/23/2018 INDICATION: Wheezing sound and lungs TECHNIQUE: Frontal and lateral views of the chest are obtained. FINDINGS: The heart size is normal. The pulmonary vasculature is normal. The lungs are clear. Sternotomy wires are in the midline. Motion artifacts on the lateral projection . IMPRESSION: 1. No acute pulmonary process.
--- NOTE | 2018-01-28 15:46 | US ---
EXAMINATION TYPE: US kidneys/renal and bladder DATE OF EXAM: 01/28/2018 COMPARISON: US 2017 CLINICAL HISTORY: georgina. GEORGINA, history of left kidney cysts EXAM MEASUREMENTS: Right Kidney: 11.5 x 4.8 x 5.2 cm Left Kidney: 11.4 x 5.9 x 4.9 cm Difficult and limited study due to patient body habitus Right Kidney: no hydronephrosis or masses seen Left Kidney: multiple cysts with largest in inferior pole measuring 2.2 x 2.4 x 2.3cm Bladder: wnl Bilateral Jets seen: no IMPRESSION: Left renal cysts with most notable being simple 2.3 cm cyst at the inferior pole.
[2018-01-28 17:17] LABS: Glucose,Whole Blood 268 mg/dL (75-99)
[2018-01-28] MEDS: ATORVASTATIN 40 MG TAB PO SCH (21:04)
[2018-01-28] MEDS: AMITRIPTYLINE HCL 10 MG TAB PO SCH (21:04)
[2018-01-28] MEDS: ESCITALOPRAM 20 MG TAB PO SCH (21:04)
[2018-01-28] MEDS: PANTOPRAZOLE 40 MG TABLET PO SCH (21:04)
[2018-01-28 21:23] LABS: Glucose,Whole Blood 220 mg/dL (75-99)
[2018-01-28] MEDS: INSULIN DETEMIR 100 UNIT/ML 10 ML VIAL SQ SCH (21:36)
[2018-01-29] MEDS: SODIUM CHLORIDE 0.9% 1,000 ML IV SCH ×2 (05:41→20:57)
[2018-01-29] MEDS: LEVOTHYROXINE 100 MCG TAB PO SCH (06:24)
[2018-01-29 07:32] LABS: Glucose,Whole Blood 228 mg/dL (75-99)
[2018-01-29] MEDS: ASPIRIN 81 MG PO SCH (08:05)
[2018-01-29] MEDS: BUMETANIDE 1 MG TAB PO SCH (08:05)
[2018-01-29] MEDS: CARBIDOPA-LEVODOPA 25-100 MG 1 EACH TAB PO SCH ×3 (08:06→20:59)
[2018-01-29] MEDS: APIXABAN 2.5 MG TABLET PO SCH ×2 (08:06→20:59)
[2018-01-29] MEDS: HEPARIN SODIUM,PORCINE 5,000 UNIT/ML 1 ML VIAL SQ SCH ×2 (08:06→20:59)
[2018-01-29] MEDS: CHOLECALCIFEROL 1,000 UNIT TAB PO SCH (08:06)
[2018-01-29] MEDS: METOPROLOL TARTRATE 50 MG TAB PO SCH ×2 (08:06→20:59)
[2018-01-29] MEDS: MAGNESIUM OXIDE 400 MG TAB PO SCH ×2 (08:06→20:58)
[2018-01-29] MEDS: PRIMIDONE 50 MG TAB PO SCH ×2 (08:07→20:59)
[2018-01-29] MEDS: INSULIN ASPART 100 UNIT/ML 1 ML 10 ML VIAL SQ SCH ×4 (08:11→21:08)
[2018-01-29] MEDS: IPRATROPIUM-ALBUTEROL 3 ML NEB INHALATION SCH ×4 (08:32→20:06)
[2018-01-29 09:00] LABS: Basophils # (A) 0.1 k/uL (0-0.2); Basophils % (A) 1 %; Eosinophils # (A) 0.4 k/uL (0-0.7); Eosinophils % (A) 4 %; HCT 36.3 % (39.0-53.0); HGB 11.9 gm/dL (13.0-17.5); Lymphocytes # (A) 2.1 k/uL (1.0-4.8); Lymphocytes % (A) 22 %; MCH 30.8 pg (25.0-35.0); MCHC 32.7 g/dL (31.0-37.0); MCV 94.2 fL (80.0-100.0); Mean Platelet Volume 7.6; Monocytes # (A) 0.4 k/uL (0-1.0); Monocytes % (A) 5 %; Neutrophils # (A) 6.5 k/uL (1.3-7.7); Neutrophils % (A) 67 %; Platelet Count 282 k/uL (150-450); RBC 3.85 m/uL (4.30-5.90); RDW 13.3 % (11.5-15.5); WBC 9.7 k/uL (3.8-10.6)
[2018-01-29 09:11] LABS: Albumin 3.5 g/dL (3.5-5.0); Calcium 8.6 mg/dL (8.4-10.2); Total Bilirubin 0.4 mg/dL (0.2-1.3); Total Protein 6.5 g/dL (6.3-8.2)
--- NOTE | 2018-01-29 10:06 | P.PN ---
Subjective Progress Note Date: 01/29/18 Les Schneider is an 82-year-old male who presented to [facility] emergency room with a chief complaint of lightheadedness and confusion. Patient significant difficulty with hearing, he states that he started feeling lightheaded few days prior to presentation he denies any chest pain he denies any shortness of breath. 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 He was admitted to medical floor for further evaluation, neurology consultation was requested. In the emergency room patient had evidence of renal insufficiency with BUN of 57 and creatinine of 1.7 to potassium was elevated at 5.5 and glucose was elevated at 326 urine analysis did not reveal evidence of urinary tract infection chest x-ray revealed evidence of cardiomegaly without any evidence of infectious processes in the lungs. On 01/25/2018 patient is currently resting comfortably in bed. Patient remains slightly confused. Patient denies chest pain or shortness of breath. Patient denies any urinary burning or frequency. patient denies nausea vomiting or diarrhea On 01/26/2018 patient is currently resting comfortably in bed. Patient denies any complaints at this time. Denies chest pain or shortness breath. Denies any urinary burning or frequency. Denies nausea vomiting diarrhea On 01/27/2018 patient is currently resting comfortably in bed. Per nursing staff patient did have a bit of confusion throughout night. This time patient denies any complaints. Denies chest pain or shortness of breath. Denies any nausea vomiting or diarrhea. Patient denies any urinary burning or frequency On 01/28/2018 patient is currently resting comfortably in bed with no complaints. Patient creatinine increasing to 2.14. Lisinopril has been discontinued. Blood pressure well-controlled at this time. Nephrology has been consulted. Patient also having audible wheezing. Chest x-ray has been ordered. Breathing treatments have been added. At this time patient denies chest pain or shortness of breath. Patient denies nausea vomiting or diarrhea. On 01/29/2018 patient currently resting in bed. No new complaints. Creatinine increasing to 2.26. Nephrology services are following. Patient's wheezing has significantly improved. Patient denies chest pain or shortness breath. Patient denies any urinary burning or frequency. Patient denies nausea vomiting or diarrhea Objective - Vital Signs Vital signs: Vital Signs Temp 99.4 F 01/29/18 07:00 Pulse 83 01/29/18 08:31 Resp 16 01/29/18 08:31 BP 135/61 01/29/18 07:00 Pulse Ox 95 01/29/18 07:00 Intake & Output 01/28/18 01/29/18 01/29/18 18:59 06:59 18:59 Intake Total 520 575 Output Total 300 300 Balance 220 275 Intake: Oral 520 575 Output: Urine 300 300 Other: Voiding Method Urinal Urinal Urinal # Voids 2 - Exam In general patient is alert and answering questions appropriately at this time, there is no acute distress HEENT head normocephalic and atraumatic Neck is supple no JVD no goiter no lymphadenopathy no carotid bruit Chest exam reveals a few scattered crackles no wheezing Cardiac exam reveals regular heart sounds S1 and S2 no gallops no murmurs Abdomen is soft nontender no organomegaly with normal bowel sounds Extremity exam reveals no edema no cyanosis or clubbing, 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 Neurological examination reveals no gross focal deficit at this time - Labs CBC & Chem 7: 01/29/18 08:38 01/29/18 08:38 Labs: Abnormal Lab Results - Last 24 Hours (Table) 01/28/18 01/28/18 01/28/18 Range/Units 08:50 12:01 17:12 RBC 3.71 L (4.30-5.90) m/uL Hgb 11.6 L (13.0-17.5) gm/dL Hct 35.8 L (39.0-53.0) % BUN (9-20) mg/dL Creatinine (0.66-1.25) mg/dL Glucose (74-99) mg/dL POC Glucose (mg/dL) 224 H 268 H (75-99) mg/dL AST (17-59) U/L ALT (21-72) U/L 01/28/18 01/29/18 01/29/18 Range/Units 21:10 07:21 08:38 RBC 3.85 L (4.30-5.90) m/uL Hgb 11.9 L (13.0-17.5) gm/dL Hct 36.3 L (39.0-53.0) % BUN (9-20) mg/dL Creatinine (0.66-1.25) mg/dL Glucose (74-99) mg/dL POC Glucose (mg/dL) 220 H 228 H (75-99) mg/dL AST (17-59) U/L ALT (21-72) U/L 01/29/18 Range/Units 08:38 RBC (4.30-5.90) m/uL Hgb (13.0-17.5) gm/dL Hct (39.0-53.0) % BUN 56 H (9-20) mg/dL Creatinine 2.26 H (0.66-1.25) mg/dL Glucose 233 H (74-99) mg/dL POC Glucose (mg/dL) (75-99) mg/dL AST 15 L (17-59) U/L ALT 13 L (21-72) U/L Assessment and Plan Assessment: #1 episodes of dizziness and lightheadedness. #2 episodes of confusion. Neurology following. CT brain showing no acute process. EEG completed showing generalized slowing of the background rhythm, mostly in the theta range. This is consistent with mild encephalopathy. Per neurology continue Plavix and aspirin. Patient started on eliquis due to atrial fibrillation. Plavix DC'd per cardiology services. Per neurology patient Altered mental status/confusion is most likely medically related to patient's renal insufficiency #3 acute on chronic renal failure. Creatinine 1.69 and bun 48. Continue gentle hydration. Per nursing staff patient has been refusing IV. Creatinine increasing to 2.14. Lisinopril discontinued. Nephrology consulted. Bumex decreased to 1 mg once a day. Renal ultrasound completed showing left renal cyst with most notable being simple 2.3 cm cyst at the inferior pole. Per nephrology Bumex has been decreased to 1 mg daily. Creatinine increasing to 2.26. #4 hyperkalemia. Potassium 5.3. Kayexalate has been ordered. Patient placed on telemetry/monitoring. #5 hypomagnesemia. Magnesium 1.5. relaced per protocol. Mag 1.8 #6 insulin-dependent diabetes mellitus. A1c 9.5. Continue home medication plus sliding scale coverage. #7 underlying history of Parkinson disease maintained on Sinemet #8 underlying history of hypothyroidism #9 underlying history of hyperlipidemia maintained on Crestor #10 underlying history of depression maintained on Lexapro #11 underlying history of hypertension, well-controlled on current medications #12 evidence of cardiomegaly on chest x-ray #13 known history of coronary artery disease with previous history of coronary artery bypass graft surgery #14 with previous history of stroke in 2014 #15 known history of carotid stenosis in the past. 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 Dr. Gutierrez consulted for vascular surgery. Per Dr. Gutierrez continue to watch patient very closely if he needs any further investigation, we would like to do an arch studies the patient has some history of chronic renal failure. #16 atrial fibrillation. EKG completed showing atrial fibrillation, right bundle branch block. Possible inferior infarct, age undetermined. Whether this is new is unclear due to patient being a poor historian at this time. Cardiology services have been consulted. Telemetry monitoring has been ordered for patient. 2-D echo completed showing EF of 55-60%. Patient started on eliquis 2.5 mg twice a day for atrial fibrillation. Repeat EKG has been ordered per cardiology. Ongoing management as an outpatient per cardiology #18 increased expiratory wheezing. Chest x-ray completed showing no acute pulmonary process. Wheezing has significantly improved Case management and social work consulted for discharge planning DVT prophylaxis Eliquis GI prophylaxis Pepcid I performed an examination of the patient and discussed their management with the Nurse Practitioner. I have reviewed the Nurse Practitioner's notes and agree with the documented findings and plan of care
[2018-01-29] MEDS: MULTIVITAMINS, THERA 1 EACH TAB PO SCH (11:38)
[2018-01-29 12:34] LABS: Glucose,Whole Blood 239 mg/dL (75-99)
[2018-01-29 17:31] LABS: Glucose,Whole Blood 201 mg/dL (75-99)
--- NOTE | 2018-01-29 18:26 | PN ---
PROGRESS NOTE Patient is seen for followup for acute kidney injury. The patient was admitted to the hospital with lightheadedness and confusion. His CT of the brain was negative. Serum creatinine was 1.7 mg/dL. It peaked to 2.1. It was down to 1.9 yesterday and today it is up to 2.26. Patient has been voiding good amounts of urine. His blood pressure is slightly on the lower side with systolic around 111 mmHg. Currently patient is maintained on Bumex 1 mg daily. On examination, blood pressure was 111/49, heart rate 65 per minute. Patient is afebrile. EXAMINATION OF THE HEART: S1, S2. EXAMINATION OF LUNGS: Bilateral breath sounds are heard. ABDOMEN: Soft, non-tender. Examination of lower extremities shows chronic skin changes, trace edema bilaterally. [employer] exam is grossly intact. Labs show sodium 137, potassium 5.0, BUN 56, serum creatinine 2.26, hemoglobin 11.9 g/dL, albumin 3.5. UA shows trace blood, no protein. ASSESSMENT: 1. Acute kidney injury, non-oliguric. The patient was on MARY inhibitor. That is currently on hold. He is currently being diuresed with small dose of Bumex. I will check a post-voidal residual to rule out urine retention. Currently patient is not on any nephrotoxic medications. 2. Dyslipidemia. 3. Chronic kidney disease, stage III, with baseline creatinine about 1.2 mg/dL as of earlier part of September of 2017; however, mostly it has been at about 1.5 to 1.4. The ultrasound of the kidneys is unremarkable. Patient has multiple left renal cysts. PLAN: Check post-voidal residual. May continue with current dose of Bumex and repeat labs in a.m. Encourage increased oral intake. If blood pressure remains on the lower side, I will decrease the Lopressor. MMODL / IJN: [id number] /
[2018-01-29 20:52] LABS: Glucose,Whole Blood 216 mg/dL (75-99)
[2018-01-29] MEDS: BACLOFEN 10 MG TAB PO SCH (20:58)
[2018-01-29] MEDS: ESCITALOPRAM 20 MG TAB PO SCH (20:59)
[2018-01-29] MEDS: ATORVASTATIN 40 MG TAB PO SCH (20:59)
[2018-01-29] MEDS: AMITRIPTYLINE HCL 10 MG TAB PO SCH (20:59)
[2018-01-29] MEDS: PANTOPRAZOLE 40 MG TABLET PO SCH (20:59)
[2018-01-29] MEDS: INSULIN DETEMIR 100 UNIT/ML 10 ML VIAL SQ SCH (21:08)
[2018-01-30] MEDS: LEVOTHYROXINE 100 MCG TAB PO SCH (06:47)
[2018-01-30 07:39] LABS: Glucose,Whole Blood 138 mg/dL (75-99)
[2018-01-30] MEDS: IPRATROPIUM-ALBUTEROL 3 ML NEB INHALATION SCH ×4 (07:40→20:20)
[2018-01-30] MEDS: INSULIN ASPART 100 UNIT/ML 1 ML 10 ML VIAL SQ SCH ×4 (07:58→21:23)
[2018-01-30] MEDS: SODIUM CHLORIDE 0.9% 1,000 ML IV SCH (07:58)
[2018-01-30] MEDS: HEPARIN SODIUM,PORCINE 5,000 UNIT/ML 1 ML VIAL SQ SCH (07:58)
[2018-01-30] MEDS: APIXABAN 2.5 MG TABLET PO SCH ×2 (07:59→21:18)
[2018-01-30] MEDS: BUMETANIDE 1 MG TAB PO SCH (07:59)
[2018-01-30] MEDS: CARBIDOPA-LEVODOPA 25-100 MG 1 EACH TAB PO SCH ×3 (07:59→21:18)
[2018-01-30] MEDS: ASPIRIN 81 MG PO SCH (07:59)
[2018-01-30] MEDS: METOPROLOL TARTRATE 50 MG TAB PO SCH ×2 (07:59→21:19)
[2018-01-30] MEDS: MULTIVITAMINS, THERA 1 EACH TAB PO SCH (08:00)
[2018-01-30] MEDS: CHOLECALCIFEROL 1,000 UNIT TAB PO SCH (08:00)
[2018-01-30] MEDS: PRIMIDONE 50 MG TAB PO SCH ×2 (08:00→21:19)
[2018-01-30] MEDS: MAGNESIUM OXIDE 400 MG TAB PO SCH ×2 (08:00→21:19)
[2018-01-30 09:07] LABS: Basophils # (A) 0.1 k/uL (0-0.2); Basophils % (A) 1 %; Eosinophils # (A) 0.5 k/uL (0-0.7); Eosinophils % (A) 5 %; HCT 31.9 % (39.0-53.0); HGB 11.2 gm/dL (13.0-17.5); Lymphocytes # (A) 2.6 k/uL (1.0-4.8); Lymphocytes % (A) 22 %; MCH 32.4 pg (25.0-35.0); MCHC 35.2 g/dL (31.0-37.0); MCV 91.8 fL (80.0-100.0); Mean Platelet Volume 6.8; Monocytes # (A) 0.7 k/uL (0-1.0); Monocytes % (A) 6 %; Neutrophils # (A) 7.5 k/uL (1.3-7.7); Neutrophils % (A) 64 %; Platelet Count 260 k/uL (150-450); RBC 3.47 m/uL (4.30-5.90); RDW 13.4 % (11.5-15.5); WBC 11.7 k/uL (3.8-10.6)
[2018-01-30 09:21] LABS: Albumin 3.3 g/dL (3.5-5.0); Calcium 8.4 mg/dL (8.4-10.2); Potassium 4.8 mmol/L (3.5-5.1); Total Bilirubin 0.5 mg/dL (0.2-1.3); Total Protein 6.2 g/dL (6.3-8.2)
--- NOTE | 2018-01-30 10:48 | PN ---
PROGRESS NOTE Patient is seen for followup for acute kidney injury. His renal function has improved, with creatinine down from 2.26 to 1.68. Post-void residual was checked and there was no retention of urine. Currently patient is maintained on a small dose of oral Bumex. Patient is maintained on IV fluids at 75 mL/hour. There is no ongoing diarrhea, nausea or vomiting. On blood pressure is 130/59, heart rate 72 per minute. Patient is afebrile. EXAMINATION OF THE HEART: S1, S2. EXAMINATION OF LUNGS: Bilateral breath sounds are heard. ABDOMEN: Soft, non-tender. Examination of lower extremities shows no significant edema. Labs show sodium 138, potassium 4.8, BUN 41, serum creatinine 1.68, hemoglobin 11.2 g/dL. ASSESSMENT: 1. Acute kidney injury, nonoliguric, currently improving. Patient is maintained on IV fluids. If he has good oral intake, we can decrease the IV fluids. 2. Chronic kidney disease, stage III, with baseline creatinine 1.2; however, most recently as of September of 2017 serum creatinine has been 1.4 to 1.5 mg/dL. Patient has multiple bilateral renal cysts. 3. Dyslipidemia. 4. History of confusion on initial admission with negative brain CT. PLAN: Encourage increased oral intake. Decrease IV fluids if patient is eating well. MMODL / IJN: [id number] /
[2018-01-30 12:26] LABS: Glucose,Whole Blood 363 mg/dL (75-99)
--- NOTE | 2018-01-30 15:44 | P.PN ---
Subjective Progress Note Date: 01/30/18 Les Schneider is an 82-year-old male who presented to [facility] emergency room with a chief complaint of lightheadedness and confusion. Patient significant difficulty with hearing, he states that he started feeling lightheaded few days prior to presentation he denies any chest pain he denies any shortness of breath. 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 He was admitted to medical floor for further evaluation, neurology consultation was requested. In the emergency room patient had evidence of renal insufficiency with BUN of 57 and creatinine of 1.7 to potassium was elevated at 5.5 and glucose was elevated at 326 urine analysis did not reveal evidence of urinary tract infection chest x-ray revealed evidence of cardiomegaly without any evidence of infectious processes in the lungs. On 01/25/2018 patient is currently resting comfortably in bed. Patient remains slightly confused. Patient denies chest pain or shortness of breath. Patient denies any urinary burning or frequency. patient denies nausea vomiting or diarrhea On 01/26/2018 patient is currently resting comfortably in bed. Patient denies any complaints at this time. Denies chest pain or shortness breath. Denies any urinary burning or frequency. Denies nausea vomiting diarrhea On 01/27/2018 patient is currently resting comfortably in bed. Per nursing staff patient did have a bit of confusion throughout night. This time patient denies any complaints. Denies chest pain or shortness of breath. Denies any nausea vomiting or diarrhea. Patient denies any urinary burning or frequency On 01/28/2018 patient is currently resting comfortably in bed with no complaints. Patient creatinine increasing to 2.14. Lisinopril has been discontinued. Blood pressure well-controlled at this time. Nephrology has been consulted. Patient also having audible wheezing. Chest x-ray has been ordered. Breathing treatments have been added. At this time patient denies chest pain or shortness of breath. Patient denies nausea vomiting or diarrhea. On 01/29/2018 patient currently resting in bed. No new complaints. Creatinine increasing to 2.26. Nephrology services are following. Patient's wheezing has significantly improved. Patient denies chest pain or shortness breath. Patient denies any urinary burning or frequency. Patient denies nausea vomiting or diarrhea On 01/30/2018 patient is resting comfortably in bed he is complaining of constipation last bowel movement 3 days ago otherwise no complaints. There is improvement in kidney function with creatinine down to 1.68, nephrology following, he denies any cough chest pain or shortness of breath, there is no nausea or vomiting no abdominal pain and no urinary symptoms. Objective - Vital Signs Vital signs: Vital Signs Temp 98.3 F 01/30/18 14:38 Pulse 67 01/30/18 14:38 Resp 18 01/30/18 14:38 BP 113/66 01/30/18 14:38 Pulse Ox 95 01/30/18 14:38 Intake & Output 01/29/18 01/30/18 01/30/18 18:59 06:59 18:59 Intake Total 1200 700 Output Total 300 400 Balance -300 800 700 Weight 128 kg Intake: Oral 1200 700 Output: Urine 300 400 Post Void Residual 0 Other: Voiding Method Urinal Urinal Urinal # Voids 1 6 2 # Bowel Movements 0 - Exam In general patient is alert and answering questions appropriately at this time, there is no acute distress HEENT head normocephalic and atraumatic Neck is supple no JVD no goiter no lymphadenopathy no carotid bruit Chest exam reveals a few scattered crackles no wheezing Cardiac exam reveals regular heart sounds S1 and S2 no gallops no murmurs Abdomen is soft nontender no organomegaly with normal bowel sounds Extremity exam reveals no edema no cyanosis or clubbing, 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 Neurological examination reveals no gross focal deficit at this time - Labs CBC & Chem 7: 01/30/18 08:32 01/30/18 08:32 Labs: Abnormal Lab Results - Last 24 Hours (Table) 01/29/18 01/29/18 01/30/18 Range/Units 17:09 20:46 07:30 WBC (3.8-10.6) k/uL RBC (4.30-5.90) m/uL Hgb (13.0-17.5) gm/dL Hct (39.0-53.0) % BUN (9-20) mg/dL Creatinine (0.66-1.25) mg/dL Glucose (74-99) mg/dL POC Glucose (mg/dL) 201 H 216 H 138 H (75-99) mg/dL ALT (21-72) U/L Total Protein (6.3-8.2) g/dL Albumin (3.5-5.0) g/dL 01/30/18 01/30/18 01/30/18 Range/Units 08:32 08:32 12:17 WBC 11.7 H (3.8-10.6) k/uL RBC 3.47 L (4.30-5.90) m/uL Hgb 11.2 L (13.0-17.5) gm/dL Hct 31.9 L (39.0-53.0) % BUN 41 H (9-20) mg/dL Creatinine 1.68 H (0.66-1.25) mg/dL Glucose 190 H (74-99) mg/dL POC Glucose (mg/dL) 363 H (75-99) mg/dL ALT 16 L (21-72) U/L Total Protein 6.2 L (6.3-8.2) g/dL Albumin 3.3 L (3.5-5.0) g/dL Assessment and Plan Plan: #1 episodes of dizziness and lightheadedness. #2 episodes of confusion. Neurology following. CT brain showing no acute process. EEG completed showing generalized slowing of the background rhythm, mostly in the theta range. This is consistent with mild encephalopathy. Per neurology continue Plavix and aspirin. Patient started on eliquis due to atrial fibrillation. Plavix DC'd per cardiology services. Per neurology patient Altered mental status/confusion is most likely medically related to patient's renal insufficiency #3 acute on chronic renal failure. Creatinine 1.69 and bun 48. Continue gentle hydration. Per nursing staff patient has been refusing IV. Creatinine increasing to 2.14. Lisinopril discontinued. Nephrology consulted. Bumex decreased to 1 mg once a day. Renal ultrasound completed showing left renal cyst with most notable being simple 2.3 cm cyst at the inferior pole. Per nephrology Bumex has been decreased to 1 mg daily. Creatinine increasing to 2.26. #4 hyperkalemia. Potassium 5.3. Kayexalate has been ordered. Patient placed on telemetry/monitoring. #5 hypomagnesemia. Magnesium 1.5. relaced per protocol. Mag 1.8 #6 insulin-dependent diabetes mellitus. A1c 9.5. Continue home medication plus sliding scale coverage. #7 underlying history of Parkinson disease maintained on Sinemet #8 underlying history of hypothyroidism #9 underlying history of hyperlipidemia maintained on Crestor #10 underlying history of depression maintained on Lexapro #11 underlying history of hypertension, well-controlled on current medications #12 evidence of cardiomegaly on chest x-ray #13 known history of coronary artery disease with previous history of coronary artery bypass graft surgery #14 with previous history of stroke in 2013 #15 known history of carotid stenosis in the past. 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 Dr. Gutierrez consulted for vascular surgery. Per Dr. Gutierrez continue to watch patient very closely if he needs any further investigation, we would like to do an arch studies the patient has some history of chronic renal failure. #16 atrial fibrillation. EKG completed showing atrial fibrillation, right bundle branch block. Possible inferior infarct, age undetermined. Whether this is new is unclear due to patient being a poor historian at this time. Cardiology services have been consulted. Telemetry monitoring has been ordered for patient. 2-D echo completed showing EF of 55-60%. Patient started on eliquis 2.5 mg twice a day for atrial fibrillation. Repeat EKG has been ordered per cardiology. Ongoing management as an outpatient per cardiology #18 increased expiratory wheezing. Chest x-ray completed showing no acute pulmonary process. Wheezing has significantly improved Case management and social work consulted for discharge planning DVT prophylaxis Eliquis GI prophylaxis Pepcid
[2018-01-30 17:19] LABS: Glucose,Whole Blood 239 mg/dL (75-99)
[2018-01-30] MEDS: PANTOPRAZOLE 40 MG TABLET PO SCH (21:18)
[2018-01-30] MEDS: ATORVASTATIN 40 MG TAB PO SCH (21:18)
[2018-01-30] MEDS: ESCITALOPRAM 20 MG TAB PO SCH (21:19)
[2018-01-30] MEDS: BACLOFEN 10 MG TAB PO SCH (21:19)
[2018-01-30] MEDS: AMITRIPTYLINE HCL 10 MG TAB PO SCH (21:20)
[2018-01-30] MEDS: INSULIN DETEMIR 100 UNIT/ML 10 ML VIAL SQ SCH (21:20)
[2018-01-30 21:41] LABS: Glucose,Whole Blood 271 mg/dL (75-99)
[2018-01-31] MEDS: LEVOTHYROXINE 100 MCG TAB PO SCH (06:42)
[2018-01-31] MEDS: SODIUM CHLORIDE 0.9% 1,000 ML IV SCH ×2 (06:43→09:23)
[2018-01-31 07:39] LABS: Glucose,Whole Blood 121 mg/dL (75-99)
[2018-01-31] MEDS: INSULIN ASPART 100 UNIT/ML 1 ML 10 ML VIAL SQ SCH ×4 (07:55→21:56)
[2018-01-31] MEDS: IPRATROPIUM-ALBUTEROL 3 ML NEB INHALATION SCH ×4 (08:28→20:10)
[2018-01-31] MEDS: CARBIDOPA-LEVODOPA 25-100 MG 1 EACH TAB PO SCH ×3 (08:32→20:43)
[2018-01-31] MEDS: BUMETANIDE 1 MG TAB PO SCH (08:32)
[2018-01-31] MEDS: ASPIRIN 81 MG PO SCH (08:32)
[2018-01-31] MEDS: APIXABAN 2.5 MG TABLET PO SCH ×2 (08:32→20:43)
[2018-01-31] MEDS: MAGNESIUM OXIDE 400 MG TAB PO SCH ×2 (08:32→20:43)
[2018-01-31] MEDS: PRIMIDONE 50 MG TAB PO SCH ×2 (08:33→20:43)
[2018-01-31] MEDS: CHOLECALCIFEROL 1,000 UNIT TAB PO SCH (08:33)
[2018-01-31] MEDS: METOPROLOL TARTRATE 50 MG TAB PO SCH ×2 (08:33→20:43)
[2018-01-31 09:30] LABS: Basophils # (A) 0.1 k/uL (0-0.2); Basophils % (A) 1 %; Eosinophils # (A) 0.8 k/uL (0-0.7); Eosinophils % (A) 7 %; HGB 10.9 gm/dL (13.0-17.5); Lymphocytes # (A) 1.8 k/uL (1.0-4.8); Lymphocytes % (A) 17 %; MCH 31.7 pg (25.0-35.0); MCHC 34.2 g/dL (31.0-37.0); MCV 92.8 fL (80.0-100.0); Mean Platelet Volume 7.7; Monocytes # (A) 0.6 k/uL (0-1.0); Monocytes % (A) 6 %; Neutrophils # (A) 6.7 k/uL (1.3-7.7); Neutrophils % (A) 66 %; Platelet Count 258 k/uL (150-450); RBC 3.45 m/uL (4.30-5.90); RDW 13.6 % (11.5-15.5); WBC 10.1 k/uL (3.8-10.6)
--- NOTE | 2018-01-31 09:36 | P.PN ---
Subjective Progress Note Date: 01/31/18 Les Schneider is an 82-year-old male who presented to [facility] emergency room with a chief complaint of lightheadedness and confusion. Patient significant difficulty with hearing, he states that he started feeling lightheaded few days prior to presentation he denies any chest pain he denies any shortness of breath. 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 He was admitted to medical floor for further evaluation, neurology consultation was requested. In the emergency room patient had evidence of renal insufficiency with BUN of 57 and creatinine of 1.7 to potassium was elevated at 5.5 and glucose was elevated at 326 urine analysis did not reveal evidence of urinary tract infection chest x-ray revealed evidence of cardiomegaly without any evidence of infectious processes in the lungs. On 01/25/2018 patient is currently resting comfortably in bed. Patient remains slightly confused. Patient denies chest pain or shortness of breath. Patient denies any urinary burning or frequency. patient denies nausea vomiting or diarrhea On 01/26/2018 patient is currently resting comfortably in bed. Patient denies any complaints at this time. Denies chest pain or shortness breath. Denies any urinary burning or frequency. Denies nausea vomiting diarrhea On 01/27/2018 patient is currently resting comfortably in bed. Per nursing staff patient did have a bit of confusion throughout night. This time patient denies any complaints. Denies chest pain or shortness of breath. Denies any nausea vomiting or diarrhea. Patient denies any urinary burning or frequency On 01/28/2018 patient is currently resting comfortably in bed with no complaints. Patient creatinine increasing to 2.14. Lisinopril has been discontinued. Blood pressure well-controlled at this time. Nephrology has been consulted. Patient also having audible wheezing. Chest x-ray has been ordered. Breathing treatments have been added. At this time patient denies chest pain or shortness of breath. Patient denies nausea vomiting or diarrhea. On 01/29/2018 patient currently resting in bed. No new complaints. Creatinine increasing to 2.26. Nephrology services are following. Patient's wheezing has significantly improved. Patient denies chest pain or shortness breath. Patient denies any urinary burning or frequency. Patient denies nausea vomiting or diarrhea On 01/30/2018 patient is resting comfortably in bed he is complaining of constipation last bowel movement 3 days ago otherwise no complaints. There is improvement in kidney function with creatinine down to 1.68, nephrology following, he denies any cough chest pain or shortness of breath, there is no nausea or vomiting no abdominal pain and no urinary symptoms. On 01/31/2018 patient was seen and examined he is alert and oriented 3 very hard of hearing he is resting comfortably in bed there is no fever or chills no headache or dizziness no chest pain no shortness of breath no cough no nausea or vomiting no abdominal pain no diarrhea patient is still complaining of constipation there is no urinary symptoms Objective - Vital Signs Vital signs: Vital Signs Temp 98.0 F 01/31/18 07:00 Pulse 66 01/31/18 07:00 Resp 22 01/31/18 07:00 BP 144/66 01/31/18 07:00 Pulse Ox 98 01/31/18 07:00 Intake & Output 01/30/18 01/31/18 01/31/18 18:59 06:59 18:59 Intake Total 700 600 Balance 700 600 Weight 107.5 kg Intake: Oral 700 600 Other: Voiding Method Urinal Urinal Urinal # Voids 2 2 # Bowel Movements 0 - Exam In general patient is alert and answering questions appropriately at this time, there is no acute distress HEENT head normocephalic and atraumatic Neck is supple no JVD no goiter no lymphadenopathy no carotid bruit Chest exam reveals a few scattered crackles no wheezing Cardiac exam reveals regular heart sounds S1 and S2 no gallops no murmurs Abdomen is soft nontender no organomegaly with normal bowel sounds Extremity exam reveals no edema no cyanosis or clubbing, 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 Neurological examination reveals no gross focal deficit at this time - Labs CBC & Chem 7: 01/31/18 09:13 01/30/18 08:32 Labs: Abnormal Lab Results - Last 24 Hours (Table) 01/30/18 01/30/18 01/30/18 Range/Units 12:17 17:09 21:22 RBC (4.30-5.90) m/uL Hgb (13.0-17.5) gm/dL Hct (39.0-53.0) % Eosinophils # (0-0.7) k/uL POC Glucose (mg/dL) 363 H 239 H 271 H (75-99) mg/dL 01/31/18 01/31/18 Range/Units 07:32 09:13 RBC 3.45 L (4.30-5.90) m/uL Hgb 10.9 L (13.0-17.5) gm/dL Hct 32.0 L (39.0-53.0) % Eosinophils # 0.8 H (0-0.7) k/uL POC Glucose (mg/dL) 121 H (75-99) mg/dL Assessment and Plan Plan: #1 episodes of dizziness and lightheadedness. #2 episodes of confusion. Neurology following. CT brain showing no acute process. EEG completed showing generalized slowing of the background rhythm, mostly in the theta range. This is consistent with mild encephalopathy. Per neurology continue Plavix and aspirin. Patient started on eliquis due to atrial fibrillation. Plavix DC'd per cardiology services. Per neurology patient Altered mental status/confusion is most likely medically related to patient's renal insufficiency #3 acute on chronic renal failure. Creatinine 1.69 and bun 48. Continue gentle hydration. Per nursing staff patient has been refusing IV. Creatinine increasing to 2.14. Lisinopril discontinued. Nephrology consulted. Bumex decreased to 1 mg once a day. Renal ultrasound completed showing left renal cyst with most notable being simple 2.3 cm cyst at the inferior pole. Per nephrology Bumex has been decreased to 1 mg daily. Creatinine increasing to 2.26. #4 hyperkalemia. Potassium 5.3. Kayexalate has been ordered. Patient placed on telemetry/monitoring. #5 hypomagnesemia. Magnesium 1.5. relaced per protocol. Mag 1.8 #6 insulin-dependent diabetes mellitus. A1c 9.5. Continue home medication plus sliding scale coverage. #7 underlying history of Parkinson disease maintained on Sinemet #8 underlying history of hypothyroidism #9 underlying history of hyperlipidemia maintained on Crestor #10 underlying history of depression maintained on Lexapro #11 underlying history of hypertension, well-controlled on current medications #12 evidence of cardiomegaly on chest x-ray #13 known history of coronary artery disease with previous history of coronary artery bypass graft surgery #14 with previous history of stroke in 2013 #15 known history of carotid stenosis in the past. 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 Dr. Gutierrez consulted for vascular surgery. Per Dr. Gutierrez continue to watch patient very closely if he needs any further investigation, we would like to do an arch studies the patient has some history of chronic renal failure. #16 atrial fibrillation. EKG completed showing atrial fibrillation, right bundle branch block. Possible inferior infarct, age undetermined. Whether this is new is unclear due to patient being a poor historian at this time. Cardiology services have been consulted. Telemetry monitoring has been ordered for patient. 2-D echo completed showing EF of 55-60%. Patient started on eliquis 2.5 mg twice a day for atrial fibrillation. Repeat EKG has been ordered per cardiology. Ongoing management as an outpatient per cardiology #18 increased expiratory wheezing. Chest x-ray completed showing no acute pulmonary process. Wheezing has significantly improved Case management and social work consulted for discharge planning DVT prophylaxis Eliquis GI prophylaxis Pepcid
[2018-01-31 09:39] LABS: Albumin 3.1 g/dL (3.5-5.0); Calcium 8.5 mg/dL (8.4-10.2); Potassium 4.9 mmol/L (3.5-5.1); Total Bilirubin 0.4 mg/dL (0.2-1.3)
[2018-01-31] MEDS ORDERED: LACTULOSE 20 GM/30 ML CUP PO ONE (09:45)
[2018-01-31] MEDS: MULTIVITAMINS, THERA 1 EACH TAB PO SCH (10:59)
[2018-01-31 11:43] LABS: Glucose,Whole Blood 260 mg/dL (75-99)
--- NOTE | 2018-01-31 17:28 | PN ---
PROGRESS NOTE The patient is seen for followup for acute kidney injury. His renal function is improved significantly with creatinine now down to 1.29. The patient has had good urine output. He denies any significant complaints today. On her examination, blood pressure is 144/66, heart rate 64 per minute. He is afebrile. Examination of the heart: S1, S2. Examination of the lungs: Bilateral breath sounds are heard. Abdomen is soft, nontender. Exam lower extremities shows no evidence of edema. LABS: Show sodium 139, potassium 4.9, chloride 104, BUN 30, serum creatinine 1.29, hemoglobin 10.9 g/dL. ASSESSMENT: 1. Acute kidney injury, prerenal, currently significantly improved. Creatinine down to 1.29. 2. Intravascular volume depletion, now improved. 3. Dyslipidemia. 4. Chronic kidney disease stage III with baseline about 1.2-1.4 mg/dL. 5. Multiple bilateral renal cysts. 6. Confusion and mental status changes on initial admission, currently improved. PLAN: Continue off of IV fluids. Patient is stable for discharge from Nephrology standpoint. MMODL / IJN: [id number] /
[2018-01-31 17:41] LABS: Glucose,Whole Blood 221 mg/dL (75-99)
[2018-01-31] MEDS: AMITRIPTYLINE HCL 10 MG TAB PO SCH (20:43)
[2018-01-31] MEDS: PANTOPRAZOLE 40 MG TABLET PO SCH (20:43)
[2018-01-31] MEDS: ESCITALOPRAM 20 MG TAB PO SCH (20:43)
[2018-01-31] MEDS: BACLOFEN 10 MG TAB PO SCH (20:43)
[2018-01-31] MEDS: ATORVASTATIN 40 MG TAB PO SCH (20:43)
[2018-01-31 20:54] LABS: Glucose,Whole Blood 237 mg/dL (75-99)
[2018-01-31] MEDS: INSULIN DETEMIR 100 UNIT/ML 10 ML VIAL SQ SCH (21:56)
[2018-02-01] MEDS: LEVOTHYROXINE 100 MCG TAB PO SCH (06:38)
[2018-02-01] MEDS: IPRATROPIUM-ALBUTEROL 3 ML NEB INHALATION SCH ×2 (07:22→10:35)
[2018-02-01 07:25] LABS: Glucose,Whole Blood 154 mg/dL (75-99)
[2018-02-01] MEDS: CHOLECALCIFEROL 1,000 UNIT TAB PO SCH (08:22)
[2018-02-01] MEDS: METOPROLOL TARTRATE 50 MG TAB PO SCH (08:22)
[2018-02-01] MEDS: PRIMIDONE 50 MG TAB PO SCH (08:22)
[2018-02-01] MEDS: CARBIDOPA-LEVODOPA 25-100 MG 1 EACH TAB PO SCH ×2 (08:22→15:06)
[2018-02-01] MEDS: BUMETANIDE 1 MG TAB PO SCH (08:22)
[2018-02-01] MEDS: APIXABAN 2.5 MG TABLET PO SCH (08:22)
[2018-02-01] MEDS: MAGNESIUM OXIDE 400 MG TAB PO SCH (08:22)
[2018-02-01] MEDS: INSULIN ASPART 100 UNIT/ML 1 ML 10 ML VIAL SQ SCH ×2 (08:22→12:51)
[2018-02-01] MEDS: ASPIRIN 81 MG PO SCH (08:23)
[2018-02-01 09:35] VITALS: RESP 18
[2018-02-01 11:02] LABS: Basophils # (A) 0.1 k/uL (0-0.2); Basophils % (A) 1 %; Eosinophils # (A) 0.8 k/uL (0-0.7); Eosinophils % (A) 7 %; HCT 31.8 % (39.0-53.0); HGB 10.7 gm/dL (13.0-17.5); Lymphocytes # (A) 1.8 k/uL (1.0-4.8); Lymphocytes % (A) 16 %; MCHC 33.5 g/dL (31.0-37.0); MCV 92.3 fL (80.0-100.0); Mean Platelet Volume 7.2; Monocytes # (A) 0.8 k/uL (0-1.0); Monocytes % (A) 7 %; Neutrophils # (A) 7.7 k/uL (1.3-7.7); Neutrophils % (A) 68 %; Platelet Count 278 k/uL (150-450); RBC 3.44 m/uL (4.30-5.90); RDW 13.5 % (11.5-15.5); WBC 11.4 k/uL (3.8-10.6)
[2018-02-01 11:21] LABS: ALT <6 U/L (21-72); AST 18 U/L (17-59); Albumin 3.1 g/dL (3.5-5.0); Alkaline Phosphatase 66 U/L (38-126); Anion Gap 8 mmol/L; Blood Urea Nitrogen 28 mg/dL (9-20); Calcium 8.7 mg/dL (8.4-10.2); Carbon Dioxide 30 mmol/L (22-30); Chloride 99 mmol/L (98-107); Glucose 236 mg/dL (74-99); Potassium 4.7 mmol/L (3.5-5.1); Sodium 137 mmol/L (137-145); Total Bilirubin 0.3 mg/dL (0.2-1.3); Total Protein 5.9 g/dL (6.3-8.2)
[2018-02-01 11:27] LABS: Glucose,Whole Blood 252 mg/dL (75-99)
[2018-02-01] MEDS: MULTIVITAMINS, THERA 1 EACH TAB PO SCH (12:51)
--- NOTE | 2018-02-01 13:07 | P.DS ---
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 Course: Discharge diagnosis #1 episodes of dizziness and lightheadedness. #2 episodes of confusion. Neurology following. CT brain showing no acute process. EEG completed showing generalized slowing of the background rhythm, mostly in the theta range. This is consistent with mild encephalopathy. Per neurology continue Plavix and aspirin. Patient started on eliquis due to atrial fibrillation. Plavix DC'd per cardiology services. Per neurology patient Altered mental status/confusion is most likely medically related to patient's renal insufficiency. Patient will be DC'd on Lipitor 40 mg #3 acute on chronic renal failure. Creatinine 1.69 and bun 48. Continue gentle hydration. Per nursing staff patient has been refusing IV. Creatinine increasing to 2.14. Lisinopril discontinued. Nephrology consulted. Bumex decreased to 1 mg once a day. Renal ultrasound completed showing left renal cyst with most notable being simple 2.3 cm cyst at the inferior pole. Per nephrology Bumex has been decreased to 1 mg daily. Creatinine increasing to 1.29. She has been cleared for discharge from nephrology standpoint. Will follow-up outpatient. CMP ordered for 2 days #4 hyperkalemia. Potassium 5.3. Kayexalate has been ordered. Patient placed on telemetry/monitoring. Potassium Replacement will be discontinued upon discharge #5 hypomagnesemia. Magnesium 1.5. relaced per protocol. Mag 1.8. Mag-Ox will be added upon discharge #6 insulin-dependent diabetes mellitus. A1c 9.5. Continue home medication plus sliding scale coverage. #7 underlying history of Parkinson disease maintained on Sinemet #8 underlying history of hypothyroidism #9 underlying history of hyperlipidemia maintained on Crestor #10 underlying history of depression maintained on Lexapro #11 underlying history of hypertension, well-controlled on current medications #12 evidence of cardiomegaly on chest x-ray #13 known history of coronary artery disease with previous history of coronary artery bypass graft surgery #14 with previous history of stroke in 2013 #15 known history of carotid stenosis in the past. 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 Dr. Gutierrez consulted for vascular surgery. Per Dr. Gutierrez continue to watch patient very closely if he needs any further investigation, we would like to do an arch studies the patient has some history of chronic renal failure. Patient to follow-up outpatient with Dr. Gutierrez. #16 atrial fibrillation. EKG completed showing atrial fibrillation, right bundle branch block. Possible inferior infarct, age undetermined. Whether this is new is unclear due to patient being a poor historian at this time. Cardiology services have been consulted. Telemetry monitoring has been ordered for patient. 2-D echo completed showing EF of 55-60%. Patient started on eliquis 2.5 mg twice a day for atrial fibrillation. Repeat EKG has been ordered per cardiology. Ongoing management as an outpatient per cardiology. She to follow-up outpatient with radiology services. Patient will be DC'd home on eliquis 2.5 mg twice a day #18 acute asthma exacerbation. Patient will be DC'd home on albuterol inhaler. She to follow-up closely with primary care provider #19 anemia. Hemoglobin 10.9. Ferrous sulfate was not added due to potential interaction with Sinemet. Patient to follow-up closely with PCP outpatient. CBC ordered for 2 days Hospital course Les Schneider is an 82-year-old male who presented to [facility] emergency room with a chief complaint of lightheadedness and confusion. Patient significant difficulty with hearing, he states that he started feeling lightheaded few days prior to presentation he denies any chest pain he denies any shortness of breath. 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 He was admitted to medical floor for further evaluation, neurology consultation was requested. In the emergency room patient had evidence of renal insufficiency with BUN of 57 and creatinine of 1.7 to potassium was elevated at 5.5 and glucose was elevated at 326 urine analysis did not reveal evidence of urinary tract infection chest x-ray revealed evidence of cardiomegaly without any evidence of infectious processes in the lungs. On 01/25/2018 patient is currently resting comfortably in bed. Patient remains slightly confused. Patient denies chest pain or shortness of breath. Patient denies any urinary burning or frequency. patient denies nausea vomiting or diarrhea On 01/26/2018 patient is currently resting comfortably in bed. Patient denies any complaints at this time. Denies chest pain or shortness breath. Denies any urinary burning or frequency. Denies nausea vomiting diarrhea On 01/27/2018 patient is currently resting comfortably in bed. Per nursing staff patient did have a bit of confusion throughout night. This time patient denies any complaints. Denies chest pain or shortness of breath. Denies any nausea vomiting or diarrhea. Patient denies any urinary burning or frequency On 01/28/2018 patient is currently resting comfortably in bed with no complaints. Patient creatinine increasing to 2.14. Lisinopril has been discontinued. Blood pressure well-controlled at this time. Nephrology has been consulted. Patient also having audible wheezing. Chest x-ray has been ordered. Breathing treatments have been added. At this time patient denies chest pain or shortness of breath. Patient denies nausea vomiting or diarrhea. On 01/29/2018 patient currently resting in bed. No new complaints. Creatinine increasing to 2.26. Nephrology services are following. Patient's wheezing has significantly improved. Patient denies chest pain or shortness breath. Patient denies any urinary burning or frequency. Patient denies nausea vomiting or diarrhea On 01/30/2018 patient is resting comfortably in bed he is complaining of constipation last bowel movement 3 days ago otherwise no complaints. There is improvement in kidney function with creatinine down to 1.68, nephrology following, he denies any cough chest pain or shortness of breath, there is no nausea or vomiting no abdominal pain and no urinary symptoms. On 01/31/2018 patient was seen and examined he is alert and oriented 3 very hard of hearing he is resting comfortably in bed there is no fever or chills no headache or dizziness no chest pain no shortness of breath no cough no nausea or vomiting no abdominal pain no diarrhea patient is still complaining of constipation there is no urinary symptoms On 02/01/2018 patient is alert and oriented 3. Patient is resting comfortably in bed. Patient is eager to go home. Patient denies chest pain or shortness of breath. Denies any urinary burning or frequency. Patient denies nausea vomiting or diarrhea. Patient instructed to follow-up PCP. Patient has been cleared for discharged from consulting providers. CBC and CMP ordered for days. Patient will be DC'd home on eliquis for new onset atrial fibrillation. Patient followed closely with cardiology services. Patient also DC'd on albuterol inhaler for increased weakness during hospitalization. Patient to follow-up with PCP with this issue. Bumex has been decreased to once a day per nephrology. I performed an examination of the patient and discussed their management with the Nurse Practitioner. I have reviewed the Nurse Practitioner's notes and agree with the documented findings and plan of care Patient Condition at Discharge: Stable Plan - Discharge Summary Discharge Rx Participant: No New Discharge Prescriptions: New Apixaban [Eliquis] 2.5 mg PO BID #60 tablet Atorvastatin [Lipitor] 40 mg PO HS #30 tab Bumetanide [BUMEX] 1 mg PO DAILY #30 tab Magnesium Oxide [Mag-Ox] 400 mg PO BID #60 tab Albuterol Inhaler [Ventolin Hfa Inhaler] 1 - 2 puff INHALATION RT-Q6H PRN #1 inhaler PRN Reason: Wheezing Continue Multivitamin/Iron/Folic Acid [Centrum Complete Multivit Tab] 1 tab PO DAILY Levothyroxine Sodium [Synthroid] 100 mcg PO DAILY Insulin Glargine,Hum.rec.anlog [Lantus Solostar] 54 unit SQ HS Insulin Aspart [NovoLOG (formulary)] 6 unit SQ DAILY Omeprazole [PriLOSEC] 20 mg PO HS Escitalopram [Lexapro] 20 mg PO HS Metoprolol Tartrate [Lopressor] 50 mg PO BID Aspirin EC [Ecotrin Low Dose] 81 mg PO HS Amitriptyline HCl [Elavil] 10 mg PO HS Cholecalciferol (Vitamin D3) [Vitamin D3] 2,000 unit PO DAILY Primidone [Mysoline] 50 mg PO BID Carbidopa-Levodopa 25-100 mg [Sinemet 25-100 mg] 1 tab PO TID Discontinued Lisinopril [Zestril] 20 mg PO DAILY Clopidogrel [Plavix] 75 mg PO DAILY Bumetanide [Bumex] 1 mg PO BID Potassium Chloride [Klor-Con 20] 20 meq PO BID Rosuvastatin Calcium [Crestor] 5 mg PO DAILY Discharge Medication List Insulin Aspart [NovoLOG (formulary)] 6 unit SQ DAILY 04/22/16 [History] Insulin Glargine,Hum.rec.anlog [Lantus Solostar] 54 unit SQ HS 04/22/16 [History ] Levothyroxine Sodium [Synthroid] 100 mcg PO DAILY 04/22/16 [History] Multivitamin/Iron/Folic Acid [Centrum Complete Multivit Tab] 1 tab PO DAILY [History] Amitriptyline HCl [Elavil] 10 mg PO HS 04/29/16 [History] Aspirin EC [Ecotrin Low Dose] 81 mg PO HS 04/29/16 [History] Escitalopram [Lexapro] 20 mg PO HS 04/29/16 [History] Metoprolol Tartrate [Lopressor] 50 mg PO BID 04/29/16 [History] Omeprazole [PriLOSEC] 20 mg PO HS 04/29/16 [History] Cholecalciferol (Vitamin D3) [Vitamin D3] 2,000 unit PO DAILY 10/11/17 [History] Primidone [Mysoline] 50 mg PO BID 10/11/17 [History] Carbidopa-Levodopa 25-100 mg [Sinemet 25-100 mg] 1 tab PO TID 01/23/18 [History] Apixaban [Eliquis] 2.5 mg PO BID #60 tablet 01/26/18 [Rx] Albuterol Inhaler [Ventolin Hfa Inhaler] 1 - 2 puff INHALATION RT-Q6H PRN #1 inhaler 02/01/18 [Rx] Atorvastatin [Lipitor] 40 mg PO HS #30 tab 02/01/18 [Rx] Bumetanide [BUMEX] 1 mg PO DAILY #30 tab 02/01/18 [Rx] Magnesium Oxide [Mag-Ox] 400 mg PO BID #60 tab 02/01/18 [Rx] Follow up Appointment(s)/Referral(s): Finn No MD [STAFF PHYSICIAN] - 02/18/18 9:45 am Alissa Knapp DO [Primary Care Provider] - 1-2 days Raul Gutierrez MD [STAFF PHYSICIAN] - 1 Week Brittnee Patel MD [STAFF PHYSICIAN] - 1 Week Ambulatory/Diagnostic Orders: Complete Blood Count w/diff [LAB.AMB] Time Frame: 2 Days, Location: None Selected Comprehensive Metabolic Panel [LAB.AMB] Time Frame: 2 Days, Location: None Selected Activity/Diet/Wound Care/Special Instructions: Diet renal Activity as tolerated Discharge Disposition: HOME SELF-CARE
[2018-02-01 14:26] VITALS: BMI 33.8
[2018-02-01 15:56] VITALS: BP 121/54; PULSE 63; TEMP 99.1
[2018-02-01 17:11] LABS: Glucose,Whole Blood 255 mg/dL (75-99)
--- NOTE | 2018-02-01 20:17 | PN ---
PROGRESS NOTE Patient is seen for followup for acute kidney injury. Patient's renal function has improved significantly. He has been voiding well. His creatinine is down to 1.4 today. It was 1.29 yesterday. It has come up slightly; however, peak was at 2.26. On examination this morning, blood pressure was 121/54, heart rate 82 per minute. Patient is afebrile. EXAMINATION OF THE HEART: S1, S2. EXAMINATION OF LUNGS: Bilateral breath sounds are heard. ABDOMEN: Soft, non-tender. Examination of lower extremities shows no evidence of edema. CHECKER DUMP GROUNDS exam is grossly intact. Labs show sodium 137, potassium 4.7, BUN 28, serum creatinine 1.42, hemoglobin 10.7 g/dL. ASSESSMENT: 1. Acute kidney injury, non-oliguric, prerenal, improved. Patient is maintained on a small dose of Bumex. Serum creatinine is slightly higher today as compared to yesterday. We need to monitor as outpatient and adjust dose of diuretics. He is maintained on a small dose of Bumex. 2. Intravascular volume depletion, now improved. 3. Chronic kidney disease, stage III, with baseline about 1.2 to 1.4 mg/dL secondary to nephrosclerosis. 4. Multiple bilateral renal cysts. 5. Mental status changes at the time of admission, currently resolved. PLAN: Monitor labs as outpatient and adjust diuretics depending on his volume status. MMODL / IJN: [id number] /
== END 2018-02-01 16:54 | disposition home or self-care (01) | DRG 683 ==
LOC: EC 12:19 → 4MS4W 15:04
PROVIDERS: ADMIT Internal Medicine; ATTEND Internal Medicine
DX: N17.9 Acute kidney failure, unspecified (principal); G93.40 Encephalopathy, unspecified; J45.901 Unspecified asthma with (acute) exacerbation; Z68.41 Body mass index [BMI] 40.0-44.9, adult; D64.9 Anemia, unspecified; E03.9 Hypothyroidism, unspecified; E11.22 Type 2 diabetes mellitus with diabetic chronic kidney disease; E11.42 Type 2 diabetes mellitus with diabetic polyneuropathy; E11.65 Type 2 diabetes mellitus with hyperglycemia; E66.9 Obesity, unspecified; E78.5 Hyperlipidemia, unspecified; E83.42 Hypomagnesemia; E86.9 Volume depletion, unspecified; E87.5 Hyperkalemia; F32.9 Major depressive disorder, single episode, unspecified; G20 Parkinson's disease; G93.89 Other specified disorders of brain; H91.90 Unspecified hearing loss, unspecified ear; I12.9 Hypertensive chronic kidney disease with stage 1 through stage 4 chronic kidney disease, or unspecified chronic kidney disease; N18.3 Chronic kidney disease, stage 3 (moderate); I25.10 Atherosclerotic heart disease of native coronary artery without angina pectoris; I25.2 Old myocardial infarction; I45.10 Unspecified right bundle-branch block; I48.0 Paroxysmal atrial fibrillation; I65.22 Occlusion and stenosis of left carotid artery; K21.9 Gastro-esophageal reflux disease without esophagitis; K59.00 Constipation, unspecified; N28.1 Cyst of kidney, acquired; Z63.4 Disappearance and death of family member; Z79.02 Long term (current) use of antithrombotics/antiplatelets; Z79.4 Long term (current) use of insulin; Z79.82 Long term (current) use of aspirin; Z79.899 Other long term (current) drug therapy; Z86.73 Personal history of transient ischemic attack (TIA), and cerebral infarction without residual deficits; M54.9 Dorsalgia, unspecified; G89.29 Other chronic pain; Z95.1 Presence of aortocoronary bypass graft; Z81.8 Family history of other mental and behavioral disorders; Z79.890 Hormone replacement therapy; R32 Unspecified urinary incontinence
CPT/HCPCS: 36415; 70450; 71046; 76770; 80048; 80053; 80061; 81001; 82140; 82550; 82553; 83036; 83605; 83735; 84100; 84443; 84484; 85025; 85610; 85730; 93005; 93306; 93880; 94640; 95816; 96361; 96365; 99285

== ENCOUNTER 2018-05-21 04:58 | Emergency (ER) | payer MEDICARE ==
[2018-05-21 05:05] VITALS: TEMP 98.1
[2018-05-21 05:06] LABS: Glucose,Whole Blood 109 mg/dL (75-99)
[2018-05-21] MEDS ORDERED: SODIUM CHLORIDE 0.9% 1,000 ML IV STA (05:09)
[2018-05-21] MEDS ORDERED: LORazepam 2 MG/ML INJ IV STA (05:09)
--- NOTE | 2018-05-21 06:09 | ED ---
Seizure HPI - General Chief Complaint: Seizure Stated Complaint: Seizure Time Seen by Provider: 05/21/18 05:07 Source: family, EMS Mode of arrival: EMS Limitations: altered mental status - History of Present Illness Initial Comments: Les Schneider is an 82-year-old male who is brought to the ED today via EMS for evaluation of a possible seizure at home. Upon arrival the patient is acutely agitated alert and oriented to person only and able to provide no meaningful history. Patient's daughter and son-in-law who live with the patient able to provide further history. They report that around 10:30 PM patient was in his room when they heard a fall, the patient has frequent falls so they went to his room to assist him back to bed he seemed mildly confused but was agreeable unable to be placed back in bed. They believe he then slept for a few hours. Around 4 AM he was complaining that he was cold, he was sitting at the table gave him a blanket they attempted to give him hot soup but he had began shaking so hard he was unable to hold it he was awake at that time. Patient then had approximately a 1-3 minute episode of becoming less responsive, staring off and having shaking of his bilateral upper and lower extremities with his upper extremities being in extension and the patient's body seeming very tense. Family became concerned he was having a seizure and called 911. That episode resolved prior to EMS arrival but the patient seemed very confused and mildly combative. Patient was transferred to the ER for further evaluation. Patient's daughter bedside reports that the patient has a history of episodes similar to this though has never been diagnosed with a seizure disorder. She reports at one point he had an episode like this and it was due to electrolyte abnormalities. He does follow with neurology. He did see his neurologist Dr. Lea yesterday. - Related Data Home Medications Medication Instructions Recorded Confirmed Insulin Aspart [NovoLOG 10 unit SQ AC-TID 04/22/16 05/21/18 (formulary)] Insulin Glargine,Hum.rec.anlog 55 unit SQ HS 04/22/16 05/21/18 [Lantus Solostar] Levothyroxine Sodium [Synthroid] 100 mcg PO DAILY 04/22/16 05/21/18 Amitriptyline HCl [Elavil] 10 mg PO HS 04/29/16 05/21/18 Escitalopram [Lexapro] 20 mg PO HS 04/29/16 05/21/18 Metoprolol Tartrate [Lopressor] 50 mg PO BID 04/29/16 05/21/18 Cholecalciferol (Vitamin D3) 2,000 unit PO DAILY 10/11/17 05/21/18 [Vitamin D3] Primidone [Mysoline] 50 mg PO BID 10/11/17 05/21/18 Carbidopa-Levodopa 25-100 mg 1 tab PO TID 01/23/18 05/21/18 [Sinemet 25-100 mg] Bumetanide [BUMEX] 1 mg PO BID 05/21/18 05/21/18 Previous Rx's Medication Instructions Recorded Apixaban [Eliquis] 2.5 mg PO BID #60 tablet 01/26/18 Atorvastatin [Lipitor] 40 mg PO HS #30 tab 02/01/18 Allergies Allergy/AdvReac Type Severity Reaction Status Date / Time No Known Allergies Allergy Verified 05/21/18 06:57 Review of Systems ROS Statement: Those systems with pertinent positive or pertinent negative responses have been documented in the HPI. ROS Other: All systems not noted in ROS Statement are negative. Past Medical History Past Medical History: Coronary Artery Disease (CAD), Heart Failure, Diabetes Mellitus, GERD/Reflux, Hyperlipidemia, Hypertension, Myocardial Infarction ([place]) , Vascular Disorder Additional Past Medical History / Comment(s): IDDM type II, blackened R great toe currently, CVA 2013-resolved dysarthria, L internal caratid severly stenosed , tinnitis bilaterally, bilateral neuropathy of hands, very [place] bilaterally, incontinence. Last Myocardial Infarction Date:: 1987 History of Any Multi-Drug Resistant Organisms: None Reported, Unobtainable Past Surgical History: Cholecystectomy, Coronary Bypass/CABG, Heart Catheterization Additional Past Surgical History / Comment(s): quadrouple bypass 2002 Past Anesthesia/Blood Transfusion Reactions: No Reported Reaction Additional Past Anesthesia/Blood Transfusion Reaction / Comment(s): Pt has received blood in past without reaction. Past Psychological History: Depression Smoking Status: Never smoker Past Alcohol Use History: None Reported Past Drug Use History: None Reported - Past Family History Mother Additional Family Medical History / Comment(s): Mother had breast surgery (pt unsure if due to cancer) and shorley after. Father Additional Family Medical History / Comment(s): Father of suicide. General Exam - General Exam Comments Initial Comments: Physical Exam GENERAL: Diffuse, agitated, combative elderly gentleman HENT: Normocephalic, Atraumatic. EYES: PERRL, EOMI PULMONARY: Unlabored respirations CARDIOVASCULAR: There is a regular rate and rhythm without any murmurs gallops or rubs. ABDOMEN: Soft and nontender with normal bowel sounds. SKIN: Skin is clear with no lesions or rashes and otherwise unremarkable. : Deferred NEUROLOGIC: Alert and oriented to self only MUSCULOSKELETAL: Normal extremities with adequate strength and full range of motion. No lower extremity swelling or edema. No calf tenderness. PSYCHIATRIC: Agitated Limitations: no limitations Limitations: altered mental status Course Vital Signs 05/21/18 05/21/18 05/21/18 05:00 05:50 06:00 Temperature 98.1 F Pulse Rate 70 85 Respiratory 24 17 Rate Blood Pressure 148/72 152/85 152/85 O2 Sat by Pulse 100 Oximetry 05/21/18 05/21/18 05/21/18 06:10 06:20 06:47 Temperature Pulse Rate 62 Respiratory 16 Rate Blood Pressure 143/68 143/68 132/61 O2 Sat by Pulse 98 Oximetry - Reevaluation(s) Reevaluation #1: reevaluated resting comfortably 05/21/18 07:00 Medical Decision Making - Medical Decision Making Patient was seen and evaluated immediately upon arrival emergency department patient is noted to be agitated confused and combative moving all extremities no seizure activity noted Patient likely postictal confusion Labs and imaging were ordered Patient was given 1 mg of IV Ativan for his agitation subsequent resolution of his agitation and resting comfortably Labs resulted with mild leukocytosis, chronic anemia, profound lactic acidosis Additional IV fluids were ordered CT head with no acute findings Results were discussed with the patient's family, I advised him at this time our hospital does not have neurology services available patient will require transfer they would prefer to be transferred to [facility] as that is closest to their home. Patient care discussed with Dr. Hernandez at [facility] who accepts transfer Patient remained calm and cooperative throughout his ED stay with no further seizure activity observed - Lab Data Result diagrams: 05/21/18 05:20 05/21/18 05:20 Lab Results 01/25/19 01/25/19 01/25/19 Range/Units 05:02 05:20 05:20 WBC 10.8 H (3.8-10.6) k/uL RBC 4.28 L (4.30-5.90) m/uL Hgb 12.8 L (13.0-17.5) gm/dL Hct 39.1 (39.0-53.0) % MCV 91.4 (80.0-100.0) fL MCH 29.8 (25.0-35.0) pg MCHC 32.7 (31.0-37.0) g/dL RDW 14.0 (11.5-15.5) % Plt Count 296 (150-450) k/uL Sodium 138 (137-145) mmol/L Potassium 3.7 (3.5-5.1) mmol/L Chloride 101 (98-107) mmol/L Carbon Dioxide 24 (22-30) mmol/L Anion Gap 13 mmol/L BUN 30 H (9-20) mg/dL Creatinine 1.42 H (0.66-1.25) mg/dL Est GFR (CKD-EPI)AfAm 54 (>60 ml/min/1.73 sqM) Est GFR (CKD-EPI)NonAf 47 (>60 ml/min/1.73 sqM) Glucose 142 H (74-99) mg/dL POC Glucose (mg/dL) 109 H (75-99) mg/dL POC Glu [employer]ing [employer]sembling Supervisor ID Raven Sosa Plasma Lactic Acid Popeye (0.7-2.0) mmol/L Calcium 8.9 (8.4-10.2) mg/dL Total Bilirubin 0.4 (0.2-1.3) mg/dL AST 24 (17-59) U/L ALT 24 (21-72) U/L Alkaline Phosphatase 103 (38-126) U/L Total Creatine Kinase (55-170) U/L Total Protein 6.3 (6.3-8.2) g/dL Albumin 3.4 L (3.5-5.0) g/dL Urine Color Urine Appearance (Clear) Urine pH (5.0-8.0) Ur Specific [place] (1.001-1.035) Urine Protein (Negative) Urine Glucose (UA) (Negative) Urine Ketones (Negative) Urine Blood (Negative) Urine Nitrite (Negative) Urine Bilirubin (Negative) Urine Urobilinogen (<2.0) mg/dL Ur Leukocyte Esterase (Negative) 05/21/18 05/21/18 05/21/18 Range/Units 05:20 05:20 05:30 WBC (3.8-10.6) k/uL RBC (4.30-5.90) m/uL Hgb (13.0-17.5) gm/dL Hct (39.0-53.0) % MCV (80.0-100.0) fL MCH (25.0-35.0) pg MCHC (31.0-37.0) g/dL RDW (11.5-15.5) % Plt Count (150-450) k/uL Sodium (137-145) mmol/L Potassium (3.5-5.1) mmol/L Chloride (98-107) mmol/L Carbon Dioxide (22-30) mmol/L Anion Gap mmol/L BUN (9-20) mg/dL Creatinine (0.66-1.25) mg/dL Est GFR (CKD-EPI)AfAm (>60 ml/min/1.73 sqM) Est GFR (CKD-EPI)NonAf (>60 ml/min/1.73 sqM) Glucose (74-99) mg/dL POC Glucose (mg/dL) (75-99) mg/dL POC Glu [employer]ing And Assembling Supervisor ID Plasma Lactic Acid Popeye 8.0 H* (0.7-2.0) mmol/L Calcium (8.4-10.2) mg/dL Total Bilirubin (0.2-1.3) mg/dL AST (17-59) U/L ALT (21-72) U/L Alkaline Phosphatase (38-126) U/L Total Creatine Kinase 83 (55-170) U/L Total Protein (6.3-8.2) g/dL Albumin (3.5-5.0) g/dL Urine Color Yellow Urine Appearance Clear (Clear) Urine pH 6.5 (5.0-8.0) Ur Specific [place] 1.014 (1.001-1.035) Urine Protein Trace H (Negative) Urine Glucose (UA) Negative (Negative) Urine Ketones Negative (Negative) Urine Blood Negative (Negative) Urine Nitrite Negative (Negative) Urine Bilirubin Negative (Negative) Urine Urobilinogen <2.0 (<2.0) mg/dL Ur Leukocyte Esterase Negative (Negative) - EKG Data -: EKG Interpreted by Me EKG Comments: EKG obtained at 5:08 AM rate is 72, his P waves preceding each QRS rhythm is sinus, there is prolonged MA interval to 72, QRS 144, QTC is 532 given there is right bundle branch block, there are no acute ST elevations or depressions or evidence of acute ischemia or infarction. Disposition Clinical Impression: Seizure, Lactic acidosis, Renal insufficiency, Confusion Disposition: OTHER INSTITUTION NOT DEFINED Is patient prescribed a controlled substance at d/c from ED?: No Referrals: Alissa Knapp DO [Primary Care Provider] - 1-2 days - Out of Hospital Transfer - Req. Specs Out of Hospital Transfer - Requested Specifics: Other Emergency Center ([facility]
[2018-05-21 06:11] LABS: HCT 39.1 % (39.0-53.0); HGB 12.8 gm/dL (13.0-17.5); MCH 29.8 pg (25.0-35.0); MCHC 32.7 g/dL (31.0-37.0); MCV 91.4 fL (80.0-100.0); Mean Platelet Volume 6.9; Platelet Count 296 k/uL (150-450); RBC 4.28 m/uL (4.30-5.90); WBC 10.8 k/uL (3.8-10.6)
[2018-05-21 06:12] LABS: Appearance,Urine Clear (Clear); Bilirubin,Urine Negative (Negative); Blood,Urine Negative (Negative); Color,Urine Yellow; Glucose,Urine (UA) Negative (Negative); Ketones,Urine Negative (Negative); Leukocyte Esterase,Urine Negative (Negative); Nitrite,Urine Negative (Negative); PH, Urine 6.5 (5.0-8.0); Protein,Urine Trace (Negative); Specific Gravity,Urine 1.014 (1.001-1.035); Urobilinogen,Urine <2.0 mg/dL (<2.0)
[2018-05-21 06:23] LABS: Albumin 3.4 g/dL (3.5-5.0); Calcium 8.9 mg/dL (8.4-10.2); Potassium 3.7 mmol/L (3.5-5.1); Total Bilirubin 0.4 mg/dL (0.2-1.3); Total Protein 6.3 g/dL (6.3-8.2)
[2018-05-21] MEDS ORDERED: SODIUM CHLORIDE 0.9% 1,000 ML IV ONE (06:44)
[2018-05-21 06:49] VITALS: BP 132/61; PULSE 62; RESP 16
--- NOTE | 2018-05-21 07:02 | CT ---
EXAM: CT Head Without Intravenous Contrast CLINICAL HISTORY: ITS.REASON CT Reason: Pain TECHNIQUE: Axial computed tomography images of the head/brain without intravenous contrast. CTDI is 45.2 mGy and DLP is 1019 mGy-cm. This CT exam was performed using one or more of the following dose reduction techniques: automated exposure control, adjustment of the mA and/or kV according to patient size, and/or use of iterative reconstruction technique. COMPARISON: 01/23/18 FINDINGS: Brain: No acute intracranial hemorrhage. Mild periventricular hypodensities, unchanged. Diffuse atrophy. Focal hypodensity and encephalomalacia in the right temporal parietal lobe, unchanged No significant white matter disease. Midline shift: No midline shift. Ventricles: Unremarkable. No ventriculomegaly. Bones/joints: Unremarkable. No acute fracture. Soft tissues: Unremarkable. Sinuses: Mild mucosal thickening in the right sphenoid sinus. Mastoid air cells: Unremarkable as visualized. No mastoid effusion. IMPRESSION: No acute intracranial hemorrhage, mass effect or midline shift. Mild right sphenoid sinus disease Chronic findings as noted above. EXAM: CT Cervical Spine Without Intravenous Contrast CLINICAL HISTORY: ITS.REASON CT Reason: Pain TECHNIQUE: Axial computed tomography images of the cervical spine without intravenous contrast. CTDI is 14.6 mGy and DLP is 339.8 mGy-cm. This CT exam was performed using one or more of the following dose reduction techniques: automated exposure control, adjustment of the mA and/or kV according to patient size, and/or use of iterative reconstruction technique. COMPARISON: 04/29/16 FINDINGS: Vertebrae: Straightening of the normal cervical lordosis which may reflect muscle spasm or positional artifact. No acute fracture. Discs/spinal canal/neural foramina: Degenerative changes seen throughout the cervical spine with bulky anterior osteophyte formation, unchanged. Disc osteophytic bulges at multiple levels. Mild spinal stenosis is suspected at multiple levels. Follow-up MR for better visualization as indicated Soft tissues: No prevertebral soft tissue swelling. Vasculature: Calcified atherosclerotic changes in the carotids and vertebral arteries. IMPRESSION: No acute bony abnormality. Degenerative changes at multiple levels. Disc osteophytic bulges at multiple levels with mild spinal stenosis.
[2018-05-21 07:14] LABS: Creatine Kinase 83 U/L (55-170)
[2018-05-21 07:17] LABS: Band Neutrophils % 3 %; Eosinophils # (M) 0.54 k/uL (0-0.7); Lymphocytes # (M) 2.92 k/uL (1.0-4.8); Neutrophils % (M) 53 %; Nucleated Red Blood Cells 0 /100 WBC (0-0); Total Cells Counted 100
[2018-05-21 07:18] LABS: Anisocytosis (M) Present; Large Platelets Present; Polychromasia Present
[2018-05-21 07:27] LABS: Creatine Kinase MB 1.6 ng/mL (0.0-2.4); Troponin I <0.012 ng/mL (0.000-0.034)
== END 2018-05-21 08:05 | disposition short-term general hospital (02) ==
LOC: EC 04:58
DX: E87.2 Acidosis (principal); R56.9 Unspecified convulsions; R41.0 Disorientation, unspecified; N28.9 Disorder of kidney and ureter, unspecified; I44.0 Atrioventricular block, first degree; I45.10 Unspecified right bundle-branch block; R45.1 Restlessness and agitation; D72.829 Elevated white blood cell count, unspecified; D53.9 Nutritional anemia, unspecified; I11.0 Hypertensive heart disease with heart failure; I50.9 Heart failure, unspecified; I25.10 Atherosclerotic heart disease of native coronary artery without angina pectoris; E11.42 Type 2 diabetes mellitus with diabetic polyneuropathy; H91.93 Unspecified hearing loss, bilateral; F32.9 Major depressive disorder, single episode, unspecified; I25.2 Old myocardial infarction; Z79.4 Long term (current) use of insulin; Z79.899 Other long term (current) drug therapy; Z95.1 Presence of aortocoronary bypass graft; Z87.39 Personal history of other diseases of the musculoskeletal system and connective tissue
CPT/HCPCS: 36415; 93005; 80053; 82550; 82553; 83605; 84484; 85025; 81003; 72125; 70450; 99285; 96374; 96361 ×2; J2060